=== PATIENT | female | born 1950 | race Two or more races ===

== ENCOUNTER 2018-07-15 07:02 | Emergency (ER) | payer MEDICAID ==
[2018-07-15] MEDS ORDERED: Succinylcholine 200 MG/10 ML MDV ONE (07:08)
[2018-07-15] MEDS ORDERED: Rocuronium 50 MG/5 ML Vial ONE ×2 (07:08→08:16)
[2018-07-15] MEDS ORDERED: Sodium Chloride 0.9% 1,000 ML IV ONE (07:25)
[2018-07-15] MEDS ORDERED: fentaNYL 100 MCG/2 ML SDV ONE ×2 (07:30→08:40)
[2018-07-15] MEDS ORDERED: Chlorhexidine Gluconate 0.12% Oral Rinse 15 ML Cup MUCMEM ONE (07:30)
[2018-07-15] MEDS ORDERED: Sodium Chloride 0.9% 10 ML Syringe FLUSH PRN (07:37)
[2018-07-15] MEDS ORDERED: Etomidate 2 MG/ML 10 ML SDV ONE ×2 (07:45→08:41)
[2018-07-15] MEDS ORDERED: Midazolam 1 MG/ML 2 ML SDV ONE ×2 (07:45→08:41)
[2018-07-15] MEDS ORDERED: Chlorhexidine Gluconate 0.12% Oral Rinse 15 ML Cup ONE ×2 (07:45→08:41)
[2018-07-15] MEDS ORDERED: Sodium Chloride 0.9% 1,000 ML IV SCH (07:45)
[2018-07-15] MEDS ORDERED: cefTRIAXone 1 GM Vial IVPUSH ONE (07:50)
--- NOTE | 2018-07-15 07:50 | EDM.PDOC ---
ED HPI GENERAL MEDICAL PROBLEM - General Chief Complaint: Respiratory Problem Stated Complaint: respiratory failure Time Seen by Provider: 07/15/18 07:02 Source of Information: Reports: EMS, EMS Notes Reviewed, Family History Limitations: Reports: Respiratory Distress - History of Present Illness INITIAL COMMENTS - FREE TEXT/NARRATIVE: Patient is brought into the emergency department by EMS with concerns of respiratory failure. Patient's family who is at the bedside state that when he got up to go to work this morning he noticed his sister was sitting in the chair having a difficult time breathing she was talking to him but unable to complete full sentences. When he went to get dressed and come back pain was that she was not able to respond to questions any longer. He contacted 911. EMS on site provided oxygenation at 15 L nonrebreather, also gave 40 mg of Lasix, and checked a blood sugar. Patient was immediately transported to the emergency department. Patient continues to have respiratory rate in the upper 30s or 40s. Oxygenation was 15 L is 96% heart rate is in the 80s. Patient did have a temperature of 99 by EMS. Pt is legally blind and her brother assist at home. Onset: Sudden Improves with: Reports: None Worsens with: Reports: None ED ROS GENERAL - Review of Systems Review Of Systems: Unable To Obtain ED EXAM, GENERAL - Physical Exam Exam: See Below Exam Limited By: Respiratory Distress General Appearance: Lethargic, Obtunded, Severe Distress Eye Exam: Bilateral Eye: PERRL Ear Exam: Bilateral Ear: Auricle Normal, Canal Normal, TM normal Nose: Normal Inspection, Normal Mucosa Throat/Mouth: Normal Inspection, Normal Lips, Normal Oropharynx, Perioral Cyanosis Head: Atraumatic Neck: Normal Inspection, Supple, Non-Tender, Full Range of Motion Respiratory/Chest: Respiratory Distress, Decreased Breath Sounds, Crackles, Rales, Accessory Muscle Use Cardiovascular: No Edema Peripheral Pulses: 2+: Radial (L), Radial (R) GI/Abdominal: Normal Bowel Sounds, Soft, Non-Tender, No Distention Back Exam: Normal Inspection, Full Range of Motion Extremities: Non-Tender, No Pedal Edema Neurological: Unresponsive Skin Exam: Cool, Diaphoretic, Pallor ED RESPIRATORY PROCEDURES - Endotracheal Intubation ET Intubation Indication: Respiratory Failure, Airway Protection Preparation: Suction, Balloon Tested, BVM Set Up, Difficult Airway Equip Pre-Oxygenation: Assisted with BVM, 100% FiO2 Anesthesia Meds: Etomidate, Fentanyl, Ketamine, Midazolam, Rocuronium, Succinylcholine Placement: Orotracheal Cords Visualized: Yes ETT Size In mm: 8.0 Number of Attempts: 1 Confirmed By: CO2 Indicator, Bilateral Breath Sounds, Chest Xray Tube Secured By: By Provider Course - Orders/Labs/Meds Orders: Active Orders 24 hr Category Date Time Status Cardiac Monitoring [RC] . DIRECTED Care 07/15/18 07:38 Active EKG Documentation Completion [RC] STAT Care 07/15/18 07:38 Active Insert Urinary Catheter [OM.PC] Q24H Care 07/15/18 07:45 Ordered Rapid Sequence Intubation [RT Airway Intubation] [RC] Care 07/15/18 07:38 Active ASDIRECTED Urinary Catheter Assessment [RC] ASDIRECTED Care 07/15/18 07:39 Active Chest 1V Frontal [CR] Stat Exams 07/15/18 07:05 Taken Chest 1V Frontal [CR] Stat Exams 07/15/18 07:30 Taken BLOOD GAS ARTERIAL [BG] Stat Lab 07/15/18 07:38 Ordered CULTURE BLOOD [BC] Stat Lab 07/15/18 07:34 Received CULTURE BLOOD [BC] Stat Lab 07/15/18 07:39 Received UA RFX EDY AND CULT IF INDIC [URIN] Stat Lab 07/15/18 08:15 Received Norepinephrine [Levophed] 4 mg Med 07/15/18 08:00 Active Dextrose 5% in Water 246 ml IV TITRATE Sodium Chloride 0.9% [Normal Saline] 1,000 ml Med 07/15/18 07:45 Active IV ASDIRECTED Sodium Chloride 0.9% [Saline Flush] Med 07/15/18 07:37 Active 10 ml FLUSH ASDIRECTED PRN Blood Culture x2 Reflex Set [OM.PC] Stat Oth 07/15/18 07:38 Ordered NG [Nasogastric Orogastric Tube Insertion] [OM.PC] Oth 07/15/18 08:21 Ordered Routine Peripheral IV Insertion Adult [OM.PC] Stat Oth 07/15/18 07:37 Ordered Medication Orders Sodium Chloride (Normal Saline) 1,000 mls @ 150 mls/hr IV ASDIRECTED GREG Norepinephrine Bitartrate 4 mg (/ Dextrose/Water) 250 mls @ 7.5 mls/hr IV TITRATE GREG; Protocol Sodium Chloride (Saline Flush) 10 ml FLUSH ASDIRECTED PRN PRN Reason: Keep Vein Open Labs: Laboratory Tests 07/15/18 07/15/18 07/15/18 Range/Units 07:24 07:24 07:24 WBC 27.1 H* (4.0-10.0) x10^3/uL RBC 4.19 (4.00-5.50) x10^6/uL Hgb 10.8 L (12.0-16.0) g/dL Hct 38.5 (33.0-47.0) % MCV 91.9 (78.0-93.0) fL MCH 25.8 L (26.0-32.0) pg MCHC 28.1 L (32.0-36.0) g/dL RDW Coeff of Sebastian 16.4 H (10.0-15.0) % Plt Count 425 H (130-400) x10^3/uL Add Manual Diff Yes Neutrophils % (Manual) 91 H (50-80) % Lymphocytes % (Manual) 5 L (25-50) % Monocytes % (Manual) 3 (2-11) % Metamyelocytes % 1 H (0) % Platelet Estimate Adequate Giant Platelets Occasional H Anisocytosis 1+ slight H Macrocytosis 1+ slight H Spherocytes 1+ slight H PT 11.1 (9.6-11.4) SEC INR 1.1 L (2.0-3.5) POC ABG pH (7.35-7.45) POC ABG pCO2 (35-45) mmHG POC ABG pO2 (80-105) mmHG POC ABG HCO3 (22-26) mmol/L POC ABG Total CO2 (23-27) mmol/L POC ABG O2 Sat (95-98) % POC ABG Base Excess (-2-3) mmol/L POC FiO2 Sodium 150 H (136-145) mmol/L Potassium 4.3 (3.5-5.1) mmol/L Chloride 106 (98-107) mmol/L Carbon Dioxide 35 H (21-32) mmol/L Anion Gap 13.3 (10-20) mmol/L BUN 20 H (7-18) mg/dL Creatinine 1.2 H (0.55-1.02) mg/dL Est Cr Clr Drug Dosing TNP Estimated GFR (MDRD) 45 Glucose 175 H (74-106) mg/dL Lactic Acid (0.4-2.0) mmol/L Calcium 8.4 L (8.5-10.1) mg/dL Corrected Calcium 9.12 (8.5-10.1) mg/dL Total Bilirubin 0.3 (0.2-1.0) mg/dL AST 33 (15-37) U/L ALT 18 (14-59) U/L Alkaline Phosphatase 76 (46-116) U/L Creatine Kinase 112 (26-192) U/L Troponin I 0.034 (<=0.056) ng/mL NT-Pro-B Natriuret Pep 6903 H (<=125) pg/mL Total Protein 8.0 (6.4-8.2) g/dL Albumin 3.1 L (3.4-5.0) g/dL Globulin 4.9 Albumin/Globulin Ratio 0.63 POC Result Comm Urine Color (YELLOW) Urine Appearance (CLEAR) Urine pH (5.0-8.0) Ur Specific Vernon Urine Protein (NEGATIVE) mg/dL Urine Glucose (UA) (NEGATIVE) mg/dL Urine Ketones (NEGATIVE) mg/dL Urine Occult Blood (NEGATIVE) Urine Nitrite (NEGATIVE) Urine Bilirubin (NEGATIVE) Urine Urobilinogen (0.2) EU/dL Ur Leukocyte Esterase (NEGATIVE) 07/15/18 07/15/18 07/15/18 Range/Units 07:24 07:50 08:15 WBC (4.0-10.0) x10^3/uL RBC (4.00-5.50) x10^6/uL Hgb (12.0-16.0) g/dL Hct (33.0-47.0) % MCV (78.0-93.0) fL MCH (26.0-32.0) pg MCHC (32.0-36.0) g/dL RDW Coeff of Sebastian (10.0-15.0) % Plt Count (130-400) x10^3/uL Add Manual Diff Neutrophils % (Manual) (50-80) % Lymphocytes % (Manual) (25-50) % Monocytes % (Manual) (2-11) % Metamyelocytes % (0) % Platelet Estimate Giant Platelets Anisocytosis Macrocytosis Spherocytes PT (9.6-11.4) SEC INR (2.0-3.5) POC ABG pH 7.158 L* (7.35-7.45) POC ABG pCO2 111 H* (35-45) mmHG POC ABG pO2 317 H (80-105) mmHG POC ABG HCO3 39 H (22-26) mmol/L POC ABG Total CO2 43 H (23-27) mmol/L POC ABG O2 Sat 100 H (95-98) % POC ABG Base Excess 11 H (-2-3) mmol/L POC FiO2 0.52 Sodium (136-145) mmol/L Potassium (3.5-5.1) mmol/L Chloride (98-107) mmol/L Carbon Dioxide (21-32) mmol/L Anion Gap (10-20) mmol/L BUN (7-18) mg/dL Creatinine (0.55-1.02) mg/dL Est Cr Clr Drug Dosing Estimated GFR (MDRD) Glucose (74-106) mg/dL Lactic Acid 3.0 H* (0.4-2.0) mmol/L Calcium (8.5-10.1) mg/dL Corrected Calcium (8.5-10.1) mg/dL Total Bilirubin (0.2-1.0) mg/dL AST (15-37) U/L ALT (14-59) U/L Alkaline Phosphatase (46-116) U/L Creatine Kinase (26-192) U/L Troponin I (<=0.056) ng/mL NT-Pro-B Natriuret Pep (<=125) pg/mL Total Protein (6.4-8.2) g/dL Albumin (3.4-5.0) g/dL Globulin Albumin/Globulin Ratio POC Result Comm Urine Color Light yellow (YELLOW) Urine Appearance Slightly cloudy H (CLEAR) Urine pH 6.0 (5.0-8.0) Ur Specific Vernon 1.010 Urine Protein Trace H (NEGATIVE) mg/dL Urine Glucose (UA) Negative (NEGATIVE) mg/dL Urine Ketones Negative (NEGATIVE) mg/dL Urine Occult Blood Small H (NEGATIVE) Urine Nitrite Negative (NEGATIVE) Urine Bilirubin Negative (NEGATIVE) Urine Urobilinogen 0.2 (0.2) EU/dL Ur Leukocyte Esterase Negative (NEGATIVE) Meds: Medications Generic Name Dose Route Start Last Admin Trade Name Freq PRN Reason Stop Dose Admin Sodium Chloride 1,000 mls @ 150 mls/hr 07/15/18 07:45 Normal Saline IV ASDIRECTED GREG Norepinephrine Bitartrate 4 mg 250 mls @ 7.5 mls/hr 07/15/18 08:00 / Dextrose/Water IV TITRATE GREG Protocol 2 MCG/MIN Sodium Chloride 10 ml 07/15/18 07:37 Saline Flush FLUSH ASDIRECTED PRN Keep Vein Open Discontinued Medications Generic Name Dose Route Start Last Admin Trade Name Lan PRN Reason Stop Dose Admin Ceftriaxone Sodium 1 gm 07/15/18 07:50 Rocephin IVPUSH 07/15/18 07:51 ONETIME ONE Rocuronium Finley Confirm 07/15/18 07:08 Zemuron Administered 07/15/18 07:09 Dose 50 mg .ROUTE .STK-MED ONE Rocuronium Finley Confirm 07/15/18 08:16 Zemuron Administered 07/15/18 08:17 Dose 50 mg .ROUTE .STK-MED ONE Succinylcholine Chloride Confirm 07/15/18 07:08 Quelicin Administered 07/15/18 07:09 Dose 200 mg .ROUTE .STK-MED ONE Departure - Departure Time of Disposition: 08:15 Disposition: DC/Tfer to Acute Hospital 02 Condition: Critical Clinical Impression: Respiratory failure Qualifiers: Chronicity: acute Respiratory failure complication: hypoxia and hypercapnia Qualified Code(s): J96.01 - Acute respiratory failure with hypoxia Pneumonia Qualifiers: Pneumonia type: due to unspecified organism Laterality: right Lung location: lower lobe of lung Qualified Code(s): J18.1 - Lobar pneumonia, unspecified organism - Discharge Information *PRESCRIPTION DRUG MONITORING PROGRAM REVIEWED*: Not Applicable *COPY OF PRESCRIPTION DRUG MONITORING REPORT IN PATIENT MINH: Not Applicable Referrals: Tony Huff MD [Primary Care Provider] - Forms: ED Department Discharge, Interfacility Transfer EMTALA - Problem List Review Problem List Initiated/Reviewed/Updated: Yes - My Orders Last 24 Hours: My Active Orders 07/15/18 07:05 Chest 1V Frontal [CR] Stat 07/15/18 07:30 Chest 1V Frontal [CR] Stat 07/15/18 07:34 CULTURE BLOOD [BC] Stat 07/15/18 07:37 Sodium Chloride 0.9% [Saline Flush] 10 ml FLUSH ASDIRECTED PRN Peripheral IV Insertion Adult [OM.PC] Stat 07/15/18 07:38 Cardiac Monitoring [RC] . DIRECTED EKG Documentation Completion [RC] STAT Rapid Sequence Intubation [RT Airway Intubation] [RC] ASDIRECTED BLOOD GAS ARTERIAL [BG] Stat Blood Culture x2 Reflex Set [OM.PC] Stat 07/15/18 07:39 Urinary Catheter Assessment [RC] ASDIRECTED CULTURE BLOOD [BC] Stat 07/15/18 07:45 Insert Urinary Catheter [OM.PC] Q24H Sodium Chloride 0.9% [Normal Saline] 1,000 ml IV ASDIRECTED 07/15/18 08:00 Norepinephrine [Levophed] 4 mg Dextrose 5% in Water 246 ml IV TITRATE 07/15/18 08:15 UA RFX EDY AND CULT IF INDIC [URIN] Stat 07/15/18 08:21 NG [Nasogastric Orogastric Tube Insertion] [OM.PC] Routine - Assessment/Plan Last 24 Hours: My Active Orders 07/15/18 07:05 Chest 1V Frontal [CR] Stat 07/15/18 07:30 Chest 1V Frontal [CR] Stat 07/15/18 07:34 CULTURE BLOOD [BC] Stat 07/15/18 07:37 Sodium Chloride 0.9% [Saline Flush] 10 ml FLUSH ASDIRECTED PRN Peripheral IV Insertion Adult [OM.PC] Stat 07/15/18 07:38 Cardiac Monitoring [RC] . DIRECTED EKG Documentation Completion [RC] STAT Rapid Sequence Intubation [RT Airway Intubation] [RC] ASDIRECTED BLOOD GAS ARTERIAL [BG] Stat Blood Culture x2 Reflex Set [OM.PC] Stat 07/15/18 07:39 Urinary Catheter Assessment [RC] ASDIRECTED CULTURE BLOOD [BC] Stat 07/15/18 07:45 Insert Urinary Catheter [OM.PC] Q24H Sodium Chloride 0.9% [Normal Saline] 1,000 ml IV ASDIRECTED 07/15/18 08:00 Norepinephrine [Levophed] 4 mg Dextrose 5% in Water 246 ml IV TITRATE 07/15/18 08:15 UA RFX EDY AND CULT IF INDIC [URIN] Stat 07/15/18 08:21 NG [Nasogastric Orogastric Tube Insertion] [OM.PC] Routine Assessment:: 1. Respiratory distress 2. Respiratory failures 3. Pneumonia Plan: 1. Labs completed in ER. 2. ABG completed in ER 3. Intubation completed due to patients inability to maintain airway on own. RSI utilized with no complication. 4. Normal saline bolus given 5. Blood pressure continued to decline despite saline bolus Levophed started to help maintain BP and map of 65. 6. 1 gm Rocephin given IV in 7. Critical WBC and ABG results given. Vent settings adjusted-rate 12, TV400, O2 80, peep 15. 8. Ambulance have online orders to keep pt sedated with versed and rocuronium 9. Consult completed with Dr. Sunday Garcia ICU who has accepted the transfer. Pt will be transported via ALS for further medical management 10. Family updated and all questions and concerns addressed. Brother-next of kin will drive to [facility]. 11. Lab results were still pending when pt discharged. Verbal results called and also faxed to the [facility].
[2018-07-15] MEDS ORDERED: Norepinephrine 4 MG in Dextrose 5% in Water 246 ML IV SCH ×2 (08:00)
[2018-07-15 08:21] LABS: CHLORIDE,CL 106 mmol/L (98-107); SODIUM,NA 150 mmol/L (136-145)
[2018-07-15 08:25] LABS: ANION GAP 13.3 mmol/L (10-20)
[2018-07-15] MEDS ORDERED: Norepinephrine 4 MG/4 ML SDV ONE (08:41)
[2018-07-15] MEDS ORDERED: Succinylcholine 200 MG/10 ML MDV IV ONE (09:30)
[2018-07-15] MEDS ORDERED: fentaNYL 100 MCG/2 ML SDV IVPUSH ONE (09:41)
[2018-07-15] MEDS ORDERED: Midazolam 1 MG/ML 2 ML SDV IVPUSH ONE (09:42)
[2018-07-15] MEDS ORDERED: Rocuronium 50 MG/5 ML Vial IVPUSH ONE (09:45)
[2018-07-15] MEDS ORDERED: Etomidate 2 MG/ML 10 ML SDV IVPUSH ONE (09:46)
--- NOTE | 2018-07-15 10:36 | CR ---
[id number] RAD/RAD Chest PA or AP 1V EXAM: RAD Chest PA or AP 1V INDICATION: POST INTUBATION. COMPARISON: July 15, 2018. DISCUSSION: Endotracheal tube has been placed, tip is 20 mm above the dejah. Right lung base parenchymal opacity. Small left pleural effusion. No pneumothorax. IMPRESSION: Placement of endotracheal tube, described above. Pedro Dooley MD 07/15/18 1035 Thank you for allowing us to participate in the care of your patient.
--- NOTE | 2018-07-15 10:37 | CR ---
[id number] RAD/RAD Chest PA or AP 1V EXAM: RAD Chest PA or AP 1V INDICATION: RESPIRATORY DISTRESS. COMPARISON: None. DISCUSSION: Small left pleural effusion. Possible right lung base parenchymal opacity. However, however, motion artifact limits evaluation. IMPRESSION: As above. Pedro Dooley MD 07/15/18 1036 Thank you for allowing us to participate in the care of your patient.
== END 2018-07-15 08:15 | disposition short-term general hospital (02) ==
LOC: VM.ED 07:02
DX: J96.01 Acute respiratory failure with hypoxia (principal); J18.1 Lobar pneumonia, unspecified organism; I10 Essential (primary) hypertension
CPT/HCPCS: 31500; 36415; 36600; 51702; 71045; 80053; 81001; 82271; 82550; 82803; 83605; 83880; 84484; 85025; 85610; 87040; 96361; 96374; 96375; 99291-25; A9270-GY; J0330; J0696; J2250; J3010; J3490; J7030; J7060

== ENCOUNTER 2018-07-26 11:19 | Inpatient (IN) | payer MEDICAID ==
[2018-07-26] MEDS ORDERED: Albuterol/Ipratropium 3.0-0.5 MG/3 ML Neb Soln ONE (13:24)
[2018-07-26] MEDS ORDERED: Ondansetron 4 MG Tab.DIS PO PRN (14:10)
[2018-07-26] MEDS ORDERED: Acetaminophen 325 MG Tab PO PRN (14:10)
[2018-07-26] MEDS ORDERED: Acetaminophen/HYDROcodone 325-5 MG Tab PO PRN (14:10)
[2018-07-26] MEDS ORDERED: Take Home: Albuterol 6.7 GM Inhaler, 1 Inhaler Pack INH PRN (14:14)
[2018-07-26] MEDS ORDERED: HYDROCODONE PO PRN (14:46)
[2018-07-26] MEDS ORDERED: ACETAMINOPHEN PO PRN (14:46)
[2018-07-26] MEDS ORDERED: ONDANSETRON 4 MG PO PRN (14:48)
[2018-07-26] MEDS ORDERED: Non-Formulary Medication 1 Each (Fluticasone/Salmeterol [Advair 250-50] 1 PUFF) INH SCH (20:00)
[2018-07-26] MEDS ORDERED: QUEtiapine 100 MG Tab PO SCH (20:00)
[2018-07-26] MEDS ORDERED: Simvastatin 20 MG Tab PO SCH (20:00)
[2018-07-26] MEDS: Albuterol/Ipratropium 3.0-0.5 MG/3 ML Neb Soln NEB PRN (20:14)
[2018-07-26] MEDS: Melatonin 3 MG Tab PO SCH (20:19)
[2018-07-26] MEDS: SIMVASTATIN 20 MG PO SCH (20:20)
[2018-07-26] MEDS: QUETIAPINE 100 MG PO SCH (20:20)
[2018-07-26] MEDS: ADVAIR PO SCH (20:21)
[2018-07-27] MEDS: Albuterol/Ipratropium 3.0-0.5 MG/3 ML Neb Soln NEB PRN ×5 (00:25→22:43)
[2018-07-27 07:00] LABS: PH,VENOUS 7.31 (7.31-7.41)
[2018-07-27 07:01] LABS: BASE EXCESS VENOUS 15 mmol/L ((-2)-3); BICARBONATE,VENOUS 41 mmol/L (23-28); O2 SATURATION VENOUS 99 %; PO2 VENOUS 181 mmHG
[2018-07-27 07:02] LABS: O2 FLOW RATE 2 L/min
[2018-07-27 07:21] LABS: CHLORIDE,CL 106 mmol/L (98-107); SODIUM,NA 147 mmol/L (136-145)
[2018-07-27 07:22] LABS: ANION GAP 5.1 mmol/L (10-20)
[2018-07-27 07:24] LABS: PCO2 VENOUS 81 mmHG (41-51)
[2018-07-27] MEDS: AMLODIPINE 10 MG PO SCH (07:55)
[2018-07-27] MEDS: Calcium Carbonate/Vitamin D3 1250 MG-200 Unit Tab PO SCH (07:55)
[2018-07-27] MEDS: ADVAIR PO SCH ×2 (07:55→19:28)
[2018-07-27] MEDS ORDERED: Potassium Chloride 10 MEQ Tab.ER PO SCH (08:00)
[2018-07-27] MEDS ORDERED: amLODIPine 10 MG Tab PO SCH (08:00)
--- NOTE | 2018-07-27 13:21 | PCM.HP ---
H&P History of Present Illness - General Date of Service: 07/26/18 Admit Problem/Dx: Admission Diagnosis/Problem Admission Diagnosis/Problem Weakness Chr Resp Failure Source of Information: Old Records History Limitations: Reports: Language Barrier - History of Present Illness Initial Comments - Free Text/Narative: History of present illness: This is a swing bed admission half after being transferred to ICU for acute on chronic respiratory failure. 12 days ago she presented to the ER in acute respiratory failure. PCO2 of 110, hypoxic requiring 15 L. She is intubated. No curt infiltrate by chest x-ray, probably exacerbation of COPD which appears asthmatic in nature and don't see any smoking history. We don't have any PFTs on chart. She's and wait a couple days in the next beta. She's been on some intermittent BiPAP since. She continues to retain CO2, without BiPAP she's running around 80. She has no complaints generally feels back at baseline currently. Her BNP was elevated on arrival, should have some cardiomegaly and a mild left pleural effusion may be mild pulmonary edema. I can't see that she is given any diuresis. 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 Medications: Albuterol when necessary, DuoNeb when necessary, Advair, amlodipine , potassium, calcium with vitamin D, Seroquel. Allergies: No known drug allergies. 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 Review of systems: No fever no chest pain no vomiting Vital signs temperature 36.4 blood pressure 112/53 pulse 83 oxygen saturation 94 % on 1.5 L. Alert no distress sitting in chair no tachypnea or dyspnea. Heart regular rate and rhythm: Lungs reveal some mild wheezes with decreased air movement bilaterally, abdomen soft nontender, chimneys warm well perfused. Laboratory shows a chronic respiratory acidosis PCO2 of 80, hemoglobin 8.7 macrocytic, sodium 147 bicarb 40, creatinine 0.8, albumin 2.5, CRP he 40 mg/L, ferritin 82, binding capacity and iron is 250 with a low saturation. Assessment and plan: 1) Acute on chronic respiratory failure in a nonsmoker, no gross infiltrate by x -ray. Completed antibiotic and steroid. Appears to be close to baseline now. Consult respiratory therapy, wean O2 to keep sats between 88-92, I would suspect she'll need long-term home oxygen, I would suspect she'll also need long -term BiPAP given her degree of CO2 retention. Attempt to obtain PFTs in the hospital, I would suspect FEV1 is 30% or less. For maintenance severe asthmatic-type COPD w/o smoking hx I would recommend Singulair plus laba/ICS plus LAMA w/ PRN neb/alb - pharmacy is working on getting these as she didn't bring her home meds. She has been referred to business and services instructor by [place], with peripheral eosinophilia could consider Biologics, could consider theophylline, could consider long-term oral steroids. Recommend consulting internal med here in interim. Family has opted time. Continue to monitor. With her hypoalbuminemia, anemia, significant CO2 retention, age and weight loss of approximately 25 kg over past 3-4 years medium term prognosis will otherwise be considered relatively poor. Consult PT/Social work. Would suggest palliative care consult. IF continues to have acute CO2 retention spells consider hospice consult. She probably does have some degree of CHF by BNP and chest x-ray, had a type II non-STEMI which probably was secondary to the respiratory failure she had, they have referred her to cardiology as well. Monitor blood pressure and fluid status for now. Consider echo. Slightly hypernatremic otherwise doesn't appear grossly volume depleted, ad john. by mouth intake for now, recheck chemistry next couple of days. She has a macrocytic anemia NOS, iron studies and CRP look like more of anemia of chronic disease pattern, other tests are pending. Can start multivitamin with iron in the interim. Try to encourage oral intake and protein given low albumin. - Related Data Allergies/Adverse Reactions: Allergies Allergy/AdvReac Type Severity Reaction Status Date / Time No Known Allergies Allergy Verified 07/15/18 09:47 Home Medications: Home Meds Albuterol Sulfate [Albuterol Sulfate Hfa] 2 puff IH Q4HR PRN 07/26/18 [History] Calcium Carbonate/Vitamin D3 [Calcium 500 + Vit D 200 Caplet] 1 tab PO WITHBREAKFAST 07/26/18 [History] Fluticasone/Salmeterol [Advair 250-50] 1 puff INH BID 07/26/18 [History] Melatonin 3 mg PO BEDTIME 07/26/18 [History] Potassium Chloride [K-Tab ER] 10 meq PO DAILY 07/26/18 [History] QUEtiapine [SEROquel] 100 mg PO BEDTIME 07/26/18 [History] Simvastatin [Zocor] 20 mg PO BEDTIME 07/26/18 [History] amLODIPine Besylate [Amlodipine Besylate] 10 mg PO DAILY 07/26/18 [History] Past Medical History HEENT History: Reports: Impaired Vision, Sinusitis Other HEENT History: Bilaeraly blind Cardiovascular History: Reports: CAD, Hypertension Respiratory History: Reports: Asthma, COPD, Pneumonia, Recurrent Other Respiratory History: hx of respiratory failure Psychiatric History: Reports: None Other Endocrine/Metabolic History: hyoerlipidemia, impaired fasting glucose Dermatologic History: Reports: Psoriasis - Infectious Disease History Other Infectious Disease History: septic shock Social & Family History - Tobacco Use Smoking Status *Q: Never Smoker H&P Review of Systems - Review of Systems: Review Of Systems: See Below Exam - Exam Exam: See Below - Vital Signs Vital Signs: Last Vital Signs Temp 36.4 C 07/27/18 06:00 Pulse 83 07/27/18 06:00 Resp 20 07/27/18 06:00 BP 112/53 L 07/27/18 06:00 Pulse Ox 94 L 07/27/18 08:00 Weight: 52.73 kg - Patient Data Lab Results Last 24 hrs: Laboratory Results - last 24 hr 07/27/18 07/27/18 07/27/18 Range/Units 06:46 06:46 06:46 WBC 10.3 H (4.0-10.0) x10^3/uL RBC 3.46 L (4.00-5.50) x10^6/uL Hgb 8.7 L D (12.0-16.0) g/dL Hct 32.3 L (33.0-47.0) % MCV 93.4 H (78.0-93.0) fL MCH 25.1 L (26.0-32.0) pg MCHC 26.9 L (32.0-36.0) g/dL RDW Coeff of Sebastian 16.7 H (10.0-15.0) % Plt Count 244 D (130-400) x10^3/uL Neut % (Auto) 69.2 (50.0-80.0) % Lymph % (Auto) 18.8 L (25.0-50.0) % [place]atte % (Auto) 6.9 (2.0-11.0) % Eos % (Auto) 4.7 H (0.0-4.0) % Baso % (Auto) 0.4 (0.2-1.2) % POC ABG pH POC ABG pCO2 POC ABG pO2 POC ABG HCO3 POC ABG Total CO2 POC ABG O2 Sat POC ABG Base Excess VBG pH 7.31 (7.31-7.41) POC VBG pH VBG pCO2 81 H* (41-51) mmHG POC VBG pCO2 VBG pO2 181 mmHG POC VBG pO2 VBG HCO3 41 H (23-28) mmol/L POC VBG HCO3 VBG Total CO2 43 H (24-29) mmol/L POC VBG Total CO2 VBG O2 Saturation 99 % VBG Base Excess 15 H ((-2)-3) mmol/L POC VBG Base Excess O2 Delivery Device Oxygen Flow Rate 2 L/min POC O2 Flow Rate FiO2 0.28 POC FiO2 Sodium 147 H (136-145) mmol/L Potassium 4.1 (3.5-5.1) mmol/L Chloride 106 (98-107) mmol/L Carbon Dioxide 40 H (21-32) mmol/L Anion Gap 5.1 L (10-20) mmol/L BUN 10 (7-18) mg/dL Creatinine 0.6 (0.55-1.02) mg/dL Est Cr Clr Drug Dosing 70.98 mL/min Estimated GFR (MDRD) > 60 Glucose 135 H (74-106) mg/dL Calcium 8.8 (8.5-10.1) mg/dL Corrected Calcium 10.00 (8.5-10.1) mg/dL Magnesium 1.9 (1.8-2.4) mg/dL Iron (50-170) ug/dL TIBC (250-450) ug/dL % Saturation (20.0-50.0) % Ferritin (8-252) ng/mL Total Bilirubin 0.2 (0.2-1.0) mg/dL AST 14 L (15-37) U/L ALT 22 (14-59) U/L Alkaline Phosphatase 59 (46-116) U/L Lactate Dehydrogenase (81-234) U/L C-Reactive Protein (<=0.9) mg/dL Total Protein 6.1 L (6.4-8.2) g/dL Albumin 2.5 L (3.4-5.0) g/dL Globulin 3.6 Albumin/Globulin Ratio 0.69 TSH, Ultra Sensitive (0.358-3.74) uIU/mL 07/27/18 07/27/18 07/27/18 Range/Units 06:46 06:57 10:04 WBC (4.0-10.0) x10^3/uL RBC (4.00-5.50) x10^6/uL Hgb (12.0-16.0) g/dL Hct (33.0-47.0) % MCV (78.0-93.0) fL MCH (26.0-32.0) pg MCHC (32.0-36.0) g/dL RDW Coeff of Sebastian (10.0-15.0) % Plt Count (130-400) x10^3/uL Neut % (Auto) (50.0-80.0) % Lymph % (Auto) (25.0-50.0) % [place]atte % (Auto) (2.0-11.0) % Eos % (Auto) (0.0-4.0) % Baso % (Auto) (0.2-1.2) % POC ABG pH Cancelled POC ABG pCO2 Cancelled POC ABG pO2 Cancelled POC ABG HCO3 Cancelled POC ABG Total CO2 Cancelled POC ABG O2 Sat Cancelled POC ABG Base Excess Cancelled VBG pH (7.31-7.41) POC VBG pH Cancelled VBG pCO2 (41-51) mmHG POC VBG pCO2 Cancelled VBG pO2 mmHG POC VBG pO2 Cancelled VBG HCO3 (23-28) mmol/L POC VBG HCO3 Cancelled VBG Total CO2 (24-29) mmol/L POC VBG Total CO2 Cancelled VBG O2 Saturation % VBG Base Excess ((-2)-3) mmol/L POC VBG Base Excess Cancelled O2 Delivery Device Cancelled Oxygen Flow Rate L/min POC O2 Flow Rate Cancelled FiO2 POC FiO2 Cancelled Sodium (136-145) mmol/L Potassium (3.5-5.1) mmol/L Chloride (98-107) mmol/L Carbon Dioxide (21-32) mmol/L Anion Gap (10-20) mmol/L BUN (7-18) mg/dL Creatinine (0.55-1.02) mg/dL Est Cr Clr Drug Dosing mL/min Estimated GFR (MDRD) Glucose (74-106) mg/dL Calcium (8.5-10.1) mg/dL Corrected Calcium (8.5-10.1) mg/dL Magnesium (1.8-2.4) mg/dL Iron 16 L (50-170) ug/dL TIBC 254 (250-450) ug/dL % Saturation 6.3 L (20.0-50.0) % Ferritin 82 (8-252) ng/mL Total Bilirubin (0.2-1.0) mg/dL AST (15-37) U/L ALT (14-59) U/L Alkaline Phosphatase (46-116) U/L Lactate Dehydrogenase 199 (81-234) U/L C-Reactive Protein 4.1 H (<=0.9) mg/dL Total Protein (6.4-8.2) g/dL Albumin (3.4-5.0) g/dL Globulin Albumin/Globulin Ratio TSH, Ultra Sensitive 2.379 (0.358-3.74) uIU/mL Result Diagrams: 07/27/18 06:46 07/27/18 06:46 Pito Results Last 24 hrs: Microbiology 07/26/18 12:44 MRSA Surveillance Culture - Final Nares, Unspecified (Mrsa) Staphylococcus Aureus Problem List Initiated/Reviewed/Updated: Yes Orders Last 24hrs: Active Orders 24 hr Category Date Time Status Patient Status [ADT] Routine ADT 07/26/18 14:10 Active Ambulate [RC] PER UNIT ROUTINE Care 07/26/18 14:11 Active Height and Weight [RC] .PRN Care 07/27/18 09:09 Active Hemoccult [Fecal Occult Bld Scn Imm] [RC] ASDIRECTED Care 07/27/18 08:41 Active Oxygen Therapy [RC] 08,20 Care 07/26/18 14:10 Active RT Aerosol Therapy [RC] .PRN Care 07/26/18 14:59 Active RT PFT Spirometry [RC] Click to Edit Care 07/26/18 16:28 Active VTE/DVT Education [RC] .PRN Care 07/26/18 14:10 Active Consult to Case Management/Technical Program Manager [CONS] Cons 07/26/18 14:10 Active Routine Consult to Respiratory Therapy [Respiratory Care Assess Cons 07/26/18 12:35 Active and Treatment] [CONS] Routine OT Evaluation and Treatment [CONS] Routine Cons 07/26/18 12:33 Active PT Evaluation and Treatment [CONS] Routine Cons 07/26/18 12:33 Active Regular Diet [DIET] Diet 07/26/18 Dinner Active FOLATE [REF] Routine Lab 07/27/18 10:04 Received HAPTOGLOBIN [REF] Routine Lab 07/27/18 10:04 Received VITAMIN B12 [REF] Routine Lab 07/27/18 10:04 Received Acetaminophen [Tylenol] Med 07/26/18 14:10 Active 650 mg PO Q4H PRN Advair 250/50 Med 07/26/18 20:00 Active 1 puff PO BID Albuterol.Inhaler Med 07/26/18 14:49 Active 2 puff PO Q4H PRN Albuterol/Ipratropium [DuoNeb 3.0-0.5 MG/3 ML] Med 07/26/18 14:59 Active 3 ml NEB Q4HRRT PRN Amlodipine. Med 07/27/18 08:00 Active 1 each PO DAILY Calcium Carbonate/Vitamin D3 [Calcium Carbonate/Vitamin Med 07/27/18 08:00 Active D 1250 MG-200 Unit] 1 tab PO WITHBREAKFAST Incruse Ellipta (Own Supply) Med 07/27/18 15:00 Active 1 puff PO DAILY Melatonin Med 07/26/18 20:00 Active 3 mg PO BEDTIME Multivitamins w-Iron/Ca/FA/Min [Thera M Plus] Med 07/28/18 08:00 Ordered 1 tab PO DAILY Potassium. 10meq (Own Supply) Med 07/27/18 08:00 Active 1 each PO DAILY Quetiapine 100mg (Own Supply) Med 07/26/18 20:00 Active 1 each PO BEDTIME Simvastatin. 20mg Med 07/26/18 20:00 Active 1 each PO BEDTIME Singulair. Med 07/27/18 15:00 Active 0 mg PO DAILY Code Status [Resuscitation Status] Routine Resus Stat 07/26/18 12:18 Ordered Medication Orders Acetaminophen (Tylenol) 650 mg PO Q4H PRN PRN Reason: Pain (Mild 1-3)/fever Albuterol/Ipratropium (Duoneb 3.0-0.5 Mg/3 Ml) 3 ml NEB Q4HRRT PRN PRN Reason: Shortness of Breath Last Admin: 07/27/18 10:46 Dose: 3 ml Admin: 07/27/18 06:25 Dose: 3 ml Admin: 07/27/18 00:25 Dose: 3 ml Admin: 07/26/18 20:14 Dose: 3 ml Calcium Carbonate (Calcium Carbonate/Vitamin D 1250 Mg-200 Unit) 1 tab PO WITHBREAKFAST [facility] Last Admin: 07/27/18 07:55 Dose: 1 tab Melatonin (Melatonin) 3 mg PO BEDTIME GREG Last Admin: 07/26/18 20:19 Dose: 3 mg Multivitamins/Minerals (Thera M Plus) 1 tab PO DAILY GREG Advair 250/50 (Own (Supply)) 1 puff PO BID [facility] Last Admin: 07/27/18 07:55 Dose: Admin: 07/26/18 20:21 Dose: Not Given Albuterol.Inhaler ( (Own Supply)) 2 puff PO Q4H PRN PRN Reason: Wheezing Amlodipine. 10mg ( (Own Supply)) 1 each PO DAILY [facility] Last Admin: 07/27/18 07:55 Dose: 1 each Potassium. 10meq ( (Own Supply)) 1 each PO DAILY GREG Stop: 07/29/18 08:01 Quetiapine 100mg ( (Own Supply)) 1 each PO BEDTIME GREG Last Admin: 07/26/18 20:20 Dose: 1 each Simvastatin. 20mg ( (Own Supply)) 1 each PO BEDTIME GREG Last Admin: 07/26/18 20:20 Dose: 1 each Incruse Ellipta (Own (Supply)) 1 puff PO DAILY [facility] Monteleukast ( Singulair). Own Supply 0 mg PO DAILY [facility]
[2018-07-27] MEDS: INCRUSE ELLIPTA PO SCH (14:29)
[2018-07-27] MEDS: POTASSIUM 10 MEQ PO SCH (14:30)
[2018-07-27] MEDS: MONTELUKAST PO SCH (14:30)
[2018-07-27] MEDS ORDERED: Budesonide 0.5 MG/2 ML Neb Susp INH SCH (15:00)
[2018-07-27] MEDS: Melatonin 3 MG Tab PO SCH (19:25)
[2018-07-27] MEDS: SIMVASTATIN 20 MG PO SCH (19:25)
[2018-07-27] MEDS: QUETIAPINE 100 MG PO SCH (19:27)
[2018-07-28] MEDS: ADVAIR PO SCH ×2 (08:18→20:15)
[2018-07-28] MEDS: AMLODIPINE 10 MG PO SCH (08:19)
[2018-07-28] MEDS: Calcium Carbonate/Vitamin D3 1250 MG-200 Unit Tab PO SCH (08:20)
[2018-07-28] MEDS: INCRUSE ELLIPTA PO SCH (08:21)
[2018-07-28] MEDS: POTASSIUM 10 MEQ PO SCH (08:22)
[2018-07-28] MEDS: Multivitamins with Iron/Calcium/Folic Acid/Minerals Tab PO SCH (08:23)
[2018-07-28] MEDS: MONTELUKAST PO SCH (08:23)
[2018-07-28] MEDS: Melatonin 3 MG Tab PO SCH (20:15)
[2018-07-28] MEDS: SIMVASTATIN 20 MG PO SCH (20:17)
[2018-07-28] MEDS: QUETIAPINE 100 MG PO SCH (20:17)
[2018-07-28] MEDS: Albuterol/Ipratropium 3.0-0.5 MG/3 ML Neb Soln NEB PRN (20:23)
[2018-07-29] MEDS: Multivitamins with Iron/Calcium/Folic Acid/Minerals Tab PO SCH (10:21)
[2018-07-29] MEDS: Calcium Carbonate/Vitamin D3 1250 MG-200 Unit Tab PO SCH (10:21)
[2018-07-29] MEDS: AMLODIPINE 10 MG PO SCH (10:22)
[2018-07-29] MEDS: ADVAIR PO SCH ×2 (10:22→20:03)
[2018-07-29] MEDS: INCRUSE ELLIPTA PO SCH (10:23)
[2018-07-29] MEDS: MONTELUKAST PO SCH (10:23)
[2018-07-29] MEDS: POTASSIUM 10 MEQ PO SCH (10:25)
[2018-07-29] MEDS: QUETIAPINE 100 MG PO SCH (20:02)
[2018-07-29] MEDS: Melatonin 3 MG Tab PO SCH (20:02)
[2018-07-29] MEDS: SIMVASTATIN 20 MG PO SCH (20:02)
[2018-07-29] MEDS: Albuterol/Ipratropium 3.0-0.5 MG/3 ML Neb Soln NEB PRN (20:03)
[2018-07-30] MEDS: AMLODIPINE 10 MG PO SCH (08:29)
[2018-07-30] MEDS: Calcium Carbonate/Vitamin D3 1250 MG-200 Unit Tab PO SCH (08:29)
[2018-07-30] MEDS: Multivitamins with Iron/Calcium/Folic Acid/Minerals Tab PO SCH (08:29)
[2018-07-30] MEDS: ADVAIR PO SCH ×2 (08:29→20:16)
[2018-07-30] MEDS: INCRUSE ELLIPTA PO SCH (08:30)
[2018-07-30] MEDS: MONTELUKAST PO SCH (08:30)
--- NOTE | 2018-07-30 11:27 | CONS ---
REASON FOR CONSULT: Due to respiratory failure and asthma. HISTORY OF PRESENT ILLNESS: This is a 68-year-old female who grew up in [place], but has been living in the [place] now over 20 years, who has never smoked, but had asthma as a child who was admitted from 07/15/2018 through 07/26/2018 for [id number] hypoxic and hypercapnic respiratory failure at [facility] due to a COPD and asthma exacerbation along with pneumonia. She was listed for septic shock and a non-ST elevation [place] and respiratory acidosis from CO2 retention. Her stay was also complicated by delirium. The patient actually was intubated for several days and then extubated due to BiPAP on the with some difficulty weaning her from the vent and the BiPAP due to her language barrier. She is also legally blind and her delirium. Since coming to [place], she did have 1 episode of respiratory failure down to 60%. However, she is now doing well and when I talked to the nurses on the , she was only on 2 L and there were no concerns. Therefore, this consult was not felt to be urgent. The patient denies any pain. The patient tells me she has just a minimal cough. We did use the language feng to have the conversation with her. However, she was answering some of the questions herself. She was receiving just like 1 neb overnight here. She had filled her Ventolin inhaler for a year. She would fill her Advair maybe 2-1/2 months prior to admission, but it does not seem like she was completely compliant. She otherwise was newly started on Incruse. The patient vehemently denies smoking. She states her family never smoked. She was unable to tell me any specific pesticides or things she may have been exposed to, but sort of related that it was possible. ALLERGIES: Include none. MEDICATIONS: Her current medication list includes the Tylenol p.r.n., Advair 250/50 one puff b.i.d., albuterol inhaler p.r.n., DuoNeb q.4 hours p.r.n., amlodipine 10 mg daily, calcium and vitamin D, Incruse, melatonin at bedtime multivitamin with iron, Seroquel 100 at bedtime, Zocor 20 mg at bedtime, and Singulair 10 mg daily. PAST MEDICAL HISTORY: Includes the asthma and apparently she has had this a long time, even in her records back in 2012, it was documented in the clinic, coronary artery disease, she had an angiogram in 2011, which showed mild diffuse disease, hyperlipidemia, essential hypertension, multiple medication adjustments were made when she was at [place], impaired fasting glucose, psoriasis, chronic sinusitis. She has had a previous surgery in 2011. She did bring this up today. She was not sure if it was infectious. Otherwise, those are her only surgeries listed. FAMILY HISTORY: She has a brother who is living, unknown if he has any health problems. Mother had Lung Cancer SOCIAL HISTORY: She is listed as single. She has lived in [place], [place] before moving to [place] in 2011. Otherwise, she denies any alcohol or smoking. REVIEW OF SYSTEMS: General: She has had some significant weight changes over the past several years. In 2016, she weighed 149 pounds. In 2019, she is down to 99 pounds. Otherwise, she has no fever, no chills. HEENT: She denies any significant sore throat or sinus problems currently. Cardiac: No chest pain. No palpitations. Respiratory: As stated in HPI. GI: She has no nausea, vomiting, abdominal pain, or diarrhea. She has never had any colonoscopy. Musculoskeletal: She denies any aches or pains. No swollen joints. Psychiatric: She does not feel overly depressed or anxious. Neurologic: She appears to be mentating appropriately. Alert and orientated x3. PHYSICAL EXAMINATION: Vital Signs: Temperature 97.5, pulse 86, blood pressure 132/71, respiratory rate is 16, O2 of 98% on 1 L. General: She is in no acute distress. Heart: Regular rate and rhythm with no murmur appreciated. Lungs: Lung sounds are slightly decreased, but clear to auscultation throughout without crackles or wheezes. Abdomen: Nondistended, nontender. Extremities: Warm and dry. No edema. Mental Status: She is alert and orientated x3. LABORATORY DATA: Lab work was done on arrival here to [place]. White count is 10.3, hemoglobin 8.7, platelets 244. When reviewing lab work, she had not received medical care for quite some time prior to her presentation on the when her hemoglobin was 10.3, and previously checked about 2 years ago, it was 15.1. Also, ABG shows CO2 still up to 81. Otherwise, sodium 147, potassium 4.1, chloride 106, bicarb 40, BUN 10, creatinine 0.6, glucose 135, magnesium 1.9, calcium 10, iron is 16, TIBC is 254, percent saturation is 6.3, ferritin 82, so likely anemia of chronic disease. Bilirubin 0.2, AST 14, ALT 22, LDH 199, alkaline phosphatase 59, CRP 4.1, albumin 2.5, B12 of 741, folate 6.7, and TSH 2.3. ASSESSMENT: 1. Chronic hypoxic and hypercapnic respiratory failure due to asthma and chronic obstructive pulmonary disease exacerbation. I would make the assumption that the patient has had lifelong asthma to the point that she now has obstructive disease, but we will need to get some PFTs after she recovers for a couple of more weeks to confirm. Outpatient Pulmonary eval is being arranged. The patient should also have some alpha-1 antitrypsin testing and now that she is on her Advair and Incruse, I will switch her DuoNeb to albuterol. Ideally, she is on good inhalers, but however, if she does not have the technique or the strength to use them, we may have to switch her to nebulizers, so we will get her working with RT. Incentive spirometry was ordered. She is also placed on Singulair. It should be noted she had 4.7% eosinophils, but I did not count the total number. This is something we could further follow as well and other treatments to be decided by Pulmonary. The patient overall seems to be improving. She should continue with swing bed. 2. Anemia, macrocytic, probably due to chronic disease. We can continue to monitor her hemoglobin to see if things improve as she recovers. May require further workup like colonoscopies to rule out other sources of bleeding, can start with just regular fit screening. We will leave this to the primary. 3. Essential hypertension, [facility] We will adjust medications as needed. 4. Mild hypernatremia. Encourage p.o. intake. Monitor labs every 1 to 2 weeks. 5. Significant weight loss. This occurred over several years. It is unclear if it is just her changes in her living situation. She has been eating fairly decent here 50% to 100% of meals. Nutrition consult for the dietitian has also been placed. 6. Recent [id number] myocardial infarction type 2 versus 1, probably due to the respiratory failure. Recommend medical management for coronary disease. Could consider an echocardiogram. I do not think this patient is any candidate for stress testing right now. She would have to consider a dobutamine echo. She is not symptomatic from a cardiac standpoint currently. 7. Delirium. She is still on the Seroquel that can be tapered discussed with nursing she is sleeping a lot so we cut it back to 50 mg. She seems to be mentating better. 8. Malnutrition PLAN: At this point, the patient will continue swing bed cares to work with therapies. We will get a dietitian involved. Also recommendations from [place] were to pursue a sleep study for her, so that has been ordered and hopefully can be performed at the local hospital here. PFTs when doing better. Also we will get the alpha-1 antitrypsin blood level. Plan was discussed with the patient and she is in agreement. We are weaning O2 down to 1 L now may benefit from Bipap or in home ventilators for her CO2 retention. MKA: 07/30/2018 09:23:52 MODL: 07/30/2018 11:21:52 /[id number] CORY
[2018-07-30] MEDS ORDERED: QUETIAPINE 100 MG PO SCH (20:00)
[2018-07-30] MEDS: Melatonin 3 MG Tab PO SCH (20:16)
[2018-07-30] MEDS: SIMVASTATIN 20 MG PO SCH (20:17)
[2018-07-31 07:36] LABS: CHLORIDE,CL 106 mmol/L (98-107); SODIUM,NA 146 mmol/L (136-145)
[2018-07-31 07:37] LABS: ANION GAP 10.2 mmol/L (10-20)
[2018-07-31] MEDS: ADVAIR PO SCH ×2 (08:52→19:26)
[2018-07-31] MEDS: AMLODIPINE 10 MG PO SCH (08:53)
[2018-07-31] MEDS: Calcium Carbonate/Vitamin D3 1250 MG-200 Unit Tab PO SCH (08:54)
[2018-07-31] MEDS: INCRUSE ELLIPTA PO SCH (08:54)
[2018-07-31] MEDS: MONTELUKAST PO SCH (08:55)
[2018-07-31] MEDS: Multivitamins with Iron/Calcium/Folic Acid/Minerals Tab PO SCH (08:56)
[2018-07-31] MEDS: Melatonin 3 MG Tab PO SCH (19:23)
[2018-07-31] MEDS: SIMVASTATIN 20 MG PO SCH (19:24)
[2018-07-31] MEDS: QUETIAPINE 100 MG PO SCH (19:25)
[2018-08-01] MEDS: INCRUSE ELLIPTA PO SCH (08:43)
[2018-08-01] MEDS: AMLODIPINE 10 MG PO SCH (08:43)
[2018-08-01] MEDS: MONTELUKAST PO SCH (08:43)
[2018-08-01] MEDS: ADVAIR PO SCH ×2 (08:44→19:36)
[2018-08-01] MEDS: Calcium Carbonate/Vitamin D3 1250 MG-200 Unit Tab PO SCH (08:44)
[2018-08-01] MEDS: Multivitamins with Iron/Calcium/Folic Acid/Minerals Tab PO SCH (08:44)
[2018-08-01] MEDS: SIMVASTATIN 20 MG PO SCH (19:36)
[2018-08-01] MEDS: QUETIAPINE 100 MG PO SCH (19:37)
[2018-08-01] MEDS: Melatonin 3 MG Tab PO SCH (19:37)
[2018-08-02] MEDS: Multivitamins with Iron/Calcium/Folic Acid/Minerals Tab PO SCH (08:50)
[2018-08-02] MEDS: Calcium Carbonate/Vitamin D3 1250 MG-200 Unit Tab PO SCH (08:50)
[2018-08-02] MEDS: AMLODIPINE 10 MG PO SCH (08:51)
[2018-08-02] MEDS: MONTELUKAST PO SCH (08:51)
[2018-08-02] MEDS: INCRUSE ELLIPTA PO SCH (08:52)
[2018-08-02] MEDS: ADVAIR PO SCH ×2 (08:52→19:49)
[2018-08-02] MEDS: SIMVASTATIN 20 MG PO SCH (19:49)
[2018-08-02] MEDS: Melatonin 3 MG Tab PO SCH (19:49)
[2018-08-02] MEDS: QUETIAPINE 100 MG PO SCH (19:50)
[2018-08-03] MEDS: Calcium Carbonate/Vitamin D3 1250 MG-200 Unit Tab PO SCH (08:18)
[2018-08-03] MEDS: Multivitamins with Iron/Calcium/Folic Acid/Minerals Tab PO SCH (08:18)
[2018-08-03] MEDS: INCRUSE ELLIPTA PO SCH (08:19)
[2018-08-03] MEDS: ADVAIR PO SCH ×2 (08:19→20:01)
[2018-08-03] MEDS: AMLODIPINE 10 MG PO SCH (08:19)
[2018-08-03] MEDS: MONTELUKAST PO SCH (08:20)
[2018-08-03] MEDS: Melatonin 3 MG Tab PO SCH (20:01)
[2018-08-03] MEDS: SIMVASTATIN 20 MG PO SCH (20:01)
[2018-08-03] MEDS: QUETIAPINE 100 MG PO SCH (20:02)
--- NOTE | 2018-08-04 09:23 | PCM.PN ---
- General Info Date of Service: 08/04/18 Admission Dx/Problem (Free Text): History: Remains in swing bed following hospitalization in [place] for COPD, acute respiratory failure, coronary disease with likely ischemic cardiomyopathy and CHF. She was seen by BRENDA who ordered proBNP and that has come back as very elevated, 6060 (< 125). Patient says she is improving, but I did not enlist a dispatch coordinator this morning. She is down to 1 L of oxygen, does not need oxygen at rest but she is getting it at night and still desaturates with exercise, went down to 82% while walking yesterday according to the nurse. She is continuing with physical therapy to regain some ambulation, approved into next week. Her hypernatremia is mild and probably trivial, oral intake seems OK, BP is good , but she also has Hgb of 8.8, normocytic, and her Fe saturation is low, 6.3%. She has always refused to have any screening tests including colon screening. She has had one Hemoccult negative so far, done by the nurse. Exam: -She is waking up from a night of sleep and her bed is moderately elevated, presume she slept in that position -Heart regular, no murmur -Mild tachypnea and fine rales at both lung bases -Alert and appears comfortable Impression: -COPD, probably secondary to chronic asthma, so far is oxygen dependent especially with exercise -Because of her home situation, unlikely she would be able to go home with oxygen, might need group home care unless she can be weaned -CHF, with basilar rales, elevated proBNP and apparent orthopnea -Iron deficiency anemia, so far has refused any colon screening Plan: -Start Lasix 20 mg q a.m. -Get Hemoccult 3 -Start oral iron 1 tab daily -Continue others unchanged - Patient Data Vitals - Most Recent: Last Vital Signs Temp 36.4 C 08/04/18 06:00 Pulse 76 08/04/18 06:00 Resp 16 08/04/18 06:00 BP 108/45 L 08/04/18 06:00 Pulse Ox 95 08/04/18 06:00 Weight - Most Recent: 51.71 kg I&O - Last 24 Hours: Intake & Output 08/03/18 08/04/18 08/04/18 22:59 06:59 14:59 Intake Total 360 Balance 360 Med Orders - Current: Current Medications Acetaminophen (Tylenol) 650 mg PO Q4H PRN PRN Reason: Pain (Mild 1-3)/fever Albuterol (Proventil Neb Soln) 2.5 mg NEB Q4HRRT PRN PRN Reason: sob Calcium Carbonate (Calcium Carbonate/Vitamin D 1250 Mg-200 Unit) 1 tab PO WITHBREAKFAST REPLACED BY [facility] Last Admin: 08/03/18 08:18 Dose: 1 tab Ferrous Sulfate (Ferrous Sulfate) 325 mg PO WITHBREAKFAST REPLACED BY [facility] Furosemide (Lasix) 20 mg PO DAILY REPLACED BY [facility] Melatonin (Melatonin) 3 mg PO BEDTIME REPLACED BY [facility] Last Admin: 08/03/18 20:01 Dose: 3 mg Multivitamins/Minerals (Thera M Plus) 1 tab PO DAILY REPLACED BY [facility] Last Admin: 08/03/18 08:18 Dose: 1 tab Advair 250/50 (Own (Supply)) 1 puff PO BID REPLACED BY [facility] Last Admin: 08/03/18 20:01 Dose: 1 puff Albuterol.Inhaler ( (Own Supply)) 2 puff PO Q4H PRN PRN Reason: Wheezing Amlodipine. 10mg ( (Own Supply)) 1 each PO DAILY REPLACED BY [facility] Last Admin: 08/03/18 08:19 Dose: 1 each Simvastatin. 20mg ( (Own Supply)) 1 each PO BEDTIME REPLACED BY [facility] Last Admin: 08/03/18 20:01 Dose: 1 each Incruse Ellipta (Own (Supply)) 1 puff PO DAILY REPLACED BY [facility] Last Admin: 08/03/18 08:19 Dose: 1 puff Monteleukast ( Singulair). Own Supply 0 mg PO DAILY REPLACED BY [facility] Last Admin: 08/03/18 08:20 Dose: 10 mg Quetiapine 100mg ( Own Supply)Pt Own* * 0.5 each PO BEDTIME REPLACED BY [facility] Last Admin: 08/03/18 20:02 Dose: 0.5 each Discontinued Medications Albuterol/Ipratropium (Duoneb 3.0-0.5 Mg/3 Ml) Confirm Administered Dose 3 ml .ROUTE .STK-MED ONE Stop: 07/26/18 13:25 Last Admin: 07/26/18 13:31 Dose: 3 ml Albuterol/Ipratropium (Duoneb 3.0-0.5 Mg/3 Ml) 3 ml NEB Q4HRRT PRN PRN Reason: Shortness of Breath Last Admin: 07/29/18 20:03 Dose: 3 ml Budesonide (Pulmicort) 0.5 mg INH BIDRT [facility] Last Admin: 07/27/18 15:21 Dose: 0.5 mg Potassium. 10meq ( (Own Supply)) 1 each PO DAILY [facility] Stop: 07/29/18 08:01 Last Admin: 07/29/18 10:25 Dose: 1 each Quetiapine 100mg ( (Own Supply)) 1 each PO BEDTIME [facility] Last Admin: 07/29/18 20:02 Dose: 1 each Quetiapine 100mg ( (Own Supply)) 0 each PO BEDTIME [facility] Last Admin: 07/30/18 22:13 Dose: 1 each - Problem List Review Problem List Initiated/Reviewed/Updated: Yes - My Orders Last 24 Hours: My Active Orders 08/04/18 09:20 Hemoccult [Fecal Occult Bld Scn Imm] [RC] ASDIRECTED 08/05/18 08:00 Ferrous Sulfate 325 mg PO WITHBREAKFAST Furosemide [Lasix] 20 mg PO DAILY
[2018-08-04] MEDS: AMLODIPINE 10 MG PO SCH (09:37)
[2018-08-04] MEDS: ADVAIR PO SCH ×2 (09:37→20:02)
[2018-08-04] MEDS: INCRUSE ELLIPTA PO SCH (09:37)
[2018-08-04] MEDS: MONTELUKAST PO SCH (09:38)
[2018-08-04] MEDS: Calcium Carbonate/Vitamin D3 1250 MG-200 Unit Tab PO SCH (09:38)
[2018-08-04] MEDS: Multivitamins with Iron/Calcium/Folic Acid/Minerals Tab PO SCH (09:38)
[2018-08-04] MEDS: Ferrous Sulfate 325 MG Tab PO SCH (11:50)
[2018-08-04] MEDS: Melatonin 3 MG Tab PO SCH (20:02)
[2018-08-04] MEDS: SIMVASTATIN 20 MG PO SCH (20:03)
[2018-08-04] MEDS: QUETIAPINE 100 MG PO SCH (20:04)
[2018-08-05] MEDS: ADVAIR PO SCH ×2 (09:06→19:33)
[2018-08-05] MEDS: Multivitamins with Iron/Calcium/Folic Acid/Minerals Tab PO SCH (09:07)
[2018-08-05] MEDS: Ferrous Sulfate 325 MG Tab PO SCH (09:07)
[2018-08-05] MEDS: Calcium Carbonate/Vitamin D3 1250 MG-200 Unit Tab PO SCH (09:07)
[2018-08-05] MEDS: INCRUSE ELLIPTA PO SCH (09:07)
[2018-08-05] MEDS: MONTELUKAST PO SCH (09:08)
[2018-08-05] MEDS: AMLODIPINE 10 MG PO SCH (09:08)
[2018-08-05] MEDS: QUETIAPINE 100 MG PO SCH (19:33)
[2018-08-05] MEDS: Melatonin 3 MG Tab PO SCH (19:33)
[2018-08-05] MEDS: SIMVASTATIN 20 MG PO SCH (19:34)
[2018-08-06] MEDS: AMLODIPINE 10 MG PO SCH (08:49)
[2018-08-06] MEDS: ADVAIR PO SCH ×2 (08:49→19:50)
[2018-08-06] MEDS: Calcium Carbonate/Vitamin D3 1250 MG-200 Unit Tab PO SCH (08:49)
[2018-08-06] MEDS: Multivitamins with Iron/Calcium/Folic Acid/Minerals Tab PO SCH (08:49)
[2018-08-06] MEDS: Ferrous Sulfate 325 MG Tab PO SCH (08:49)
[2018-08-06] MEDS: INCRUSE ELLIPTA PO SCH (08:51)
[2018-08-06] MEDS: MONTELUKAST PO SCH (08:51)
[2018-08-06] MEDS: QUETIAPINE 100 MG PO SCH (19:50)
[2018-08-06] MEDS: SIMVASTATIN 20 MG PO SCH (19:50)
[2018-08-06] MEDS: Melatonin 3 MG Tab PO SCH (19:50)
[2018-08-07] MEDS: Ferrous Sulfate 325 MG Tab PO SCH (08:58)
[2018-08-07] MEDS: Calcium Carbonate/Vitamin D3 1250 MG-200 Unit Tab PO SCH (08:58)
[2018-08-07] MEDS: Multivitamins with Iron/Calcium/Folic Acid/Minerals Tab PO SCH (08:58)
[2018-08-07] MEDS: ADVAIR PO SCH ×2 (08:59→20:06)
[2018-08-07] MEDS: INCRUSE ELLIPTA PO SCH (09:02)
[2018-08-07] MEDS: MONTELUKAST PO SCH (09:02)
[2018-08-07] MEDS: AMLODIPINE 10 MG PO SCH (09:02)
[2018-08-07] MEDS: Melatonin 3 MG Tab PO SCH (20:06)
[2018-08-07] MEDS: SIMVASTATIN 20 MG PO SCH (20:07)
[2018-08-07] MEDS: QUETIAPINE 100 MG PO SCH (20:07)
[2018-08-08] MEDS: Ferrous Sulfate 325 MG Tab PO SCH (07:51)
[2018-08-08] MEDS: Multivitamins with Iron/Calcium/Folic Acid/Minerals Tab PO SCH (07:51)
[2018-08-08] MEDS: Calcium Carbonate/Vitamin D3 1250 MG-200 Unit Tab PO SCH (07:51)
[2018-08-08] MEDS: MONTELUKAST PO SCH (07:51)
[2018-08-08] MEDS: AMLODIPINE 10 MG PO SCH (07:52)
[2018-08-08] MEDS: ADVAIR PO SCH ×2 (07:53→19:38)
[2018-08-08] MEDS: INCRUSE ELLIPTA PO SCH (07:53)
[2018-08-08] MEDS: SIMVASTATIN 20 MG PO SCH (19:39)
[2018-08-08] MEDS: QUETIAPINE 100 MG PO SCH (19:40)
[2018-08-08] MEDS: Melatonin 3 MG Tab PO SCH (19:40)
[2018-08-09] MEDS: INCRUSE ELLIPTA PO SCH (08:37)
[2018-08-09] MEDS: ADVAIR PO SCH ×2 (08:37→20:20)
[2018-08-09] MEDS: AMLODIPINE 10 MG PO SCH (08:38)
[2018-08-09] MEDS: Multivitamins with Iron/Calcium/Folic Acid/Minerals Tab PO SCH (08:38)
[2018-08-09] MEDS: Calcium Carbonate/Vitamin D3 1250 MG-200 Unit Tab PO SCH (08:38)
[2018-08-09] MEDS: MONTELUKAST PO SCH (08:38)
[2018-08-09] MEDS: Ferrous Sulfate 325 MG Tab PO SCH (08:38)
[2018-08-09] MEDS: SIMVASTATIN 20 MG PO SCH (20:20)
[2018-08-09] MEDS: QUETIAPINE 100 MG PO SCH (20:20)
[2018-08-09] MEDS: Melatonin 3 MG Tab PO SCH (20:20)
[2018-08-10] MEDS: ADVAIR PO SCH ×2 (08:24→19:37)
[2018-08-10] MEDS: INCRUSE ELLIPTA PO SCH (08:24)
[2018-08-10] MEDS: Ferrous Sulfate 325 MG Tab PO SCH (08:25)
[2018-08-10] MEDS: Multivitamins with Iron/Calcium/Folic Acid/Minerals Tab PO SCH (08:25)
[2018-08-10] MEDS: Calcium Carbonate/Vitamin D3 1250 MG-200 Unit Tab PO SCH (08:25)
[2018-08-10] MEDS: MONTELUKAST PO SCH (08:25)
[2018-08-10] MEDS: AMLODIPINE 10 MG PO SCH (08:26)
[2018-08-10] MEDS: SIMVASTATIN 20 MG PO SCH (19:37)
[2018-08-10] MEDS: Melatonin 3 MG Tab PO SCH (19:37)
[2018-08-10] MEDS: QUETIAPINE 100 MG PO SCH (19:38)
[2018-08-11] MEDS: ADVAIR PO SCH ×2 (07:42→20:43)
[2018-08-11] MEDS: INCRUSE ELLIPTA PO SCH (07:42)
[2018-08-11] MEDS: Calcium Carbonate/Vitamin D3 1250 MG-200 Unit Tab PO SCH (07:43)
[2018-08-11] MEDS: Multivitamins with Iron/Calcium/Folic Acid/Minerals Tab PO SCH (07:43)
[2018-08-11] MEDS: Ferrous Sulfate 325 MG Tab PO SCH (07:43)
[2018-08-11] MEDS: AMLODIPINE 10 MG PO SCH (07:43)
[2018-08-11] MEDS: MONTELUKAST PO SCH (07:44)
[2018-08-11] MEDS: Melatonin 3 MG Tab PO SCH (20:43)
[2018-08-11] MEDS: SIMVASTATIN 20 MG PO SCH (20:45)
[2018-08-11] MEDS: QUETIAPINE 100 MG PO SCH (20:46)
[2018-08-12] MEDS: Calcium Carbonate/Vitamin D3 1250 MG-200 Unit Tab PO SCH (09:07)
[2018-08-12] MEDS: Ferrous Sulfate 325 MG Tab PO SCH (09:08)
[2018-08-12] MEDS: Multivitamins with Iron/Calcium/Folic Acid/Minerals Tab PO SCH (09:08)
[2018-08-12] MEDS: ADVAIR PO SCH ×2 (09:09→20:44)
[2018-08-12] MEDS: AMLODIPINE 10 MG PO SCH (09:09)
[2018-08-12] MEDS: MONTELUKAST PO SCH (09:10)
[2018-08-12] MEDS: INCRUSE ELLIPTA PO SCH (09:10)
[2018-08-12] MEDS: Melatonin 3 MG Tab PO SCH (20:43)
[2018-08-12] MEDS: SIMVASTATIN 20 MG PO SCH (20:43)
[2018-08-12] MEDS: QUETIAPINE 100 MG PO SCH (20:44)
[2018-08-13] MEDS: INCRUSE ELLIPTA PO SCH (07:55)
[2018-08-13] MEDS: Calcium Carbonate/Vitamin D3 1250 MG-200 Unit Tab PO SCH (07:55)
[2018-08-13] MEDS: Multivitamins with Iron/Calcium/Folic Acid/Minerals Tab PO SCH (07:55)
[2018-08-13] MEDS: ADVAIR PO SCH ×2 (07:56→21:40)
[2018-08-13] MEDS: AMLODIPINE 10 MG PO SCH (07:57)
[2018-08-13] MEDS: MONTELUKAST PO SCH (07:58)
[2018-08-13] MEDS: Ferrous Sulfate 325 MG Tab PO SCH (08:03)
[2018-08-13] MEDS: QUETIAPINE 100 MG PO SCH (21:41)
[2018-08-13] MEDS: Melatonin 3 MG Tab PO SCH (21:42)
[2018-08-13] MEDS: SIMVASTATIN 20 MG PO SCH (21:42)
[2018-08-14] MEDS: Calcium Carbonate/Vitamin D3 1250 MG-200 Unit Tab PO SCH (07:49)
[2018-08-14] MEDS: INCRUSE ELLIPTA PO SCH (07:49)
[2018-08-14] MEDS: Ferrous Sulfate 325 MG Tab PO SCH (07:49)
[2018-08-14] MEDS: MONTELUKAST PO SCH (07:49)
[2018-08-14] MEDS: ADVAIR PO SCH ×2 (07:49→19:32)
[2018-08-14] MEDS: Multivitamins with Iron/Calcium/Folic Acid/Minerals Tab PO SCH (07:49)
[2018-08-14] MEDS: AMLODIPINE 10 MG PO SCH (07:50)
--- NOTE | 2018-08-14 12:02 | PCM.PN ---
- General Info Date of Service: 08/14/18 Admission Dx/Problem (Free Text): History: Her oximetry reading is good at rest but she continues to have desaturation with ambulation so she remains on oxygen at 1L/min, we anticipate she will need to go home with home oxygen in one week or slightly more when she is discharged. She has family moving to the area and they will live in her house, her sister and [id number]. They can help manage her home oxygen. The other problem is her iron deficiency anemia. Her Hgb is 8.8, up to 9.0 today, and is normocytic, but her Fe saturation is 6.3%. Previously she has refused to have any screening tests such as colonoscopy. Exam: None except to note that her breathing is normal, not labored and she is alert and lucid Impression: -COPD, oximetry goes into the low 80% range with ambulation, still requires oxygen at one L/min -Iron deficiency anemia, moderate to high likelihood of GI neoplasm, might be just a benign polyp that is leaking some blood Plan: -When this risk of neoplasm is explained to patient she agrees to have colonoscopy and this is scheduled for 08/31/18 -We will continue to measure oximetry after ambulation and record it, continue to try to wean off of oxygen completely if possible - Patient Data Vitals - Most Recent: Last Vital Signs Temp 36.4 C 08/14/18 05:37 Pulse 63 08/14/18 05:37 Resp 16 08/14/18 05:37 BP 102/46 L 08/14/18 05:37 Pulse Ox 93 L 08/14/18 08:00 Weight - Most Recent: 51.528 kg I&O - Last 24 Hours: Intake & Output 08/13/18 08/14/18 08/14/18 22:59 06:59 14:59 Intake Total 420 360 Balance 420 360 Lab Results Last 24 Hours: Laboratory Results - last 24 hr 08/14/18 Range/Units 10:52 WBC 13.4 H (4.0-10.0) x10^3/uL RBC 3.73 L (4.00-5.50) x10^6/uL Hgb 9.0 L (12.0-16.0) g/dL Hct 31.1 L (33.0-47.0) % MCV 83.4 D (78.0-93.0) fL MCH 24.1 L (26.0-32.0) pg MCHC 28.9 L (32.0-36.0) g/dL RDW Coeff of Sebastian 16.5 H (10.0-15.0) % Plt Count 454 H D (130-400) x10^3/uL Neut % (Auto) 74.7 (50.0-80.0) % Lymph % (Auto) 14.4 L (25.0-50.0) % [place] % (Auto) 7.7 (2.0-11.0) % Eos % (Auto) 2.8 (0.0-4.0) % Baso % (Auto) 0.4 (0.2-1.2) % Med Orders - Current: Current Medications Acetaminophen (Tylenol) 650 mg PO Q4H PRN PRN Reason: Pain (Mild 1-3)/fever Albuterol (Proventil Neb Soln) 2.5 mg NEB Q4HRRT PRN PRN Reason: sob Calcium Carbonate (Calcium Carbonate/Vitamin D 1250 Mg-200 Unit) 1 tab PO WITHBREAKFAST [facility] Last Admin: 08/14/18 07:49 Dose: 1 tab Ferrous Sulfate (Ferrous Sulfate) 325 mg PO WITHBREAKFAST [facility] Last Admin: 08/14/18 07:49 Dose: 325 mg Furosemide (Lasix) 20 mg PO DAILY [facility] Last Admin: 08/14/18 07:50 Dose: 20 mg Melatonin (Melatonin) 3 mg PO BEDTIME [facility] Last Admin: 08/13/18 21:42 Dose: 3 mg Multivitamins/Minerals (Thera M Plus) 1 tab PO DAILY [facility] Last Admin: 08/14/18 07:49 Dose: 1 tab Advair 250/50 (Own (Supply)) 1 puff PO BID [facility] Last Admin: 08/14/18 07:49 Dose: 1 puff Albuterol.Inhaler ( (Own Supply)) 2 puff PO Q4H PRN PRN Reason: Wheezing Amlodipine. 10mg ( (Own Supply)) 1 each PO DAILY [facility] Last Admin: 08/14/18 07:50 Dose: 1 each Simvastatin. 20mg ( (Own Supply)) 1 each PO BEDTIME [facility] Last Admin: 08/13/18 21:42 Dose: 1 each Incruse Ellipta (Own (Supply)) 1 puff PO DAILY [facility] Last Admin: 08/14/18 07:49 Dose: 1 puff Monteleukast ( Singulair). Own Supply 0 mg PO DAILY [facility] Last Admin: 08/14/18 07:49 Dose: 10 mg Quetiapine 100mg ( Own Supply)Pt Own* * 0.5 each PO BEDTIME [facility] Last Admin: 08/13/18 21:41 Dose: 0.5 each Discontinued Medications Albuterol/Ipratropium (Duoneb 3.0-0.5 Mg/3 Ml) Confirm Administered Dose 3 ml .ROUTE .STK-MED ONE Stop: 07/26/18 13:25 Last Admin: 07/26/18 13:31 Dose: 3 ml Albuterol/Ipratropium (Duoneb 3.0-0.5 Mg/3 Ml) 3 ml NEB Q4HRRT PRN PRN Reason: Shortness of Breath Last Admin: 07/29/18 20:03 Dose: 3 ml Budesonide (Pulmicort) 0.5 mg INH BIDRT [facility] Last Admin: 07/27/18 15:21 Dose: 0.5 mg Potassium. 10meq ( (Own Supply)) 1 each PO DAILY [facility] Stop: 07/29/18 08:01 Last Admin: 07/29/18 10:25 Dose: 1 each Quetiapine 100mg ( (Own Supply)) 1 each PO BEDTIME [facility] Last Admin: 07/29/18 20:02 Dose: 1 each Quetiapine 100mg ( (Own Supply)) 0 each PO BEDTIME [facility] Last Admin: 07/30/18 22:13 Dose: 1 each - Problem List Review Problem List Initiated/Reviewed/Updated: Yes
[2018-08-14] MEDS: Melatonin 3 MG Tab PO SCH (19:33)
[2018-08-14] MEDS: QUETIAPINE 100 MG PO SCH (19:33)
[2018-08-14] MEDS: SIMVASTATIN 20 MG PO SCH (19:33)
[2018-08-15] MEDS: ADVAIR PO SCH ×2 (07:48→21:04)
[2018-08-15] MEDS: INCRUSE ELLIPTA PO SCH (07:48)
[2018-08-15] MEDS: AMLODIPINE 10 MG PO SCH (07:49)
[2018-08-15] MEDS: MONTELUKAST PO SCH (07:49)
[2018-08-15] MEDS: Multivitamins with Iron/Calcium/Folic Acid/Minerals Tab PO SCH (07:50)
[2018-08-15] MEDS: Ferrous Sulfate 325 MG Tab PO SCH (07:50)
[2018-08-15] MEDS: Calcium Carbonate/Vitamin D3 1250 MG-200 Unit Tab PO SCH (07:50)
[2018-08-15] MEDS: SIMVASTATIN 20 MG PO SCH (21:04)
[2018-08-15] MEDS: QUETIAPINE 100 MG PO SCH (21:04)
[2018-08-15] MEDS: Melatonin 3 MG Tab PO SCH (21:05)
[2018-08-16] MEDS: ADVAIR PO SCH ×2 (07:43→20:15)
[2018-08-16] MEDS: Calcium Carbonate/Vitamin D3 1250 MG-200 Unit Tab PO SCH (07:44)
[2018-08-16] MEDS: INCRUSE ELLIPTA PO SCH (07:44)
[2018-08-16] MEDS: Ferrous Sulfate 325 MG Tab PO SCH (07:44)
[2018-08-16] MEDS: Multivitamins with Iron/Calcium/Folic Acid/Minerals Tab PO SCH (07:44)
[2018-08-16] MEDS: AMLODIPINE 10 MG PO SCH (07:45)
[2018-08-16] MEDS: MONTELUKAST PO SCH (07:45)
[2018-08-16] MEDS: SIMVASTATIN 20 MG PO SCH (20:16)
[2018-08-16] MEDS: Melatonin 3 MG Tab PO SCH (20:16)
[2018-08-16] MEDS: QUETIAPINE 100 MG PO SCH (20:16)
[2018-08-17] MEDS: ADVAIR PO SCH ×2 (07:56→19:39)
[2018-08-17] MEDS: INCRUSE ELLIPTA PO SCH (07:56)
[2018-08-17] MEDS: MONTELUKAST PO SCH (07:57)
[2018-08-17] MEDS: Ferrous Sulfate 325 MG Tab PO SCH (07:57)
[2018-08-17] MEDS: Multivitamins with Iron/Calcium/Folic Acid/Minerals Tab PO SCH (07:57)
[2018-08-17] MEDS: AMLODIPINE 10 MG PO SCH (07:57)
[2018-08-17] MEDS: Calcium Carbonate/Vitamin D3 1250 MG-200 Unit Tab PO SCH (07:57)
[2018-08-17] MEDS: Melatonin 3 MG Tab PO SCH (19:38)
[2018-08-17] MEDS: QUETIAPINE 100 MG PO SCH (19:38)
[2018-08-17] MEDS: SIMVASTATIN 20 MG PO SCH (19:39)
[2018-08-18] MEDS: ADVAIR PO SCH ×2 (09:50→22:10)
[2018-08-18] MEDS: AMLODIPINE 10 MG PO SCH (09:51)
[2018-08-18] MEDS: MONTELUKAST PO SCH (09:51)
[2018-08-18] MEDS: Ferrous Sulfate 325 MG Tab PO SCH (09:52)
[2018-08-18] MEDS: Calcium Carbonate/Vitamin D3 1250 MG-200 Unit Tab PO SCH (09:53)
[2018-08-18] MEDS: Multivitamins with Iron/Calcium/Folic Acid/Minerals Tab PO SCH (09:53)
[2018-08-18] MEDS: INCRUSE ELLIPTA PO SCH (09:55)
[2018-08-18] MEDS: Melatonin 3 MG Tab PO SCH (22:08)
[2018-08-18] MEDS: SIMVASTATIN 20 MG PO SCH (22:10)
[2018-08-18] MEDS: QUETIAPINE 100 MG PO SCH (22:10)
[2018-08-18] MEDS: ALBUTEROL PO PRN (22:16)
[2018-08-19] MEDS: ADVAIR PO SCH ×2 (10:23→21:38)
[2018-08-19] MEDS: Calcium Carbonate/Vitamin D3 1250 MG-200 Unit Tab PO SCH (10:24)
[2018-08-19] MEDS: Multivitamins with Iron/Calcium/Folic Acid/Minerals Tab PO SCH (10:24)
[2018-08-19] MEDS: Ferrous Sulfate 325 MG Tab PO SCH (10:24)
[2018-08-19] MEDS: AMLODIPINE 10 MG PO SCH (10:24)
[2018-08-19] MEDS: INCRUSE ELLIPTA PO SCH (10:25)
[2018-08-19] MEDS: MONTELUKAST PO SCH (10:25)
[2018-08-19] MEDS: Melatonin 3 MG Tab PO SCH (21:36)
[2018-08-19] MEDS: SIMVASTATIN 20 MG PO SCH (21:37)
[2018-08-19] MEDS: QUETIAPINE 100 MG PO SCH (21:37)
[2018-08-19] MEDS: ALBUTEROL PO PRN (21:40)
[2018-08-20] MEDS: MONTELUKAST PO SCH (10:56)
[2018-08-20] MEDS: ADVAIR PO SCH ×3 (10:56→21:34)
[2018-08-20] MEDS: AMLODIPINE 10 MG PO SCH (10:56)
[2018-08-20] MEDS: INCRUSE ELLIPTA PO SCH (10:57)
[2018-08-20] MEDS: Calcium Carbonate/Vitamin D3 1250 MG-200 Unit Tab PO SCH (11:01)
[2018-08-20] MEDS: Ferrous Sulfate 325 MG Tab PO SCH (11:01)
[2018-08-20] MEDS: Multivitamins with Iron/Calcium/Folic Acid/Minerals Tab PO SCH (11:01)
[2018-08-20] MEDS: Melatonin 3 MG Tab PO SCH (21:04)
[2018-08-20] MEDS: SIMVASTATIN 20 MG PO SCH (21:04)
[2018-08-20] MEDS: ALBUTEROL PO PRN (21:05)
[2018-08-20] MEDS: QUETIAPINE 100 MG PO SCH (21:05)
[2018-08-20] MEDS: Budesonide 0.5 MG/2 ML Neb Susp NEB SCH (22:04)
[2018-08-20] MEDS: Albuterol 0.083% 2.5 MG/3 ML Neb Soln NEB PRN (22:07)
[2018-08-21] MEDS: ALBUTEROL PO PRN (02:45)
[2018-08-21] MEDS: Albuterol 0.083% 2.5 MG/3 ML Neb Soln NEB PRN ×2 (05:42→08:49)
[2018-08-21] MEDS: Budesonide 0.5 MG/2 ML Neb Susp NEB SCH (06:08)
[2018-08-21] MEDS ORDERED: methylPREDNISolone Sodium Succinate 125 MG/2 ML SDV IM ONE (08:59)
[2018-08-21 09:35] LABS: ANION GAP 12.6 mmol/L (10-20)
--- NOTE | 2018-08-21 09:53 | CR ---
[id number] RAD/RAD Chest PA And Lateral EXAM: RAD Chest PA And Lateral CLINICAL DATA: SHORTNESS OF BREATH. COPD COMPARISON: CORRELATION IS MADE WITH THE EXAM OF JULY 15, 2018. FINDINGS: The lungs are clear. The cardiomediastinal contour is stable. IMPRESSION: NO PNEUMONIA OR EDEMA. Bruce Mathews MD 08/21/18 0951 Thank you for allowing us to participate in the care of your patient.
[2018-08-21] MEDS: MONTELUKAST PO SCH (10:28)
[2018-08-21] MEDS: Ferrous Sulfate 325 MG Tab PO SCH (10:29)
[2018-08-21] MEDS: Multivitamins with Iron/Calcium/Folic Acid/Minerals Tab PO SCH (10:29)
[2018-08-21] MEDS ORDERED: cefTRIAXone 1 GM Vial IVPUSH SCH (10:30)
[2018-08-21] MEDS: AMLODIPINE 10 MG PO SCH (10:31)
[2018-08-21] MEDS: INCRUSE ELLIPTA PO SCH (10:35)
[2018-08-21] MEDS ORDERED: Morphine 2 MG/ML Syringe IVPUSH PRN (10:35)
[2018-08-21] MEDS: Calcium Carbonate/Vitamin D3 1250 MG-200 Unit Tab PO SCH (10:35)
[2018-08-21] MEDS: ADVAIR PO SCH (10:35)
== END 2018-08-21 10:45 | disposition critical access hospital (66) | DRG 189 ==
LOC: VM.MS 12:11
PROVIDERS: ADMIT Family Medicine; ATTEND Family Medicine
DX: J96.21 Acute and chronic respiratory failure with hypoxia (principal); I21.A1 Myocardial infarction type 2; J44.1 Chronic obstructive pulmonary disease with (acute) exacerbation; E87.0 Hyperosmolality and hypernatremia; E46 Unspecified protein-calorie malnutrition; I25.10 Atherosclerotic heart disease of native coronary artery without angina pectoris; D53.9 Nutritional anemia, unspecified; D63.8 Anemia in other chronic diseases classified elsewhere; H54.8 Legal blindness, as defined in USA; E78.5 Hyperlipidemia, unspecified; R41.0 Disorientation, unspecified; D50.9 Iron deficiency anemia, unspecified; D12.6 Benign neoplasm of colon, unspecified; I11.0 Hypertensive heart disease with heart failure; I50.9 Heart failure, unspecified; Z99.81 Dependence on supplemental oxygen
CPT/HCPCS: 36415; 71046; 80048; 80053; 82103; 82607; 82728; 82746; 82803; 83010; 83540; 83550; 83615; 83735; 83880; 84443; 85025; 86140; 94010; 94640; 94760; 97110-GO; 97110-GP; 97116-GP; 97162-GP; 97165-GO; 97168-GO; 97530-GP; A9270-GY; G0328; J0696; J2270; J2930; J7613-GY; J7620-GY

== ENCOUNTER 2018-08-21 10:48 | Inpatient (IN) | payer MEDICAID ==
[2018-08-21] MEDS ORDERED: Albuterol 0.083% 2.5 MG/3 ML Neb Soln INH PRN (11:43)
[2018-08-21] MEDS ORDERED: Acetaminophen 325 MG Tab PO PRN (11:52)
[2018-08-21] MEDS ORDERED: Morphine 2 MG/ML Syringe IVPUSH PRN (11:55)
[2018-08-21] MEDS: Albuterol/Ipratropium 3.0-0.5 MG/3 ML Neb Soln NEB SCH ×2 (15:22→20:45)
[2018-08-21] MEDS: SALMETEROL INH SCH (20:45)
[2018-08-21] MEDS: QUEtiapine 100 MG Tab PO SCH (20:45)
[2018-08-21] MEDS: Simvastatin 20 MG Tab PO SCH (20:45)
[2018-08-21] MEDS: Melatonin 3 MG Tab PO SCH (20:45)
[2018-08-21] MEDS: FLUTICASONE INH SCH (20:45)
[2018-08-21] MEDS: Budesonide 0.5 MG/2 ML Neb Susp NEB SCH (20:45)
[2018-08-21] MEDS: Azithromycin 250 MG Tab PO SCH (21:36)
[2018-08-22] MEDS: Albuterol/Ipratropium 3.0-0.5 MG/3 ML Neb Soln NEB SCH ×4 (07:18→20:51)
[2018-08-22] MEDS: Budesonide 0.5 MG/2 ML Neb Susp NEB SCH ×2 (07:18→20:51)
[2018-08-22] MEDS ORDERED: Potassium Chloride 10 MEQ Tab.ER PO SCH (08:00)
[2018-08-22] MEDS ORDERED: cefTRIAXone 1 GM Vial IVPUSH SCH (08:00)
[2018-08-22] MEDS ORDERED: methylPREDNISolone Sodium Succinate 125 MG/2 ML SDV IM ONE (08:20)
--- NOTE | 2018-08-22 08:55 | PCM.HP ---
H&P History of Present Illness - General Date of Service: 08/21/18 Admit Problem/Dx: Admission Diagnosis/Problem Admission Diagnosis/Problem Chronic obstructive pulmonary disease HPI: She was in the intensive care in [place] from 07/15 until 07/26/18 for acute respiratory failure, got a DX of chronic failure from COPD as well secondary to long-standing asthma. She has not been a smoker. She had been intubated and then on BiPAP before coming to the swing bed on 07/26. She did fairly well here and did not even require oxygen during the day when resting but did desaturate with exercise, continued her Advair inhaler, oral Singulair, when necessary albuterol inhaler with the DuoNeb p.r.n.. She planned on going home, with family coming to live with her, on 08/23, with home oxygen. On 08/19 she started having trouble with more wheezing, and she was getting Pulmicort by nebulizer because she had run out of her Advair. The wheezing worsened and on 08/21 she became very agitated from dyspnea, developed a temp up to 100.4, and her respiratory rate is 44. Also sounds quite wheezy. CXR is unremarkable. 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 She is full code status. She only speaks Swedish so the nurses deal with her with the translating service. She actually understands a fair amount of Malay also. Systems Review: Unable to get from her at present. She has been eating and stooling normally, has been afebrile during her stay in Swing Bed. Hearing is good but has no vision. She complains of her throat, but says it is not painful, just feels she cannot move enough air through it. Exam: -ENT: No nasal congestion or laryngeal stridor -Heart sounds: Normal and regular -Lungs: Decreased breath sounds and expiratory wheezes, RR 44 -Abdomen: Nontender -Extremities: No edema, no deformity -Neurologic: Alert, answers questions appropriately and her speech is clear -Psych: Anxious but otherwise affect is normal Impression: -Chronic asthma and COPD -Exacerbation of COPD with hypoxia and tachypnea, with some fever but normal CXR Plan: -Switch to Acute Care -Start IV Rocephin and oral Zithromax -Solu-Medrol 125 mg IM today -DuoNeb every 2 hours when necessary by nebulizer, continue her Advair and albuterol inhaler also -Continue Singulair - Related Data Allergies/Adverse Reactions: Allergies Allergy/AdvReac Type Severity Reaction Status Date / Time No Known Allergies Allergy Verified 08/21/18 12:12 Home Medications: Home Meds Albuterol Sulfate [Albuterol Sulfate Hfa] 2 puff IH Q4HR PRN 07/26/18 [History] Calcium Carbonate/Vitamin D3 [Calcium 500 + Vit D 200 [place]] 1 tab PO WITHBREAKFAST 07/26/18 [History] Fluticasone/Salmeterol [Advair 250-50] 1 puff INH BID 07/26/18 [History] Melatonin 3 mg PO BEDTIME 07/26/18 [History] Potassium Chloride [K-Tab ER] 10 meq PO DAILY 07/26/18 [History] QUEtiapine [SEROquel] 100 mg PO BEDTIME 07/26/18 [History] Simvastatin [Zocor] 20 mg PO BEDTIME 07/26/18 [History] amLODIPine Besylate [Amlodipine Besylate] 10 mg PO DAILY 07/26/18 [History] Past Medical History HEENT History: Reports: Impaired Vision, Sinusitis Other HEENT History: Bilaeraly blind Cardiovascular History: Reports: CAD, Hypertension Respiratory History: Reports: Asthma, COPD, Pneumonia, Recurrent Other Respiratory History: hx of respiratory failure Psychiatric History: Reports: None Other Endocrine/Metabolic History: hyoerlipidemia, impaired fasting glucose Dermatologic History: Reports: Psoriasis - Infectious Disease History Other Infectious Disease History: septic shock H&P Review of Systems - Review of Systems: Review Of Systems: See Below Exam - Exam Exam: See Below - Vital Signs Vital Signs: Last Vital Signs Temp 36.8 C 08/22/18 06:00 Pulse 70 08/22/18 06:00 Resp 16 08/22/18 06:00 BP 121/56 L 08/22/18 06:00 Pulse Ox 99 08/22/18 07:22 Weight: 51.511 kg Problem List Initiated/Reviewed/Updated: Yes Orders Last 24hrs: Active Orders 24 hr Category Date Time Status Admission Status [Patient Status] [ADT] Routine ADT 08/21/18 10:58 Active Patient Status [ADT] Routine ADT 08/21/18 11:38 Active Ambulate [RC] BID Care 08/21/18 12:05 Active Dietary Supplements [RC] 10,20 Care 08/21/18 11:54 Active Dietary Supplements [RC] BIDMEALS Care 08/21/18 14:43 Active Incentive Spirometry [RT Incentive Spirometry] [RC] Care 08/21/18 12:06 Active Q2HWA Oxygen Therapy [RC] 08,20 Care 08/21/18 11:38 Active RT Aerosol Therapy [RC] 07,11,15,20 Care 08/21/18 14:43 Active VTE/DVT Education [RC] .PRN Care 08/21/18 11:38 Active Vital Signs [RC] 02,06,10,14,18,22 Care 08/21/18 11:38 Active Consult to Case Management/Campus Administrative Assistant [CONS] Cons 08/21/18 12:07 Active Routine Consult to Dietary [Consult to Nail Mill Worker] [CONS] Cons 08/21/18 12:07 Active Routine Consult to Occupational Therapy [OT Evaluation and Cons 08/21/18 12:07 Active Treatment] [CONS] Routine PT Evaluation and Treatment [CONS] Routine Cons 08/21/18 12:07 Active Respiratory Care Assess and Treatment [CONS] Routine Cons 08/21/18 12:07 Active Regular Diet [DIET] Diet 08/21/18 Dinner Active ABG [BLOOD GAS ARTERIAL] [BG] Routine Lab 08/22/18 08:38 Ordered Acetaminophen [Tylenol] Med 08/21/18 11:52 Active 650 mg PO Q4H PRN Albuterol [Proventil Neb Soln] Med 08/21/18 14:45 Active 2.5 mg INH Q2H PRN Albuterol/Ipratropium [DuoNeb 3.0-0.5 MG/3 ML] Med 08/21/18 15:00 Active 3 ml NEB QIDRT Azithromycin [Zithromax] Med 08/21/18 14:45 Active 500 mg PO DAILY Budesonide [Pulmicort] Med 08/21/18 20:00 Active 0.5 mg NEB BIDRT Calcium Carbonate/Vitamin D3 [Calcium Carbonate/Vitamin Med 08/22/18 08:00 Active D 1250 MG-200 Unit] 1 tab PO WITHBREAKFAST Ferrous Sulfate Med 08/22/18 08:00 Active 325 mg PO WITHBREAKFAST Fluticasone/Salmeterol [Advair 250-50] Med 08/21/18 20:00 Active 1 puff INH BID Furosemide [Lasix] Med 08/22/18 08:00 Active 20 mg PO DAILY Melatonin Med 08/21/18 20:00 Active 3 mg PO BEDTIME Montelukast [Singulair] Med 08/22/18 08:00 Active 10 mg PO DAILY Morphine Med 08/21/18 11:55 Active 0.5 mg IVPUSH Q1H PRN Non-Formulary Medication [NF Drug] Med 08/22/18 08:00 Active 1 each INH DAILY QUEtiapine [SEROquel] Med 08/21/18 20:00 Active 100 mg PO BEDTIME Simvastatin [Zocor] Med 08/21/18 20:00 Active 20 mg PO BEDTIME amLODIPine [Norvasc] Med 08/22/18 08:00 Active 10 mg PO DAILY predniSONE Med 08/23/18 08:00 Active 40 mg PO WITHBREAKFAST Resuscitation Status Routine Resus Stat 08/21/18 11:38 Ordered Medication Orders Acetaminophen (Tylenol) 650 mg PO Q4H PRN PRN Reason: Pain (mild 1-3) Albuterol (Proventil Neb Soln) 2.5 mg INH Q2H PRN PRN Reason: Wheezing Albuterol/Ipratropium (Duoneb 3.0-0.5 Mg/3 Ml) 3 ml NEB QIDRT [facility] Last Admin: 08/22/18 07:18 Dose: 3 ml Admin: 08/21/18 20:45 Dose: 3 ml Admin: 08/21/18 15:22 Dose: 3 ml Amlodipine Besylate (Norvasc) 10 mg PO DAILY [facility] Azithromycin (Zithromax) 500 mg PO DAILY [facility] Stop: 08/25/18 08:01 Last Admin: 08/21/18 21:36 Dose: Budesonide (Pulmicort) 0.5 mg NEB BIDRT [facility] Last Admin: 08/22/18 07:18 Dose: 0.5 mg Admin: 08/21/18 20:45 Dose: 0.5 mg Calcium Carbonate (Calcium Carbonate/Vitamin D 1250 Mg-200 Unit) 1 tab PO WITHBREAKFAST [facility] Ferrous Sulfate (Ferrous Sulfate) 325 mg PO WITHBREAKFAST [facility] Furosemide (Lasix) 20 mg PO DAILY [facility] Melatonin (Melatonin) 3 mg PO BEDTIME [facility] Last Admin: 08/21/18 20:45 Dose: 3 mg Montelukast Sodium (Singulair) 10 mg PO DAILY [facility] Morphine Sulfate (Morphine) 0.5 mg IVPUSH Q1H PRN PRN Reason: Dyspnea Fluticasone/Salmeterol [Advair 250-50] 1 puff INH BID [facility] Last Admin: 08/21/18 20:45 Dose: 1 puff Incruse Ellipta (Own (Supply)) 1 each INH DAILY [facility] Prednisone (Prednisone) 40 mg PO WITHBREAKFAST [facility] Quetiapine Fumarate (Seroquel) 100 mg PO BEDTIME [facility] Last Admin: 08/21/18 20:45 Dose: 100 mg Simvastatin (Zocor) 20 mg PO BEDTIME [facility] Last Admin: 08/21/18 20:45 Dose: 20 mg
--- NOTE | 2018-08-22 09:03 | PCM.PN ---
- General Info Date of Service: 08/22/18 Admission Dx/Problem (Free Text): History: Switched from Swing Bed to Acute Care yesterday because of exacerbation of COPD , got low-grade fever, marked increase in dyspnea and wheezing. Because of the fever she was also started on IV Rocephin and oral Zithromax, given a shot of IM Solu-Medrol, and getting DuoNeb by albuterol. She is still quite wheezy but improving just a little bit. Her CXR was unremarkable. During the night she accidentally discontinued her IV so because of her normal CXR I D/Cd the Rocephin. She is getting oxygen by [place] at 2 L/min. Exam: -Alert and converses normally -RR 35-40 -Still moderately wheezy -Heart sounds distant but regular and normal Impression: -Chronic asthma, exacerbation -Exacerbation of COPD but CXR normal and now afebrile again -Wheezing only minimally improved -When she was in ICU in [place] she had considerable CO2 retention Plan: -Additional dose of IM Solu-Medrol today, start on oral prednisone 40 mg daily -Get ABGs today - Patient Data Vitals - Most Recent: Last Vital Signs Temp 36.8 C 08/22/18 06:00 Pulse 70 08/22/18 06:00 Resp 16 08/22/18 06:00 BP 121/56 L 08/22/18 06:00 Pulse Ox 99 08/22/18 07:22 Weight - Most Recent: 51.511 kg I&O - Last 24 Hours: Intake & Output 08/21/18 08/22/18 08/22/18 22:59 06:59 14:59 Intake Total 100 620 Output Total 200 Balance -100 620 Med Orders - Current: Current Medications Acetaminophen (Tylenol) 650 mg PO Q4H PRN PRN Reason: Pain (mild 1-3) Albuterol (Proventil Neb Soln) 2.5 mg INH Q2H PRN PRN Reason: Wheezing Albuterol/Ipratropium (Duoneb 3.0-0.5 Mg/3 Ml) 3 ml NEB QIDRT [facility] Last Admin: 08/22/18 07:18 Dose: 3 ml Amlodipine Besylate (Norvasc) 10 mg PO DAILY [facility] Azithromycin (Zithromax) 500 mg PO DAILY [facility] Stop: 08/25/18 08:01 Last Admin: 08/21/18 21:36 Dose: Not Given Budesonide (Pulmicort) 0.5 mg NEB BIDRT [facility] Last Admin: 08/22/18 07:18 Dose: 0.5 mg Calcium Carbonate (Calcium Carbonate/Vitamin D 1250 Mg-200 Unit) 1 tab PO WITHBREAKFAST [facility] Ferrous Sulfate (Ferrous Sulfate) 325 mg PO WITHBREAKFAST [facility] Furosemide (Lasix) 20 mg PO DAILY [facility] Melatonin (Melatonin) 3 mg PO BEDTIME [facility] Last Admin: 08/21/18 20:45 Dose: 3 mg Montelukast Sodium (Singulair) 10 mg PO DAILY [facility] Morphine Sulfate (Morphine) 0.5 mg IVPUSH Q1H PRN PRN Reason: Dyspnea Fluticasone/Salmeterol [Advair 250-50] 1 puff INH BID [facility] Last Admin: 08/21/18 20:45 Dose: 1 puff Incruse Ellipta (Own (Supply)) 1 each INH DAILY [facility] Prednisone (Prednisone) 40 mg PO WITHBREAKFAST [facility] Quetiapine Fumarate (Seroquel) 100 mg PO BEDTIME [facility] Last Admin: 08/21/18 20:45 Dose: 100 mg Simvastatin (Zocor) 20 mg PO BEDTIME [facility] Last Admin: 08/21/18 20:45 Dose: 20 mg Discontinued Medications Albuterol (Proventil Neb Soln) 2.5 mg INH Q4HR PRN PRN Reason: Wheezing Ceftriaxone Sodium (Rocephin) 1 gm IVPUSH DAILY [facility] Methylprednisolone Sodium Succinate (Solu-Medrol) 125 mg IM ONETIME ONE Stop: 08/22/18 08:21 - Problem List Review Problem List Initiated/Reviewed/Updated: Yes - My Orders Last 24 Hours: My Active Orders 08/21/18 10:58 Admission Status [Patient Status] [ADT] Routine 08/21/18 11:38 Patient Status [ADT] Routine Oxygen Therapy [RC] 08,20 VTE/DVT Education [RC] .PRN Vital Signs [RC] 02,06,10,14,18, Resuscitation Status Routine 08/21/18 11:52 Acetaminophen [Tylenol] 650 mg PO Q4H PRN 08/21/18 11:54 Dietary Supplements [RC] ,08/21/18 11:55 Morphine 0.5 mg IVPUSH Q1H PRN 08/21/18 12:05 Ambulate [RC] BID 08/21/18 12:06 Incentive Spirometry [RT Incentive Spirometry] [RC] Q2HWA 08/21/18 12:07 Consult to Case Management/Product Director [CONS] Routine Consult to Dietary [Consult to Concrete Mixer Truck Driver] [CONS] Routine Consult to Occupational Therapy [OT Evaluation and Treatment] [CONS] Routine PT Evaluation and Treatment [CONS] Routine Respiratory Care Assess and Treatment [CONS] Routine 08/21/18 14:43 Dietary Supplements [RC] BIDMEALS RT Aerosol Therapy [RC] 07,11,15,20 08/21/18 14:45 Albuterol [Proventil Neb Soln] 2.5 mg INH Q2H PRN Azithromycin [Zithromax] 500 mg PO DAILY 08/21/18 15:00 Albuterol/Ipratropium [DuoNeb 3.0-0.5 MG/3 ML] 3 ml NEB QIDRT 08/21/18 20:00 Budesonide [Pulmicort] 0.5 mg NEB BIDRT Fluticasone/Salmeterol [Advair 250-50] 1 puff INH BID Melatonin 3 mg PO BEDTIME QUEtiapine [SEROquel] 100 mg PO BEDTIME Simvastatin [Zocor] 20 mg PO BEDTIME 08/21/18 Dinner Regular Diet [DIET] 08/22/18 08:00 Calcium Carbonate/Vitamin D3 [Calcium Carbonate/Vitamin D 1250 MG-200 Unit] 1 tab PO WITHBREAKFAST Ferrous Sulfate 325 mg PO WITHBREAKFAST Furosemide [Lasix] 20 mg PO DAILY Montelukast [Singulair] 10 mg PO DAILY Non-Formulary Medication [NF Drug] 1 each INH DAILY amLODIPine [Norvasc] 10 mg PO DAILY 08/22/18 08:38 ABG [BLOOD GAS ARTERIAL] [BG] Routine 08/23/18 08:00 predniSONE 40 mg PO WITHBREAKFAST
[2018-08-22] MEDS: Ferrous Sulfate 325 MG Tab PO SCH (09:17)
[2018-08-22] MEDS: Montelukast 10 MG Tab PO SCH (09:18)
[2018-08-22] MEDS: Calcium Carbonate/Vitamin D3 1250 MG-200 Unit Tab PO SCH (09:18)
[2018-08-22] MEDS: amLODIPine 10 MG Tab PO SCH (09:18)
[2018-08-22] MEDS: Azithromycin 250 MG Tab PO SCH (09:18)
[2018-08-22] MEDS: SALMETEROL INH SCH ×2 (09:18→20:51)
[2018-08-22] MEDS: Furosemide 20 MG Tab PO SCH (09:18)
[2018-08-22] MEDS: FLUTICASONE INH SCH ×2 (09:18→20:51)
[2018-08-22] MEDS: Albuterol 0.083% 2.5 MG/3 ML Neb Soln INH PRN ×2 (12:52→18:39)
[2018-08-22] MEDS: Simvastatin 20 MG Tab PO SCH (20:51)
[2018-08-22] MEDS: Melatonin 3 MG Tab PO SCH (20:51)
[2018-08-22] MEDS: QUEtiapine 100 MG Tab PO SCH (20:51)
[2018-08-23] MEDS: Albuterol/Ipratropium 3.0-0.5 MG/3 ML Neb Soln NEB SCH ×4 (06:30→19:59)
[2018-08-23] MEDS: Budesonide 0.5 MG/2 ML Neb Susp NEB SCH ×2 (06:30→19:59)
[2018-08-23] MEDS: SALMETEROL INH SCH ×2 (08:08→19:59)
[2018-08-23] MEDS: Montelukast 10 MG Tab PO SCH (08:08)
[2018-08-23] MEDS: FLUTICASONE INH SCH ×2 (08:08→19:59)
[2018-08-23] MEDS: amLODIPine 10 MG Tab PO SCH (08:08)
[2018-08-23] MEDS: Ferrous Sulfate 325 MG Tab PO SCH (08:09)
[2018-08-23] MEDS: Furosemide 20 MG Tab PO SCH (08:09)
[2018-08-23] MEDS: Calcium Carbonate/Vitamin D3 1250 MG-200 Unit Tab PO SCH (08:09)
[2018-08-23] MEDS: predniSONE 20 MG Tab PO SCH (08:09)
[2018-08-23] MEDS: Azithromycin 250 MG Tab PO SCH (08:09)
--- NOTE | 2018-08-23 10:20 | PCM.PN ---
- General Info Date of Service: 08/23/18 Admission Dx/Problem (Free Text): History: Since she removed her IV she has not been getting Rocephin, which is fine because her CXR was unremarkable, and she is getting oral Zithromax. She also has not been able to have her morphine when she is panicking from dyspnea, but the nurses are controlling it by giving her a neb treatment and a little extra oxygen and so she can feel the oxygen blowing in her nose, and then she quiets down. She admits to feeling a little better today. Exam: -Her lungs actually sound clear today -Heart sounds normal and regular -Cheerful and not agitated today Impression: -Exacerbation of asthma and COPD, improving -She will not be able to go home until she is no longer having any of the panic spells Plan: -Measure peak flow before and after a nebulizer Rx once daily -Anticipate swing bed tomorrow -Anticipate D/C to home early next week - Patient Data Vitals - Most Recent: Last Vital Signs Temp 36.7 C 08/23/18 10:00 Pulse 80 08/23/18 10:00 Resp 28 H 08/23/18 10:00 BP 127/52 L 08/23/18 10:00 Pulse Ox 99 08/23/18 10:00 Weight - Most Recent: 51.511 kg I&O - Last 24 Hours: Intake & Output 08/22/18 08/23/18 08/23/18 22:59 06:59 14:59 Intake Total 120 150 500 Balance 120 150 500 Med Orders - Current: Current Medications Acetaminophen (Tylenol) 650 mg PO Q4H PRN PRN Reason: Pain (mild 1-3) Albuterol (Proventil Neb Soln) 2.5 mg INH Q2H PRN PRN Reason: Wheezing Last Admin: 08/22/18 18:39 Dose: 2.5 mg Albuterol/Ipratropium (Duoneb 3.0-0.5 Mg/3 Ml) 3 ml NEB QIDRT [facility] Last Admin: 08/23/18 06:30 Dose: 3 ml Amlodipine Besylate (Norvasc) 10 mg PO DAILY [facility] Last Admin: 08/23/18 08:08 Dose: 10 mg Azithromycin (Zithromax) 500 mg PO DAILY [facility] Stop: 08/25/18 08:01 Last Admin: 08/23/18 08:09 Dose: 500 mg Budesonide (Pulmicort) 0.5 mg NEB BIDRT [facility] Last Admin: 08/23/18 06:30 Dose: 0.5 mg Calcium Carbonate (Calcium Carbonate/Vitamin D 1250 Mg-200 Unit) 1 tab PO WITHBREAKFAST [facility] Last Admin: 08/23/18 08:09 Dose: 1 tab Ferrous Sulfate (Ferrous Sulfate) 325 mg PO WITHBREAKFAST [facility] Last Admin: 08/23/18 08:09 Dose: 325 mg Furosemide (Lasix) 20 mg PO DAILY [facility] Last Admin: 08/23/18 08:09 Dose: 20 mg Melatonin (Melatonin) 3 mg PO BEDTIME [facility] Last Admin: 08/22/18 20:51 Dose: 3 mg Montelukast Sodium (Singulair) 10 mg PO DAILY [facility] Last Admin: 08/23/18 08:08 Dose: 10 mg Morphine Sulfate (Morphine) 0.5 mg IVPUSH Q1H PRN PRN Reason: Dyspnea Fluticasone/Salmeterol [Advair 250-50] 1 puff INH BID [facility] Last Admin: 08/23/18 08:08 Dose: 1 puff Incruse Ellipta (Own (Supply)) 1 each INH DAILY [facility] Last Admin: 08/23/18 08:08 Dose: 1 each Prednisone (Prednisone) 40 mg PO WITHBREAKFAST [facility] Last Admin: 08/23/18 08:09 Dose: 40 mg Quetiapine Fumarate (Seroquel) 100 mg PO BEDTIME [facility] Last Admin: 08/22/18 20:51 Dose: 100 mg Simvastatin (Zocor) 20 mg PO BEDTIME [facility] Last Admin: 08/22/18 20:51 Dose: 20 mg Discontinued Medications Albuterol (Proventil Neb Soln) 2.5 mg INH Q4HR PRN PRN Reason: Wheezing Ceftriaxone Sodium (Rocephin) 1 gm IVPUSH DAILY [facility] Methylprednisolone Sodium Succinate (Solu-Medrol) 125 mg IM ONETIME ONE Stop: 08/22/18 08:21 Last Admin: 08/22/18 09:17 Dose: 125 mg - Problem List Review Problem List Initiated/Reviewed/Updated: Yes - My Orders Last 24 Hours: My Active Orders 08/23/18 08:00 predniSONE 40 mg PO WITHBREAKFAST 08/23/18 09:55 RT Peak Flow Measurement [RC] ASDIRECTED 08/23/18 09:56 Communication Order [RC] ROUTINE
[2018-08-23] MEDS: Melatonin 3 MG Tab PO SCH (19:59)
[2018-08-23] MEDS: Simvastatin 20 MG Tab PO SCH (19:59)
[2018-08-23] MEDS: QUEtiapine 100 MG Tab PO SCH (19:59)
[2018-08-24] MEDS: Albuterol/Ipratropium 3.0-0.5 MG/3 ML Neb Soln NEB SCH ×3 (05:51→12:12)
[2018-08-24] MEDS: Budesonide 0.5 MG/2 ML Neb Susp NEB SCH ×2 (05:51→07:43)
[2018-08-24] MEDS: Furosemide 20 MG Tab PO SCH (07:37)
[2018-08-24] MEDS: SALMETEROL INH SCH (07:37)
[2018-08-24] MEDS: amLODIPine 10 MG Tab PO SCH (07:37)
[2018-08-24] MEDS: predniSONE 20 MG Tab PO SCH (07:37)
[2018-08-24] MEDS: Ferrous Sulfate 325 MG Tab PO SCH (07:37)
[2018-08-24] MEDS: Montelukast 10 MG Tab PO SCH (07:37)
[2018-08-24] MEDS: FLUTICASONE INH SCH (07:37)
[2018-08-24] MEDS: Azithromycin 250 MG Tab PO SCH (07:38)
[2018-08-24] MEDS: Calcium Carbonate/Vitamin D3 1250 MG-200 Unit Tab PO SCH (07:38)
--- NOTE | 2018-08-24 10:58 | PCM.DCSUM1 ---
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 Initial Findings -Heart sounds normal and regular -Marked wheezing with agitation and panic reaction -No ankle edema -Low-grade fever, 100.4 Treatment and Course in Hospital. For 3 days she has been on Zithromax orally, IV Rocephin DCd after the first day when she her IV came out and she didnt want another. She was somewhat improved by that time and not bringing up significant amount of sputum, and by then she was afebrile so only of the Zithromax was continued. She got 120 mg of Solu-Medrol IM on 08/22 and 08/23, then continued with oral prednisone 40 mg daily until D/C. She continued to have both nebulizer bronchodilators and hand-held inhalers, but with measurement of her PEF at 65-75, it was apparent that she probably did not have the pulmonary reserve to use an inhaler, so on T/F back to Swing Bed she is switched over to nebulizer Rx completely. When she has acute wheezing nurses are able to calm her down by adding a bit of extra oxygen temporarily, and giving her a when necessary nebulizer Rx. Condition on Discharge: -Heart sounds distant but regular -Mild wheezing -Alert and calm -No ankle edema -Sleeps lying down flat without dyspnea Discharge Plan: -Back to Swing Bed, anticipate D/C back to home next week -Her nebulized Rx will be Pulmicort BID, DuoNeb QID scheduled, albuterol every 2 hours p.r.n.. She will continue to get Singulair daily orally also -Taper off of oral prednisone by taking 20 mg daily 2 days -Takes Zithromax 500 mg daily for 2 more days Diagnosis: Stroke: No - Discharge Data Discharge Date: 08/24/18 Discharge Disposition: DC/Tfer W/I Hosp To [place] [id number] Condition: Good - Patient Summary/Data Consults: Consultations 08/21/18 12:07 Consult to Case Management/Signal Timer [CONS] Routine Consult to Dietary [Consult to Cash Processing Specialist] [CONS] Routine Consult to Occupational Therapy [OT Evaluation and Treatment] [CONS] Routine PT Evaluation and Treatment [CONS] Routine Respiratory Care Assess and Treatment [CONS] Routine - Discharge Plan *PRESCRIPTION DRUG MONITORING PROGRAM REVIEWED*: Not Applicable *COPY OF PRESCRIPTION DRUG MONITORING REPORT IN PATIENT MINH: Not Applicable Home Medications: Home Meds Calcium Carbonate/Vitamin D3 [Calcium 500-Vit D3 200 Caplet] 1 tab PO WITHBREAKFAST 07/26/18 [History] Melatonin 3 mg PO BEDTIME 07/26/18 [History] Potassium Chloride [K-Tab ER] 10 meq PO DAILY 07/26/18 [History] QUEtiapine [SEROquel] 100 mg PO BEDTIME 07/26/18 [History] Simvastatin [Zocor] 20 mg PO BEDTIME 07/26/18 [History] amLODIPine Besylate [Amlodipine Besylate] 10 mg PO DAILY 07/26/18 [History] Albuterol [Proventil Neb Soln] 2.5 mg INH Q2H PRN neb 08/24/18 [Rx] Albuterol/Ipratropium [DuoNeb 3.0-0.5 MG/3 ML] 3 ml NEB QIDRT neb 08/24/18 [Rx] Azithromycin [Zithromax] 500 mg PO DAILY 2 Days tablet 08/24/18 [Rx] Budesonide [Pulmicort] 0.5 mg NEB BIDRT neb 08/24/18 [Rx] Ferrous Sulfate 325 mg PO WITHBREAKFAST tablet 08/24/18 [Rx] Furosemide [Lasix] 20 mg PO DAILY tablet 08/24/18 [Rx] Montelukast [Singulair] 10 mg PO DAILY tablet 08/24/18 [Rx] predniSONE 20 mg PO WITHBREAKFAST 2 Days tablet 08/24/18 [Rx] - Discharge Summary/Plan Comment DC Time >30 min.: No - Patient Data Vitals - Most Recent: Last Vital Signs Temp 36.6 C 08/24/18 10:00 Pulse 79 08/24/18 10:00 Resp 24 H 08/24/18 05:42 BP 125/46 L 08/24/18 10:00 Pulse Ox 98 08/24/18 10:00 Weight - Most Recent: 51.511 kg I&O - Last 24 hours: Intake & Output 0408/24/18 08/24/18 22:59 06:59 14:59 Intake Total 300 450 240 Balance 300 450 240 Med Orders - Current: Current Medications Acetaminophen (Tylenol) 650 mg PO Q4H PRN PRN Reason: Pain (mild 1-3) Albuterol (Proventil Neb Soln) 2.5 mg INH Q2H PRN PRN Reason: Wheezing Last Admin: 08/22/18 18:39 Dose: 2.5 mg Albuterol/Ipratropium (Duoneb 3.0-0.5 Mg/3 Ml) 3 ml NEB QIDRT [facility] Last Admin: 08/24/18 07:43 Dose: 3 ml Amlodipine Besylate (Norvasc) 10 mg PO DAILY [facility] Last Admin: 08/24/18 07:37 Dose: 10 mg Azithromycin (Zithromax) 500 mg PO DAILY [facility] Stop: 08/25/18 08:01 Last Admin: 08/24/18 07:38 Dose: 500 mg Budesonide (Pulmicort) 0.5 mg NEB BIDRT [facility] Last Admin: 08/24/18 07:43 Dose: 0.5 mg Calcium Carbonate (Calcium Carbonate/Vitamin D 1250 Mg-200 Unit) 1 tab PO WITHBREAKFAST [facility] Last Admin: 08/24/18 07:38 Dose: 1 tab Ferrous Sulfate (Ferrous Sulfate) 325 mg PO WITHBREAKFAST [facility] Last Admin: 08/24/18 07:37 Dose: 325 mg Furosemide (Lasix) 20 mg PO DAILY [facility] Last Admin: 08/24/18 07:37 Dose: 20 mg Melatonin (Melatonin) 3 mg PO BEDTIME [facility] Last Admin: 08/23/18 19:59 Dose: 3 mg Montelukast Sodium (Singulair) 10 mg PO DAILY [facility] Last Admin: 08/24/18 07:37 Dose: 10 mg Morphine Sulfate (Morphine) 0.5 mg IVPUSH Q1H PRN PRN Reason: Dyspnea Fluticasone/Salmeterol [Advair 250-50] 1 puff INH BID [facility] Last Admin: 08/24/18 07:37 Dose: 1 puff Incruse Ellipta (Own (Supply)) 1 each INH DAILY [facility] Last Admin: 08/24/18 07:37 Dose: 1 each Prednisone (Prednisone) 40 mg PO WITHBREAKFAST [facility] Last Admin: 08/24/18 07:37 Dose: 40 mg Quetiapine Fumarate (Seroquel) 100 mg PO BEDTIME [facility] Last Admin: 08/23/18 19:59 Dose: 100 mg Simvastatin (Zocor) 20 mg PO BEDTIME [facility] Last Admin: 08/23/18 19:59 Dose: 20 mg Discontinued Medications Albuterol (Proventil Neb Soln) 2.5 mg INH Q4HR PRN PRN Reason: Wheezing Ceftriaxone Sodium (Rocephin) 1 gm IVPUSH DAILY [facility] Methylprednisolone Sodium Succinate (Solu-Medrol) 125 mg IM ONETIME ONE Stop: 08/22/18 08:21 Last Admin: 08/22/18 09:17 Dose: 125 mg
== END 2018-08-24 16:22 | disposition swing bed (61) | DRG 192 ==
LOC: VM.MS 10:58
PROVIDERS: ADMIT Family Medicine; ATTEND Family Medicine
DX: J44.1 Chronic obstructive pulmonary disease with (acute) exacerbation (principal); H54.7 Unspecified visual loss; L40.4 Guttate psoriasis; E78.5 Hyperlipidemia, unspecified; I10 Essential (primary) hypertension; I25.10 Atherosclerotic heart disease of native coronary artery without angina pectoris; R73.01 Impaired fasting glucose
CPT/HCPCS: 36600; 82803; 94640; 94760; 97110-GP; 97116-GP; 97163-GP; 97168-GO; 97530-GP; A9270-GY; J2930; J7613-GY; J7620-GY

== ENCOUNTER 2018-08-24 14:01 | Inpatient (IN) | payer MEDICAID ==
[2018-08-24] MEDS: guaiFENesin 600 MG Tab.ER PO SCH (19:58)
[2018-08-24] MEDS: Melatonin 3 MG Tab PO SCH (19:58)
[2018-08-24] MEDS: BUDESONIDE 0.5 MG/2 ML NEB SCH (19:58)
[2018-08-24] MEDS: ALBUTEROL NEB SCH (19:58)
[2018-08-24] MEDS: IPRATROPIUM NEB SCH (19:58)
[2018-08-24] MEDS: SIMVASTATIN 20 MG PO SCH (19:59)
[2018-08-24] MEDS: QUETIAPINE PO SCH (19:59)
[2018-08-25] MEDS: ALBUTEROL INH PRN ×2 (04:23→21:01)
[2018-08-25] MEDS: IPRATROPIUM NEB SCH ×4 (07:14→20:05)
[2018-08-25] MEDS: ALBUTEROL NEB SCH ×4 (07:14→20:05)
[2018-08-25] MEDS: BUDESONIDE 0.5 MG/2 ML NEB SCH ×2 (07:14→20:08)
[2018-08-25] MEDS ORDERED: Azithromycin 250 MG Tab PO SCH (08:00)
[2018-08-25] MEDS ORDERED: Potassium Chloride 10 MEQ Tab.ER PO SCH (08:00)
[2018-08-25] MEDS ORDERED: predniSONE 20 MG Tab PO SCH (08:00)
[2018-08-25] MEDS: Ferrous Sulfate 325 MG Tab PO SCH (08:46)
[2018-08-25] MEDS: Calcium Carbonate/Vitamin D3 1250 MG-200 Unit Tab PO SCH (08:46)
[2018-08-25] MEDS: FUROSEMIDE 20 MG PO SCH (08:46)
[2018-08-25] MEDS: AMLODIPINE 10 MG PO SCH (08:46)
[2018-08-25] MEDS: guaiFENesin 600 MG Tab.ER PO SCH ×2 (08:46→20:06)
[2018-08-25] MEDS: MONTELUKAST 10 MG PO SCH (08:47)
[2018-08-25] MEDS: Azithromycin 250 MG Tab PO SCH (11:59)
[2018-08-25] MEDS: Melatonin 3 MG Tab PO SCH (20:06)
[2018-08-25] MEDS: SIMVASTATIN 20 MG PO SCH (20:06)
[2018-08-25] MEDS: QUETIAPINE PO SCH (20:06)
[2018-08-26] MEDS: BUDESONIDE 0.5 MG/2 ML NEB SCH ×2 (06:56→19:31)
[2018-08-26] MEDS: IPRATROPIUM NEB SCH ×4 (06:56→19:30)
[2018-08-26] MEDS: ALBUTEROL NEB SCH ×4 (06:56→19:30)
[2018-08-26] MEDS: MONTELUKAST 10 MG PO SCH (07:45)
[2018-08-26] MEDS: Calcium Carbonate/Vitamin D3 1250 MG-200 Unit Tab PO SCH (07:45)
[2018-08-26] MEDS: guaiFENesin 600 MG Tab.ER PO SCH ×2 (07:45→19:30)
[2018-08-26] MEDS: Ferrous Sulfate 325 MG Tab PO SCH (07:46)
[2018-08-26] MEDS: AMLODIPINE 10 MG PO SCH (07:46)
[2018-08-26] MEDS: FUROSEMIDE 20 MG PO SCH (07:46)
[2018-08-26] MEDS ORDERED: predniSONE 20 MG Tab PO SCH (08:00)
[2018-08-26] MEDS: Azithromycin 250 MG Tab PO SCH (10:56)
[2018-08-26] MEDS: Melatonin 3 MG Tab PO SCH (19:30)
[2018-08-26] MEDS: SIMVASTATIN 20 MG PO SCH (19:30)
[2018-08-26] MEDS: QUETIAPINE PO SCH (19:30)
[2018-08-27] MEDS: ALBUTEROL NEB SCH ×4 (06:58→19:08)
[2018-08-27] MEDS: IPRATROPIUM NEB SCH ×4 (06:58→19:08)
[2018-08-27] MEDS: BUDESONIDE 0.5 MG/2 ML NEB SCH ×2 (06:59→19:08)
[2018-08-27] MEDS: FUROSEMIDE 20 MG PO SCH (07:18)
[2018-08-27] MEDS: Calcium Carbonate/Vitamin D3 1250 MG-200 Unit Tab PO SCH (07:18)
[2018-08-27] MEDS: Ferrous Sulfate 325 MG Tab PO SCH (07:18)
[2018-08-27] MEDS: guaiFENesin 600 MG Tab.ER PO SCH ×2 (07:18→19:09)
[2018-08-27] MEDS: MONTELUKAST 10 MG PO SCH (07:18)
[2018-08-27] MEDS: AMLODIPINE 10 MG PO SCH (07:19)
[2018-08-27] MEDS: QUETIAPINE PO SCH (19:09)
[2018-08-27] MEDS: Melatonin 3 MG Tab PO SCH (19:09)
[2018-08-27] MEDS: SIMVASTATIN 20 MG PO SCH (19:09)
[2018-08-28] MEDS: BUDESONIDE 0.5 MG/2 ML NEB SCH ×2 (07:11→21:07)
[2018-08-28] MEDS: IPRATROPIUM NEB SCH ×4 (07:11→21:07)
[2018-08-28] MEDS: ALBUTEROL NEB SCH ×4 (07:11→21:07)
[2018-08-28] MEDS: guaiFENesin 600 MG Tab.ER PO SCH ×2 (07:49→20:56)
[2018-08-28] MEDS: AMLODIPINE 10 MG PO SCH (07:49)
[2018-08-28] MEDS: Calcium Carbonate/Vitamin D3 1250 MG-200 Unit Tab PO SCH (07:49)
[2018-08-28] MEDS: Ferrous Sulfate 325 MG Tab PO SCH (07:49)
[2018-08-28] MEDS: MONTELUKAST 10 MG PO SCH (07:49)
[2018-08-28] MEDS: FUROSEMIDE 20 MG PO SCH (07:49)
[2018-08-28] MEDS: Acetaminophen 500 MG Tab PO PRN (15:29)
[2018-08-28] MEDS ORDERED: ARFORMOTEROL 15 MCG/2 ML INH SCH (20:00)
[2018-08-28] MEDS: ARFORMOTEROL 15 MCG NEB SCH (20:55)
[2018-08-28] MEDS: Melatonin 3 MG Tab PO SCH (20:56)
[2018-08-28] MEDS: SIMVASTATIN 20 MG PO SCH (20:57)
[2018-08-28] MEDS: QUETIAPINE PO SCH (20:57)
[2018-08-29] MEDS: BUDESONIDE 0.5 MG/2 ML NEB SCH ×2 (07:02→19:54)
[2018-08-29] MEDS: IPRATROPIUM NEB SCH ×4 (07:02→19:54)
[2018-08-29] MEDS: ALBUTEROL NEB SCH ×4 (07:02→19:54)
[2018-08-29] MEDS: ARFORMOTEROL 15 MCG NEB SCH ×2 (07:22→19:54)
[2018-08-29] MEDS: Acetaminophen 500 MG Tab PO PRN (07:57)
[2018-08-29] MEDS: guaiFENesin 600 MG Tab.ER PO SCH ×2 (07:57→19:54)
[2018-08-29] MEDS: Calcium Carbonate/Vitamin D3 1250 MG-200 Unit Tab PO SCH (07:57)
[2018-08-29] MEDS: AMLODIPINE 10 MG PO SCH (07:57)
[2018-08-29] MEDS: Ferrous Sulfate 325 MG Tab PO SCH (07:57)
[2018-08-29] MEDS: MONTELUKAST 10 MG PO SCH (07:57)
[2018-08-29] MEDS: FUROSEMIDE 20 MG PO SCH (07:57)
[2018-08-29] MEDS: Melatonin 3 MG Tab PO SCH (19:53)
[2018-08-29] MEDS: QUETIAPINE PO SCH (19:55)
[2018-08-29] MEDS: SIMVASTATIN 20 MG PO SCH (19:55)
--- NOTE | 2018-08-29 21:38 | PCM.PN ---
- General Info Date of Service: 08/29/18 Admission Dx/Problem (Free Text): History: Family is coming tomorrow to get instructions on managing her nebulizer, since she had such poor expiratory flow it seemed unlikely she would get adequate relief from using a hand-held inhaler. She is on DuoNeb, p.r.n.albuterol, Pulmicort, but until yesterday was not on any long-acting bronchodilator, so we have added aformoterol (Brovana). Her oximetry has been OK on 1L/min and she will go home on that, to be adjusted as needed. Exam: None today Impression: COPD Plan: Will go home tomorrow on nebulized ipratropium, albuterol, aformoterol, budesonide and home oxygen at 1L - Patient Data Vitals - Most Recent: Last Vital Signs Temp 36.4 C 08/29/18 05:42 Pulse 70 08/29/18 05:42 Resp 18 08/29/18 05:42 BP 121/54 L 08/29/18 07:57 Pulse Ox 92 L 08/29/18 07:05 Weight - Most Recent: 51.511 kg I&O - Last 24 Hours: Intake & Output 08/29/18 08/29/18 08/29/18 06:59 14:59 22:59 Intake Total 720 360 Balance 720 360 Med Orders - Current: Current Medications Acetaminophen (Tylenol Extra Strength) 1,000 mg PO Q6H PRN PRN Reason: Pain Last Admin: 08/29/18 07:57 Dose: 1,000 mg Albuterol (Proventil Neb Soln) 2.5 mg INH Q2H PRN PRN Reason: Wheezing Last Admin: 08/25/18 21:01 Dose: 2.5 mg Albuterol/Ipratropium (Duoneb 3.0-0.5 Mg/3 Ml) 3 ml NEB QIDRT [facility] Last Admin: 08/29/18 19:54 Dose: 3 ml Amlodipine Besylate (Norvasc) 10 mg PO DAILY [facility] Last Admin: 08/29/18 07:57 Dose: 10 mg Budesonide (Pulmicort) 0.5 mg NEB BIDRT [facility] Last Admin: 08/29/18 19:54 Dose: 0.5 mg Calcium Carbonate (Calcium Carbonate/Vitamin D 1250 Mg-200 Unit) 1 tab PO WITHBREAKFAST [facility] Last Admin: 08/29/18 07:57 Dose: 1 tab Ferrous Sulfate (Ferrous Sulfate) 325 mg PO WITHBREAKFAST [facility] Last Admin: 08/29/18 07:57 Dose: 325 mg Furosemide (Lasix) 20 mg PO DAILY [facility] Last Admin: 08/29/18 07:57 Dose: 20 mg Guaifenesin (Mucinex) 600 mg PO BID [facility] Last Admin: 08/29/18 19:54 Dose: 600 mg Melatonin (Melatonin) 3 mg PO BEDTIME [facility] Last Admin: 08/29/18 19:53 Dose: 3 mg Montelukast Sodium (Singulair) 10 mg PO DAILY [facility] Last Admin: 08/29/18 07:57 Dose: 10 mg Brovana (Aformoterol () 15mcg : Own Supply) 0 mcg NEB BID [facility] Last Admin: 08/29/18 19:54 Dose: 15 mcg Quetiapine Fumarate (Seroquel) 50 mg PO BEDTIME [facility] Last Admin: 08/29/18 19:55 Dose: 50 mg Simvastatin (Zocor) 20 mg PO BEDTIME [facility] Last Admin: 08/29/18 19:55 Dose: 20 mg Discontinued Medications Azithromycin (Zithromax) 500 mg PO DAILY [facility] Azithromycin (Zithromax) 500 mg PO Q24H [facility] Stop: 08/26/18 11:01 Last Admin: 08/26/18 10:56 Dose: 500 mg Potassium Chloride (Klor-Con 10) 10 meq PO DAILY [facility] Prednisone (Prednisone) 40 mg PO WITHBREAKFAST [facility] Last Admin: 08/25/18 08:51 Dose: 40 mg Prednisone (Prednisone) 20 mg PO WITHBREAKFAST [facility] Stop: 08/26/18 08:01 Last Admin: 08/26/18 07:46 Dose: 20 mg - Problem List Review Problem List Initiated/Reviewed/Updated: Yes
[2018-08-30] MEDS: ALBUTEROL NEB SCH ×2 (06:59→10:36)
[2018-08-30] MEDS: BUDESONIDE 0.5 MG/2 ML NEB SCH (06:59)
[2018-08-30] MEDS: IPRATROPIUM NEB SCH ×2 (06:59→10:36)
[2018-08-30] MEDS: ARFORMOTEROL 15 MCG NEB SCH (07:17)
[2018-08-30] MEDS: AMLODIPINE 10 MG PO SCH (08:40)
[2018-08-30] MEDS: Acetaminophen 500 MG Tab PO PRN (08:40)
[2018-08-30] MEDS: Ferrous Sulfate 325 MG Tab PO SCH (08:40)
[2018-08-30] MEDS: guaiFENesin 600 MG Tab.ER PO SCH (08:40)
[2018-08-30] MEDS: MONTELUKAST 10 MG PO SCH (08:40)
[2018-08-30] MEDS: FUROSEMIDE 20 MG PO SCH (08:40)
[2018-08-30] MEDS: Calcium Carbonate/Vitamin D3 1250 MG-200 Unit Tab PO SCH (08:40)
--- NOTE | 2018-08-30 10:18 | PCM.DCSUM1 ---
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 for acute respiratory failure, intubation, from until 07/26/18. Swing Bed at [facility] from 07/26 until 08/21/18. Change to Acute -Care for acute exacerbation of asthma from 08/21 until 08/24/18, then back to Swing Bed until D/C to home today. Initial Findings: On return to Swing Bed 08/24 her lungs were clear again although peak expiratory flow only about 65-70 L/min. Heart regular, no respiratory distress again. Treatment and Course in Hospital: Before the above hospitalization she had been on hand-held inhalers, mainly Advair and p.r.n.albuterol, but with her worsening asthma and wheezing, and with the finding of her very poor peak expiratory flow, she was converted entirely to nebulizer Rx, Pulmicort, Brovana, albuterol, and DuoNeb, and she did well with this. On her last T/F to acute care on 08/21 she was started on oral prednisone, first 40 mg daily, then after 2 days 20 mg daily, that is D/C d today. Zithromax is also D/Cd today. Managing her respiratory Rx and oxygen will be difficult for her so she is getting from [facility] F/U as well as Home Care Nurse visits. She continued to get oral iron 325 mg of ferrous sulfate daily, because of her finding of iron deficiency anemia on 07/27, with Hgb of 8.8 and Fe sat of 6.3% ( normal > 20%), she finally agreed to have colonoscopy, which she had previously refused, and this is scheduled for 09/14/18. She is continuing to get Lasix, because part of her dyspnea was felt to be from CHF, probably secondary to coronary artery disease, proBNP on 07/31/18 was 6060 ( normal < 125). Her oximetry has been good when at rest but with any physical activity at all she has continued to desaturate, so she is getting oxygen at one L/min, and will continue to get that at home. Hypertension remained well controlled, last BP 111/49. Condition on Discharge: -Afebrile, VS including BP normal -Comfortable to and in no respiratory distress -Blindness unchanged -Heart sounds normal and regular -No wheezing on lung auscultation -No ankle edema Discharge Plan: -Meds as below -Oxygen at one L/min, Jimi is arranging -Home Care Nurse visits -Additional family is moving into the house, large enough to accommodate all, so she will not need to be alone during the day -Keep appointment for colonoscopy on 09/14/18 -See JBB in the clinic in early September Diagnosis: Stroke: No Modified Khai Scale: Mod.Disablility Requiring Some Help,Able to Walk Without Assistance Modified Khai Scale Score: 3 - Discharge Data Discharge Date: 08/30/18 Discharge Disposition: Home, W Home Health Agency 06 Condition: Good - Patient Summary/Data Consults: Consultations 08/24/18 17:04 Consult to Case Management/Corporate Administrative Assistant [CONS] Routine PT Evaluation and Treatment [CONS] Routine - Discharge Plan *PRESCRIPTION DRUG MONITORING PROGRAM REVIEWED*: Not Applicable *COPY OF PRESCRIPTION DRUG MONITORING REPORT IN PATIENT MINH: Not Applicable Prescriptions/Med Rec: Albuterol [Proventil Neb Soln] 2.5 mg INH Q2H PRN #100 neb PRN Reason: Wheezing Albuterol/Ipratropium [DuoNeb 3.0-0.5 MG/3 ML] 3 ml NEB QIDRT #100 neb Brovana. 0 mcg NEB BID #100 Budesonide [Pulmicort] 0.5 mg NEB BIDRT #100 neb Ferrous Sulfate 325 mg PO WITHBREAKFAST #30 tablet Melatonin 3 mg PO BEDTIME #30 tablet Montelukast [Singulair] 10 mg PO DAILY #30 tablet Potassium Chloride [K-Tab ER] 10 meq PO DAILY #30 tablet.er Home Medications: Home Meds Calcium Carbonate/Vitamin D3 [Calcium 500-Vit D3 200 Caplet] 1 tab PO WITHBREAKFAST 07/26/18 [History] QUEtiapine [SEROquel] 50 mg PO BEDTIME 07/26/18 [History] Simvastatin [Zocor] 20 mg PO BEDTIME 07/26/18 [History] amLODIPine Besylate [Amlodipine Besylate] 10 mg PO DAILY 07/26/18 [History] Furosemide [Lasix] 20 mg PO DAILY tablet 08/24/18 [Rx] Acetaminophen [Tylenol Extra Strength] 1,000 mg PO Q6H PRN tablet 08/30/18 [Rx] Albuterol [Proventil Neb Soln] 2.5 mg INH Q2H PRN #100 neb 08/30/18 [Rx] Albuterol/Ipratropium [DuoNeb 3.0-0.5 MG/3 ML] 3 ml NEB QIDRT #100 neb 08/30/18 [Rx] Brovana. 0 mcg NEB BID #100 08/30/18 [Rx] Budesonide [Pulmicort] 0.5 mg NEB BIDRT #100 neb 08/30/18 [Rx] Ferrous Sulfate 325 mg PO WITHBREAKFAST #30 tablet 08/30/18 [Rx] Melatonin 3 mg PO BEDTIME #30 tablet 08/30/18 [Rx] Montelukast [Singulair] 10 mg PO DAILY #30 tablet 08/30/18 [Rx] Potassium Chloride [K-Tab ER] 10 meq PO DAILY #30 tablet.er 08/30/18 [Rx] QUEtiapine [SEROquel] 50 mg PO BEDTIME #0 tablet 08/30/18 [Rx] Referrals: Tony Huff MD [Primary Care Provider] - 10/02/18 12:40 pm (You have a follow up appt. [facility] Dr. Robert Huff on October 02, 2018 at 12:40---[facility]) - Discharge Summary/Plan Comment DC Time >30 min.: No - Patient Data Vitals - Most Recent: Last Vital Signs Temp 36.6 C 08/30/18 06:00 Pulse 69 08/30/18 06:00 Resp 18 08/29/18 05:42 BP 111/49 L 08/30/18 08:40 Pulse Ox 96 08/30/18 07:01 Weight - Most Recent: 51.511 kg I&O - Last 24 hours: Intake & Output 08/29/18 08/30/18 08/30/18 22:59 06:59 14:59 Intake Total 360 420 Balance 360 420 Med Orders - Current: Current Medications Acetaminophen (Tylenol Extra Strength) 1,000 mg PO Q6H PRN PRN Reason: Pain Last Admin: 08/30/18 08:40 Dose: 1,000 mg Albuterol (Proventil Neb Soln) 2.5 mg INH Q2H PRN PRN Reason: Wheezing Last Admin: 08/25/18 21:01 Dose: 2.5 mg Albuterol/Ipratropium (Duoneb 3.0-0.5 Mg/3 Ml) 3 ml NEB QIDRT [facility] Last Admin: 08/30/18 06:59 Dose: 3 ml Amlodipine Besylate (Norvasc) 10 mg PO DAILY [facility] Last Admin: 08/30/18 08:40 Dose: 10 mg Budesonide (Pulmicort) 0.5 mg NEB BIDRT [facility] Last Admin: 08/30/18 06:59 Dose: 0.5 mg Calcium Carbonate (Calcium Carbonate/Vitamin D 1250 Mg-200 Unit) 1 tab PO WITHBREAKFAST [facility] Last Admin: 08/30/18 08:40 Dose: 1 tab Ferrous Sulfate (Ferrous Sulfate) 325 mg PO WITHBREAKFAST [facility] Last Admin: 08/30/18 08:40 Dose: 325 mg Furosemide (Lasix) 20 mg PO DAILY [facility] Last Admin: 08/30/18 08:40 Dose: 20 mg Guaifenesin (Mucinex) 600 mg PO BID [facility] Last Admin: 08/30/18 08:40 Dose: 600 mg Melatonin (Melatonin) 3 mg PO BEDTIME [facility] Last Admin: 08/29/18 19:53 Dose: 3 mg Montelukast Sodium (Singulair) 10 mg PO DAILY [facility] Last Admin: 08/30/18 08:40 Dose: 10 mg Brovana (Aformoterol () 15mcg : Own Supply) 0 mcg NEB BID [facility] Last Admin: 08/30/18 07:17 Dose: 15 mcg Quetiapine Fumarate (Seroquel) 50 mg PO BEDTIME [facility] Last Admin: 08/29/18 19:55 Dose: 50 mg Simvastatin (Zocor) 20 mg PO BEDTIME [facility] Last Admin: 08/29/18 19:55 Dose: 20 mg Discontinued Medications Azithromycin (Zithromax) 500 mg PO DAILY [facility] Azithromycin (Zithromax) 500 mg PO Q24H [facility] Stop: 08/26/18 11:01 Last Admin: 08/26/18 10:56 Dose: 500 mg Potassium Chloride (Klor-Con 10) 10 meq PO DAILY [facility] Prednisone (Prednisone) 40 mg PO WITHBREAKFAST [facility] Last Admin: 08/25/18 08:51 Dose: 40 mg Prednisone (Prednisone) 20 mg PO WITHBREAKFAST [facility] Stop: 08/26/18 08:01 Last Admin: 08/26/18 07:46 Dose: 20 mg
== END 2018-08-30 11:15 | disposition home health service (06) | DRG 192 ==
LOC: VM.MS 16:23
PROVIDERS: ADMIT Family Medicine; ATTEND Family Medicine
DX: J44.1 Chronic obstructive pulmonary disease with (acute) exacerbation (principal); I11.0 Hypertensive heart disease with heart failure; H54.7 Unspecified visual loss; L40.4 Guttate psoriasis; E78.5 Hyperlipidemia, unspecified; I25.10 Atherosclerotic heart disease of native coronary artery without angina pectoris; Z79.52 Long term (current) use of systemic steroids; I25.5 Ischemic cardiomyopathy; I50.9 Heart failure, unspecified; D50.9 Iron deficiency anemia, unspecified
CPT/HCPCS: 94640; 94760; 97116-GP; A9270-GY; J7613-GY; J7620-GY

== ENCOUNTER 2018-09-14 09:46 | Day surgery (SDC) | payer MEDICARE, MEDICAID ==
[~2018-09-14 09:46] MED LIST: Albuterol 0.083% 2.5 MG/3 ML Neb Soln NEB PRN; Lactated Ringers 1,000 ML IV SCH
[2018-09-14] MEDS ORDERED: Propofol 200 MG/20 ML SDV ONE (13:17)
--- NOTE | 2018-09-14 17:01 | OR ---
PREOPERATIVE DIAGNOSES: 1. Screening colonoscopy. 2. Iron deficiency anemia. POSTOPERATIVE DIAGNOSES: 1. 2-mm rectal polyp, removed using cold forceps. 2. Tortuous but otherwise normal colon. PROCEDURE: Colonoscopy with polypectomy x1 using cold forceps. SURGEON: Deshaun Cespedes M.D. ANESTHESIA: Monitored anesthesia care. BOWEL PREP: Good. DESCRIPTION OF PROCEDURE: Jazlyn is a 68-year-old female was brought to the endoscopy suite after discussing risks and benefits of the procedure. Informed consent was obtained for conscious sedation and colonoscopy with or without biopsy and/or polypectomy. We also discussed possibility of missed lesions. Pre-procedure exam was unremarkable. IV, oxygen, and monitors were placed. The patient was placed in the left lateral decubitus position. Sedation was administered and a digital rectal exam was performed which and unremarkable except for some external hemorrhoidal skin tags. The patient did have a rather tortuous colon and did require moving the patient onto her back to get by an area in the transverse colon. Her sigmoid did seem to loop on the way in. Cecum was eventually viewed. The colonoscope was slowly withdrawn. Mucosa closely observed in direct circumferential manner. Colonoscope was passed into the rectum and slowly advanced all the way to the cecum. Cecum was viewed and photographed. The colonoscope was slowly withdrawn and the mucosa was closed observed in a direct circumferential manner. The ascending colon was unremarkable. The transverse colon was unremarkable. The descending colon was unremarkable. The sigmoid colon was unremarkable. Retroflexion was performed and rectal mucosa was for a 2-mm rectal polyp, removed using cold forceps. Scope was removed. The patient tolerated the procedure well. The patient was monitored until that baseline status. Discharge instructions were reviewed and the patient was discharged in good condition. COMPLICATIONS: None. TOTAL TIME: 24 minutes. ESTIMATED BLOOD LOSS: Less than 1 mL. RECOMMENDATIONS/FOLLOW-UP: We will await results of path report to determine ideal followup interval. I would like to thank Dr. Huff for this referral. DMB: 09/14/2018 15:13:42 MODL: 09/14/2018 15:36:33 /[id number]
== END 2018-09-14 16:30 | disposition home or self-care (01) ==
LOC: VM.SDS 09:46
PROVIDERS: ATTEND Family Medicine
DX: D50.9 Iron deficiency anemia, unspecified (principal); K62.1 Rectal polyp; K64.4 Residual hemorrhoidal skin tags; K63.89 Other specified diseases of intestine; J44.9 Chronic obstructive pulmonary disease, unspecified; I10 Essential (primary) hypertension; I25.10 Atherosclerotic heart disease of native coronary artery without angina pectoris; E78.5 Hyperlipidemia, unspecified; H54.7 Unspecified visual loss; L40.4 Guttate psoriasis; Z79.51 Long term (current) use of inhaled steroids; Z79.899 Other long term (current) drug therapy
CPT/HCPCS: 45380; 94640; J2704; J7120; 00811; J7613-GY

== ENCOUNTER 2018-09-18 12:56 | Inpatient (IN) | payer MEDICAID ==
[2018-09-18] MEDS ORDERED: Acetaminophen 500 MG Tab PO PRN (14:31)
[2018-09-18] MEDS: ALBUTEROL NEB SCH ×2 (15:50→19:32)
[2018-09-18] MEDS: IPRATROPIUM NEB SCH ×2 (15:50→19:32)
[2018-09-18] MEDS ORDERED: ALBUTEROL 2.5 MG/3 ML INH PRN (16:00)
[2018-09-18 18:06] LABS: CHLORIDE,CL 100 mmol/L (98-107); SODIUM,NA 140 mmol/L (136-145)
[2018-09-18 18:07] LABS: ANION GAP 11.9 mmol/L (10-20)
[2018-09-18] MEDS: ARFORMOTEROL 15 MCG NEB SCH (19:26)
[2018-09-18] MEDS: BUDESONIDE 0.5 MG NEB SCH (19:27)
[2018-09-18] MEDS: guaiFENesin 600 MG Tab.ER PO SCH (19:28)
[2018-09-18] MEDS: Melatonin 3 MG Tab PO SCH (19:28)
[2018-09-18] MEDS: QUETIAPINE 50 MG PO SCH (19:28)
[2018-09-18] MEDS ORDERED: Simvastatin 20 MG Tab **OWN MED PO SCH (20:00)
--- NOTE | 2018-09-19 03:31 | HP ---
CHIEF COMPLAINT: Need for 24-hour supervision. HISTORY OF PRESENT ILLNESS: This is a 68-year-old female who was previously on swing bed from 07/27/2018 and discharged home on 08/30/2018 with family who was seen by home health today and because her family had returned to [place], decision was made to readmit her to swing bed until a longterm bed can be arranged. She did undergo colonoscopy on the for iron deficiency anemia. She had a polyp, which pathology has not returned yet. Otherwise, she states she is feeling good. Breathing has been good. She appeared to be tearful when talking about her family, moving back to [place]. The patient was actually intubated on her admission back in June at [facility]. She actually had to be readmitted to acute cares due to asthma exacerbation by Dr. Huff in July, but has been doing well now on nebulizers at home. ALLERGIES: None. MEDICATIONS: Her medication list is reviewed today and includes Tylenol p.r.n., albuterol inhaler q.4 hours p.r.n., amlodipine 10 mg daily, Brovana neb, Pulmicort neb, calcium, vitamin D, DuoNeb q.i.d. scheduled, iron 325 daily, Lasix 20 mg daily, melatonin 3 mg daily, Mucinex 600 b.i.d., Singulair 10 mg daily, Seroquel 50 mg at bedtime, and Zocor 20 mg daily. PAST MEDICAL HISTORY: Includes the asthma since she was a kid and then coronary artery disease with mild diffuse disease, hyperlipidemia, essential hypertension, impaired fasting glucose, psoriasis, iron-deficiency anemia, and chronic sinusitis. PAST SURGICAL HISTORY: Previous sinus surgery. FAMILY HISTORY: Brother who is living. Mother had lung cancer. She is . SOCIAL HISTORY: She is single. She previously lived in [place], moved to [place] in 2011. Denies alcohol or smoking. REVIEW OF SYSTEMS: General: The patient has no concerns. No weight changes. No fever. No chills. In 2016, she did weigh 149 pounds, did get down to 99 pounds on her previous admission here and she is currently around 108 pounds, so has gained some weight back. HEENT: No sore throat. Cardiac: No leg swelling. No chest pain. No palpitations. Respiratory: No new cough. No wheezing. Gastrointestinal: No nausea, vomiting, diarrhea. Musculoskeletal: No new joint aches or pain Otherwise all systems reviewed and found to be negative unless otherwise stated. PHYSICAL EXAMINATION: Vital Signs: On admission today did show her weight 54.8 kg, temperature 98.1, pulse 84, blood pressure 143/68, respiratory rate 18 and O2 of 97% on 1 L. General: She is in no acute distress. Heart: Regular rate and rhythm. S1, S2 without murmur. Lungs: Lung sounds are clear to auscultation with some just decreased sounds in the bases. No crackles. No wheezes. Extremities: Warm and dry. No edema. Mental Status: Alert and orientated x3. LABORATORY DATA: Lab work was done today on admission; white count 9.4, hemoglobin 9.5, which had been stable, and platelets 465. She did have 4.2% eosinophils. Sodium 140, potassium 3.9, chloride 100, bicarb 32, BUN 14, creatinine 0.8, glucose 133, calcium 8.4, bilirubin 0.2, AST 17, ALT 19, alkaline phosphatase 74, and albumin 2.9. ASSESSMENT AND PLAN: 1. Chronic hypoxic and hypercapnic respiratory failure due to asthma and chronic obstructive pulmonary disease. This is currently stable. She will continue her nebulizers. 2. Need for 24-hour supervision due to lung problems. She also has vision limitations and blindness. She will be on swing bed until further arrangements can be made possibly at the longterm. 3. Chronic anemia probably due to some chronic disease. It is microcytic with iron deficiency. She has had a colonoscopy. We will await pathology. We will continue iron. 4. Essential hypertension, doing well on Norvasc. 5. Recent non-ST elevation myocardial infarction and prolonged admit for respiratory failure. She is not having any chest pain. We will continue with medical management. She is not currently taking any aspirin daily. This could be considered given her history, although with the iron deficiency, I will leave that up to her primary care. 6. Severe malnutrition. PLAN: At this point, the patient will be placed on swing bed cares. Lard Refiner will be involved with discharge planning. No changes need to be made to her current regimen. No DVT prophylaxis is indicated. MKA: 09/18/2018 22:40:24 MODL: 09/19/2018 03:25:55 /[id number]
[2018-09-19] MEDS ORDERED: POTASSIUM CHLORIDE 10 MEQ PO SCH (08:00)
[2018-09-19] MEDS: ARFORMOTEROL 15 MCG NEB SCH ×2 (09:44→20:17)
[2018-09-19] MEDS: IPRATROPIUM NEB SCH ×4 (09:45→20:17)
[2018-09-19] MEDS: BUDESONIDE 0.5 MG NEB SCH ×2 (09:45→20:18)
[2018-09-19] MEDS: ALBUTEROL NEB SCH ×4 (09:45→20:17)
[2018-09-19] MEDS: guaiFENesin 600 MG Tab.ER PO SCH ×2 (11:24→20:18)
[2018-09-19] MEDS: MONTELUKAST 10 MG PO SCH (11:24)
[2018-09-19] MEDS: Calcium Carbonate/Vitamin D3 1250 MG-200 Unit Tab PO SCH (11:24)
[2018-09-19] MEDS: Ferrous Sulfate 325 MG Tab PO SCH (11:24)
[2018-09-19] MEDS: FUROSEMIDE 20 MG PO SCH (11:25)
[2018-09-19] MEDS: Melatonin 3 MG Tab PO SCH (20:19)
[2018-09-19] MEDS: QUETIAPINE 50 MG PO SCH (20:19)
[2018-09-20] MEDS: IPRATROPIUM NEB SCH ×4 (06:27→19:15)
[2018-09-20] MEDS: ALBUTEROL NEB SCH ×4 (06:27→19:15)
[2018-09-20] MEDS: BUDESONIDE 0.5 MG NEB SCH ×2 (06:28→19:15)
[2018-09-20] MEDS: ARFORMOTEROL 15 MCG NEB SCH ×2 (06:29→19:13)
[2018-09-20] MEDS: Ferrous Sulfate 325 MG Tab PO SCH (08:49)
[2018-09-20] MEDS: Calcium Carbonate/Vitamin D3 1250 MG-200 Unit Tab PO SCH (08:49)
[2018-09-20] MEDS: MONTELUKAST 10 MG PO SCH (08:49)
[2018-09-20] MEDS: guaiFENesin 600 MG Tab.ER PO SCH ×2 (08:50→19:20)
[2018-09-20] MEDS: FUROSEMIDE 20 MG PO SCH (08:50)
[2018-09-20] MEDS: Melatonin 3 MG Tab PO SCH (19:20)
[2018-09-21] MEDS: ARFORMOTEROL 15 MCG NEB SCH ×2 (06:06→19:10)
[2018-09-21] MEDS: BUDESONIDE 0.5 MG NEB SCH ×2 (06:06→19:11)
[2018-09-21] MEDS: IPRATROPIUM NEB SCH ×4 (06:07→19:10)
[2018-09-21] MEDS: ALBUTEROL NEB SCH ×4 (06:07→19:10)
[2018-09-21] MEDS: MONTELUKAST 10 MG PO SCH (09:37)
[2018-09-21] MEDS: FUROSEMIDE 20 MG PO SCH (09:38)
[2018-09-21] MEDS: Calcium Carbonate/Vitamin D3 1250 MG-200 Unit Tab PO SCH (09:38)
[2018-09-21] MEDS: guaiFENesin 600 MG Tab.ER PO SCH ×2 (09:38→19:09)
[2018-09-21] MEDS: Ferrous Sulfate 325 MG Tab PO SCH (09:38)
[2018-09-21] MEDS: Melatonin 3 MG Tab PO SCH (19:09)
[2018-09-22] MEDS: ALBUTEROL NEB SCH ×4 (07:16→19:06)
[2018-09-22] MEDS: BUDESONIDE 0.5 MG NEB SCH ×2 (07:16→19:07)
[2018-09-22] MEDS: ARFORMOTEROL 15 MCG NEB SCH ×2 (07:16→19:06)
[2018-09-22] MEDS: IPRATROPIUM NEB SCH ×4 (07:16→19:06)
[2018-09-22] MEDS: Calcium Carbonate/Vitamin D3 1250 MG-200 Unit Tab PO SCH (08:03)
[2018-09-22] MEDS: Ferrous Sulfate 325 MG Tab PO SCH (08:03)
[2018-09-22] MEDS: MONTELUKAST 10 MG PO SCH (08:04)
[2018-09-22] MEDS: FUROSEMIDE 20 MG PO SCH (08:05)
[2018-09-22] MEDS: guaiFENesin 600 MG Tab.ER PO SCH ×2 (09:30→19:06)
[2018-09-22] MEDS: Melatonin 3 MG Tab PO SCH (19:06)
[2018-09-23] MEDS: BUDESONIDE 0.5 MG NEB SCH ×2 (07:07→19:36)
[2018-09-23] MEDS: IPRATROPIUM NEB SCH ×4 (07:07→19:35)
[2018-09-23] MEDS: ARFORMOTEROL 15 MCG NEB SCH ×2 (07:07→19:37)
[2018-09-23] MEDS: ALBUTEROL NEB SCH ×4 (07:07→19:35)
[2018-09-23] MEDS: Ferrous Sulfate 325 MG Tab PO SCH (07:46)
[2018-09-23] MEDS: MONTELUKAST 10 MG PO SCH (07:46)
[2018-09-23] MEDS: Calcium Carbonate/Vitamin D3 1250 MG-200 Unit Tab PO SCH (07:46)
[2018-09-23] MEDS: FUROSEMIDE 20 MG PO SCH (07:46)
[2018-09-23] MEDS: guaiFENesin 600 MG Tab.ER PO SCH ×2 (07:46→19:35)
[2018-09-23] MEDS: Melatonin 3 MG Tab PO SCH (19:35)
[2018-09-24] MEDS: BUDESONIDE 0.5 MG NEB SCH ×2 (07:03→19:06)
[2018-09-24] MEDS: ALBUTEROL NEB SCH ×4 (07:03→19:06)
[2018-09-24] MEDS: ARFORMOTEROL 15 MCG NEB SCH ×2 (07:03→19:06)
[2018-09-24] MEDS: IPRATROPIUM NEB SCH ×4 (07:03→19:06)
[2018-09-24] MEDS: MONTELUKAST 10 MG PO SCH (07:55)
[2018-09-24] MEDS: FUROSEMIDE 20 MG PO SCH (07:55)
[2018-09-24] MEDS: guaiFENesin 600 MG Tab.ER PO SCH ×2 (07:56→19:06)
[2018-09-24] MEDS: Ferrous Sulfate 325 MG Tab PO SCH (07:56)
[2018-09-24] MEDS: Calcium Carbonate/Vitamin D3 1250 MG-200 Unit Tab PO SCH (07:56)
[2018-09-24] MEDS: Melatonin 3 MG Tab PO SCH (19:06)
[2018-09-25] MEDS: IPRATROPIUM NEB SCH ×4 (06:20→19:02)
[2018-09-25] MEDS: BUDESONIDE 0.5 MG NEB SCH ×2 (06:20→19:02)
[2018-09-25] MEDS: ALBUTEROL NEB SCH ×4 (06:20→19:02)
[2018-09-25] MEDS: ARFORMOTEROL 15 MCG NEB SCH ×2 (06:21→19:02)
[2018-09-25] MEDS: guaiFENesin 600 MG Tab.ER PO SCH ×2 (08:23→19:03)
[2018-09-25] MEDS: Ferrous Sulfate 325 MG Tab PO SCH (08:23)
[2018-09-25] MEDS: Calcium Carbonate/Vitamin D3 1250 MG-200 Unit Tab PO SCH (08:23)
[2018-09-25] MEDS: FUROSEMIDE 20 MG PO SCH (08:23)
[2018-09-25] MEDS: MONTELUKAST 10 MG PO SCH (08:24)
[2018-09-25] MEDS ORDERED: Magnesium Hydroxide 400 MG/5 ML Susp 30 ML Cup PO PRN (18:17)
[2018-09-25] MEDS: Docusate Sodium 100 MG Cap PO PRN (19:03)
[2018-09-25] MEDS: Melatonin 3 MG Tab PO SCH (19:03)
[2018-09-26] MEDS: IPRATROPIUM NEB SCH ×4 (07:07→19:24)
[2018-09-26] MEDS: ALBUTEROL NEB SCH ×4 (07:07→19:24)
[2018-09-26] MEDS: ARFORMOTEROL 15 MCG NEB SCH ×2 (07:07→19:23)
[2018-09-26] MEDS: BUDESONIDE 0.5 MG NEB SCH ×2 (07:07→19:24)
[2018-09-26] MEDS: Calcium Carbonate/Vitamin D3 1250 MG-200 Unit Tab PO SCH (10:00)
[2018-09-26] MEDS: Ferrous Sulfate 325 MG Tab PO SCH (10:00)
[2018-09-26] MEDS: guaiFENesin 600 MG Tab.ER PO SCH ×2 (10:00→19:24)
[2018-09-26] MEDS: FUROSEMIDE 20 MG PO SCH (10:02)
[2018-09-26] MEDS: MONTELUKAST 10 MG PO SCH (10:04)
[2018-09-26] MEDS: Melatonin 3 MG Tab PO SCH (19:24)
[2018-09-27] MEDS: IPRATROPIUM NEB SCH ×4 (07:01→21:29)
[2018-09-27] MEDS: BUDESONIDE 0.5 MG NEB SCH ×2 (07:01→21:28)
[2018-09-27] MEDS: ALBUTEROL NEB SCH ×4 (07:01→21:29)
[2018-09-27] MEDS: ARFORMOTEROL 15 MCG NEB SCH ×2 (07:01→21:26)
[2018-09-27] MEDS: Calcium Carbonate/Vitamin D3 1250 MG-200 Unit Tab PO SCH (08:27)
[2018-09-27] MEDS: MONTELUKAST 10 MG PO SCH (08:27)
[2018-09-27] MEDS: guaiFENesin 600 MG Tab.ER PO SCH ×2 (08:27→21:34)
[2018-09-27] MEDS: Ferrous Sulfate 325 MG Tab PO SCH (08:27)
[2018-09-27] MEDS: Docusate Sodium 100 MG Cap PO PRN (08:27)
[2018-09-27] MEDS: FUROSEMIDE 20 MG PO SCH (08:28)
[2018-09-27] MEDS: Melatonin 3 MG Tab PO SCH (21:33)
[2018-09-28] MEDS: ARFORMOTEROL 15 MCG NEB SCH ×3 (07:05→19:13)
[2018-09-28] MEDS: BUDESONIDE 0.5 MG NEB SCH ×3 (07:06→19:21)
[2018-09-28] MEDS: ALBUTEROL NEB SCH ×5 (07:06→19:21)
[2018-09-28] MEDS: IPRATROPIUM NEB SCH ×5 (07:06→19:21)
[2018-09-28] MEDS: FUROSEMIDE 20 MG PO SCH (09:50)
[2018-09-28] MEDS: MONTELUKAST 10 MG PO SCH (09:50)
[2018-09-28] MEDS: guaiFENesin 600 MG Tab.ER PO SCH ×3 (09:51→19:21)
[2018-09-28] MEDS: Ferrous Sulfate 325 MG Tab PO SCH (09:51)
[2018-09-28] MEDS: Calcium Carbonate/Vitamin D3 1250 MG-200 Unit Tab PO SCH (09:51)
[2018-09-28] MEDS: Melatonin 3 MG Tab PO SCH ×2 (18:38→19:21)
[2018-09-29] MEDS: Calcium Carbonate/Vitamin D3 1250 MG-200 Unit Tab PO SCH (07:54)
[2018-09-29] MEDS: Ferrous Sulfate 325 MG Tab PO SCH (07:55)
[2018-09-29] MEDS: guaiFENesin 600 MG Tab.ER PO SCH ×2 (07:55→20:22)
[2018-09-29] MEDS: MONTELUKAST 10 MG PO SCH (07:55)
[2018-09-29] MEDS: FUROSEMIDE 20 MG PO SCH (07:55)
[2018-09-29] MEDS: IPRATROPIUM NEB SCH ×4 (07:56→20:19)
[2018-09-29] MEDS: ALBUTEROL NEB SCH ×4 (07:56→20:19)
[2018-09-29] MEDS: BUDESONIDE 0.5 MG NEB SCH ×2 (07:56→20:20)
[2018-09-29] MEDS: ARFORMOTEROL 15 MCG NEB SCH ×2 (07:56→20:20)
[2018-09-29] MEDS: Melatonin 3 MG Tab PO SCH (20:22)
[2018-09-30] MEDS: IPRATROPIUM NEB SCH ×4 (06:01→19:05)
[2018-09-30] MEDS: ARFORMOTEROL 15 MCG NEB SCH ×2 (06:01→19:04)
[2018-09-30] MEDS: ALBUTEROL NEB SCH ×4 (06:01→19:05)
[2018-09-30] MEDS: BUDESONIDE 0.5 MG NEB SCH ×2 (06:02→19:06)
[2018-09-30] MEDS: Calcium Carbonate/Vitamin D3 1250 MG-200 Unit Tab PO SCH (08:07)
[2018-09-30] MEDS: guaiFENesin 600 MG Tab.ER PO SCH ×2 (08:07→19:06)
[2018-09-30] MEDS: Ferrous Sulfate 325 MG Tab PO SCH (08:07)
[2018-09-30] MEDS: FUROSEMIDE 20 MG PO SCH (08:08)
[2018-09-30] MEDS: MONTELUKAST 10 MG PO SCH (08:09)
[2018-09-30] MEDS: Melatonin 3 MG Tab PO SCH (19:06)
[2018-10-01] MEDS: ALBUTEROL NEB SCH ×4 (06:19→19:11)
[2018-10-01] MEDS: IPRATROPIUM NEB SCH ×4 (06:19→19:11)
[2018-10-01] MEDS: ARFORMOTEROL 15 MCG NEB SCH ×2 (06:19→19:10)
[2018-10-01] MEDS: BUDESONIDE 0.5 MG NEB SCH ×2 (06:19→19:10)
[2018-10-01] MEDS: FUROSEMIDE 20 MG PO SCH (07:19)
[2018-10-01] MEDS: MONTELUKAST 10 MG PO SCH (07:19)
[2018-10-01] MEDS: guaiFENesin 600 MG Tab.ER PO SCH ×2 (07:21→19:13)
[2018-10-01] MEDS: Calcium Carbonate/Vitamin D3 1250 MG-200 Unit Tab PO SCH (07:21)
[2018-10-01] MEDS: Ferrous Sulfate 325 MG Tab PO SCH (07:21)
[2018-10-01] MEDS: Melatonin 3 MG Tab PO SCH (19:13)
[2018-10-02] MEDS: ARFORMOTEROL 15 MCG NEB SCH ×2 (06:17→20:21)
[2018-10-02] MEDS: ALBUTEROL NEB SCH ×4 (06:18→20:21)
[2018-10-02] MEDS: BUDESONIDE 0.5 MG NEB SCH ×2 (06:18→20:21)
[2018-10-02] MEDS: IPRATROPIUM NEB SCH ×4 (06:18→20:21)
[2018-10-02] MEDS: Calcium Carbonate/Vitamin D3 1250 MG-200 Unit Tab PO SCH (08:13)
[2018-10-02] MEDS: guaiFENesin 600 MG Tab.ER PO SCH ×2 (08:13→20:22)
[2018-10-02] MEDS: Ferrous Sulfate 325 MG Tab PO SCH (08:13)
[2018-10-02] MEDS: FUROSEMIDE 20 MG PO SCH (08:14)
[2018-10-02] MEDS: MONTELUKAST 10 MG PO SCH (08:14)
[2018-10-02] MEDS: Melatonin 3 MG Tab PO SCH (20:22)
--- NOTE | 2018-10-02 23:20 | PCM.PN ---
- General Info Date of Service: 10/02/18 Admission Dx/Problem (Free Text): History: Her oximetry readings have been good on room air and she has not had any asthmatic crises since getting admitted to Swing Bed. She has been getting all of her nebulizers regularly. Says she feels quite good and is not having any problems. Since there is no one at home after her family moved away again, and she is blind and would have to manage nebulizers many times a day well her brother is away at work, we have been reluctant to have her go home alone. She is not interested in going to any of the local nursing homes. Exam: -Heart regular, sounds mildly distant but seem normal -Lungs clear, no wheezing -She is alert and answers questions readily and appropriately Impression: -COPD secondary to long-standing asthma, doing well on all her medications by nebulizer -Good oxygenation on room air -Unlikely to be able to manage on her own without help Plan: -[facility] are working on arranging nearly full-time home attendants so she wouldnt have to go to the half-way, and this is what patient would like -Continue same regimen here on Swing Bed in the meantime - Patient Data Vitals - Most Recent: Last Vital Signs Temp 36.6 C 10/01/18 06:00 Pulse 60 10/01/18 06:00 Resp 16 10/01/18 06:00 BP 123/56 L 10/01/18 06:00 Pulse Ox 98 10/01/18 20:00 Weight - Most Recent: 54.885 kg I&O - Last 24 Hours: Intake & Output 10/02/18 10/02/18 10/03/18 14:59 22:59 06:59 Intake Total 600 240 Balance 600 240 Med Orders - Current: Current Medications Acetaminophen (Tylenol Extra Strength) 1,000 mg PO Q6H PRN PRN Reason: Pain Calcium Carbonate (Calcium Carbonate/Vitamin D 1250 Mg-200 Unit) 1 tab PO DAILY [facility] Last Admin: 10/02/18 08:13 Dose: 1 tab Docusate Sodium (Colace) 100 mg PO BID PRN PRN Reason: Constipation Last Admin: 09/27/18 08:27 Dose: 100 mg Ferrous Sulfate (Ferrous Sulfate) 325 mg PO DAILY [facility] Last Admin: 10/02/18 08:13 Dose: 325 mg Guaifenesin (Mucinex) 600 mg PO BID [facility] Last Admin: 10/02/18 20:22 Dose: 600 mg Magnesium Hydroxide (Milk Of Magnesia) 30 ml PO BID PRN PRN Reason: Constipation Melatonin (Melatonin) 3 mg PO BEDTIME [facility] Last Admin: 10/02/18 20:22 Dose: 3 mg Albuterol [Proventil (Neb Soln] 2.5mg/3ml) 2.5 mg INH Q4H PRN PRN Reason: sob Amlodipine 10mg (Own (Supply)) 0 mg PO DAILY [facility] Last Admin: 10/02/18 08:13 Dose: 10 mg Arformoterol [ Brovana] 15mcg (Own Supply) 0 mcg NEB BIDRT [facility] Last Admin: 10/02/18 20:21 Dose: 15 mcg Budesonide [ Pulmicort] 0.5mg ( Own Supply) 0.5 mg NEB BIDRT [facility] Last Admin: 10/02/18 20:21 Dose: 0.5 mg Furosemide [Lasix] (20mg (Own Supply)) 0 mg PO DAILY [facility] Last Admin: 10/02/18 08:14 Dose: 20 mg Montelukast [ Singulair] 10mg (Own Supply) 0 mg PO DAILY [facility] Last Admin: 10/02/18 08:14 Dose: 10 mg Albuterol/Ipratropium (Duoneb) 3ml (Own Supply) 1 each NEB QIDRT [facility] Last Admin: 10/02/18 20:21 Dose: 1 each Simvastatin. 20mg ( (Own Supply)) 1 each PO BEDTIME [facility] Last Admin: 10/02/18 20:22 Dose: 1 each Discontinued Medications Quetiapine [Seroquel (] 50mg (Own Supply)) 0 mg PO BEDTIME [facility] Last Admin: 09/19/18 20:19 Dose: 50 mg Simvastatin (Zocor) 20 mg PO BEDTIME [facility] Last Admin: 09/18/18 19:28 Dose: 20 mg - Problem List Review Problem List Initiated/Reviewed/Updated: Yes
[2018-10-03] MEDS: BUDESONIDE 0.5 MG NEB SCH (06:08)
[2018-10-03] MEDS: ALBUTEROL NEB SCH ×2 (06:10→11:24)
[2018-10-03] MEDS: IPRATROPIUM NEB SCH ×2 (06:10→11:24)
[2018-10-03] MEDS: ARFORMOTEROL 15 MCG NEB SCH (06:10)
[2018-10-03] MEDS: FUROSEMIDE 20 MG PO SCH (07:38)
[2018-10-03] MEDS: Ferrous Sulfate 325 MG Tab PO SCH (07:39)
[2018-10-03] MEDS: Calcium Carbonate/Vitamin D3 1250 MG-200 Unit Tab PO SCH (07:39)
[2018-10-03] MEDS: MONTELUKAST 10 MG PO SCH (07:39)
[2018-10-03] MEDS: guaiFENesin 600 MG Tab.ER PO SCH (07:39)
--- NOTE | 2018-10-04 09:00 | PCM.DCSUM1 ---
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 Because she now required regular use of more than one nebulizer, she had assistance from family members who moved from [place] to live in her home, a sister and [id number]. On 09/18/18 they decided they were unable to do this or unwilling, and moved back to [place] so she had to come back to [facility] for further care until either going to snf or getting additional care in her home, since she was there alone during the day. Her brother who also lives there is very at night after work. Initial Findings: On this admission 09/18/18 she was not having any wheezing, COPD was well controlled, oxygenation good on room air. Treatment and Course in Hospital: She continued all of her previous medications, continued iron sulfate 1 daily, because of iron deficiency anemia with a recent negative colonoscopy, and she remained comfortable without respiratory distress. No lab was done on this Swing Bed admission. Patient was quite unwilling to go to snf, and that would have been complicated by her need to have outside online translation services to and from [place] whenever interacting with caregivers, which was done during her stay. Condition on Discharge: On her exam 10/02/18 heart was regular although sounds distant, lungs clear, oxygenation 97%, mild 1+ ankle edema and in no distress. Last BP was 130/61, temperature 36.6, heart rate 62, respiratory rate 16. Discharge Plan 10/03/18: -Arrangements have been made for her caregivers who lives nearby to come in during the day -Brother will be in attendance during the evening and night -She will be on all the same medications that she was on at home previously and during her Swing Bed stay Diagnosis: Stroke: No - Discharge Data Discharge Date: 10/03/18 Discharge Disposition: Home, Self-Care 01 Condition: Good - Patient Summary/Data Consults: Consultations 09/18/18 14:38 Consult to Respiratory Therapy [Respiratory Care Assess and Treatment] [CONS] Routine 09/18/18 22:40 Consult to Case Management/Electric Tape Slitter [CONS] Routine - Discharge Plan Home Medications: Home Meds Calcium Carbonate/Vitamin D3 [Calcium 500-Vit D3 200 Caplet] 1 tab PO DAILY [History] Simvastatin [Zocor] 20 mg PO BEDTIME 07/26/18 [History] amLODIPine Besylate [Amlodipine Besylate] 10 mg PO DAILY 07/26/18 [History] Furosemide [Lasix] 20 mg PO DAILY tablet 08/24/18 [Rx] Acetaminophen [Tylenol Extra Strength] 1,000 mg PO Q6H PRN tablet 08/30/18 [Rx] Budesonide [Pulmicort] 0.5 mg NEB BIDRT #100 neb 08/30/18 [Rx] Melatonin 3 mg PO BEDTIME #30 tablet 08/30/18 [Rx] Montelukast [Singulair] 10 mg PO DAILY #30 tablet 08/30/18 [Rx] Albuterol [Proventil Neb Soln] 2.5 mg INH Q4HR PRN 09/18/18 [History] Albuterol/Ipratropium [DuoNeb 3.0-0.5 MG/3 ML] 3 ml NEB QID 09/18/18 [History] Arformoterol [Brovana] 15 mcg NEB BID 09/18/18 [History] guaiFENesin [Mucinex] 600 mg PO BID 09/18/18 [History] Docusate Sodium [Colace] 100 mg PO BID PRN cap 10/03/18 [Rx] Ferrous Sulfate 325 mg PO DAILY tablet 10/03/18 [Rx] Magnesium Hydroxide [Milk of Magnesia] 30 ml PO BID PRN cup 10/03/18 [Rx] Patient Handouts: Chronic Obstructive Pulmonary Disease, [id number] - Discharge Summary/Plan Comment DC Time >30 min.: No - Patient Data Vitals - Most Recent: Last Vital Signs Temp 36.6 C 10/03/18 06:12 Pulse 62 10/03/18 06:12 Resp 16 10/03/18 06:12 BP 130/61 10/03/18 06:12 Pulse Ox 98 10/03/18 06:12 Weight - Most Recent: 54.885 kg Med Orders - Current: Current Medications Discontinued Medications Acetaminophen (Tylenol Extra Strength) 1,000 mg PO Q6H PRN PRN Reason: Pain Calcium Carbonate (Calcium Carbonate/Vitamin D 1250 Mg-200 Unit) 1 tab PO DAILY [facility] Last Admin: 10/03/18 07:39 Dose: 1 tab Docusate Sodium (Colace) 100 mg PO BID PRN PRN Reason: Constipation Last Admin: 09/27/18 08:27 Dose: 100 mg Ferrous Sulfate (Ferrous Sulfate) 325 mg PO DAILY [facility] Last Admin: 10/03/18 07:39 Dose: 325 mg Guaifenesin (Mucinex) 600 mg PO BID [facility] Last Admin: 10/03/18 07:39 Dose: 600 mg Magnesium Hydroxide (Milk Of Magnesia) 30 ml PO BID PRN PRN Reason: Constipation Melatonin (Melatonin) 3 mg PO BEDTIME [facility] Last Admin: 10/02/18 20:22 Dose: 3 mg Albuterol [Proventil (Neb Soln] 2.5mg/3ml) 2.5 mg INH Q4H PRN PRN Reason: sob Amlodipine 10mg (Own (Supply)) 0 mg PO DAILY [facility] Last Admin: 10/03/18 07:39 Dose: 10 mg Arformoterol [ Brovana] 15mcg (Own Supply) 0 mcg NEB BIDRT [facility] Last Admin: 10/03/18 06:10 Dose: 15 mcg Budesonide [ Pulmicort] 0.5mg ( Own Supply) 0.5 mg NEB BIDRT [facility] Last Admin: 10/03/18 06:08 Dose: 0.5 mg Furosemide [Lasix] (20mg (Own Supply)) 0 mg PO DAILY [facility] Last Admin: 10/03/18 07:38 Dose: 20 mg Montelukast [ Singulair] 10mg (Own Supply) 0 mg PO DAILY [facility] Last Admin: 10/03/18 07:39 Dose: 10 mg Quetiapine [Seroquel (] 50mg (Own Supply)) 0 mg PO BEDTIME [facility] Last Admin: 09/19/18 20:19 Dose: 50 mg Albuterol/Ipratropium (Duoneb) 3ml (Own Supply) 1 each NEB QIDRT [facility] Last Admin: 10/03/18 11:24 Dose: 1 each Simvastatin. 20mg ( (Own Supply)) 1 each PO BEDTIME [facility] Last Admin: 10/02/18 20:22 Dose: 1 each Simvastatin (Zocor) 20 mg PO BEDTIME [facility] Last Admin: 09/18/18 19:28 Dose: 20 mg
== END 2018-10-03 12:10 | disposition home or self-care (01) | DRG 190 ==
LOC: VM.MS 14:45
PROVIDERS: ADMIT Internal Medicine; ATTEND Family Medicine
DX: J44.9 Chronic obstructive pulmonary disease, unspecified (principal); E43 Unspecified severe protein-calorie malnutrition; J96.12 Chronic respiratory failure with hypercapnia; J96.11 Chronic respiratory failure with hypoxia; I25.10 Atherosclerotic heart disease of native coronary artery without angina pectoris; E78.5 Hyperlipidemia, unspecified; I10 Essential (primary) hypertension; H54.7 Unspecified visual loss; D50.9 Iron deficiency anemia, unspecified; L40.4 Guttate psoriasis; R73.01 Impaired fasting glucose; Z68.22 Body mass index [BMI] 22.0-22.9, adult; I25.2 Old myocardial infarction
CPT/HCPCS: 36415; 80053; 85025; 94640; 94760; A9270-GY

== ENCOUNTER 2018-11-21 09:49 | Emergency (ER) | payer MEDICARE, MEDICAID ==
[2018-11-21] MEDS ORDERED: Furosemide 40 MG/4 ML VIAL IV ONE (10:00)
[2018-11-21] MEDS ORDERED: Morphine 2 MG/ML Syringe IVPUSH ONE (10:00)
[2018-11-21] MEDS ORDERED: Albuterol/Ipratropium 3.0-0.5 MG/3 ML Neb Soln NEB ONE (10:07)
[2018-11-21] MEDS ORDERED: Sodium Chloride 0.9% 1,000 ML IV SCH (10:15)
--- NOTE | 2018-11-21 10:48 | EDM.PDOC ---
ED HPI GENERAL MEDICAL PROBLEM - General Chief Complaint: Respiratory Problem Stated Complaint: ER Time Seen by Provider: 11/21/18 09:50 Source of Information: Reports: Patient, EMS, Family History Limitations: Reports: No Limitations - History of Present Illness INITIAL COMMENTS - FREE TEXT/NARRATIVE: Patient brought in from home after her brother called 911 due to her having difficulty breathing. She was receiving a breathing treatment through nebulizer , likely duoneb. She became unresponsive and EMS was called. She has since become responsive to commands. Legally blind. She and her brother live together and he provides assistance. [email or web address] was on location administering treatment. Has history of severe COPD with intubation most recently in June of this year and transfer to [place]. Weaning off the ventilator was difficult and she did spend time her as a swingbed patient. Onset: Today, Sudden Duration: Getting Worse Location: Reports: Chest Associated Symptoms: Reports: Shortness of Breath Treatments MAITRE D: Reports: IV/IO, Other Medication(s), Oxygen Other Treatments MAITRE D: duoneb, solumedrol - Related Data Allergies Allergy/AdvReac Type Severity Reaction Status Date / Time No Known Allergies Allergy Verified 11/21/18 10:04 Home Meds: Home Meds Calcium Carbonate/Vitamin D3 [Calcium 500-Vit D3 200 Caplet] 1 tab PO DAILY [History] Simvastatin [Zocor] 20 mg PO BEDTIME 07/26/18 [History] amLODIPine Besylate [Amlodipine Besylate] 10 mg PO DAILY 07/26/18 [History] Furosemide [Lasix] 20 mg PO DAILY tablet 08/24/18 [Rx] Acetaminophen [Tylenol Extra Strength] 1,000 mg PO Q6H PRN tablet 08/30/18 [Rx] Budesonide [Pulmicort] 0.5 mg NEB BIDRT #100 neb 08/30/18 [Rx] Melatonin 3 mg PO BEDTIME #30 tablet 08/30/18 [Rx] Montelukast [Singulair] 10 mg PO DAILY #30 tablet 08/30/18 [Rx] Albuterol [Proventil Neb Soln] 2.5 mg INH Q4HR PRN 09/18/18 [History] Albuterol/Ipratropium [DuoNeb 3.0-0.5 MG/3 ML] 3 ml NEB QID 09/18/18 [History] Arformoterol [Brovana] 15 mcg NEB BID 09/18/18 [History] guaiFENesin [Mucinex] 600 mg PO BID 09/18/18 [History] Docusate Sodium [Colace] 100 mg PO BID PRN cap 10/03/18 [Rx] Ferrous Sulfate 325 mg PO DAILY tablet 10/03/18 [Rx] Magnesium Hydroxide [Milk of Magnesia] 30 ml PO BID PRN cup 10/03/18 [Rx] Past Medical History HEENT History: Reports: Impaired Vision, Sinusitis Other HEENT History: Bilaeraly blind Cardiovascular History: Reports: CAD, High Cholesterol, Hypertension Respiratory History: Reports: Asthma, COPD, Pneumonia, Recurrent Other Respiratory History: hx of respiratory failure Psychiatric History: Reports: None Other Endocrine/Metabolic History: hyoerlipidemia, impaired fasting glucose Hematologic History: Reports: Anemia Dermatologic History: Reports: Psoriasis - Infectious Disease History Other Infectious Disease History: septic shock Social & Family History - Family History Family Medical History: Noncontributory - Tobacco Use Smoking Status *Q: Unknown Ever Smoked ED ROS GENERAL - Review of Systems Review Of Systems: Unable To Obtain (difficult due to language barrier, not really responding) ED EXAM, GENERAL - Physical Exam Exam: See Below Exam Limited By: No Limitations General Appearance: Alert, WD/WN, Moderate Distress Eye Exam: Bilateral Eye: EOMI, Normal Inspection Ears: Normal TMs Nose: Normal Inspection, Normal Mucosa, No Blood Throat/Mouth: Normal Inspection, Normal Lips, Normal Teeth, Normal Gums, Normal Oropharynx, Normal Voice, No Airway Compromise Head: Atraumatic, Normocephalic Neck: Normal Inspection, Supple, Non-Tender, Full Range of Motion Respiratory/Chest: Lungs Clear (clear bilaterally but diminished and tight with poor exchange), No Accessory Muscle Use, Prolonged Expiration Cardiovascular: Normal Peripheral Pulses, Regular Rate, Rhythm, Systolic Murmur Peripheral Pulses: 2+: Posterior Tibial (L), Posterior Tibial (R), Dorsalis Pedis (L), Dorsalis Pedis (R) GI/Abdominal: Normal Bowel Sounds, Soft, Non-Tender, No Organomegaly, No Distention, No Abnormal Bruit, No Mass Extremities: Normal Inspection, Normal Range of Motion, Non-Tender, Normal Capillary Refill, No Pedal Edema Neurological: Alert, CN II-XII Intact, Slow to Respond Psychiatric: Normal Affect, Normal Mood Skin Exam: Warm, Dry, Intact, Normal Color, No Rash Lymphatic: No Adenopathy Course - Vital Signs Last Recorded V/S: Last Vital Signs Temp 36.2 C 11/21/18 12:55 Pulse 67 11/21/18 12:55 Resp 26 H 11/21/18 12:55 BP 110/48 L 11/21/18 12:55 Pulse Ox 99 11/21/18 12:55 - Orders/Labs/Meds Orders: Active Orders 24 hr Category Date Time Status EKG Documentation Completion [RC] STAT Care 11/21/18 09:50 Active Williamson Catheter Insertion [Insert Urinary Catheter] [OM. Care 11/21/18 12:45 Ordered PC] Q24H RT Aerosol Therapy [RC] ASDIRECTED Care 11/21/18 10:08 Active RT BiPAP/CPAP [RC] ASDIRECTED Care 11/21/18 10:22 Active Urinary Catheter Assessment [RC] ASDIRECTED Care 11/21/18 12:40 Active CULTURE BLOOD [BC] Stat Lab 11/21/18 10:12 Received CULTURE BLOOD [BC] Stat Lab 11/21/18 10:16 Received Sodium Chloride 0.9% [Normal Saline] 1,000 ml Med 11/21/18 10:15 Active IV ASDIRECTED BiPAP [RESPCARE] Routine Oth 11/21/18 09:55 Active Blood Culture x2 Reflex Set [OM.PC] Stat Oth 11/21/18 09:50 Ordered Medication Orders Sodium Chloride (Normal Saline) 1,000 mls @ 100 mls/hr IV ASDIRECTED [facility] Last Admin: 11/21/18 10:13 Dose: 100 mls/hr Labs: Laboratory Tests 11/21/18 11/21/18 11/21/18 Range/Units 10:12 10:12 10:12 WBC 33.9 H* (4.0-10.0) x10^3/uL RBC 4.61 (4.00-5.50) x10^6/uL Hgb 10.9 L (12.0-16.0) g/dL Hct 36.2 (33.0-47.0) % MCV 78.5 (78.0-93.0) fL MCH 23.6 L (26.0-32.0) pg MCHC 30.1 L (32.0-36.0) g/dL RDW Coeff of Sebastian 18.8 H (10.0-15.0) % Plt Count 376 D (130-400) x10^3/uL Add Manual Diff Yes Neutrophils % (Manual) 86 H (50-80) % Lymphocytes % (Manual) 4 L (25-50) % Monocytes % (Manual) 6 (2-11) % Eosinophils % (Manual) 1 (0-4) % Metamyelocytes % 1 H (0) % Myelocytes % 2 H (0) % Hypersegmented Neuts Rare H Platelet Estimate Adequate Giant Platelets Rare H Anisocytosis 2+ moderate H Microcytosis 1+ slight H PT 9.8 L (10.0-12.8) SEC INR 0.9 L (2.0-3.5) D-Dimer, Quantitative (<=0.58) mg/LFEU POC ABG pH (7.35-7.45) POC ABG pCO2 (35-45) mmHG POC ABG pO2 (80-105) mmHG POC ABG HCO3 (22-26) mmol/L POC ABG Total CO2 (23-27) mmol/L POC ABG O2 Sat (95-98) % POC ABG Base Excess (-2-3) mmol/L POC FiO2 Sodium 140 (136-145) mmol/L Potassium 3.9 (3.5-5.1) mmol/L Chloride 99 (98-107) mmol/L Carbon Dioxide 33 H (21-32) mmol/L Anion Gap 11.9 (10-20) mmol/L BUN 23 H (7-18) mg/dL Creatinine 1.2 H (0.55-1.02) mg/dL Est Cr Clr Drug Dosing TNP Estimated GFR (MDRD) 45 Glucose 275 H (74-106) mg/dL Lactic Acid (0.4-2.0) mmol/L Calcium 8.7 (8.5-10.1) mg/dL Corrected Calcium 9.26 (8.5-10.1) mg/dL Magnesium 2.2 (1.8-2.4) mg/dL Total Bilirubin 0.3 (0.2-1.0) mg/dL AST 66 H (15-37) U/L ALT 45 (14-59) U/L Alkaline Phosphatase 111 (46-116) U/L Troponin I 0.057 H* (<=0.056) ng/mL C-Reactive Protein 3.6 H (<=0.9) mg/dL NT-Pro-B Natriuret Pep (<=125) pg/mL Total Protein 8.4 H (6.4-8.2) g/dL Albumin 3.3 L (3.4-5.0) g/dL Globulin 5.1 Albumin/Globulin Ratio 0.65 TSH, Ultra Sensitive (0.358-3.74) uIU/mL POC Result Comm Urine Color (YELLOW) Urine Appearance (CLEAR) Urine pH (5.0-8.0) Ur Specific [place] Urine Protein (NEGATIVE) mg/dL Urine Glucose (UA) (NEGATIVE) mg/dL Urine Ketones (NEGATIVE) mg/dL Urine Occult Blood (NEGATIVE) Urine Nitrite (NEGATIVE) Urine Bilirubin (NEGATIVE) Urine Urobilinogen (0.2) EU/dL Ur Leukocyte Esterase (NEGATIVE) Urine RBC (NOT SEEN) /HPF Urine WBC (NOT SEEN) /HPF Ur Squamous Epith Cells (NEGATIVE) /HPF Urine Bacteria (NEGATIVE) /HPF Urine Mucus (NEGATIVE) /LPF 11/21/18 11/21/18 11/21/18 Range/Units 10:12 10:12 10:12 WBC (4.0-10.0) x10^3/uL RBC (4.00-5.50) x10^6/uL Hgb (12.0-16.0) g/dL Hct (33.0-47.0) % MCV (78.0-93.0) fL MCH (26.0-32.0) pg MCHC (32.0-36.0) g/dL RDW Coeff of Sebastian (10.0-15.0) % Plt Count (130-400) x10^3/uL Add Manual Diff Neutrophils % (Manual) (50-80) % Lymphocytes % (Manual) (25-50) % Monocytes % (Manual) (2-11) % Eosinophils % (Manual) (0-4) % Metamyelocytes % (0) % Myelocytes % (0) % Hypersegmented Neuts Platelet Estimate Giant Platelets Anisocytosis Microcytosis PT (10.0-12.8) SEC INR (2.0-3.5) D-Dimer, Quantitative 3.74 H (<=0.58) mg/LFEU POC ABG pH (7.35-7.45) POC ABG pCO2 (35-45) mmHG POC ABG pO2 (80-105) mmHG POC ABG HCO3 (22-26) mmol/L POC ABG Total CO2 (23-27) mmol/L POC ABG O2 Sat (95-98) % POC ABG Base Excess (-2-3) mmol/L POC FiO2 Sodium (136-145) mmol/L Potassium (3.5-5.1) mmol/L Chloride (98-107) mmol/L Carbon Dioxide (21-32) mmol/L Anion Gap (10-20) mmol/L BUN (7-18) mg/dL Creatinine (0.55-1.02) mg/dL Est Cr Clr Drug Dosing Estimated GFR (MDRD) Glucose (74-106) mg/dL Lactic Acid 2.9 H* (0.4-2.0) mmol/L Calcium (8.5-10.1) mg/dL Corrected Calcium (8.5-10.1) mg/dL Magnesium (1.8-2.4) mg/dL Total Bilirubin (0.2-1.0) mg/dL AST (15-37) U/L ALT (14-59) U/L Alkaline Phosphatase (46-116) U/L Troponin I (<=0.056) ng/mL C-Reactive Protein (<=0.9) mg/dL NT-Pro-B Natriuret Pep 738 H (<=125) pg/mL Total Protein (6.4-8.2) g/dL Albumin (3.4-5.0) g/dL Globulin Albumin/Globulin Ratio TSH, Ultra Sensitive 6.064 H (0.358-3.74) uIU/mL POC Result Comm Urine Color (YELLOW) Urine Appearance (CLEAR) Urine pH (5.0-8.0) Ur Specific [place] Urine Protein (NEGATIVE) mg/dL Urine Glucose (UA) (NEGATIVE) mg/dL Urine Ketones (NEGATIVE) mg/dL Urine Occult Blood (NEGATIVE) Urine Nitrite (NEGATIVE) Urine Bilirubin (NEGATIVE) Urine Urobilinogen (0.2) EU/dL Ur Leukocyte Esterase (NEGATIVE) Urine RBC (NOT SEEN) /HPF Urine WBC (NOT SEEN) /HPF Ur Squamous Epith Cells (NEGATIVE) /HPF Urine Bacteria (NEGATIVE) /HPF Urine Mucus (NEGATIVE) /LPF 11/21/18 11/21/18 Range/Units 10:36 11:24 WBC (4.0-10.0) x10^3/uL RBC (4.00-5.50) x10^6/uL Hgb (12.0-16.0) g/dL Hct (33.0-47.0) % MCV (78.0-93.0) fL MCH (26.0-32.0) pg MCHC (32.0-36.0) g/dL RDW Coeff of Sebastian (10.0-15.0) % Plt Count (130-400) x10^3/uL Add Manual Diff Neutrophils % (Manual) (50-80) % Lymphocytes % (Manual) (25-50) % Monocytes % (Manual) (2-11) % Eosinophils % (Manual) (0-4) % Metamyelocytes % (0) % Myelocytes % (0) % Hypersegmented Neuts Platelet Estimate Giant Platelets Anisocytosis Microcytosis PT (10.0-12.8) SEC INR (2.0-3.5) D-Dimer, Quantitative (<=0.58) mg/LFEU POC ABG pH 7.263 L* (7.35-7.45) POC ABG pCO2 68 H* (35-45) mmHG POC ABG pO2 106 H (80-105) mmHG POC ABG HCO3 31 H (22-26) mmol/L POC ABG Total CO2 33 H (23-27) mmol/L POC ABG O2 Sat 97 (95-98) % POC ABG Base Excess 4 H (-2-3) mmol/L POC FiO2 0.40 Sodium (136-145) mmol/L Potassium (3.5-5.1) mmol/L Chloride (98-107) mmol/L Carbon Dioxide (21-32) mmol/L Anion Gap (10-20) mmol/L BUN (7-18) mg/dL Creatinine (0.55-1.02) mg/dL Est Cr Clr Drug Dosing Estimated GFR (MDRD) Glucose (74-106) mg/dL Lactic Acid (0.4-2.0) mmol/L Calcium (8.5-10.1) mg/dL Corrected Calcium (8.5-10.1) mg/dL Magnesium (1.8-2.4) mg/dL Total Bilirubin (0.2-1.0) mg/dL AST (15-37) U/L ALT (14-59) U/L Alkaline Phosphatase (46-116) U/L Troponin I (<=0.056) ng/mL C-Reactive Protein (<=0.9) mg/dL NT-Pro-B Natriuret Pep (<=125) pg/mL Total Protein (6.4-8.2) g/dL Albumin (3.4-5.0) g/dL Globulin Albumin/Globulin Ratio TSH, Ultra Sensitive (0.358-3.74) uIU/mL POC Result Comm Called critical res Urine Color Yellow (YELLOW) Urine Appearance Slightly cloudy H (CLEAR) Urine pH 6.0 (5.0-8.0) Ur Specific [place] 1.015 Urine Protein 30 H (NEGATIVE) mg/dL Urine Glucose (UA) Negative (NEGATIVE) mg/dL Urine Ketones Negative (NEGATIVE) mg/dL Urine Occult Blood Trace-lysed H (NEGATIVE) Urine Nitrite Negative (NEGATIVE) Urine Bilirubin Negative (NEGATIVE) Urine Urobilinogen 0.2 (0.2) EU/dL Ur Leukocyte Esterase Negative (NEGATIVE) Urine RBC 5-10 H (NOT SEEN) /HPF Urine WBC 0-5 (NOT SEEN) /HPF Ur Squamous Epith Cells Few H (NEGATIVE) /HPF Urine Bacteria Occasional H (NEGATIVE) /HPF Urine Mucus Few H (NEGATIVE) /LPF Meds: Medications Generic Name Dose Route Start Last Admin Trade Name Freq PRN Reason Stop Dose Admin Sodium Chloride 1,000 mls @ 100 mls/hr 11/21/18 10:15 11/21/18 10:13 Normal Saline IV 100 mls/hr ASDIRECTED GREG Administration Discontinued Medications Generic Name Dose Route Start Last Admin Trade Name Freq PRN Reason Stop Dose Admin Albuterol/Ipratropium 3 ml 11/21/18 10:07 11/21/18 10:12 Duoneb 3.0-0.5 Mg/3 Ml NEB 11/21/18 10:08 3 ml ONETIME ONE Administration Ceftriaxone Sodium 2 gm 11/21/18 10:59 11/21/18 11:08 Rocephin IVPUSH 11/21/18 11:00 2 gm STAT ONE Administration Furosemide 40 mg 11/21/18 10:00 11/21/18 10:16 Lasix IV 11/21/18 10:01 40 mg ONETIME ONE Administration Morphine Sulfate 2 mg 11/21/18 10:00 11/21/18 10:17 Morphine IVPUSH 11/21/18 10:01 2 mg ONETIME ONE Administration - Radiology Interpretation Free Text/Narrative:: chest x-ray negative for acute process - Re-Assessments/Exams Free Text/Narrative Re-Assessment/Exam: 11/21/18 11:25 Patient on BiPap, Ipap 14/Epap 5, FiO2 40%, resps. down to 30 per minute. Increasing responsiveness. Multiple abnormal labs including WBC 33.9, Ph 7.1, lactic acid 2.9, troponin 0.057, D-Dimer 3.74 Report called to [facility] for transfer 11/21/18 12:58 Open bed reported. Report by RN called to [place]. EMS transfer in process. Departure - Departure Time of Disposition: 12:59 Disposition: DC/Tfer to [facility] 02 Condition: Fair Clinical Impression: COPD (chronic obstructive pulmonary disease) Qualifiers: COPD type: COPD with acute exacerbation Qualified Code(s): J44.1 - Chronic obstructive pulmonary disease with (acute) exacerbation - Discharge Information *PRESCRIPTION DRUG MONITORING PROGRAM REVIEWED*: Not Applicable *COPY OF PRESCRIPTION DRUG MONITORING REPORT IN PATIENT MINH: Not Applicable Forms: ED Department Discharge, Interfacility Transfer [facility] ED Communication - ED Communication Date/Time Date: 11/21/18 Time Called: 11:15 - Discussed Case With (1) Discussed Case With (1): Admitting Provider (Dr. Parnell given report regarding patient. He will accept patient in transfer.) - Problem List & Annotations (1) COPD (chronic obstructive pulmonary disease) SNOMED Code(s): 08799976 Code(s): J44.9 - CHRONIC OBSTRUCTIVE PULMONARY DISEASE, UNSPECIFIED Status : Chronic Priority: Medium Current Visit: No Qualifiers: COPD type: COPD with acute exacerbation Qualified Code(s): J44.1 - Chronic obstructive pulmonary disease with (acute) exacerbation - Problem List Review Problem List Initiated/Reviewed/Updated: Yes - My Orders Last 24 Hours: My Active Orders 11/21/18 09:50 EKG Documentation Completion [RC] STAT Blood Culture x2 Reflex Set [OM.PC] Stat 11/21/18 09:55 BiPAP [RESPCARE] Routine 11/21/18 10:08 RT Aerosol Therapy [RC] ASDIRECTED 11/21/18 10:12 CULTURE BLOOD [BC] Stat 11/21/18 10:15 Sodium Chloride 0.9% [Normal Saline] 1,000 ml IV ASDIRECTED 11/21/18 10:16 CULTURE BLOOD [BC] Stat 11/21/18 10:22 RT BiPAP/CPAP [RC] ASDIRECTED 11/21/18 12:40 Urinary Catheter Assessment [RC] ASDIRECTED 11/21/18 12:45 Williamson Catheter Insertion [Insert Urinary Catheter] [OM.PC] Q24H - Assessment/Plan Last 24 Hours: My Active Orders 11/21/18 09:50 EKG Documentation Completion [RC] STAT Blood Culture x2 Reflex Set [OM.PC] Stat 11/21/18 09:55 BiPAP [RESPCARE] Routine 11/21/18 10:08 RT Aerosol Therapy [RC] ASDIRECTED 11/21/18 10:12 CULTURE BLOOD [BC] Stat 11/21/18 10:15 Sodium Chloride 0.9% [Normal Saline] 1,000 ml IV ASDIRECTED 11/21/18 10:16 CULTURE BLOOD [BC] Stat 11/21/18 10:22 RT BiPAP/CPAP [RC] ASDIRECTED 11/21/18 12:40 Urinary Catheter Assessment [RC] ASDIRECTED 11/21/18 12:45 Williamson Catheter Insertion [Insert Urinary Catheter] [OM.PC] Q24H Assessment:: copd sepsis
[2018-11-21 10:54] LABS: CHLORIDE,CL 99 mmol/L (98-107); SODIUM,NA 140 mmol/L (136-145)
[2018-11-21] MEDS ORDERED: cefTRIAXone 2 GM Vial IVPUSH ONE (10:59)
[2018-11-21 11:00] LABS: ANION GAP 11.9 mmol/L (10-20)
--- NOTE | 2018-11-21 12:56 | CR ---
[id number] RAD/RAD Chest PA or AP 1V EXAM: RAD Chest PA or AP 1V INDICATION: SHORTNESS OF BREATH. COMPARISON: August 21, 2018. DISCUSSION: Cardiomediastinal silhouette is unchanged in size and contour compared to the prior examination. Chronic blunting of the left costophrenic sulcus, nonspecific but likely scarring. Differential diagnosis includes a small effusion. No change from prior examinations dating to July 2015 No infiltrate, pneumothorax, or edema. IMPRESSION: No significant change from the prior examination Pedro Dooley MD 11/21/18 1254 Thank you for allowing us to participate in the care of your patient.
== END 2018-11-21 13:06 | disposition short-term general hospital (02) ==
LOC: VM.ED 09:49
DX: A41.9 Sepsis, unspecified organism (principal); J44.1 Chronic obstructive pulmonary disease with (acute) exacerbation; I25.10 Atherosclerotic heart disease of native coronary artery without angina pectoris; E78.00 Pure hypercholesterolemia, unspecified; I10 Essential (primary) hypertension; E78.5 Hyperlipidemia, unspecified; Z79.899 Other long term (current) drug therapy
CPT/HCPCS: 36415; 36600; 51702; 71045; 80053; 81001; 82803; 83605; 83735; 83880; 84443; 84484; 85025; 85379; 85610; 86140; 87040; 87077; 93005; 94640; 94660; 96361; 96374; 96375; 99284; 99285; J0696; J1940; J2270; J7030; J7620-GY

== ENCOUNTER 2018-12-26 10:56 | Inpatient (IN) | payer MEDICARE, MEDICAID ==
[2018-12-26] MEDS ORDERED: methylPREDNISolone Sodium Succinate 125 MG/2 ML SDV IVPUSH ONE (11:20)
--- NOTE | 2018-12-26 11:29 | EDM.PDOC ---
ED HPI GENERAL MEDICAL PROBLEM - General Chief Complaint: Respiratory Problem Time Seen by Provider: 12/26/18 10:58 Source of Information: Reports: Patient, EMS, Other (Patient is Citizen Of [place] speaking but answers rancho questions.) History Limitations: Reports: Language Barrier - History of Present Illness INITIAL COMMENTS - FREE TEXT/NARRATIVE: Jazlyn is a 68 y/o female whop is brought to the ER by EMS today after she was reported by her Home Health Nurse to be short of breath, coughing, and feverish. She has apparently been getting ill for the last 3 days. The nurse gave her a DuoNeb at the house and then called 911. EMS transported her with CPAP an d by the time she arrived to the hospital she was maintaining her sats at 97% with 2 liters of oxygen oer nasal cannula. No family arrive to the hospital with the patient, but she can answer a few questions. The patient reports "asthma bad". - Related Data Allergies Allergy/AdvReac Type Severity Reaction Status Date / Time No Known Allergies Allergy Verified 12/26/18 11:13 Home Meds: Home Meds Calcium Carbonate/Vitamin D3 [Calcium 500-Vit D3 200 Caplet] 1 tab PO DAILY [History] Simvastatin [Zocor] 20 mg PO BEDTIME 07/26/18 [History] amLODIPine Besylate [Amlodipine Besylate] 10 mg PO DAILY 07/26/18 [History] Furosemide [Lasix] 20 mg PO DAILY tablet 08/24/18 [Rx] Acetaminophen [Tylenol Extra Strength] 1,000 mg PO Q6H PRN tablet 08/30/18 [Rx] Budesonide [Pulmicort] 0.5 mg NEB BIDRT #100 neb 08/30/18 [Rx] Melatonin 3 mg PO BEDTIME #30 tablet 08/30/18 [Rx] Montelukast [Singulair] 10 mg PO DAILY #30 tablet 08/30/18 [Rx] Albuterol [Proventil Neb Soln] 2.5 mg INH Q4HR PRN 09/18/18 [History] Albuterol/Ipratropium [DuoNeb 3.0-0.5 MG/3 ML] 3 ml NEB QID 09/18/18 [History] Arformoterol [Brovana] 15 mcg NEB BID 09/18/18 [History] guaiFENesin [Mucinex] 600 mg PO BID 09/18/18 [History] Docusate Sodium [Colace] 100 mg PO BID PRN cap 10/03/18 [Rx] Ferrous Sulfate 325 mg PO DAILY tablet 10/03/18 [Rx] Magnesium Hydroxide [Milk of Magnesia] 30 ml PO BID PRN cup 10/03/18 [Rx] Past Medical History HEENT History: Reports: Impaired Vision, Sinusitis Other HEENT History: Bilaeraly blind Cardiovascular History: Reports: CAD, High Cholesterol, Hypertension Respiratory History: Reports: Asthma, COPD, Pneumonia, Recurrent Other Respiratory History: hx of respiratory failure Psychiatric History: Reports: None Other Endocrine/Metabolic History: hyoerlipidemia, impaired fasting glucose Hematologic History: Reports: Anemia Dermatologic History: Reports: Psoriasis - Infectious Disease History Other Infectious Disease History: septic shock Social & Family History - Family History Family Medical History: Noncontributory ED ROS GENERAL - Review of Systems Review Of Systems: Unable To Obtain (Unable to get a good ROS at this time. She only reports that her asthma is bad. Hearing is good, but she has poor vision.) ED EXAM, GENERAL - Physical Exam Exam: See Below General Appearance: Alert, WD/WN, No Apparent Distress (Elderly female sitting quietly on ER cart, Pleasant.) Ears: Normal External Exam, Normal Canal (Note dry flaky skin in canals), Hearing Grossly Normal, Other (Right TM blocked with cerumen; Left TM godfrey) Nose: Normal Inspection, Normal Mucosa, No Blood Throat/Mouth: Normal Inspection, Normal Lips, Normal Gums, Normal Oropharynx, No Airway Compromise, Other (widespread dental caries and mulitple missing teeth ) Head: Atraumatic, Normocephalic Neck: Normal Inspection, Supple, Non-Tender Respiratory/Chest: No Accessory Muscle Use, Decreased Breath Sounds, Rhonchi, Wheezing, Prolonged Expiration, Other (Very little air movement, RR=40) Cardiovascular: Regular Rate, Rhythm, No Edema, No Murmur GI/Abdominal: Normal Bowel Sounds, Soft, Non-Tender (Female) Exam: Deferred Rectal (Female) Exam: Deferred Back Exam: Normal Inspection Extremities: Normal Inspection, No Pedal Edema, Normal Capillary Refill Neurological: Alert, Oriented, CN II-XII Intact, Other (Speech clear) Skin Exam: Warm, Dry, Normal Color, Other (note widepspread psoriasis plaques) Lymphatic: No Adenopathy Course - Vital Signs Text/Narrative:: 1100 The patient was seen by the [facility]. Labs and CXR were ordered. She was given SoluMedrol 125mg IVP. 1230 Results reviewed. Case discussed with Dr Jasso, will plan Acute Admission for COPD Exacerbation. See Orders and H&P. - Orders/Labs/Meds Orders: Active Orders 24 hr Category Date Time Status RT Aerosol Therapy [RC] ASDIRECTED Care 12/26/18 11:24 Ordered Albuterol/Ipratropium [DuoNeb 3.0-0.5 MG/3 ML] Med 12/26/18 11:23 Ordered 3 ml NEB Q2H PRN Sodium Chloride 0.9% [Saline Flush] Med 12/26/18 11:18 Ordered 10 ml FLUSH ASDIRECTED PRN Saline Lock Insert [OM.PC] Routine Oth 12/26/18 11:18 Ordered Medication Orders Albuterol/Ipratropium (Duoneb 3.0-0.5 Mg/3 Ml) 3 ml NEB Q2H PRN PRN Reason: Wheezing Sodium Chloride (Saline Flush) 10 ml FLUSH ASDIRECTED PRN PRN Reason: Keep Vein Open Labs: Laboratory Tests 12/26/18 12/26/18 12/26/18 Range/Units 11:50 11:50 11:50 WBC 14.2 H (4.0-10.0) x10^3/uL RBC 4.88 (4.00-5.50) x10^6/uL Hgb 11.7 L (12.0-16.0) g/dL Hct 39.2 (33.0-47.0) % MCV 80.3 (78.0-93.0) fL MCH 24.0 L (26.0-32.0) pg MCHC 29.8 L (32.0-36.0) g/dL RDW Coeff of Sebastian 21.9 H (10.0-15.0) % Plt Count 396 (130-400) x10^3/uL Neut % (Auto) 73.6 (50.0-80.0) % Lymph % (Auto) 15.7 L (25.0-50.0) % [place] % (Auto) 7.2 (2.0-11.0) % Eos % (Auto) 3.2 (0.0-4.0) % Baso % (Auto) 0.3 (0.2-1.2) % Sodium 146 H (136-145) mmol/L Potassium 3.8 (3.5-5.1) mmol/L Chloride 101 (98-107) mmol/L Carbon Dioxide 40 H (21-32) mmol/L Anion Gap 8.8 L (10-20) mmol/L BUN 20 H (7-18) mg/dL Creatinine 0.8 (0.55-1.02) mg/dL Est Cr Clr Drug Dosing TNP Estimated GFR (MDRD) > 60 Glucose 109 H (74-106) mg/dL Lactic Acid 1.2 (0.4-2.0) mmol/L Calcium 9.0 (8.5-10.1) mg/dL Corrected Calcium 9.40 (8.5-10.1) mg/dL Total Bilirubin 0.4 (0.2-1.0) mg/dL AST 22 (15-37) U/L ALT 28 (14-59) U/L Alkaline Phosphatase 102 (46-116) U/L Total Protein 7.7 (6.4-8.2) g/dL Albumin 3.5 (3.4-5.0) g/dL Globulin 4.2 Albumin/Globulin Ratio 0.83 Meds: Medications Generic Name Dose Route Start Last Admin Trade Name Freq PRN Reason Stop Dose Admin Albuterol/Ipratropium 3 ml 12/26/18 11:23 Duoneb 3.0-0.5 Mg/3 Ml NEB Q2H PRN Wheezing Sodium Chloride 10 ml 12/26/18 11:18 Saline Flush FLUSH ASDIRECTED PRN Keep Vein Open Discontinued Medications Generic Name Dose Route Start Last Admin Trade Name Freq PRN Reason Stop Dose Admin Methylprednisolone Sodium Succinate 125 mg 12/26/18 11:20 12/26/18 11:25 Solu-Medrol IVPUSH 12/26/18 11:21 125 mg ONETIME ONE Administration Departure - Departure Time of Disposition: 12:30 Disposition: Admitted As Inpatient 66 Clinical Impression: COPD exacerbation - Discharge Information Forms: ED Department Discharge Additional Instructions: 1)Admit to Acute Care to Dr Jasso - My Orders Last 24 Hours: My Active Orders 12/26/18 11:18 Sodium Chloride 0.9% [Saline Flush] 10 ml FLUSH ASDIRECTED PRN Saline Lock Insert [OM.PC] Routine 12/26/18 11:23 Albuterol/Ipratropium [DuoNeb 3.0-0.5 MG/3 ML] 3 ml NEB Q2H PRN 12/26/18 11:24 RT Aerosol Therapy [RC] ASDIRECTED - Assessment/Plan Last 24 Hours: My Active Orders 12/26/18 11:18 Sodium Chloride 0.9% [Saline Flush] 10 ml FLUSH ASDIRECTED PRN Saline Lock Insert [OM.PC] Routine 12/26/18 11:23 Albuterol/Ipratropium [DuoNeb 3.0-0.5 MG/3 ML] 3 ml NEB Q2H PRN 12/26/18 11:24 RT Aerosol Therapy [RC] ASDIRECTED
--- NOTE | 2018-12-26 12:09 | CR ---
[id number] RAD/RAD Chest PA And Lateral EXAM: RAD Chest PA And Lateral INDICATION: COPD EXACERBATION. COMPARISON: November 21, 2018. DISCUSSION: Cardiomediastinal silhouette is stable in size and contour. No infiltrate, pneumothorax, or edema. Chronic blunting of the left costophrenic angle. IMPRESSION: Stable chest without acute cardiopulmonary findings. Tino Macias DO 12/26/18 2032 Thank you for allowing us to participate in the care of your patient.
[2018-12-26 12:18] LABS: CHLORIDE,CL 101 mmol/L (98-107); SODIUM,NA 146 mmol/L (136-145)
[2018-12-26 12:19] LABS: ANION GAP 8.8 mmol/L (10-20)
[2018-12-26] MEDS: Albuterol/Ipratropium 3.0-0.5 MG/3 ML Neb Soln NEB PRN ×2 (13:09→16:18)
[2018-12-26] MEDS ORDERED: Albuterol 0.083% 2.5 MG/3 ML Neb Soln NEB PRN (13:19)
[2018-12-26] MEDS ORDERED: cefTRIAXone 2 GM Vial IVPUSH SCH (13:30)
[2018-12-26] MEDS ORDERED: Sodium Chloride 0.9% 1,000 ML IV SCH (13:45)
[2018-12-26] MEDS ORDERED: methylPREDNISolone Sodium Succinate 125 MG/2 ML SDV IVPUSH SCH ×2 (14:00→20:00)
[2018-12-26] MEDS: Albuterol/Ipratropium 3.0-0.5 MG/3 ML Neb Soln NEB SCH ×2 (14:59→19:43)
[2018-12-26] MEDS: Sodium Chloride 0.9% 10 ML Syringe FLUSH PRN (15:10)
--- NOTE | 2018-12-26 15:49 | HP ---
CHIEF COMPLAINT: Shortness of breath. HISTORY OF PRESENT ILLNESS: The patient is a 68-year-old female who presents to the emergency room by ambulance. She has a known history of asthma and lives at home with her brother. Home health nurse had been out this morning to see her and she was noted to be more short of breath, coughing, feverish. Apparently, she has been getting ill for the last 3 days. She was given DuoNeb at home and she was brought up by ambulance. Her saturations were 97% on 2 L in the ambulance. Family eventually did come. The patient is Slovenian speaking and does not understand Romanian. To note, patient has a significant history of severe COPD, asthma, and had been hospitalized in June when she required intubation as well as in October for pneumonia and had last swing bed care on 07/26. Her most recent hospitalization at [facility] in [place] in October had shown that she had an acute kidney injury. A CTA was done for positive D-dimer and ground-glass suspicious entity which was pneumonia in the right upper lobe and lower lobe. Procalcitonin had been positive. She had Staph epidermidis and carinii bacterium in 1 of 2 bottles and gram negative cocci. She had been treated with Rocephin and then sent home with Levaquin and prednisone. Her brother comments that she had been exposed to smoke recently. MEDICATIONS: She is currently on: 1. Furosemide 20 mg 1-1/2 pills daily. 2. Atrovent 1 neb t.i.d. 3. Seroquel 100 mg 1 pill at bedtime. 4. Pulmicort nebs 1 neb b.i.d. 0.5/2 mL. 5. Brovana 15 mcg/2 mL twice a day. 6. Singulair 10 mg 1 pill daily. 7. Albuterol nebs every 4 hours as needed for wheezing. 8. Calcium with vitamin D 500/200 one pill daily. 9. Zocor 20 mg 1 pill at bedtime. 10.Norvasc 10 mg 1 pill daily. 11.Melatonin 3 mg at bedtime. ALLERGIES: None known. PAST MEDICAL HISTORY: 1. The patient has had asthma with COPD exacerbation. 2. Recent pneumonia. 3. Acute kidney injury. 4. Hypertension. 5. Hypercholesterolemia. 6. She has coronary artery disease with having had a stent in 2001. 7. She has blindness bilaterally. 8. She has chronic sinusitis. 9. Hypercholesterolemia. 10.Impaired fasting glucose. 11.Psoriasis guttate. 12.She had septic shock and required intubation in 06/2018. PAST SURGICAL HISTORY: 1. Left cardiac cath. 2. She has had nasal sinus procedure with ethmoidectomies and bilateral maxillary antrostomies. 3. Left frontal recess resection on 02/09/2012. FAMILY MEDICAL HISTORY: Not on file. SOCIAL HISTORY: She does not smoke. Does not consume alcohol. She lives in [place] with her brother. Her brother owns a [employer] in [facility]. She has had Home Health. She is Slovenian speaking. REVIEW OF SYSTEMS: The patient's appetite has been good. She does get short of breath. She has not had any chest pain. No swelling of her extremities. No rashes. No bruising. No headaches. To note, history is obtained through her brother. PHYSICAL EXAMINATION: Vital Signs: Show that her temperature is 36.9, pulse 76, blood pressure is initially 190/72, respiratory rate was 40 initially, then went down to 28, saturations are 93% on 3 L. Skin: [place], warm and dry. HEENT: Her eyelids are closed shut or have been swollen shut. Pharynx is normal. Neck: Supple. No anterior cervical adenopathy. Heart: Regular rate and rhythm. LUNGS: Have diminished breath sounds on bases. No wheezes appreciated by myself, but she had been tight with a nurse practitioner evaluation in the ER. Abdomen: Soft and nontender. BREAST/PELVIC EXAM: Deferred. Extremities: Slender, thin. No edema. Neurologic: She moves all extremities around. She does appear to be slightly weak. LABORATORY DATA: Showed that her white blood cell count 14.2, hemoglobin 11.7, platelets 396 with 73 segs, 15 lymphocytes, 7 monos. Sodium 146, potassium 3.8, creatinine 0.8, BUN 20. GFR greater than 60. Carbon dioxide elevated at 40, glucose 109, lactic acid 1.2, calcium 9.0, total bilirubin 0.4, AST 22, ALT 28, alkaline phosphatase 102, albumin 3.5. Chest x-ray was done, which did not show any acute infiltrates. Heart size is a little bit borderline enlarged. SUMMARY OF ER COURSE: The patient was given a DuoNeb. She was given Solu- Medrol 125 mg IM. IMPRESSION: 1. Exacerbation of asthma. 2. Bronchitis. 3. Weakness. 4. Hypertension. 5. Coronary artery disease. 6. Blindness. 7. Hyperglycemia. PLAN: The patient will be admitted to acute care. We will place her on IV Solu - Medrol. We will give her IV Rocephin to cover her in case she may have a pneumonic process. We will give her some IV hydration to help with lung hygiene. We will increase her DuoNeb to 4 times a day. The patient is code level 1 status, does desire to be intubated if necessary. Anticipate hopefully return home with her brother with home health versus look at other alternative arrangements for patient. If the patient's status would worsen and require intubation, she would need to be transferred to a higher level of care. We will check blood work. I will care for patient in Dr. Huff's absence. Will place her on Lovenox for DVT prophylaxis. GM12/26/2018 13:35:54 MODL: 12/26/2018 15:41:47 /[id number]
[2018-12-26] MEDS ORDERED: SODIUM CHLORIDE 0.9% IV SCH (18:00)
[2018-12-26] MEDS ORDERED: METHYLPREDNISOLONE SOD SUCC IV SCH (18:00)
[2018-12-26] MEDS: Arformoterol 15 MCG/2 ML Neb Soln NEB SCH (19:43)
[2018-12-26] MEDS: Enoxaparin 40 MG/0.4 ML Syringe SUBCUT SCH (19:43)
[2018-12-26] MEDS: Budesonide 0.5 MG/2 ML Neb Susp NEB SCH (19:43)
[2018-12-26] MEDS: Simvastatin 20 MG Tab PO SCH (19:44)
[2018-12-26] MEDS ORDERED: Albuterol/Ipratropium 3.0-0.5 MG/3 ML Neb Soln NEB SCH (20:00)
[2018-12-27] MEDS ORDERED: methylPREDNISolone Sodium Succinate 125 MG/2 ML SDV IVPUSH SCH (03:00)
[2018-12-27] MEDS: Sodium Chloride 0.9% 10 ML Syringe FLUSH PRN ×2 (03:34→19:56)
[2018-12-27 06:56] LABS: CHLORIDE,CL 104 mmol/L (98-107); SODIUM,NA 144 mmol/L (136-145)
[2018-12-27 06:57] LABS: ANION GAP 11.4 mmol/L (10-20)
[2018-12-27] MEDS: Arformoterol 15 MCG/2 ML Neb Soln NEB SCH ×2 (07:01→19:55)
[2018-12-27] MEDS: Budesonide 0.5 MG/2 ML Neb Susp NEB SCH ×2 (07:01→19:55)
[2018-12-27] MEDS: Albuterol/Ipratropium 3.0-0.5 MG/3 ML Neb Soln NEB SCH ×4 (07:02→19:55)
[2018-12-27] MEDS: Montelukast 10 MG Tab PO SCH (08:03)
[2018-12-27] MEDS: amLODIPine 10 MG Tab PO SCH (08:03)
[2018-12-27] MEDS: Calcium Carbonate/Vitamin D3 1250 MG-200 Unit Tab PO SCH (08:03)
[2018-12-27] MEDS: Furosemide 20 MG Tab PO SCH (08:04)
[2018-12-27] MEDS: Albuterol/Ipratropium 3.0-0.5 MG/3 ML Neb Soln NEB PRN (09:05)
--- NOTE | 2018-12-27 09:05 | CR ---
[id number] RAD/RAD Chest PA or AP 1V EXAM: SINGLE VIEW CHEST. INDICATION: EXACERBATION OF ASTHMA COMPARISON: CORRELATION IS MADE WITH YESTERDAY'S EXAM FINDINGS: The lungs are clear. The cardiomediastinal contour is stable. IMPRESSION: STABLE CHEST. Bruce Mathews MD 12/27/18 0903 Thank you for allowing us to participate in the care of your patient.
--- NOTE | 2018-12-27 09:18 | PN ---
Progress Note for NITZA ROSS Date: 12/27/2018 Room #: .[facility] SUBJECTIVE: The patient had a comfortable night. She is feeling better. She has had a little bit of a cough that in the past Mucinex has helped for. OBJECTIVE: Vital Signs: Her weight is 55.3 kg, up 0.6 kg from yesterday. Temperature is 36.9, blood pressure is 162/72, respiratory rate is 20, saturations are 96% on 0.5 L of oxygen. General: She is alert, comfortable, sitting in a chair. Heart: Regular rate and rhythm. Lungs: Clear to auscultation. Abdomen: Soft. LABORATORY DATA: Her lab work shows that her white blood cell count has improved to 12.9, hemoglobin 10.9 with 84 segs, 1 band, 10 lymphocytes. Sodium 144, potassium 4.8, creatinine improved to 0.7, GFR greater than 60, BUN improved to 18, glucose 161. LFTs normal. Urinalysis came back normal other than some protein. Specific gravity upper limits of normal at 1.020. IMPRESSION: 1. Exacerbation of asthma/chronic obstructive pulmonary disease. 2. Bronchitis. 3. Mild dehydration. 4. Blindness. PLAN: Her chest x-ray was reviewed, which I believe appears about the same as yesterday, preliminary report. We will stop her IV Solu-Medrol and place her on oral prednisone. We will stop her Rocephin and place her on oral Ceftin. We will continue the Lovenox today. Anticipate discharge home tomorrow if her status stays the same today. We will add Mucinex to help with cough. GM12/27/2018 08:28:02 MODL: 12/27/2018 09:09:34 /[id number]
[2018-12-27] MEDS: guaiFENesin 600 MG Tab.ER PO PRN ×2 (09:41→19:54)
[2018-12-27] MEDS: predniSONE 20 MG Tab PO SCH (09:42)
[2018-12-27] MEDS: Cefuroxime 250 MG Tab PO SCH ×2 (09:42→19:54)
[2018-12-27] MEDS: Simvastatin 20 MG Tab PO SCH (19:55)
[2018-12-27] MEDS: Enoxaparin 40 MG/0.4 ML Syringe SUBCUT SCH (19:55)
[2018-12-28 06:53] LABS: CHLORIDE,CL 103 mmol/L (98-107); SODIUM,NA 144 mmol/L (136-145)
[2018-12-28 06:54] LABS: ANION GAP 8.8 mmol/L (10-20)
[2018-12-28] MEDS: Budesonide 0.5 MG/2 ML Neb Susp NEB SCH ×2 (07:05→19:58)
[2018-12-28] MEDS: Arformoterol 15 MCG/2 ML Neb Soln NEB SCH ×2 (07:05→19:57)
[2018-12-28] MEDS: Albuterol/Ipratropium 3.0-0.5 MG/3 ML Neb Soln NEB SCH ×4 (07:05→19:58)
[2018-12-28] MEDS: amLODIPine 10 MG Tab PO SCH (07:24)
[2018-12-28] MEDS: predniSONE 20 MG Tab PO SCH (07:24)
[2018-12-28] MEDS: Cefuroxime 250 MG Tab PO SCH ×2 (07:24→19:57)
[2018-12-28] MEDS: Montelukast 10 MG Tab PO SCH (07:24)
[2018-12-28] MEDS: Furosemide 20 MG Tab PO SCH (07:24)
[2018-12-28] MEDS: Calcium Carbonate/Vitamin D3 1250 MG-200 Unit Tab PO SCH (07:25)
--- NOTE | 2018-12-28 09:20 | PN ---
Progress Note for NITZA ROSS Date: 12/28/2018 Room #: VM.215 SUBJECTIVE: The patient has been doing well. She has been noted to have some anxiousness when trying to use her incentive spirometry. She has not been noted though to be short of breath with activity. She has had some discomfort with urination the other day, but that has improved. A urinalysis was checked to make certain it was okay. OBJECTIVE: Vital Signs: Her weight is not recorded yet today. Her temperature is 36.9, blood pressure is 131/52, her pulse is 78, respiratory rate 14, and saturations are 96%. General: She is sitting calmly in the bed. Skin: [place], warm, and dry. Heart: Regular rate and rhythm. Lungs: Have diminished breath sounds on bases. No crackles or wheezes are heard. Abdomen: Soft. Extremities: Lower extremities, no edema. LABORATORY DATA: Her lab work today comes back with a white blood cell count significantly elevated at 31.4 with hemoglobin 11.1 and platelets are 394 with 88 segs, 1 band, 10 lymphocytes, 1 monocyte. Sodium 144, potassium 4.8, creatinine 0.8. GFR greater than 60. Glucose is improved to 122. IMPRESSION: 1. Exacerbation of chronic obstructive pulmonary disease. 2. Bronchitis. 3. Leukocytosis. 4. Blindness. PLAN: Because of severely elevated white blood cell count, I feel it is most likely due to steroids; however, I would prefer to keep the patient hospitalized 1 more day to ensure no other illnesses ensue. We will continue the Lovenox. We will continue her oral prednisone as well as continue with oral Ceftin. We will have physical therapy try to assess the patient as well. GM12/28/2018 08:37:10 MODL: 12/28/2018 09:04:50 /[id number]
[2018-12-28] MEDS: Simvastatin 20 MG Tab PO SCH (19:57)
[2018-12-28] MEDS: Enoxaparin 40 MG/0.4 ML Syringe SUBCUT SCH (19:58)
[2018-12-28] MEDS: guaiFENesin 600 MG Tab.ER PO PRN (20:08)
[2018-12-29] MEDS: Arformoterol 15 MCG/2 ML Neb Soln NEB SCH (06:18)
[2018-12-29] MEDS: Budesonide 0.5 MG/2 ML Neb Susp NEB SCH (06:18)
[2018-12-29] MEDS: Albuterol/Ipratropium 3.0-0.5 MG/3 ML Neb Soln NEB SCH ×3 (06:18→15:53)
[2018-12-29 07:22] LABS: ANION GAP 7.1 mmol/L (10-20); CHLORIDE,CL 102 mmol/L (98-107); SODIUM,NA 145 mmol/L (136-145)
[2018-12-29] MEDS: Cefuroxime 250 MG Tab PO SCH (07:59)
[2018-12-29] MEDS: Furosemide 20 MG Tab PO SCH (07:59)
[2018-12-29] MEDS: Montelukast 10 MG Tab PO SCH (07:59)
[2018-12-29] MEDS: amLODIPine 10 MG Tab PO SCH (07:59)
[2018-12-29] MEDS: predniSONE 20 MG Tab PO SCH (07:59)
[2018-12-29] MEDS: guaiFENesin 600 MG Tab.ER PO PRN (07:59)
[2018-12-29] MEDS: Calcium Carbonate/Vitamin D3 1250 MG-200 Unit Tab PO SCH (07:59)
--- NOTE | 2018-12-29 09:39 | PN ---
Progress Note for NITZA ROSS Date: 12/29/2018 Room #: .[facility] SUBJECTIVE: She is feeling better, offers no concerns or complaints, is eating well. OBJECTIVE: Vital Signs: Her weight is up 3 kg from admission. Her temperature is 36.7, blood pressure is 125/60, pulse 79, saturations 96, respiratory rate 18 on 1 L. General: She is calmly sitting in the bed, no problems. Heart: Regular rate and rhythm. Lungs: Clear to auscultation. Abdomen: Soft. Extremities: No edema. LABORATORY DATA: Her lab today shows her white blood cell count has come back to 17.8, hemoglobin 11.0, platelets 389, 72 segs, 1 band, 19 lymphocytes. Sodium 145, potassium 4.1, creatinine 0.9, GFR greater than 60, glucose 91. Total bilirubin 0.2, AST 19, ALT 39. CRP less than 2, which has improved from 1.1 on admission. ProBNP is up to 714 from 312 on admission. IMPRESSION: 1. Exacerbation of asthma. 2. Bronchitis. 3. Oxygen dependent. PLAN: We will discharge home today. We will reduce her steroid dose down. We will stop her Lovenox. She will follow up with Dr. Huff in a week's time. GM12/29/2018 08:17:43 MODL: 12/29/2018 09:32:13 /[id number]
--- NOTE | 2018-12-30 01:33 | DISCH ---
PRIMARY DIAGNOSES: 1.Exacerbation of asthma/chronic obstructive pulmonary disease with: 2. Severe asthma. 3. Chronic obstructive pulmonary disease. 4. Blindness. 5. Weakness. 6. Mild dehydration. 7. Hypertension. 8. Coronary artery disease. 9. Hyperglycemia due to steroids. SUMMARY OF HISTORY AND PHYSICAL: The patient is a 68-year-old Azeri-speaking female, who lives at home with her brother. She had a visit with Home Health. She was noted to be quite short of breath. She had some previous company. It is unclear if that had set her off when they left. She is on home DuoNeb as well as home oxygen. When she presented to the emergency room, she was given a DuoNeb, which helped her quite a bit. She has had previous histories of severe exacerbations with asthma with need to be intubated about 6 months ago. She had been given Rocephin in the emergency room on admit as well as Solu-Medrol. PHYSICAL EXAMINATION: Vital Signs: On admission, her blood pressure is initially 190/72. Respiratory rate was initially 40 and then it came down to 20. Her temperature is 36.9, pulse 76, sats are 93% on 3 L. Lungs: Had some inspiratory wheezes prior to her first neb in the ER. Heart: Regular rate and rhythm. LABORATORY DATA: Showed a white blood cell count of 14.2, hemoglobin 11.7, platelets 396; 73 segs, 15 lymphocytes, 7 monos. Sodium 145, potassium 3.8, creatinine 0.8, BUN 20. GFR greater than 60. Carbon dioxide was 40. Chest x- ray did not show infiltrates. SUMMARY OF HOSPITAL COURSE: The patient was placed on acute care, placed on IV Rocephin as well as IV Solu-Medrol, given a liter of IV fluids to help with hydration. To note, her proBNP initially was 317. EKG showed some chronic flipped ST waves in lateral leads. She was not having any problems with chest pain. The patient started to get better. Repeat chest x-ray did not show any sort of infiltrate. Her blood cultures were negative. She was not able to give a sputum culture. Her white blood cell count on 12/28/2018 had gone up to 31.4; however, she was not having a temperature. It was felt to be more of a steroid effect, so she was kept another day. Her lactic acid to note on admission was normal at 1.2, and when it was checked 4 hours later, it was 1.0. Her proBNP did go up to 714, which was felt to be after some IV fluids. By 12/29/2018, her white blood cell count was 17.8, hemoglobin 11.0, platelets were 389 with 72 segs, 19 lymphocytes. Sodium was 145, potassium 4.1, creatinine 0.9, GFR greater than 60. Glucose was 91. She did have some elevation of her glucose due to the steroids. Albumin was 2.9 on discharge. Urinalysis had been checked and was negative while she was hospitalized. The patient had been placed on Lovenox for DVT prophylaxis while she was here. The patient had a [id number] evaluation today for need for home health. The patient is homebound. She is blind. She is on chronic oxygen. She would rely on others to take her to appointments. Dr. Huff will be monitoring her on Home Health. She had Home Health prior to being hospitalized here. MEDICATIONS: Her medications at the time of discharge will be: Simvastatin 20 mg at bedtime, amlodipine 10 mg 1 pill daily, calcium with vitamin D 500/200 one pill daily, Pulmicort 0.5 nebs b.i.d., Singulair 10 mg daily, DuoNeb was changed from 3 times a day to 4 times a day during this hospitalization, Brovana 15 mcg b.i.d., albuterol nebs 2.5 q.4 hours p.r.n. shortness of breath, furosemide 30 mg daily, Ceftin 250 mg 1 pill twice a day for 7 more days, prednisone 20 mg daily for 5 days. The patient is to follow up with Dr. Huff in 7 to 10 days. She will continue on her home oxygen. Her code level status was full code at the time of discharge. To note, because the patient is Azeri-speaking, interpretive services were needed to communicate with the patient. Her brother who lives in town was not present when I had made rounds. GM12/29/2018 08:31:33 MODL: 12/30/2018 01:26:45 /[id number] CORY
[2018-12-30] MEDS ORDERED: predniSONE 20 MG Tab PO SCH (08:00)
== END 2018-12-29 17:10 | disposition home health service (06) | DRG 192 ==
LOC: VM.ED 10:56 → VM.MS 12:48
PROVIDERS: ADMIT Family Medicine; ATTEND Family Medicine
DX: J44.1 Chronic obstructive pulmonary disease with (acute) exacerbation (principal); H54.7 Unspecified visual loss; H54.3 Unqualified visual loss, both eyes; E86.0 Dehydration; I10 Essential (primary) hypertension; I25.10 Atherosclerotic heart disease of native coronary artery without angina pectoris; E78.5 Hyperlipidemia, unspecified; Z79.51 Long term (current) use of inhaled steroids; R73.9 Hyperglycemia, unspecified; T38.0X5A Adverse effect of glucocorticoids and synthetic analogues, initial encounter; E78.00 Pure hypercholesterolemia, unspecified; H54.8 Legal blindness, as defined in USA; J32.9 Chronic sinusitis, unspecified; L40.4 Guttate psoriasis; D72.829 Elevated white blood cell count, unspecified; Z79.899 Other long term (current) drug therapy; Z87.01 Personal history of pneumonia (recurrent); Z95.5 Presence of coronary angioplasty implant and graft
CPT/HCPCS: 36415; 71045; 71046; 80048; 80053; 81001; 83605; 83880; 85007; 85025; 85027; 86140; 87040; 93005; 94640; 94760; 96374; 99284-GF; 99285-25; A9270-GY; J0696; J1650; J2930; J7030; J7620-GY

== ENCOUNTER 2019-01-24 09:35 | Emergency (ER) | payer MEDICARE, MEDICAID ==
[2019-01-24 10:40] LABS: CHLORIDE,CL 101 mmol/L (54-184); SODIUM,NA 146 mmol/L (69-191)
[2019-01-24 10:41] LABS: ANION GAP 7.8 mmol/L (10-20)
--- NOTE | 2019-01-24 11:04 | CR ---
[id number] RAD/RAD Chest PA or AP 1V EXAM: FRONTAL CHEST INDICATION: Dyspnea. COMPARISON: December 19, 2018. DISCUSSION: Stable cardiomegaly with increased mild to moderate congestive heart failure. Mild focal edema versus superimposed infiltrates in the right upper lobe. Small left pleural effusion. Chronic obstructive pulmonary disease. IMPRESSION: 1. Mild to moderate congestive heart failure. 2. Focal airspace opacity in the right upper lobe, focal edema versus infiltrates. Consider follow-up to help further exclude other underlying pathology. Tanner Reilly MD 01/24/19 7452 Thank you for allowing us to participate in the care of your patient.
[2019-01-24] MEDS ORDERED: cefTRIAXone 2 GM Vial IVPUSH ONE (11:06)
[2019-01-24] MEDS ORDERED: methylPREDNISolone Sodium Succinate 125 MG/2 ML SDV IV ONE (11:06)
[2019-01-24] MEDS ORDERED: Doxycycline 100 MG Cap PO ONE (11:07)
--- NOTE | 2019-01-24 11:58 | EDM.PDOC ---
ED HPI GENERAL MEDICAL PROBLEM - General Chief Complaint: Respiratory Problem Time Seen by Provider: 01/24/19 09:35 Source of Information: Reports: Patient, EMS, Family History Limitations: Reports: Language Barrier - History of Present Illness INITIAL COMMENTS - FREE TEXT/NARRATIVE: EMS was summoned for a patient having trouble breathing. Pt. has a history of asthma, COPD and recurrent pneumonia. She was hospitalized with asthma exacerbation 12/27/18 for approx. 2 days. There was no diagnosed pneumonia at that time. Pt. denies any fever or chills. Complains of mild cough and fatigue. Pt. has not been confused, according to brother. Pt. called 911 because she was having some shortness of breath this AM. Pt. was found to be wheezing and was given an albuterol nebulizer, and states that she felt much improved and requested to go home shortly after admission to ED, according to her brother. Pt. denies any substernal chest pain. No increased peripheral edema. Denies any short throat. No congestion. No nausea, vomiting, diarrhea, melena, hematochezia , or hematemesis. Pt. denies any abdominal pain. Pt. lives with her brother. She speaks no [place]. Her brother translates for her (Kyrgyz). 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: Reports: Breathing Treatments, Oxygen - Related Data Allergies Allergy/AdvReac Type Severity Reaction Status Date / Time No Known Allergies Allergy Verified 12/26/18 11:13 Home Meds: Home Meds Calcium Carbonate/Vitamin D3 [Calcium 500-Vit D3 200 Caplet] 1 tab PO DAILY [History] Simvastatin [Zocor] 20 mg PO BEDTIME 07/26/18 [History] amLODIPine Besylate [Amlodipine Besylate] 10 mg PO DAILY 07/26/18 [History] Budesonide [Pulmicort] 0.5 mg NEB BIDRT #100 neb 08/30/18 [Rx] Montelukast [Singulair] 10 mg PO DAILY #30 tablet 08/30/18 [Rx] Arformoterol [Brovana] 15 mcg NEB BID 09/18/18 [History] Albuterol [Proventil Neb Soln] 2.5 mg NEB Q4H PRN 12/26/18 [History] Furosemide [Lasix] 30 mg PO DAILY 12/26/18 [History] Albuterol/Ipratropium [DuoNeb 3.0-0.5 MG/3 ML] 3 ml NEB QIDRT #0 neb 12/29/18 [ Rx] Cefuroxime [Ceftin] 250 mg PO BID 7 Days #14 tablet 12/29/18 [Rx] predniSONE 20 mg PO WITHBREAKFAST #5 tablet 12/29/18 [Rx] Past Medical History HEENT History: Reports: Impaired Vision, Sinusitis Other HEENT History: Bilaeraly blind Cardiovascular History: Reports: CAD, High Cholesterol, Hypertension Respiratory History: Reports: Asthma, COPD, Pneumonia, Recurrent Other Respiratory History: hx of respiratory failure Psychiatric History: Reports: None Other Endocrine/Metabolic History: hyoerlipidemia, impaired fasting glucose Hematologic History: Reports: Anemia Dermatologic History: Reports: Psoriasis - Infectious Disease History Infectious Disease History: Reports: MRSA Other Infectious Disease History: septic shock Social & Family History - Family History Family Medical History: Noncontributory - Tobacco Use Smoking Status *Q: Unknown Ever Smoked - Caffeine Use Caffeine Use: Reports: Coffee ED ROS GENERAL - Review of Systems Review Of Systems: See Below Constitutional: Reports: No Symptoms, Fatigue. Denies: Fever, Chills, Weakness , Night Sweats HEENT: Reports: No Symptoms Respiratory: Reports: Shortness of Breath Cardiovascular: Reports: No Symptoms Endocrine: Reports: No Symptoms GI/Abdominal: Reports: No Symptoms : Reports: No Symptoms Musculoskeletal: Reports: No Symptoms Skin: Reports: No Symptoms Neurological: Reports: No Symptoms Psychiatric: Reports: No Symptoms Hematologic/Lymphatic: Reports: No Symptoms Immunologic: Reports: No Symptoms ED EXAM, GENERAL - Physical Exam Exam: See Below Exam Limited By: No Limitations General Appearance: Alert, WD/WN, No Apparent Distress Eye Exam: Bilateral Eye: EOMI Ears: Normal External Exam, Normal Canal, Hearing Grossly Normal, Normal TMs Ear Exam: Bilateral Ear: Auricle Normal, Canal Normal, TM normal Nose: Normal Inspection, Normal Mucosa, No Blood Throat/Mouth: Normal Inspection, Normal Lips, Normal Teeth, Normal Gums, Normal Oropharynx, Normal Voice, No Airway Compromise Head: Atraumatic, Normocephalic Neck: Normal Inspection, Supple, Non-Tender, Full Range of Motion Respiratory/Chest: No Respiratory Distress, Lungs Clear, Normal Breath Sounds, No Accessory Muscle Use, Chest Non-Tender, Other (lungs clear on arrival to ED, EMS states that the patient was wheezing mildly prior to the neb.) Cardiovascular: Normal Peripheral Pulses Peripheral Pulses: 4+: Radial (L) GI/Abdominal: Normal Bowel Sounds, Soft, Non-Tender, No Organomegaly, No Distention, No Abnormal Bruit, No Mass, Pelvis Stable (Female) Exam: Deferred Rectal (Female) Exam: Deferred Back Exam: Normal Inspection, Full Range of Motion Extremities: Normal Inspection, Normal Range of Motion, Non-Tender, No Pedal Edema, Normal Capillary Refill Neurological: Alert, Oriented, CN II-XII Intact, Normal Cognition, No Motor/ Sensory Deficits Psychiatric: Normal Affect, Normal Mood Skin Exam: Warm, Dry, Intact, Normal Color, No Rash Lymphatic: No Adenopathy Course - Vital Signs Last Recorded V/S: Last Vital Signs Temp 36.7 C 01/24/19 09:35 Pulse 88 01/24/19 09:35 Resp 24 H 01/24/19 09:35 BP 146/61 H 01/24/19 09:35 Pulse Ox 99 01/24/19 09:35 - Orders/Labs/Meds Orders: Active Orders 24 hr Category Date Time Status EKG Documentation Completion [RC] STAT Care 01/24/19 09:44 Active Labs: Laboratory Tests 01/24/19 01/24/19 01/24/19 Range/Units 10:03 10:03 10:03 WBC 12.9 H (4.0-10.0) x10^3/uL RBC 4.75 (4.00-5.50) x10^6/uL Hgb 11.7 L (12.0-16.0) g/dL Hct 39.7 (33.0-47.0) % MCV 83.6 (78.0-93.0) fL MCH 24.6 L (26.0-32.0) pg MCHC 29.5 L (32.0-36.0) g/dL RDW Coeff of Sebastian 18.8 H (10.0-15.0) % Plt Count 265 D (130-400) x10^3/uL Neut % (Auto) 85.4 H (50.0-80.0) % Lymph % (Auto) 6.6 L (25.0-50.0) % [place] % (Auto) 4.8 (2.0-11.0) % Eos % (Auto) 2.9 (0.0-4.0) % Baso % (Auto) 0.3 (0.2-1.2) % PT 9.8 L (10.0-12.8) SEC INR 0.9 L (2.0-3.5) Sodium 146 H (69-191) mmol/L Potassium 3.8 (1.5-9.9) mmol/L Chloride 101 (54-184) mmol/L Carbon Dioxide 41 H (21-32) mmol/L Anion Gap 7.8 L (10-20) mmol/L BUN 11 (7-18) mg/dL Creatinine 0.8 (0.55-1.02) mg/dL Est Cr Clr Drug Dosing TNP Estimated GFR (MDRD) > 60 Glucose 141 H (74-106) mg/dL Lactic Acid (0.4-2.0) mmol/L Calcium 8.4 L (8.5-10.1) mg/dL Corrected Calcium 8.96 (8.5-10.1) mg/dL Magnesium 2.2 (1.8-2.4) mg/dL Total Bilirubin 0.2 (0.2-1.0) mg/dL AST 21 (15-37) U/L ALT 22 (14-59) U/L Alkaline Phosphatase 96 (46-116) U/L Troponin I < 0.017 (<=0.056) ng/mL C-Reactive Protein 2.9 H (<=0.9) mg/dL NT-Pro-B Natriuret Pep 481 H (<=125) pg/mL Total Protein 7.6 (6.4-8.2) g/dL Albumin 3.3 L (3.4-5.0) g/dL Globulin 4.3 Albumin/Globulin Ratio 0.77 Urine Color (YELLOW) Urine Appearance (CLEAR) Urine pH (5.0-8.0) Ur Specific [place] Urine Protein (NEGATIVE) mg/dL Urine Glucose (UA) (NEGATIVE) mg/dL Urine Ketones (NEGATIVE) mg/dL Urine Occult Blood (NEGATIVE) Urine Nitrite (NEGATIVE) Urine Bilirubin (NEGATIVE) Urine Urobilinogen (0.2) EU/dL Ur Leukocyte Esterase (NEGATIVE) Urine RBC (NOT SEEN) /HPF Urine WBC (NOT SEEN) /HPF Ur Squamous Epith Cells (NEGATIVE) /HPF Urine Bacteria (NEGATIVE) /HPF Hyaline Casts (NEGATIVE) /HPF Urine Mucus (NEGATIVE) /LPF 01/24/19 01/24/19 Range/Units 10:03 10:25 WBC (4.0-10.0) x10^3/uL RBC (4.00-5.50) x10^6/uL Hgb (12.0-16.0) g/dL Hct (33.0-47.0) % MCV (78.0-93.0) fL MCH (26.0-32.0) pg MCHC (32.0-36.0) g/dL RDW Coeff of Sebastian (10.0-15.0) % Plt Count (130-400) x10^3/uL Neut % (Auto) (50.0-80.0) % Lymph % (Auto) (25.0-50.0) % [place] % (Auto) (2.0-11.0) % Eos % (Auto) (0.0-4.0) % Baso % (Auto) (0.2-1.2) % PT (10.0-12.8) SEC INR (2.0-3.5) Sodium (69-191) mmol/L Potassium (1.5-9.9) mmol/L Chloride (54-184) mmol/L Carbon Dioxide (21-32) mmol/L Anion Gap (10-20) mmol/L BUN (7-18) mg/dL Creatinine (0.55-1.02) mg/dL Est Cr Clr Drug Dosing Estimated GFR (MDRD) Glucose (74-106) mg/dL Lactic Acid 0.7 (0.4-2.0) mmol/L Calcium (8.5-10.1) mg/dL Corrected Calcium (8.5-10.1) mg/dL Magnesium (1.8-2.4) mg/dL Total Bilirubin (0.2-1.0) mg/dL AST (15-37) U/L ALT (14-59) U/L Alkaline Phosphatase (46-116) U/L Troponin I (<=0.056) ng/mL C-Reactive Protein (<=0.9) mg/dL NT-Pro-B Natriuret Pep (<=125) pg/mL Total Protein (6.4-8.2) g/dL Albumin (3.4-5.0) g/dL Globulin Albumin/Globulin Ratio Urine Color Yellow (YELLOW) Urine Appearance Slightly cloudy H (CLEAR) Urine pH 7.0 (5.0-8.0) Ur Specific [place] 1.025 Urine Protein >=300 H (NEGATIVE) mg/dL Urine Glucose (UA) Negative (NEGATIVE) mg/dL Urine Ketones Negative (NEGATIVE) mg/dL Urine Occult Blood Small H (NEGATIVE) Urine Nitrite Negative (NEGATIVE) Urine Bilirubin Negative (NEGATIVE) Urine Urobilinogen 0.2 (0.2) EU/dL Ur Leukocyte Esterase Negative (NEGATIVE) Urine RBC 5-10 H (NOT SEEN) /HPF Urine WBC 0-5 (NOT SEEN) /HPF Ur Squamous Epith Cells Few H (NEGATIVE) /HPF Urine Bacteria Rare (NEGATIVE) /HPF Hyaline Casts Few H (NEGATIVE) /HPF Urine Mucus Rare H (NEGATIVE) /LPF Meds: Medications Discontinued Medications Generic Name Dose Route Start Last Admin Trade Name Freq PRN Reason Stop Dose Admin Ceftriaxone Sodium 2 gm 01/24/19 11:06 01/24/19 11:28 Rocephin IVPUSH 01/24/19 11:07 2 gm STAT ONE Administration Doxycycline Hyclate 100 mg 01/24/19 11:07 01/24/19 11:26 Vibramycin PO 01/24/19 11:08 100 mg ONETIME ONE Administration Methylprednisolone Sodium Succinate 125 mg 01/24/19 11:06 01/24/19 11:25 Solu-Medrol IV 01/24/19 11:07 125 mg ONETIME ONE Administration Departure - Departure Time of Disposition: 13:00 Disposition: Home, Self-Care 01 Condition: Good Clinical Impression: Pneumonia, Asthma COPD (chronic obstructive pulmonary disease) Qualifiers: COPD type: COPD with acute exacerbation Qualified Code(s): J44.1 - Chronic obstructive pulmonary disease with (acute) exacerbation - Discharge Information Instructions: Chronic Obstructive Pulmonary Disease, [id number], Doxycycline oral tablets (Periodontitis), Doxycycline tablets or capsules, Prednisone tablets, Community-Acquired Pneumonia, Adult, [id number] Referrals: Tony Huff MD [Primary Care Provider] - Forms: ED Department Discharge Additional Instructions: Doxycycline 100mg 1 twice daily for 10 days Prednisone 40mg once daily for 6 days Continue with nebulizer treatments Return to ER if you have increased shortness of breath, lightheadedness, confusion, or weakness. - Problem List Review Problem List Initiated/Reviewed/Updated: Yes - My Orders Last 24 Hours: My Active Orders 01/24/19 09:44 EKG Documentation Completion [RC] STAT - Assessment/Plan Last 24 Hours: My Active Orders 01/24/19 09:44 EKG Documentation Completion [RC] STAT Plan: Doxycycline 100mg 1 twice daily for 10 days Prednisone 40mg once daily for 6 days Continue with nebulizer treatments Return to ER if you have increased shortness of breath, lightheadedness, confusion, or weakness.
== END 2019-01-24 13:55 | disposition home or self-care (01) ==
LOC: VM.ED 09:35
DX: J44.0 Chronic obstructive pulmonary disease with (acute) lower respiratory infection (principal); J18.9 Pneumonia, unspecified organism; J44.1 Chronic obstructive pulmonary disease with (acute) exacerbation; J45.909 Unspecified asthma, uncomplicated; I10 Essential (primary) hypertension; I25.10 Atherosclerotic heart disease of native coronary artery without angina pectoris; Z79.899 Other long term (current) drug therapy
CPT/HCPCS: 36415; 71045; 80053; 81001; 83605; 83735; 83880; 84484; 85025; 85610; 86140; 93005; 96374; 96375; 99284; A9270; J0696; J2930

== ENCOUNTER 2019-02-05 09:45 | Inpatient (IN) | payer MEDICAID, MEDICARE ==
[2019-02-05] MEDS ORDERED: Dexamethasone 4 MG/ML SDV IVPUSH ONE (10:26)
--- NOTE | 2019-02-05 10:34 | EDM.PDOC ---
ED HPI GENERAL MEDICAL PROBLEM - General Chief Complaint: Respiratory Problem Stated Complaint: ER Time Seen by Provider: 02/05/19 10:00 Source of Information: Reports: Patient, EMS, Family - History of Present Illness INITIAL COMMENTS - FREE TEXT/NARRATIVE: Patient EMS states this patient has been shortness breath over the last 24 hours she has a long-standing history of COPD. Patient states it is hard to breathe currently she has not increased her oxygen usage nor she increased her nebulizer treatment. She currently uses oxygen 24 7 and has for years She was seen by her PCP on the and was started on prednisone and doxycycline for 10 days secondary to COPD she states she took all medicines and has not gotten any better. She denies any prior intubations. But has been hospitalized before for this Onset: Today Duration: Day(s): Improves with: Reports: None Worsens with: Reports: None, Movement Context: Reports: Activity Associated Symptoms: Reports: Cough, cough w sputum, Shortness of Breath. Denies: Chest Pain, Diaphoresis, Fever/Chills, Headaches, Nausea/Vomiting Treatments SURVEILLANCE DIRECTOR: Reports: Oxygen, Other (see below) (Nebulizers) - Related Data Allergies Allergy/AdvReac Type Severity Reaction Status Date / Time No Known Allergies Allergy Verified 02/05/19 11:14 Home Meds: Home Meds Calcium Carbonate/Vitamin D3 [Calcium 500-Vit D3 200 Caplet] 1 tab PO DAILY [History] Simvastatin [Zocor] 20 mg PO BEDTIME 07/26/18 [History] amLODIPine Besylate [Amlodipine Besylate] 10 mg PO DAILY 07/26/18 [History] Budesonide [Pulmicort] 0.5 mg NEB BIDRT #100 neb 08/30/18 [Rx] Arformoterol [Brovana] 15 mcg NEB BID 09/18/18 [History] Albuterol [Proventil Neb Soln] 2.5 mg NEB Q4H PRN 12/26/18 [History] Furosemide [Lasix] 30 mg PO DAILY 12/26/18 [History] Albuterol/Ipratropium [DuoNeb 3.0-0.5 MG/3 ML] 3 ml NEB QIDRT #0 neb 12/29/18 [ Rx] Ipratropium [Atrovent] 0.5 mg NEB TID 02/05/19 [History] Melatonin 3 mg PO BEDTIME 02/05/19 [History] Montelukast [Singulair] 10 mg PO BEDTIME 02/05/19 [History] QUEtiapine Fumarate [Seroquel] 100 mg PO BEDTIME 02/05/19 [History] Past Medical History HEENT History: Reports: Impaired Vision, Sinusitis Other HEENT History: Bilaeraly blind Cardiovascular History: Reports: CAD, High Cholesterol, Hypertension Respiratory History: Reports: Asthma, COPD, Pneumonia, Recurrent Other Respiratory History: hx of respiratory failure Psychiatric History: Reports: None Other Endocrine/Metabolic History: hyoerlipidemia, impaired fasting glucose Hematologic History: Reports: Anemia Dermatologic History: Reports: Psoriasis - Infectious Disease History Infectious Disease History: Reports: MRSA Other Infectious Disease History: septic shock Social & Family History - Family History Family Medical History: Noncontributory - Caffeine Use Caffeine Use: Reports: Coffee ED ROS GENERAL - Review of Systems Review Of Systems: See Below Constitutional: Reports: No Symptoms HEENT: Reports: No Symptoms Respiratory: Reports: Shortness of Breath, Wheezing, Cough, Sputum Cardiovascular: Reports: No Symptoms Endocrine: Reports: No Symptoms GI/Abdominal: Reports: No Symptoms : Reports: No Symptoms Musculoskeletal: Reports: No Symptoms Skin: Reports: No Symptoms Neurological: Reports: No Symptoms Psychiatric: Reports: No Symptoms Hematologic/Lymphatic: Reports: No Symptoms Immunologic: Reports: No Symptoms ED EXAM, GENERAL - Physical Exam Exam: See Below Exam Limited By: No Limitations General Appearance: Alert, WD/WN, No Apparent Distress Eye Exam: Bilateral Eye: PERRL Ears: Normal External Exam, Normal Canal, Hearing Grossly Normal, Normal TMs Nose: Normal Inspection, Normal Mucosa, No Blood Throat/Mouth: Normal Inspection, Normal Lips, Normal Teeth, Normal Gums, Normal Oropharynx, Normal Voice, No Airway Compromise Head: Atraumatic, Normocephalic Neck: Normal Inspection, Supple, Non-Tender, Full Range of Motion Respiratory/Chest: No Respiratory Distress, Lungs Clear, Normal Breath Sounds, No Accessory Muscle Use, Decreased Breath Sounds, Other (Patient had decreased air movement across bilateral lower lobes mild end expiratory wheezing upper bilateral) Cardiovascular: Normal Peripheral Pulses, Regular Rate, Rhythm, No Edema, No Gallop, No JVD, No Murmur, No Rub GI/Abdominal: Normal Bowel Sounds, Soft, Non-Tender, No Organomegaly, No Distention Back Exam: Normal Inspection, Full Range of Motion Extremities: Normal Inspection, Normal Range of Motion, Non-Tender, No Pedal Edema Neurological: Alert, Oriented, CN II-XII Intact, Normal Cognition, No Motor/ Sensory Deficits, Other (Patient follows all commands but does not speak a lot secondary believed to language barrier) Psychiatric: Normal Affect, Normal Mood, Other (nurse states this is her baseline) Skin Exam: Warm, Dry, Intact, Normal Color, No Rash Course - Vital Signs Text/Narrative:: Chest x-ray revealed right sided infiltrate with changes increased opacities than prior CBC BMP chest x-ray bld cultures 2 Decadron 8 mg IV Solu-Medrol [address] Huff will admit Last Recorded V/S: Last Vital Signs Temp 37.2 C 02/05/19 12:00 Pulse 74 02/05/19 12:00 Resp 32 H 02/05/19 12:00 BP 160/59 H 02/05/19 12:00 Pulse Ox 96 02/05/19 12:00 - Orders/Labs/Meds Orders: Active Orders 24 hr Category Date Time Status Oxygen Therapy, ED [RC] ASDIRECTED Care 02/05/19 09:45 Active CULTURE BLOOD [BC] Stat Lab 02/05/19 10:39 Results CULTURE BLOOD [BC] Stat Lab 02/05/19 10:45 Results Azithromycin [Zithromax] Med 02/05/19 11:50 Once 500 mg PO ONETIME ONE cefTRIAXone [Rocephin] Med 02/05/19 11:51 Once 1 gm IVPUSH STAT ONE Blood Culture x2 Reflex Set [OM.PC] Stat Oth 02/05/19 10:25 Ordered Medication Orders Azithromycin (Zithromax) 500 mg PO ONETIME ONE Stop: 02/05/19 11:51 Last Admin: 02/05/19 11:55 Dose: 500 mg Ceftriaxone Sodium (Rocephin) 1 gm IVPUSH STAT ONE Stop: 02/05/19 11:52 Last Admin: 02/05/19 11:55 Dose: 1 gm Labs: Laboratory Tests 02/05/19 02/05/19 Range/Units 10:45 10:45 WBC 27.6 H* (4.0-10.0) x10^3/uL RBC 4.48 (4.00-5.50) x10^6/uL Hgb 11.0 L (12.0-16.0) g/dL Hct 37.0 (33.0-47.0) % MCV 82.6 (78.0-93.0) fL MCH 24.6 L (26.0-32.0) pg MCHC 29.7 L (32.0-36.0) g/dL RDW Coeff of Sebastian 18.3 H (10.0-15.0) % Plt Count 284 (130-400) x10^3/uL Add Manual Diff Yes Neutrophils % (Manual) 89 H (50-80) % Lymphocytes % (Manual) 7 L (25-50) % Monocytes % (Manual) 4 (2-11) % Platelet Estimate Adequate Hypochromasia 1+ slight H Anisocytosis 2+ moderate H Spherocytes 1+ slight H Sodium 147 H (69-191) mmol/L Potassium 3.7 (1.5-9.9) mmol/L Chloride 103 (54-184) mmol/L Carbon Dioxide 37 H (21-32) mmol/L Anion Gap 10.7 (10-20) mmol/L BUN 14 (7-18) mg/dL Creatinine 0.7 (0.55-1.02) mg/dL Est Cr Clr Drug Dosing TNP Estimated GFR (MDRD) > 60 Glucose 123 H (74-106) mg/dL Calcium 8.2 L (8.5-10.1) mg/dL Meds: Medications Generic Name Dose Route Start Last Admin Trade Name Freq PRN Reason Stop Dose Admin Azithromycin 500 mg 02/05/19 11:50 02/05/19 11:55 Zithromax PO 02/05/19 11:51 500 mg ONETIME ONE Administration Ceftriaxone Sodium 1 gm 02/05/19 11:51 02/05/19 11:55 Rocephin IVPUSH 02/05/19 11:52 1 gm STAT ONE Administration Discontinued Medications Generic Name Dose Route Start Last Admin Trade Name Freq PRN Reason Stop Dose Admin Dexamethasone 4 mg 02/05/19 10:26 02/05/19 10:50 Dexamethasone IVPUSH 02/05/19 10:27 4 mg ONETIME ONE Administration Methylprednisolone Sodium 104 mls @ 200 mls/hr 02/05/19 10:26 Succinate 500 mg/ Sodium IV 02/05/19 10:57 Chloride ONETIME ONE Methylprednisolone Sodium Succinate 125 mg 02/05/19 10:40 02/05/19 10:55 Solu-Medrol IVPUSH 02/05/19 10:41 125 mg ONETIME ONE Administration Departure - Departure Time of Disposition: 12:05 Disposition: Admitted As Inpatient 66 Condition: Good, Fair Clinical Impression: Pneumonia COPD (chronic obstructive pulmonary disease) Qualifiers: COPD type: COPD with acute exacerbation Qualified Code(s): J44.1 - Chronic obstructive pulmonary disease with (acute) exacerbation - Discharge Information *PRESCRIPTION DRUG MONITORING PROGRAM REVIEWED*: No *COPY OF PRESCRIPTION DRUG MONITORING REPORT IN PATIENT MINH: No - Problem List & Annotations (1) Pneumonia SNOMED Code(s): 421300856 Code(s): J18.9 - PNEUMONIA, UNSPECIFIED ORGANISM Status: Acute Current Visit: Yes (2) COPD (chronic obstructive pulmonary disease) SNOMED Code(s): 28715411 Code(s): J44.9 - CHRONIC OBSTRUCTIVE PULMONARY DISEASE, UNSPECIFIED Status : Chronic Priority: Medium Current Visit: Yes Qualifiers: COPD type: COPD with acute exacerbation Qualified Code(s): J44.1 - Chronic obstructive pulmonary disease with (acute) exacerbation - My Orders Last 24 Hours: My Active Orders 02/05/19 09:45 Oxygen Therapy, ED [RC] ASDIRECTED 02/05/19 10:25 Blood Culture x2 Reflex Set [OM.PC] Stat 02/05/19 10:39 CULTURE BLOOD [BC] Stat 02/05/19 10:45 CULTURE BLOOD [BC] Stat 02/05/19 11:50 Azithromycin [Zithromax] 500 mg PO ONETIME ONE 02/05/19 11:51 cefTRIAXone [Rocephin] 1 gm IVPUSH STAT ONE - Assessment/Plan Last 24 Hours: My Active Orders 02/05/19 09:45 Oxygen Therapy, ED [RC] ASDIRECTED 02/05/19 10:25 Blood Culture x2 Reflex Set [OM.PC] Stat 02/05/19 10:39 CULTURE BLOOD [BC] Stat 02/05/19 10:45 CULTURE BLOOD [BC] Stat 02/05/19 11:50 Azithromycin [Zithromax] 500 mg PO ONETIME ONE 02/05/19 11:51 cefTRIAXone [Rocephin] 1 gm IVPUSH STAT ONE
[2019-02-05] MEDS ORDERED: methylPREDNISolone Sodium Succinate 125 MG/2 ML SDV IVPUSH ONE (10:40)
[2019-02-05 11:18] LABS: ANION GAP 10.7 mmol/L (10-20); CHLORIDE,CL 103 mmol/L (54-184); SODIUM,NA 147 mmol/L (69-191)
--- NOTE | 2019-02-05 11:49 | CR ---
[id number] RAD/RAD Chest PA or AP 1V EXAM: FRONTAL CHEST INDICATION: Shortness of breath and chronic obstructive pulmonary disease. COMPARISON: January 24, 2018. DISCUSSION: Moderate airspace opacities scattered throughout the right lung have increased. These could represent the sequela of worsening pneumonia, but some have a somewhat nodular appearance. Close follow-up or chest CT with contrast is suggested. Hyperinflation compatible with chronic obstructive pulmonary disease. Cardiomegaly without current evidence of congestive heart failure. IMPRESSION: 1. Moderate right lung airspace opacities have increased. These may be infectious, but are indeterminate and chest CT with contrast is suggested. Tanner Reilly MD 02/05/19 0395 Thank you for allowing us to participate in the care of your patient.
[2019-02-05] MEDS ORDERED: Azithromycin 250 MG Tab PO ONE (11:50)
[2019-02-05] MEDS ORDERED: cefTRIAXone 1 GM Vial IVPUSH ONE (11:51)
[2019-02-05] MEDS ORDERED: Albuterol 0.083% 2.5 MG/3 ML Neb Soln NEB PRN (16:21)
[2019-02-05] MEDS: Arformoterol 15 MCG/2 ML Neb Soln NEB SCH (19:22)
[2019-02-05] MEDS: Melatonin 3 MG Tab PO SCH (19:22)
[2019-02-05] MEDS: Albuterol/Ipratropium 3.0-0.5 MG/3 ML Neb Soln NEB SCH (19:22)
[2019-02-05] MEDS: Simvastatin 20 MG Tab PO SCH (19:22)
[2019-02-05] MEDS: Ipratropium 0.02% 0.5 MG/2.5 ML Neb Soln NEB SCH (19:22)
[2019-02-05] MEDS: Montelukast 10 MG Tab PO SCH (19:22)
[2019-02-05] MEDS: Budesonide 0.5 MG/2 ML Neb Susp NEB SCH (19:22)
[2019-02-05] MEDS: QUEtiapine 100 MG Tab PO SCH (19:23)
--- NOTE | 2019-02-05 21:17 | PCM.HP.2 ---
H&P History of Present Illness - General Date of Service: 02/05/19 Admit Problem/Dx: Admission Diagnosis/Problem Admission Diagnosis/Problem Pneumonia - History of Present Illness Initial Comments - Free Text/Narative: Chief Complaint: Dyspnea History of Present Illness: She has COPD secondary to long-standing chronic asthma. Previously hospitalized in [place] for acute respiratory failure, including intubation, from 07/15 until 07/26/18, then admitted to swing bed at [facility]. She was in swing bed from 07/26 until 08/30/18, went home with her family caring for her. That didnt work out and she came back to Swing Bed 09/18, went home again with Home Care on 10/03/18. Hospitalized in Acute Care again in [place] 11/21 until 11/28/18, again for respiratory failure and exacerbation of COPD. Again she went home with Home Care. While there she is continues to have trouble with anxiety related to her wheezing, and visitors have noted that the house has a moldy odor, which her brother living with her denies. Brought to ER today and admitted again, with 4 days of fever, cough, wheezing and dyspnea. In ER she was noted to have a Rsided infiltrate, in contrast to a normal CXR just a couple months ago. Her WBC is also markedly elevated. Started on oxygen 2 L in ER, given a dose of IV Solu-Medrol, and her oxygenation is good on that. She is admitted again for Rsided pneumonia. 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 Brother feels committed to not letting her go to a penitentiary but she is probably willing to do that. She is Spanishspeaking and requires translating services. Requests Full Code. Medications: -Lasix 20 mg, 1-1/2 daily -Seroquel 100 mg daily at bedtime -Atrovent 1 amp by nebulizer TID -Proventil 1 ampule every 4 hours p.r.n. -Pulmicort 0.5/2, 1 amp by nebulizer BID -Calcium with vitamin D 1 daily -Zocor 20 mg daily at bedtime -Norvasc 10 mg daily -Melatonin 3 mg daily at bedtime Systems Review: -Constitutional: Weight is stable, eats OK -Eyes: Blindness as noted above -ENT: Hearing is OK -Cardiac: Denies any chest pain, no Hx of cardiac ischemia -Pulmonary: As above; no documentation of a Pulmonology consult but she had extensive care from Respiratory Therapy during her intubation in 07/18 -GI: Denies diarrhea or constipation -: No problems known -Skin: No Hx of skin cancer -Endocrine: Has impaired fasting glucose -Musculoskeletal: Denies arthritis, moves about with her walker, but slowly because of blindness -Neurologic: Denies headaches -Heme: Hb down to 8.8 at one time from iron deficiency, takes iron now -Allergies: No specific allergies known, just her asthma, worse in summer -Psych: Never any problems with depression Exam: -General: Alert and answers questions appropriately but dyspneic -ENT: Ears not examined -Eyes: Blindness -Cardiac: Pulse regular, no murmur -Pulmonary: Expiratory wheezes and tachypnea, RR about 35; high-pitched sounds of consolidation throughout her R lung -Breasts: Not examined -Abdomen: Soft and nontender -Extremities: No edema, joints appear normal or nearly so Impression: -R-sided pneumonia -Chronic asthma, COPD -Oxygenation presently OK on oxygen at 2L, though she is tachypneic Plan: -Oxygen at 2L/min, adjust as necessary -IV Rocephin 1 g every 24 hours -Zithromax 250 mg daily 5 days -After the single dose of IM Solu-Medrol, continue her previous inhalers - Related Data Allergies/Adverse Reactions: Allergies Allergy/AdvReac Type Severity Reaction Status Date / Time No Known Allergies Allergy Verified 02/05/19 11:14 Home Medications: Home Meds Calcium Carbonate/Vitamin D3 [Calcium 500-Vit D3 200 Caplet] 1 tab PO DAILY [History] Simvastatin [Zocor] 20 mg PO BEDTIME 07/26/18 [History] amLODIPine Besylate [Amlodipine Besylate] 10 mg PO DAILY 07/26/18 [History] Budesonide [Pulmicort] 0.5 mg NEB BIDRT #100 neb 05/01/19 [Rx] Arformoterol [Brovana] 15 mcg NEB BID 09/18/18 [History] Albuterol [Proventil Neb Soln] 2.5 mg NEB Q4H PRN 12/26/18 [History] Furosemide [Lasix] 30 mg PO DAILY 12/26/18 [History] Albuterol/Ipratropium [DuoNeb 3.0-0.5 MG/3 ML] 3 ml NEB QIDRT #0 neb 12/29/18 [ Rx] Ipratropium [Atrovent] 0.5 mg NEB TID 02/05/19 [History] Melatonin 3 mg PO BEDTIME 02/05/19 [History] Montelukast [Singulair] 10 mg PO BEDTIME 02/05/19 [History] QUEtiapine Fumarate [Seroquel] 100 mg PO BEDTIME 02/05/19 [History] Past Medical History HEENT History: Reports: Impaired Vision, Sinusitis Other HEENT History: Bila[place]y blind Cardiovascular History: Reports: CAD, High Cholesterol, Hypertension Respiratory History: Reports: Asthma, COPD, Pneumonia, Recurrent Other Respiratory History: hx of respiratory failure Gastrointestinal History: Reports: None Genitourinary History: Reports: None Musculoskeletal History: Reports: None Neurological History: Reports: None Psychiatric History: Reports: None Other Endocrine/Metabolic History: hyoerlipidemia, impaired fasting glucose Hematologic History: Reports: Anemia Dermatologic History: Reports: Psoriasis - Infectious Disease History Infectious Disease History: Reports: MRSA Other Infectious Disease History: septic shock - Past Surgical History HEENT Surgical History: Reports: None Cardiovascular Surgical History: Reports: Other (See Below) Other Cardiovascular Surgeries/Procedures: cardiac cath left Social & Family History - Family History Family Medical History: Noncontributory - Tobacco Use Smoking Status *Q: Never Smoker - Caffeine Use Caffeine Use: Reports: Coffee - Recreational Drug Use Recreational Drug Use: No H&P Review of Systems - Review of Systems: Review Of Systems: See Below Exam - Exam Exam: See Below - Vital Signs Vital Signs: Last Vital Signs Temp 37.2 C 02/05/19 18:00 Pulse 76 02/05/19 18:00 Resp 28 H 02/05/19 18:00 BP 158/64 H 02/05/19 18:00 Pulse Ox 97 02/05/19 18:00 Weight: 55.202 kg - Patient Data Lab Results Last 24 hrs: Laboratory Results - last 24 hr 02/05/19 02/05/19 Range/Units 10:45 10:45 WBC 27.6 H* (4.0-10.0) x10^3/uL RBC 4.48 (4.00-5.50) x10^6/uL Hgb 11.0 L (12.0-16.0) g/dL Hct 37.0 (33.0-47.0) % MCV 82.6 (78.0-93.0) fL MCH 24.6 L (26.0-32.0) pg MCHC 29.7 L (32.0-36.0) g/dL RDW Coeff of Sebastian 18.3 H (10.0-15.0) % Plt Count 284 (130-400) x10^3/uL Add Manual Diff Yes Neutrophils % (Manual) 89 H (50-80) % Lymphocytes % (Manual) 7 L (25-50) % Monocytes % (Manual) 4 (2-11) % Platelet Estimate Adequate Hypochromasia 1+ slight H Anisocytosis 2+ moderate H Spherocytes 1+ slight H Sodium 147 H (69-191) mmol/L Potassium 3.7 (1.5-9.9) mmol/L Chloride 103 (54-184) mmol/L Carbon Dioxide 37 H (21-32) mmol/L Anion Gap 10.7 (10-20) mmol/L BUN 14 (7-18) mg/dL Creatinine 0.7 (0.55-1.02) mg/dL Est Cr Clr Drug Dosing TNP Estimated GFR (MDRD) > 60 Glucose 123 H (74-106) mg/dL Calcium 8.2 L (8.5-10.1) mg/dL Result Diagrams: 02/05/19 10:45 02/05/19 10:45 Pito Results Last 24 hrs: Microbiology 02/05/19 10:45 Anaerobic Blood Culture - Final Blood - Venous - Lab Draw 02/05/19 10:39 Anaerobic Blood Culture - Final Blood - Venous Problem List Initiated/Reviewed/Updated: Yes Orders Last 24hrs: Active Orders 24 hr Category Date Time Status Admission Status [Patient Status] [ADT] Routine ADT 02/05/19 12:27 Active Dietary Supplements [RC] 11,17 Care 02/05/19 16:24 Active Dietary Supplements [RC] BIDMEALS Care 02/05/19 16:26 Active Regular Diet [DIET] Diet 02/05/19 Dinner Active CULTURE BLOOD [BC] Stat Lab 02/05/19 10:39 Results CULTURE BLOOD [BC] Stat Lab 02/05/19 10:45 Results Albuterol [Proventil Neb Soln] Med 02/05/19 16:21 Active 2.5 mg NEB Q4H PRN Albuterol/Ipratropium [DuoNeb 3.0-0.5 MG/3 ML] Med 02/05/19 20:00 Active 3 ml NEB QIDRT Arformoterol [Brovana] Med 02/05/19 20:00 Active 15 mcg NEB BIDRT Azithromycin [Zithromax] Med 02/06/19 08:00 Active 250 mg PO DAILY Budesonide [Pulmicort] Med 02/05/19 20:00 Active 0.5 mg NEB BIDRT Calcium Carbonate/Vitamin D3 [Calcium Carbonate/Vitamin Med 02/06/19 08:00 Active D 1250 MG-200 Unit] 1 tab PO DAILY Furosemide [Lasix] Med 02/06/19 08:00 Active 30 mg PO DAILY Ipratropium [Atrovent] Med 02/05/19 20:00 Active 0.5 mg NEB TIDRT Melatonin Med 02/05/19 20:00 Active 3 mg PO BEDTIME Montelukast [Singulair] Med 02/05/19 20:00 Active 10 mg PO BEDTIME QUEtiapine [SEROquel] Med 02/05/19 20:00 Active 100 mg PO BEDTIME Simvastatin [Zocor] Med 02/05/19 20:00 Active 20 mg PO BEDTIME amLODIPine [Norvasc] Med 02/06/19 08:00 Active 10 mg PO DAILY cefTRIAXone [Rocephin] Med 02/06/19 08:00 Active 1 gm IVPUSH DAILY Blood Culture x2 Reflex Set [OM.PC] Stat Oth 02/05/19 10:25 Ordered Code Status [Resuscitation Status] Routine Resus Stat 02/05/19 18:01 Ordered Medication Orders Albuterol (Proventil Neb Soln) 2.5 mg NEB Q4H PRN PRN Reason: Shortness of Breath Albuterol/Ipratropium (Duoneb 3.0-0.5 Mg/3 Ml) 3 ml NEB QIDRT [facility] Last Admin: 02/05/19 19:22 Dose: 3 ml Amlodipine Besylate (Norvasc) 10 mg PO DAILY [facility] Arformoterol Tartrate (Brovana) 15 mcg NEB BIDRT [facility] Last Admin: 02/05/19 19:22 Dose: 15 mcg Azithromycin (Zithromax) 250 mg PO DAILY [facility] Stop: 02/11/19 08:01 Budesonide (Pulmicort) 0.5 mg NEB BIDRT [facility] Last Admin: 02/05/19 19:22 Dose: 0.5 mg Calcium Carbonate (Calcium Carbonate/Vitamin D 1250 Mg-200 Unit) 1 tab PO DAILY [facility] Ceftriaxone Sodium (Rocephin) 1 gm IVPUSH DAILY [facility] Furosemide (Lasix) 30 mg PO DAILY [facility] Ipratropium [place] (Atrovent) 0.5 mg NEB TIDRT [facility] Last Admin: 02/05/19 19:22 Dose: 0.5 mg Melatonin (Melatonin) 3 mg PO BEDTIME [facility] Last Admin: 02/05/19 19:22 Dose: 3 mg Montelukast Sodium (Singulair) 10 mg PO BEDTIME [facility] Last Admin: 02/05/19 19:22 Dose: 10 mg Quetiapine Fumarate (Seroquel) 100 mg PO BEDTIME [facility] Last Admin: 02/05/19 19:23 Dose: 100 mg Simvastatin (Zocor) 20 mg PO BEDTIME [facility] Last Admin: 02/05/19 19:22 Dose: 20 mg
[2019-02-06] MEDS: Albuterol/Ipratropium 3.0-0.5 MG/3 ML Neb Soln NEB SCH ×4 (07:16→19:56)
[2019-02-06] MEDS: Ipratropium 0.02% 0.5 MG/2.5 ML Neb Soln NEB SCH (07:16)
[2019-02-06] MEDS: Arformoterol 15 MCG/2 ML Neb Soln NEB SCH ×2 (07:16→19:56)
[2019-02-06] MEDS: Budesonide 0.5 MG/2 ML Neb Susp NEB SCH ×4 (07:16→19:56)
[2019-02-06] MEDS ORDERED: Azithromycin 500 MG in Sodium Chloride 0.9% 250 ML IV SCH (08:00)
[2019-02-06] MEDS ORDERED: cefTRIAXone 1 GM Vial IVPUSH SCH (08:00)
[2019-02-06] MEDS: Furosemide 20 MG Tab PO SCH (09:32)
[2019-02-06] MEDS: Azithromycin 250 MG Tab PO SCH (09:32)
[2019-02-06] MEDS: Calcium Carbonate/Vitamin D3 1250 MG-200 Unit Tab PO SCH (09:32)
[2019-02-06] MEDS: cefTRIAXone 1 GM Vial IVPUSH SCH (09:33)
[2019-02-06] MEDS: amLODIPine 10 MG Tab PO SCH (09:33)
[2019-02-06] MEDS: Montelukast 10 MG Tab PO SCH (19:56)
[2019-02-06] MEDS: QUEtiapine 100 MG Tab PO SCH (19:56)
[2019-02-06] MEDS: Simvastatin 20 MG Tab PO SCH (19:56)
[2019-02-06] MEDS: Melatonin 3 MG Tab PO SCH (19:58)
--- NOTE | 2019-02-06 22:55 | PCM.PN ---
- General Info Date of Service: 02/06/19 Admission Dx/Problem (Free Text): History: She is afebrile, continues to have adequate oxygenation on oxygen at 2 L/min. She admits that even though she is not breathing well she might be a little better. Nurses feel that things are going well, except that she seems anxious and wanting her inhaler even when she does not sound overtly wheezy. She is on Seroquel for anxiety. Exam: -Lung sounds still mildly high-pitched on R -Heart sounds normal and regular -Abdomen negative -She is alert and answers questions briefly but appropriately Impression: -Rsided pneumonia, infiltrate is mildly atypical and CT was recommended by radiology -Chronic asthma, probably aggravated by ambient mold in her home Plan: -Work towards swing bed and possibly longterm on D/C -Continue Rocephin and Zithromax -Get repeat CXR and CBC tomorrow - Patient Data Vitals - Most Recent: Last Vital Signs Temp 36.9 C 02/06/19 22:00 Pulse 80 02/06/19 22:00 Resp 23 H 02/06/19 22:00 BP 156/56 H 02/06/19 22:00 Pulse Ox 96 02/06/19 22:00 Weight - Most Recent: 55.202 kg I&O - Last 24 Hours: Intake & Output 02/06/19 02/06/19 02/06/19 06:59 14:59 22:59 Intake Total 700 360 580 Output Total 1000 300 300 Balance -300 60 280 Pito Results Last 24 Hours: Microbiology 02/05/19 10:45 Aerobic Blood Culture - Preliminary Blood - Venous - Lab Draw NO GROWTH AFTER 1 DAY Anaerobic Blood Culture - Final 02/05/19 10:39 Aerobic Blood Culture - Preliminary Blood - Venous NO GROWTH AFTER 1 DAY Anaerobic Blood Culture - Final Med Orders - Current: Current Medications Albuterol (Proventil Neb Soln) 2.5 mg NEB Q4H PRN PRN Reason: Shortness of Breath Albuterol/Ipratropium (Duoneb 3.0-0.5 Mg/3 Ml) 3 ml NEB QIDRT [facility] Last Admin: 02/06/19 19:56 Dose: 3 ml Amlodipine Besylate (Norvasc) 10 mg PO DAILY [facility] Last Admin: 02/06/19 09:33 Dose: 10 mg Arformoterol Tartrate (Brovana) 15 mcg NEB BIDRT [facility] Last Admin: 02/06/19 19:56 Dose: 15 mcg Azithromycin (Zithromax) 250 mg PO DAILY [facility] Stop: 02/11/19 08:01 Last Admin: 02/06/19 09:32 Dose: 250 mg Budesonide (Pulmicort) 0.5 mg NEB QIDRT [facility] Last Admin: 02/06/19 19:56 Dose: 0.5 mg Calcium Carbonate (Calcium Carbonate/Vitamin D 1250 Mg-200 Unit) 1 tab PO DAILY [facility] Last Admin: 02/06/19 09:32 Dose: 1 tab Ceftriaxone Sodium (Rocephin) 1 gm IVPUSH DAILY [facility] Last Admin: 02/06/19 09:33 Dose: 1 gm Furosemide (Lasix) 30 mg PO DAILY [facility] Last Admin: 02/06/19 09:32 Dose: 30 mg Melatonin (Melatonin) 3 mg PO BEDTIME [facility] Last Admin: 02/06/19 19:58 Dose: Not Given Montelukast Sodium (Singulair) 10 mg PO BEDTIME [facility] Last Admin: 02/06/19 19:56 Dose: 10 mg Quetiapine Fumarate (Seroquel) 100 mg PO BEDTIME [facility] Last Admin: 02/06/19 19:56 Dose: 100 mg Simvastatin (Zocor) 20 mg PO BEDTIME [facility] Last Admin: 02/06/19 19:56 Dose: 20 mg Discontinued Medications Azithromycin (Zithromax) 500 mg PO ONETIME ONE Stop: 02/05/19 11:51 Last Admin: 02/05/19 11:55 Dose: 500 mg Budesonide (Pulmicort) 0.5 mg NEB BIDRT [facility] Last Admin: 02/06/19 07:16 Dose: 0.5 mg Ceftriaxone Sodium (Rocephin) 1 gm IVPUSH STAT ONE Stop: 02/05/19 11:52 Last Admin: 02/05/19 11:55 Dose: 1 gm Dexamethasone (Dexamethasone) 4 mg IVPUSH ONETIME ONE Stop: 02/05/19 10:27 Last Admin: 02/05/19 10:50 Dose: 4 mg Methylprednisolone Sodium Succinate 500 mg/ Sodium Chloride 104 mls @ 200 mls/ hr IV ONETIME ONE Stop: 02/05/19 10:57 Last Admin: 02/05/19 13:39 Dose: Not Given Ipratropium [place] (Atrovent) 0.5 mg NEB TIDRT [facility] Last Admin: 02/06/19 07:16 Dose: Not Given Methylprednisolone Sodium Succinate (Solu-Medrol) 125 mg IVPUSH ONETIME ONE Stop: 02/05/19 10:41 Last Admin: 02/05/19 10:55 Dose: 125 mg - Problem List Review Problem List Initiated/Reviewed/Updated: Yes - My Orders Last 24 Hours: My Active Orders 02/06/19 08:00 Azithromycin [Zithromax] 250 mg PO DAILY Calcium Carbonate/Vitamin D3 [Calcium Carbonate/Vitamin D 1250 MG-200 Unit] 1 tab PO DAILY Furosemide [Lasix] 30 mg PO DAILY amLODIPine [Norvasc] 10 mg PO DAILY cefTRIAXone [Rocephin] 1 gm IVPUSH DAILY 02/06/19 11:00 Budesonide [Pulmicort] 0.5 mg NEB QIDRT 02/07/19 07:30 CXR [Chest 2V] [CR] Routine CBC WITH AUTO DIFF [HEME] Routine
[2019-02-07] MEDS: Albuterol/Ipratropium 3.0-0.5 MG/3 ML Neb Soln NEB SCH ×4 (07:07→20:07)
[2019-02-07] MEDS: Budesonide 0.5 MG/2 ML Neb Susp NEB SCH ×4 (07:07→20:07)
[2019-02-07] MEDS: Arformoterol 15 MCG/2 ML Neb Soln NEB SCH ×2 (07:07→20:07)
[2019-02-07] MEDS: Azithromycin 250 MG Tab PO SCH (09:13)
[2019-02-07] MEDS: Calcium Carbonate/Vitamin D3 1250 MG-200 Unit Tab PO SCH (09:13)
[2019-02-07] MEDS: amLODIPine 10 MG Tab PO SCH (09:13)
[2019-02-07] MEDS: cefTRIAXone 1 GM Vial IVPUSH SCH (09:13)
[2019-02-07] MEDS: Furosemide 20 MG Tab PO SCH (09:14)
--- NOTE | 2019-02-07 09:30 | CR ---
[id number] RAD/RAD Chest PA And Lateral EXAM: RAD Chest PA And Lateral CLINICAL DATA: FOLLOW-UP PNEUMONIA COMPARISON: CORRELATION IS MADE WITH THE EXAM OF FEBRUARY 05, 2019 FINDINGS: The right basal infiltrate is decreasing. A nodular component is still present Further follow-up is suggested CT may be needed IMPRESSION: RESOLVING FINDINGS AT RIGHT LUNG BASE RESIDUAL NODULAR COMPONENT Bruce Mathews MD 02/07/19 0927 Thank you for allowing us to participate in the care of your patient.
--- NOTE | 2019-02-07 10:28 | PCM.PN ---
- General Info Date of Service: 02/07/19 Admission Dx/Problem (Free Text): History: WBC decreased, CXR shows decreased infiltrate. Patient doesnt feel better today , says she feels ugly. She does get anxious from her wheezing and also when using the nebulizer. Remains afebrile, had initially been on 2 L of O2, then none, now back to 1 L. There is some nodular character to the infiltrate, so radiologist again sends reminder that CT might eventually be necessary. Exam: -Heart regular, sounds distant but otherwise normal -Not tachypneic now like she was initially, still some wheezes, lung sounds slightly high-pitched on R Impression: -R-basilar pneumonia, improving -Asthma and COPD, recovery will be slow -Anxiety related to her asthma, but Im reluctant to start a benzo for anxiolysis Plan: -Continue Rocephin and Zithromax -Continue to try to wean from O2 when able -Defer decision on CT until next week or until we feel shes had maximal improvement from the antibiotic - Patient Data Vitals - Most Recent: Last Vital Signs Temp 36.9 C 02/07/19 06:00 Pulse 93 02/07/19 06:00 Resp 23 H 02/07/19 06:00 BP 155/75 H 02/07/19 09:13 Pulse Ox 90 L 02/07/19 07:09 Weight - Most Recent: 55.202 kg I&O - Last 24 Hours: Intake & Output 02/06/19 02/07/19 02/07/19 22:59 06:59 14:59 Intake Total 580 400 240 Output Total 300 300 Balance 280 100 240 Lab Results Last 24 Hours: Laboratory Results - last 24 hr 02/07/19 Range/Units 06:25 WBC 14.7 H (4.0-10.0) x10^3/uL RBC 4.08 (4.00-5.50) x10^6/uL Hgb 10.0 L (12.0-16.0) g/dL Hct 34.0 (33.0-47.0) % MCV 83.3 (78.0-93.0) fL MCH 24.5 L (26.0-32.0) pg MCHC 29.4 L (32.0-36.0) g/dL RDW Coeff of Sebastian 18.5 H (10.0-15.0) % Plt Count 269 (130-400) x10^3/uL Neut % (Auto) 70.4 (50.0-80.0) % Lymph % (Auto) 18.8 L (25.0-50.0) % [place] % (Auto) 8.1 (2.0-11.0) % Eos % (Auto) 2.5 (0.0-4.0) % Baso % (Auto) 0.2 (0.2-1.2) % Pito Results Last 24 Hours: Microbiology 02/05/19 10:45 Aerobic Blood Culture - Preliminary Blood - Venous - Lab Draw NO GROWTH AFTER 1 DAY Anaerobic Blood Culture - Final 02/05/19 10:39 Aerobic Blood Culture - Preliminary Blood - Venous NO GROWTH AFTER 1 DAY Anaerobic Blood Culture - Final Med Orders - Current: Current Medications Albuterol (Proventil Neb Soln) 2.5 mg NEB Q4H PRN PRN Reason: Shortness of Breath Albuterol/Ipratropium (Duoneb 3.0-0.5 Mg/3 Ml) 3 ml NEB QIDRT [facility] Last Admin: 02/07/19 07:07 Dose: 3 ml Amlodipine Besylate (Norvasc) 10 mg PO DAILY [facility] Last Admin: 02/07/19 09:13 Dose: 10 mg Arformoterol Tartrate (Brovana) 15 mcg NEB BIDRT [facility] Last Admin: 02/07/19 07:07 Dose: 15 mcg Azithromycin (Zithromax) 250 mg PO DAILY [facility] Stop: 02/11/19 08:01 Last Admin: 02/07/19 09:13 Dose: 250 mg Budesonide (Pulmicort) 0.5 mg NEB QIDRT [facility] Last Admin: 02/07/19 07:07 Dose: 0.5 mg Calcium Carbonate (Calcium Carbonate/Vitamin D 1250 Mg-200 Unit) 1 tab PO DAILY [facility] Last Admin: 02/07/19 09:13 Dose: 1 tab Ceftriaxone Sodium (Rocephin) 1 gm IVPUSH DAILY [facility] Last Admin: 02/07/19 09:13 Dose: 1 gm Furosemide (Lasix) 30 mg PO DAILY [facility] Last Admin: 02/07/19 09:14 Dose: 30 mg Melatonin (Melatonin) 3 mg PO BEDTIME [facility] Last Admin: 02/06/19 19:58 Dose: Not Given Montelukast Sodium (Singulair) 10 mg PO BEDTIME [facility] Last Admin: 02/06/19 19:56 Dose: 10 mg Quetiapine Fumarate (Seroquel) 100 mg PO BEDTIME [facility] Last Admin: 02/06/19 19:56 Dose: 100 mg Simvastatin (Zocor) 20 mg PO BEDTIME [facility] Last Admin: 02/06/19 19:56 Dose: 20 mg Discontinued Medications Azithromycin (Zithromax) 500 mg PO ONETIME ONE Stop: 02/05/19 11:51 Last Admin: 02/05/19 11:55 Dose: 500 mg Budesonide (Pulmicort) 0.5 mg NEB BIDRT [facility] Last Admin: 02/06/19 07:16 Dose: 0.5 mg Ceftriaxone Sodium (Rocephin) 1 gm IVPUSH STAT ONE Stop: 02/05/19 11:52 Last Admin: 02/05/19 11:55 Dose: 1 gm Dexamethasone (Dexamethasone) 4 mg IVPUSH ONETIME ONE Stop: 02/05/19 10:27 Last Admin: 02/05/19 10:50 Dose: 4 mg Methylprednisolone Sodium Succinate 500 mg/ Sodium Chloride 104 mls @ 200 mls/ hr IV ONETIME ONE Stop: 02/05/19 10:57 Last Admin: 02/05/19 13:39 Dose: Not Given Ipratropium [place] (Atrovent) 0.5 mg NEB TIDRT [facility] Last Admin: 02/06/19 07:16 Dose: Not Given Methylprednisolone Sodium Succinate (Solu-Medrol) 125 mg IVPUSH ONETIME ONE Stop: 02/05/19 10:41 Last Admin: 02/05/19 10:55 Dose: 125 mg - Problem List Review Problem List Initiated/Reviewed/Updated: Yes - My Orders Last 24 Hours: My Active Orders 02/06/19 11:00 Budesonide [Pulmicort] 0.5 mg NEB QIDRT
[2019-02-07] MEDS: Simvastatin 20 MG Tab PO SCH (20:07)
[2019-02-07] MEDS: Melatonin 3 MG Tab PO SCH (20:07)
[2019-02-07] MEDS: QUEtiapine 100 MG Tab PO SCH (20:07)
[2019-02-07] MEDS: Montelukast 10 MG Tab PO SCH (20:07)
[2019-02-08] MEDS: Budesonide 0.5 MG/2 ML Neb Susp NEB SCH ×2 (06:15→11:40)
[2019-02-08] MEDS: Albuterol/Ipratropium 3.0-0.5 MG/3 ML Neb Soln NEB SCH ×2 (06:15→11:25)
[2019-02-08] MEDS: Arformoterol 15 MCG/2 ML Neb Soln NEB SCH (06:15)
--- NOTE | 2019-02-08 09:06 | PCM.DCSUM1 ---
Discharge Summary - Hospital Course Free Text/Narrative:: Discharge Diagnosis: -R-sided pneumonia -Chronic asthma with COPD Reason for admission: Fever, cough, and dyspnea Initial Findings: Leukocytosis of 27,000, low-grade fever, Rsided infiltrate, wheezing and hypoxia, initially required oxygen at 2L/min. Other lab OK. Treatment and Course in Hospital: 1 cultures remain negative and she remained afebrile after admission. Got one dose of Solu-Medrol, then went to her regular nebulizers. Got 4 doses of IV Rocephin 1 g, got oral Zithromax. CXR on 02/07 improved, but there is still a nodular character to the infiltrate so the radiologist suggests that if it doesn t clear completely she might eventually need a CT. Her WBC came down to 14, 700 on 02/07/19. She remains unhappy with having to use the nebulizers because it makes her anxious and she feels better but not completely recovered. Condition on Discharge: -Lung sounds on right are almost normal -Heart sounds regular and normal although diminished in intensity -Eating well and calm and sleeps lying flat in bed without orthopnea Discharge Plan: -Change from IV Rocephin to Ceftin 250 mg BID -Changed to Swing Bed, will probably try to keep on fpc level through the winter, perhaps to SCC later -Consider CT lung if the nodular-type infiltrate doesn't clear completely Diagnosis: Stroke: No - Discharge Data Discharge Date: 02/08/19 Discharge Disposition: DC/Tfer W/I Hosp [place] [id number] Condition: Good - Referral to Home Health Primary Care Physician: Tony Huff MD - Discharge Plan *PRESCRIPTION DRUG MONITORING PROGRAM REVIEWED*: No *COPY OF PRESCRIPTION DRUG MONITORING REPORT IN PATIENT MINH: No Home Medications: Home Meds Calcium Carbonate/Vitamin D3 [Calcium 500-Vit D3 200 Caplet] 1 tab PO DAILY [History] Simvastatin [Zocor] 20 mg PO BEDTIME 07/26/18 [History] amLODIPine Besylate [Amlodipine Besylate] 10 mg PO DAILY 07/26/18 [History] Budesonide [Pulmicort] 0.5 mg NEB BIDRT #100 neb 08/30/18 [Rx] Arformoterol [Brovana] 15 mcg NEB BID 09/18/18 [History] Albuterol [Proventil Neb Soln] 2.5 mg NEB Q4H PRN 12/26/18 [History] Furosemide [Lasix] 30 mg PO DAILY 12/26/18 [History] Albuterol/Ipratropium [DuoNeb 3.0-0.5 MG/3 ML] 3 ml NEB QIDRT #0 neb 12/29/18 [ Rx] Ipratropium [Atrovent] 0.5 mg NEB TID 02/05/19 [History] Melatonin 3 mg PO BEDTIME 02/05/19 [History] Montelukast [Singulair] 10 mg PO BEDTIME 02/05/19 [History] QUEtiapine Fumarate [Seroquel] 100 mg PO BEDTIME 02/05/19 [History] Patient Handouts: Community-Acquired Pneumonia, Adult, [id number] Forms: ED Department Discharge - Discharge Summary/Plan Comment DC Time >30 min.: No - Patient Data Vitals - Most Recent: Last Vital Signs Temp 36.5 C 02/08/19 06:00 Pulse 88 02/08/19 06:00 Resp 22 H 02/08/19 06:00 BP 170/52 H 02/08/19 06:00 Pulse Ox 96 02/08/19 06:00 Weight - Most Recent: 55.202 kg I&O - Last 24 hours: Intake & Output 02/07/19 02/08/19 02/08/19 22:59 06:59 14:59 Intake Total 240 150 Output Total 650 Balance -410 150 EDY Results - Last 24 hrs: Microbiology 02/05/19 10:45 Aerobic Blood Culture - Preliminary Blood - Venous - Lab Draw NO GROWTH AFTER 2 DAYS Anaerobic Blood Culture - Final 02/05/19 10:39 Aerobic Blood Culture - Preliminary Blood - Venous NO GROWTH AFTER 2 DAYS Anaerobic Blood Culture - Final Med Orders - Current: Current Medications Albuterol (Proventil Neb Soln) 2.5 mg NEB Q4H PRN PRN Reason: Shortness of Breath Albuterol/Ipratropium (Duoneb 3.0-0.5 Mg/3 Ml) 3 ml NEB QIDRT GREG Last Admin: 02/08/19 06:15 Dose: 3 ml Amlodipine Besylate (Norvasc) 10 mg PO DAILY GREG Last Admin: 02/07/19 09:13 Dose: 10 mg Arformoterol Tartrate (Brovana) 15 mcg NEB BIDRT [facility] Last Admin: 02/08/19 06:15 Dose: 15 mcg Azithromycin (Zithromax) 250 mg PO DAILY [facility] Stop: 02/11/19 08:01 Last Admin: 02/07/19 09:13 Dose: 250 mg Budesonide (Pulmicort) 0.5 mg NEB QIDRT [facility] Last Admin: 02/08/19 06:15 Dose: 0.5 mg Calcium Carbonate (Calcium Carbonate/Vitamin D 1250 Mg-200 Unit) 1 tab PO DAILY [facility] Last Admin: 02/07/19 09:13 Dose: 1 tab Cefuroxime Axetil (Ceftin) 250 mg PO BID [facility] Stop: 02/12/19 22:00 Furosemide (Lasix) 30 mg PO DAILY [facility] Last Admin: 02/07/19 09:14 Dose: 30 mg Melatonin (Melatonin) 3 mg PO BEDTIME [facility] Last Admin: 02/07/19 20:07 Dose: 3 mg Montelukast Sodium (Singulair) 10 mg PO BEDTIME [facility] Last Admin: 02/07/19 20:07 Dose: 10 mg Quetiapine Fumarate (Seroquel) 100 mg PO BEDTIME [facility] Last Admin: 02/07/19 20:07 Dose: 100 mg Simvastatin (Zocor) 20 mg PO BEDTIME [facility] Last Admin: 02/07/19 20:07 Dose: 20 mg Discontinued Medications Azithromycin (Zithromax) 500 mg PO ONETIME ONE Stop: 02/05/19 11:51 Last Admin: 02/05/19 11:55 Dose: 500 mg Budesonide (Pulmicort) 0.5 mg NEB BIDRT [facility] Last Admin: 02/06/19 07:16 Dose: 0.5 mg Ceftriaxone Sodium (Rocephin) 1 gm IVPUSH STAT ONE Stop: 02/05/19 11:52 Last Admin: 02/05/19 11:55 Dose: 1 gm Ceftriaxone Sodium (Rocephin) 1 gm IVPUSH DAILY [facility] Last Admin: 02/07/19 09:13 Dose: 1 gm Dexamethasone (Dexamethasone) 4 mg IVPUSH ONETIME ONE Stop: 02/05/19 10:27 Last Admin: 02/05/19 10:50 Dose: 4 mg Methylprednisolone Sodium Succinate 500 mg/ Sodium Chloride 104 mls @ 200 mls/ hr IV ONETIME ONE Stop: 02/05/19 10:57 Last Admin: 02/05/19 13:39 Dose: Not Given Ipratropium Yarnell (Atrovent) 0.5 mg NEB TIDRT [facility] Last Admin: 02/06/19 07:16 Dose: Not Given Methylprednisolone Sodium Succinate (Solu-Medrol) 125 mg IVPUSH ONETIME ONE Stop: 02/05/19 10:41 Last Admin: 02/05/19 10:55 Dose: 125 mg
[2019-02-08] MEDS: Furosemide 20 MG Tab PO SCH (09:17)
[2019-02-08] MEDS: amLODIPine 10 MG Tab PO SCH (09:18)
[2019-02-08] MEDS: Calcium Carbonate/Vitamin D3 1250 MG-200 Unit Tab PO SCH (09:18)
[2019-02-08] MEDS: Azithromycin 250 MG Tab PO SCH (09:18)
[2019-02-08] MEDS: cefTRIAXone 1 GM Vial IVPUSH SCH (09:19)
[2019-02-09] MEDS ORDERED: Cefuroxime 250 MG Tab PO SCH (08:00)
== END 2019-02-08 12:36 | disposition swing bed (61) | DRG 194 ==
LOC: VM.ED 09:45 → VM.MS 12:27
PROVIDERS: ADMIT Family Medicine; ATTEND Family Medicine
DX: J18.9 Pneumonia, unspecified organism (principal); J44.1 Chronic obstructive pulmonary disease with (acute) exacerbation; R06.02 Shortness of breath; Z99.81 Dependence on supplemental oxygen; F41.9 Anxiety disorder, unspecified; I25.10 Atherosclerotic heart disease of native coronary artery without angina pectoris; E78.5 Hyperlipidemia, unspecified; H54.7 Unspecified visual loss; Z22.322 Carrier or suspected carrier of Methicillin resistant Staphylococcus aureus; E78.00 Pure hypercholesterolemia, unspecified; I10 Essential (primary) hypertension; Z79.899 Other long term (current) drug therapy
CPT/HCPCS: 36415; 71045; 71046; 80048; 85025; 87040; 94640; 94760; 96374; 96375; 99284-GF; 99285-25; A9270-GY; J0696; J1100; J2930; J7620-GY

== ENCOUNTER 2019-02-08 10:13 | Inpatient (IN) | payer MEDICAID, MEDICARE ==
[2019-02-08] MEDS ORDERED: Albuterol 0.083% 2.5 MG/3 ML Neb Soln NEB PRN (12:55)
[2019-02-08] MEDS: Albuterol/Ipratropium 3.0-0.5 MG/3 ML Neb Soln NEB SCH ×2 (15:51→19:36)
[2019-02-08] MEDS: Budesonide 0.5 MG/2 ML Neb Susp NEB SCH ×2 (15:51→19:35)
[2019-02-08] MEDS: Arformoterol 15 MCG/2 ML Neb Soln NEB SCH (19:35)
[2019-02-08] MEDS: Melatonin 3 MG Tab PO SCH (19:36)
[2019-02-08] MEDS: Simvastatin 20 MG Tab PO SCH (19:36)
[2019-02-08] MEDS: QUEtiapine 100 MG Tab PO SCH (19:36)
[2019-02-08] MEDS: Montelukast 10 MG Tab PO SCH (19:37)
[2019-02-09] MEDS: Albuterol/Ipratropium 3.0-0.5 MG/3 ML Neb Soln NEB SCH ×4 (06:28→19:42)
[2019-02-09] MEDS: Arformoterol 15 MCG/2 ML Neb Soln NEB SCH ×2 (06:29→19:42)
[2019-02-09] MEDS: Budesonide 0.5 MG/2 ML Neb Susp NEB SCH ×4 (06:29→19:42)
[2019-02-09] MEDS: CEFUROXIME 250 MG PO SCH ×2 (07:25→19:43)
[2019-02-09] MEDS: amLODIPine 10 MG Tab PO SCH (07:25)
[2019-02-09] MEDS: Furosemide 20 MG Tab PO SCH (07:25)
[2019-02-09] MEDS: Calcium Carbonate/Vitamin D3 1250 MG-200 Unit Tab PO SCH (07:25)
[2019-02-09] MEDS: AZITHROMYCIN 250 MG PO SCH (07:25)
[2019-02-09] MEDS: Simvastatin 20 MG Tab PO SCH (19:43)
[2019-02-09] MEDS: QUEtiapine 100 MG Tab PO SCH (19:43)
[2019-02-09] MEDS: Melatonin 3 MG Tab PO SCH (19:43)
[2019-02-09] MEDS: Montelukast 10 MG Tab PO SCH (19:43)
[2019-02-10] MEDS: Budesonide 0.5 MG/2 ML Neb Susp NEB SCH ×4 (06:08→19:32)
[2019-02-10] MEDS: Albuterol/Ipratropium 3.0-0.5 MG/3 ML Neb Soln NEB SCH ×4 (06:08→19:32)
[2019-02-10] MEDS: Arformoterol 15 MCG/2 ML Neb Soln NEB SCH ×2 (06:09→19:30)
[2019-02-10] MEDS: Calcium Carbonate/Vitamin D3 1250 MG-200 Unit Tab PO SCH (08:35)
[2019-02-10] MEDS: Furosemide 20 MG Tab PO SCH (08:35)
[2019-02-10] MEDS: amLODIPine 10 MG Tab PO SCH (08:35)
[2019-02-10] MEDS: AZITHROMYCIN 250 MG PO SCH (08:37)
[2019-02-10] MEDS: CEFUROXIME 250 MG PO SCH ×2 (08:37→19:33)
[2019-02-10] MEDS: Simvastatin 20 MG Tab PO SCH (19:33)
[2019-02-10] MEDS: QUEtiapine 100 MG Tab PO SCH (19:33)
[2019-02-10] MEDS: Montelukast 10 MG Tab PO SCH (19:33)
[2019-02-10] MEDS: Melatonin 3 MG Tab PO SCH (19:34)
[2019-02-11] MEDS: Budesonide 0.5 MG/2 ML Neb Susp NEB SCH ×4 (06:05→20:00)
[2019-02-11] MEDS: Albuterol/Ipratropium 3.0-0.5 MG/3 ML Neb Soln NEB SCH ×4 (06:05→20:00)
[2019-02-11] MEDS: Arformoterol 15 MCG/2 ML Neb Soln NEB SCH ×2 (06:05→20:00)
[2019-02-11] MEDS: Calcium Carbonate/Vitamin D3 1250 MG-200 Unit Tab PO SCH (08:23)
[2019-02-11] MEDS: Furosemide 20 MG Tab PO SCH (08:23)
[2019-02-11] MEDS: amLODIPine 10 MG Tab PO SCH (08:24)
[2019-02-11] MEDS: CEFUROXIME 250 MG PO SCH ×2 (08:25→20:01)
[2019-02-11] MEDS: AZITHROMYCIN 250 MG PO SCH (08:25)
[2019-02-11] MEDS: Simvastatin 20 MG Tab PO SCH (19:59)
[2019-02-11] MEDS: Montelukast 10 MG Tab PO SCH (19:59)
[2019-02-11] MEDS: Melatonin 3 MG Tab PO SCH (19:59)
[2019-02-11] MEDS: QUEtiapine 100 MG Tab PO SCH (19:59)
[2019-02-11] MEDS: Acetaminophen 500 MG Tab PO PRN (21:18)
[2019-02-12] MEDS: Budesonide 0.5 MG/2 ML Neb Susp NEB SCH ×4 (07:20→19:46)
[2019-02-12] MEDS: Arformoterol 15 MCG/2 ML Neb Soln NEB SCH ×2 (07:20→19:45)
[2019-02-12] MEDS: Albuterol/Ipratropium 3.0-0.5 MG/3 ML Neb Soln NEB SCH ×4 (07:20→19:46)
[2019-02-12] MEDS: Furosemide 20 MG Tab PO SCH (09:15)
[2019-02-12] MEDS: Calcium Carbonate/Vitamin D3 1250 MG-200 Unit Tab PO SCH (09:15)
[2019-02-12] MEDS: amLODIPine 10 MG Tab PO SCH (09:16)
[2019-02-12] MEDS: CEFUROXIME 250 MG PO SCH ×2 (09:17→19:46)
[2019-02-12] MEDS: Acetaminophen 500 MG Tab PO PRN (13:38)
[2019-02-12] MEDS: QUEtiapine 100 MG Tab PO SCH (19:47)
[2019-02-12] MEDS: Melatonin 3 MG Tab PO SCH (19:47)
[2019-02-12] MEDS: Simvastatin 20 MG Tab PO SCH (19:47)
[2019-02-12] MEDS: Montelukast 10 MG Tab PO SCH (19:47)
--- NOTE | 2019-02-12 20:22 | PCM.PN ---
- General Info Date of Service: 02/12/19 Admission Dx/Problem (Free Text): History: For 2 days she has C/O Rsided abdominal pain, says it actually got better when she walked around and did not seem to serious so she was not seen until I went up there today. She says she was told at one time that she has small gallstones , like sludge, but was advised against surgery. She has not had any abdominal surgery. She says that she vomited up the stones. She had CT of chest 11/17 and her upper abdomen at that time was reported as normal. She says her appetite has been poor the past few days, says she vomited yesterday but not today. She has been eating some. Note she had colonoscopy this summer which was unremarkable. Exam: -No abdominal distention -Moderate tenderness throughout her abdomen, both R and L -No rebound tenderness -No masses palpable Impression: -Rsided abdominal pain, symptoms fairly stable over 2-3 days -Abdominal tenderness -Hx gallstone problems, not documented in chart -Cant R/O involvement of her R long since she did just have Rsided pneumonia Plan: -Upper abdominal ultrasound tomorrow -CBC tomorrow -Consider CT of chest and abdomen if not improving - Patient Data Vitals - Most Recent: Last Vital Signs Temp 36.8 C 02/12/19 06:00 Pulse 77 02/12/19 06:00 Resp 19 02/12/19 06:00 BP 135/45 L 02/12/19 09:16 Pulse Ox 81 L 02/12/19 07:25 I&O - Last 24 Hours: Intake & Output 02/12/19 02/12/19 02/12/19 06:59 14:59 22:59 Intake Total 120 120 Balance 120 120 Med Orders - Current: Current Medications Acetaminophen (Tylenol Extra Strength) 500 mg PO Q4H PRN PRN Reason: Pain Last Admin: 02/12/19 13:38 Dose: 500 mg Albuterol (Proventil Neb Soln) 2.5 mg NEB Q4H PRN PRN Reason: Shortness of Breath Albuterol/Ipratropium (Duoneb 3.0-0.5 Mg/3 Ml) 3 ml NEB QIDRT GREG Last Admin: 02/12/19 19:46 Dose: 3 ml Amlodipine Besylate (Norvasc) 10 mg PO DAILY [facility] Last Admin: 02/12/19 09:16 Dose: 10 mg Arformoterol Tartrate (Brovana) 15 mcg NEB BIDRT [facility] Last Admin: 02/12/19 19:45 Dose: 15 mcg Budesonide (Pulmicort) 0.5 mg NEB QIDRT [facility] Last Admin: 02/12/19 19:46 Dose: 0.5 mg Calcium Carbonate (Calcium Carbonate/Vitamin D 1250 Mg-200 Unit) 1 tab PO DAILY [facility] Last Admin: 02/12/19 09:15 Dose: 1 tab Cefuroxime Axetil (Ceftin) 250 mg PO BID [facility] Stop: 02/12/19 22:00 Last Admin: 02/12/19 19:46 Dose: 250 mg Furosemide (Lasix) 30 mg PO DAILY [facility] Last Admin: 02/12/19 09:15 Dose: 30 mg Melatonin (Melatonin) 3 mg PO BEDTIME [facility] Last Admin: 02/12/19 19:47 Dose: 3 mg Montelukast Sodium (Singulair) 10 mg PO BEDTIME [facility] Last Admin: 02/12/19 19:47 Dose: 10 mg Quetiapine Fumarate (Seroquel) 100 mg PO BEDTIME [facility] Last Admin: 02/12/19 19:47 Dose: 100 mg Simvastatin (Zocor) 20 mg PO BEDTIME [facility] Last Admin: 02/12/19 19:47 Dose: 20 mg Discontinued Medications Azithromycin (Zithromax) 250 mg PO DAILY [facility] Stop: 02/11/19 08:01 Last Admin: 02/11/19 08:25 Dose: 250 mg - Problem List Review Problem List Initiated/Reviewed/Updated: Yes - My Orders Last 24 Hours: My Active Orders 02/13/19 07:30 Abdomen Ltd [US] Routine CBC WITH AUTO DIFF [HEME] Routine
[2019-02-13] MEDS: Arformoterol 15 MCG/2 ML Neb Soln NEB SCH ×2 (07:05→19:59)
[2019-02-13] MEDS: Albuterol/Ipratropium 3.0-0.5 MG/3 ML Neb Soln NEB SCH ×4 (07:05→19:59)
[2019-02-13] MEDS: Budesonide 0.5 MG/2 ML Neb Susp NEB SCH ×4 (07:06→19:59)
[2019-02-13] MEDS: Furosemide 20 MG Tab PO SCH (09:07)
[2019-02-13] MEDS: Calcium Carbonate/Vitamin D3 1250 MG-200 Unit Tab PO SCH (09:07)
[2019-02-13] MEDS: amLODIPine 10 MG Tab PO SCH (09:08)
[2019-02-13] MEDS: QUEtiapine 100 MG Tab PO SCH (20:00)
[2019-02-13] MEDS: Simvastatin 20 MG Tab PO SCH (20:00)
[2019-02-13] MEDS: Melatonin 3 MG Tab PO SCH (20:00)
[2019-02-13] MEDS: Montelukast 10 MG Tab PO SCH (20:00)
[2019-02-14] MEDS: Arformoterol 15 MCG/2 ML Neb Soln NEB SCH (06:00)
[2019-02-14] MEDS: Albuterol/Ipratropium 3.0-0.5 MG/3 ML Neb Soln NEB SCH ×2 (06:00→12:28)
[2019-02-14] MEDS: Budesonide 0.5 MG/2 ML Neb Susp NEB SCH ×2 (06:00→12:28)
[2019-02-14] MEDS: Furosemide 20 MG Tab PO SCH (08:11)
[2019-02-14] MEDS: amLODIPine 10 MG Tab PO SCH (08:11)
[2019-02-14] MEDS: Calcium Carbonate/Vitamin D3 1250 MG-200 Unit Tab PO SCH (08:12)
[2019-02-14] MEDS ORDERED: Albuterol 0.083% 2.5 MG/3 ML Neb Soln (OWN SUPPLY) NEB PRN (14:19)
[2019-02-14] MEDS: IPRATROPIUM NEB SCH ×2 (15:55→19:35)
[2019-02-14] MEDS: BUDESONIDE 0.5 MG/2 ML NEB SCH ×2 (15:55→19:33)
[2019-02-14] MEDS: ALBUTEROL NEB SCH ×2 (15:55→19:35)
[2019-02-14] MEDS: Acetaminophen 500 MG Tab PO PRN (19:27)
[2019-02-14] MEDS: Melatonin 3 MG Tab PO SCH (19:35)
[2019-02-14] MEDS: ARFORMOTEROL 15 MCG/2 ML NEB SCH (19:35)
[2019-02-14] MEDS: SIMVASTATIN 20 MG PO SCH (19:36)
[2019-02-14] MEDS: QUETIAPINE 100 MG PO SCH (19:37)
[2019-02-14] MEDS: MONTELUKAST 10 MG PO SCH (19:37)
[2019-02-15] MEDS: ALBUTEROL NEB SCH ×4 (06:01→19:58)
[2019-02-15] MEDS: BUDESONIDE 0.5 MG/2 ML NEB SCH ×4 (06:01→19:58)
[2019-02-15] MEDS: IPRATROPIUM NEB SCH ×4 (06:01→19:58)
[2019-02-15] MEDS: ARFORMOTEROL 15 MCG/2 ML NEB SCH ×2 (06:01→19:58)
[2019-02-15] MEDS: Calcium Carbonate/Vitamin D3 1250 MG-200 Unit Tab PO SCH (07:33)
[2019-02-15] MEDS: amLODIPine 10 MG Tab (OWN SUPPLY) PO SCH (07:33)
[2019-02-15] MEDS: Furosemide 20 MG Tab (OWN SUPPLY) PO SCH (07:34)
[2019-02-15] MEDS: QUETIAPINE 100 MG PO SCH (19:58)
[2019-02-15] MEDS: SIMVASTATIN 20 MG PO SCH (19:58)
[2019-02-15] MEDS: MONTELUKAST 10 MG PO SCH (19:58)
[2019-02-15] MEDS: Melatonin 3 MG Tab PO SCH (19:58)
[2019-02-16] MEDS: ARFORMOTEROL 15 MCG/2 ML NEB SCH ×2 (07:02→19:29)
[2019-02-16] MEDS: BUDESONIDE 0.5 MG/2 ML NEB SCH ×4 (07:02→19:29)
[2019-02-16] MEDS: ALBUTEROL NEB SCH ×4 (07:03→19:29)
[2019-02-16] MEDS: IPRATROPIUM NEB SCH ×4 (07:03→19:29)
[2019-02-16] MEDS: Calcium Carbonate/Vitamin D3 1250 MG-200 Unit Tab PO SCH (07:45)
[2019-02-16] MEDS: amLODIPine 10 MG Tab (OWN SUPPLY) PO SCH (07:45)
[2019-02-16] MEDS: Furosemide 20 MG Tab (OWN SUPPLY) PO SCH (07:46)
[2019-02-16] MEDS: SIMVASTATIN 20 MG PO SCH (19:28)
[2019-02-16] MEDS: QUETIAPINE 100 MG PO SCH (19:28)
[2019-02-16] MEDS: MONTELUKAST 10 MG PO SCH (19:28)
[2019-02-16] MEDS: Melatonin 3 MG Tab PO SCH (19:37)
[2019-02-17] MEDS: ALBUTEROL NEB SCH ×4 (06:57→20:34)
[2019-02-17] MEDS: IPRATROPIUM NEB SCH ×4 (06:57→20:34)
[2019-02-17] MEDS: BUDESONIDE 0.5 MG/2 ML NEB SCH ×4 (06:57→20:34)
[2019-02-17] MEDS: ARFORMOTEROL 15 MCG/2 ML NEB SCH ×2 (06:57→20:34)
[2019-02-17] MEDS: amLODIPine 10 MG Tab (OWN SUPPLY) PO SCH (08:51)
[2019-02-17] MEDS: Furosemide 20 MG Tab (OWN SUPPLY) PO SCH (08:51)
[2019-02-17] MEDS: Calcium Carbonate/Vitamin D3 1250 MG-200 Unit Tab PO SCH (08:54)
[2019-02-17] MEDS: Melatonin 3 MG Tab PO SCH (20:33)
[2019-02-17] MEDS: SIMVASTATIN 20 MG PO SCH (20:33)
[2019-02-17] MEDS: MONTELUKAST 10 MG PO SCH (20:33)
[2019-02-17] MEDS: QUETIAPINE 100 MG PO SCH (20:33)
[2019-02-18] MEDS: ARFORMOTEROL 15 MCG/2 ML NEB SCH ×2 (07:04→20:00)
[2019-02-18] MEDS: IPRATROPIUM NEB SCH ×4 (07:04→20:00)
[2019-02-18] MEDS: BUDESONIDE 0.5 MG/2 ML NEB SCH ×4 (07:04→20:00)
[2019-02-18] MEDS: ALBUTEROL NEB SCH ×4 (07:04→20:00)
[2019-02-18] MEDS: amLODIPine 10 MG Tab (OWN SUPPLY) PO SCH (08:22)
[2019-02-18] MEDS: Furosemide 20 MG Tab (OWN SUPPLY) PO SCH (08:22)
[2019-02-18] MEDS: Calcium Carbonate/Vitamin D3 1250 MG-200 Unit Tab PO SCH (08:23)
[2019-02-18] MEDS ORDERED: Albuterol/Ipratropium 3.0-0.5 MG/3 ML Neb Soln ONE ×3 (11:22→19:33)
[2019-02-18] MEDS: QUETIAPINE 100 MG PO SCH (20:00)
[2019-02-18] MEDS: MONTELUKAST 10 MG PO SCH (20:00)
[2019-02-18] MEDS: SIMVASTATIN 20 MG PO SCH (20:00)
[2019-02-18] MEDS: Melatonin 3 MG Tab PO SCH (20:00)
[2019-02-19] MEDS: ALBUTEROL NEB SCH ×4 (06:04→19:36)
[2019-02-19] MEDS: BUDESONIDE 0.5 MG/2 ML NEB SCH ×4 (06:04→19:35)
[2019-02-19] MEDS: ARFORMOTEROL 15 MCG/2 ML NEB SCH ×2 (06:04→19:32)
[2019-02-19] MEDS: IPRATROPIUM NEB SCH ×4 (06:04→19:36)
[2019-02-19] MEDS: Calcium Carbonate/Vitamin D3 1250 MG-200 Unit Tab PO SCH (11:21)
[2019-02-19] MEDS: amLODIPine 10 MG Tab (OWN SUPPLY) PO SCH (11:21)
[2019-02-19] MEDS: Furosemide 20 MG Tab (OWN SUPPLY) PO SCH (11:22)
--- NOTE | 2019-02-19 11:45 | US ---
[id number] US/US Abdomen Limited Exam: US Abdomen Limited Indication:RIGHT UPPER QUADRANT ABDOMINAL PAIN, GALLBLADDER. Comparison: No prior imaging for comparison. Discussion: Cholelithiasis. No wall thickening or pericholecystic fluid. Common bile duct is normal in caliber. Liver is unremarkable. No ascites. Impression: Cholelithiasis without evidence of acute cholecystitis. Pedro Dooley MD 02/19/19 1142 Thank you for allowing us to participate in the care of your patient.
[2019-02-19] MEDS: Melatonin 3 MG Tab PO SCH (19:37)
[2019-02-19] MEDS: SIMVASTATIN 20 MG PO SCH (19:37)
[2019-02-19] MEDS: MONTELUKAST 10 MG PO SCH (19:39)
[2019-02-19] MEDS: QUETIAPINE 100 MG PO SCH (19:39)
[2019-02-20] MEDS: ALBUTEROL NEB SCH ×4 (07:07→20:06)
[2019-02-20] MEDS: IPRATROPIUM NEB SCH ×4 (07:07→20:06)
[2019-02-20] MEDS: ARFORMOTEROL 15 MCG/2 ML NEB SCH ×2 (07:07→20:05)
[2019-02-20] MEDS: BUDESONIDE 0.5 MG/2 ML NEB SCH ×4 (07:07→20:06)
[2019-02-20] MEDS: amLODIPine 10 MG Tab (OWN SUPPLY) PO SCH (07:56)
[2019-02-20] MEDS: Furosemide 20 MG Tab (OWN SUPPLY) PO SCH (07:58)
[2019-02-20] MEDS: Calcium Carbonate/Vitamin D3 1250 MG-200 Unit Tab PO SCH (08:01)
[2019-02-20] MEDS: QUETIAPINE 100 MG PO SCH (20:04)
[2019-02-20] MEDS: Melatonin 3 MG Tab PO SCH (20:04)
[2019-02-20] MEDS: MONTELUKAST 10 MG PO SCH (20:05)
[2019-02-20] MEDS: SIMVASTATIN 20 MG PO SCH (20:05)
--- NOTE | 2019-02-20 20:22 | PCM.PN ---
- General Info Date of Service: 02/20/19 Admission Dx/Problem (Free Text): History: Last week she complained for many days of Rsided abdominal pain, actually improved by moving around. She did tell us of a remote Hx of gallstones, no records available of this so she was scheduled for RUQ US, which was done yesterday. Since scheduling US, she had resolution of her pain, has not complained of it for about 5 days. US yesterday shows gallstones without evidence of bile duct dilation or gallbladder wall thickening or any other sign of inflammation. Not having trouble with her asthma in the last week Exam: -Alert and in no distress, did not reexamine her abdomen today -No wheezing Impression: -Gallstones, presently asymptomatic -Abdominal pain in RUQ last week, resolved -COPD and asthma improved now that she is in moldfree environment Plan: -Patient says she never wants surgery on her gallbladder -Nothing planned now since she is presently asymptomatic - Patient Data Vitals - Most Recent: Last Vital Signs Temp 36.4 C 02/20/19 06:00 Pulse 61 02/20/19 06:00 Resp 20 02/20/19 06:00 BP 137/46 L 02/20/19 07:56 Pulse Ox 93 L 02/20/19 06:00 Weight - Most Recent: 53.116 kg I&O - Last 24 Hours: Intake & Output 02/20/19 02/20/19 02/20/19 06:59 14:59 22:59 Intake Total 240 120 Balance 240 120 Med Orders - Current: Current Medications Acetaminophen (Tylenol Extra Strength) 500 mg PO Q4H PRN PRN Reason: Pain Last Admin: 02/14/19 19:27 Dose: 500 mg Albuterol (Proventil Neb Soln) 2.5 mg NEB Q4H PRN PRN Reason: Shortness of Breath Albuterol/Ipratropium (Duoneb 3.0-0.5 Mg/3 Ml) 3 ml NEB QIDRT [facility] Last Admin: 02/20/19 20:06 Dose: 3 ml Amlodipine Besylate (Norvasc) 10 mg PO DAILY [facility] Last Admin: 02/20/19 07:56 Dose: 10 mg Arformoterol Tartrate (Brovana) 15 mcg NEB BIDRT [facility] Last Admin: 02/20/19 20:05 Dose: 15 mcg Budesonide (Pulmicort) 0.5 mg NEB QIDRT [facility] Last Admin: 02/20/19 20:06 Dose: 0.5 mg Calcium Carbonate (Calcium Carbonate/Vitamin D 1250 Mg-200 Unit) 1 tab PO DAILY [facility] Last Admin: 02/20/19 08:01 Dose: 1 tab Furosemide (Lasix) 30 mg PO DAILY [facility] Last Admin: 02/20/19 07:58 Dose: 30 mg Melatonin (Melatonin) 3 mg PO BEDTIME [facility] Last Admin: 02/20/19 20:04 Dose: 3 mg Montelukast Sodium (Singulair) 10 mg PO BEDTIME [facility] Last Admin: 02/20/19 20:05 Dose: 10 mg Quetiapine Fumarate (Seroquel) 100 mg PO BEDTIME [facility] Last Admin: 02/20/19 20:04 Dose: 100 mg Simvastatin (Zocor) 20 mg PO BEDTIME [facility] Last Admin: 02/20/19 20:05 Dose: 20 mg Discontinued Medications Albuterol (Proventil Neb Soln) 2.5 mg NEB Q4H PRN PRN Reason: Shortness of Breath Albuterol/Ipratropium (Duoneb 3.0-0.5 Mg/3 Ml) 3 ml NEB QIDRT [facility] Last Admin: 02/14/19 12:28 Dose: 3 ml Albuterol/Ipratropium (Duoneb 3.0-0.5 Mg/3 Ml) Confirm Administered Dose 3 ml .ROUTE .STK-MED ONE Stop: 02/18/19 11:23 Last Admin: 02/18/19 11:18 Dose: Not Given Albuterol/Ipratropium (Duoneb 3.0-0.5 Mg/3 Ml) Confirm Administered Dose 3 ml .ROUTE .STK-MED ONE Stop: 02/18/19 14:20 Last Admin: 02/18/19 15:23 Dose: 3 ml Albuterol/Ipratropium (Duoneb 3.0-0.5 Mg/3 Ml) Confirm Administered Dose 3 ml .ROUTE .STK-MED ONE Stop: 02/18/19 19:34 Last Admin: 02/18/19 19:59 Dose: 3 ml Amlodipine Besylate (Norvasc) 10 mg PO DAILY [facility] Last Admin: 02/14/19 08:11 Dose: 10 mg Arformoterol Tartrate (Brovana) 15 mcg NEB BIDRT [facility] Last Admin: 02/14/19 06:00 Dose: 15 mcg Azithromycin (Zithromax) 250 mg PO DAILY [facility] Stop: 02/11/19 08:01 Last Admin: 02/11/19 08:25 Dose: 250 mg Budesonide (Pulmicort) 0.5 mg NEB QIDRT [facility] Last Admin: 02/14/19 12:28 Dose: 0.5 mg Cefuroxime Axetil (Ceftin) 250 mg PO BID [facility] Stop: 02/12/19 22:00 Last Admin: 02/12/19 19:46 Dose: 250 mg Furosemide (Lasix) 30 mg PO DAILY [facility] Last Admin: 02/14/19 08:11 Dose: 30 mg Montelukast Sodium (Singulair) 10 mg PO BEDTIME [facility] Last Admin: 02/13/19 20:00 Dose: 10 mg Quetiapine Fumarate (Seroquel) 100 mg PO BEDTIME [facility] Last Admin: 02/13/19 20:00 Dose: 100 mg Simvastatin (Zocor) 20 mg PO BEDTIME [facility] Last Admin: 02/13/19 20:00 Dose: 20 mg - Problem List Review Problem List Initiated/Reviewed/Updated: Yes
[2019-02-21] MEDS: ARFORMOTEROL 15 MCG/2 ML NEB SCH ×2 (06:59→20:14)
[2019-02-21] MEDS: IPRATROPIUM NEB SCH ×4 (06:59→20:14)
[2019-02-21] MEDS: BUDESONIDE 0.5 MG/2 ML NEB SCH ×4 (06:59→20:14)
[2019-02-21] MEDS: ALBUTEROL NEB SCH ×4 (06:59→20:14)
[2019-02-21] MEDS: Calcium Carbonate/Vitamin D3 1250 MG-200 Unit Tab PO SCH (08:21)
[2019-02-21] MEDS: amLODIPine 10 MG Tab (OWN SUPPLY) PO SCH (08:21)
[2019-02-21] MEDS: Furosemide 20 MG Tab (OWN SUPPLY) PO SCH (08:22)
[2019-02-21] MEDS: QUETIAPINE 100 MG PO SCH (20:15)
[2019-02-21] MEDS: Melatonin 3 MG Tab PO SCH (20:15)
[2019-02-21] MEDS: MONTELUKAST 10 MG PO SCH (20:15)
[2019-02-21] MEDS: SIMVASTATIN 20 MG PO SCH (20:15)
[2019-02-22] MEDS: BUDESONIDE 0.5 MG/2 ML NEB SCH ×4 (06:51→19:43)
[2019-02-22] MEDS: ARFORMOTEROL 15 MCG/2 ML NEB SCH ×2 (06:51→19:46)
[2019-02-22] MEDS: ALBUTEROL NEB SCH ×4 (06:52→19:45)
[2019-02-22] MEDS: IPRATROPIUM NEB SCH ×4 (06:52→19:45)
[2019-02-22] MEDS: amLODIPine 10 MG Tab (OWN SUPPLY) PO SCH (07:57)
[2019-02-22] MEDS: Calcium Carbonate/Vitamin D3 1250 MG-200 Unit Tab PO SCH (07:57)
[2019-02-22] MEDS: Furosemide 20 MG Tab (OWN SUPPLY) PO SCH (07:59)
[2019-02-22] MEDS: Melatonin 3 MG Tab PO SCH (19:39)
[2019-02-22] MEDS: MONTELUKAST 10 MG PO SCH (19:39)
[2019-02-22] MEDS: Acetaminophen 500 MG Tab PO PRN (19:39)
[2019-02-22] MEDS: QUETIAPINE 100 MG PO SCH (19:41)
[2019-02-22] MEDS: SIMVASTATIN 20 MG PO SCH (19:46)
[2019-02-23] MEDS: Acetaminophen 500 MG Tab PO PRN ×2 (05:18→14:35)
[2019-02-23] MEDS: BUDESONIDE 0.5 MG/2 ML NEB SCH ×4 (06:42→20:08)
[2019-02-23] MEDS: ALBUTEROL NEB SCH ×4 (06:42→20:08)
[2019-02-23] MEDS: IPRATROPIUM NEB SCH ×4 (06:42→20:08)
[2019-02-23] MEDS: ARFORMOTEROL 15 MCG/2 ML NEB SCH ×2 (06:43→20:08)
[2019-02-23] MEDS: Calcium Carbonate/Vitamin D3 1250 MG-200 Unit Tab PO SCH (08:36)
[2019-02-23] MEDS: Furosemide 20 MG Tab (OWN SUPPLY) PO SCH (08:37)
[2019-02-23] MEDS: amLODIPine 10 MG Tab (OWN SUPPLY) PO SCH (08:40)
--- NOTE | 2019-02-23 12:50 | PN ---
Progress Note for NITZA ROSS Date: 02/23/2019 Room #: VM.214 SUBJECTIVE: I was asked to see the patient regarding redness and swelling of her left foot that just started today. She has never had a history of gout before that we are aware of. She had no injury to her foot. She has been here on swing bed for a while. OBJECTIVELY: Vital Signs: Her temperature is 36.6, blood pressure is 125/40, pulse is 67, respiratory rate 20, saturations are 96% on 1 L. Extremities: On the dorsum of her left foot, she has an area of redness and tenderness and swelling that is approximately 3 cm in diameter. It is tender to palpation. She does not have any redness or involvement with the joint space. It is tender to touch. It does gretta. IMPRESSION: Cellulitis of left foot, dorsum. PLAN: We will place the patient on cephalexin 500 mg 1 pill 3 times a day for 5 days. They also can use heat to the area as needed for comfort. Nursing staff will also make Dr. Huff aware of current change in the patient's status. GM02/23/2019 12:17:40 MODL: 02/23/2019 12:41:32 /[id number] MTDD
[2019-02-23] MEDS: Cephalexin 500 MG Cap PO SCH ×2 (14:28→20:07)
[2019-02-23] MEDS: MONTELUKAST 10 MG PO SCH (20:06)
[2019-02-23] MEDS: Melatonin 3 MG Tab PO SCH (20:06)
[2019-02-23] MEDS: SIMVASTATIN 20 MG PO SCH (20:06)
[2019-02-23] MEDS: QUETIAPINE 100 MG PO SCH (20:07)
[2019-02-24] MEDS: ARFORMOTEROL 15 MCG/2 ML NEB SCH (06:24)
[2019-02-24] MEDS: IPRATROPIUM NEB SCH (06:24)
[2019-02-24] MEDS: BUDESONIDE 0.5 MG/2 ML NEB SCH (06:24)
[2019-02-24] MEDS: ALBUTEROL NEB SCH (06:24)
[2019-02-24] MEDS: Cephalexin 500 MG Cap PO SCH (08:12)
[2019-02-24] MEDS: Calcium Carbonate/Vitamin D3 1250 MG-200 Unit Tab PO SCH (08:13)
[2019-02-24] MEDS: amLODIPine 10 MG Tab (OWN SUPPLY) PO SCH (08:13)
[2019-02-24] MEDS: Furosemide 20 MG Tab (OWN SUPPLY) PO SCH (08:13)
[2019-02-24] MEDS: Acetaminophen 500 MG Tab PO PRN (08:13)
--- NOTE | 2019-02-24 14:26 | DISCH ---
PRIMARY DIAGNOSIS: Unresponsive episode. SECONDARY DIAGNOSES: 1. Right lower lobe pneumonia. 2. Cellulitis of right foot. 3. Abdominal pain related to gallstone. 4. Blindness. 5. Significant asthma. 6. Chronic obstructive pulmonary disease. 7. Psoriasis. 8. Hyperlipidemia. 9. Hypertension. 10.Coronary artery disease. 11.Chronic anxiety disorder. SUMMARY OF HISTORY AND PHYSICAL: The patient was admitted to Acute Care on 02/08/2019 with exacerbation of asthma. She was placed on swing bed on 02/19/2019. The patient did have an ultrasound done which did show gallstones on 02/19/2019 without evidence of cholecystitis. The patient had PT, OT. The patient on 02/23/2019 was noted to have redness and swelling of the dorsum of her left foot, felt to be cellulitis. She was started on Keflex for this. No lab work was done at that time. The patient when she had been on Acute Care had been on IV Rocephin for pneumonia as well as been placed on Ceftin. She had not had a CT scan of her lungs yet as there was a nodular-type infiltrate which did not completely resolve. The patient on the morning of 02/24/2019 was found on the floor in her room unresponsive. She was noted to be breathing very rapidly. She is Georgian-speaking and is blind and so was hard to assess. She was noted to have her vital signs, showed her blood pressure is 120/70, her pulse was in the 90s, sats were 92% on 2 L. Rapid Response was called and Alonso Chen came to attend the patient. The patient was noted to have some gurgling breath sounds. Initial EKG just showed sinus rhythm, no acute changes. To note, lab and x-ray are pending as there was another code concurrently going on in the emergency department, so staff was not available to come and it was felt more imperative to place the patient on swing bed before other data was known. To note, her last lab work done on 02/13/2019 showed white blood cell count 13.2, hemoglobin 10.1, platelet count 228, with 78 segs, 10 lymphs. Her glucose on 02/24/2019 was 179. MEDICATIONS AT TIME OF TRANSFER: Tylenol Extra Strength 500 mg q.4 hours p.r.n., albuterol nebs q.4 hours p.r.n., DuoNeb q.i.d., amlodipine 10 mg daily, Brovana 15 mcg b.i.d., Pulmicort 0.5 nebs q.i.d., calcium with vitamin D 1 pill daily, Keflex 500 mg t.i.d., Lasix 20 mg daily, melatonin 3 mg at bedtime, Singulair 10 mg at bedtime, Seroquel 100 mg at bedtime, Zocor 10 mg. ALLERGIES: No known. CODE LEVEL STATUS: Code level 1 status. GM02/24/2019 10:51:29 MODL: 02/24/2019 14:21:06 /[id number]
== END 2019-02-24 10:45 | disposition critical access hospital (66) | DRG 190 ==
LOC: UNDOADMIN 12:42 → VM.MS 12:42
PROVIDERS: ADMIT Family Medicine; ATTEND Family Medicine
DX: J44.0 Chronic obstructive pulmonary disease with (acute) lower respiratory infection (principal); J18.9 Pneumonia, unspecified organism; L03.116 Cellulitis of left lower limb; H54.7 Unspecified visual loss; K80.20 Calculus of gallbladder without cholecystitis without obstruction; L40.9 Psoriasis, unspecified; E78.5 Hyperlipidemia, unspecified; I10 Essential (primary) hypertension; I25.10 Atherosclerotic heart disease of native coronary artery without angina pectoris; F41.9 Anxiety disorder, unspecified; Z79.899 Other long term (current) drug therapy
CPT/HCPCS: 36415; 76705; 85025; 93005; 94640; 94760; 97110-GP; 97116-GP; 97161-GP; 97165-GO; 97530-GP; A9270-GY; J7613-GY; J7620-GY

== ENCOUNTER 2019-02-24 10:40 | Inpatient (IN) | payer MEDICAID, MEDICARE ==
[2019-02-24] MEDS ORDERED: Albuterol 0.083% 2.5 MG/3 ML Neb Soln NEB PRN (11:01)
[2019-02-24] MEDS ORDERED: Cephalexin 500 MG Cap PO SCH (12:00)
[2019-02-24] MEDS: Ampicillin/Sulbactam Na 3 GM in Sodium Chloride 0.9% 100 ML IV SCH ×3 (13:14→23:25)
[2019-02-24] MEDS: Ipratropium 0.02% 0.5 MG/2.5 ML Neb Soln NEB SCH ×2 (13:15→19:37)
[2019-02-24] MEDS ORDERED: Iopamidol 612 MG/ML 100 ML Bottle IVPUSH ONE (13:17)
--- NOTE | 2019-02-24 13:27 | CT ---
[id number] CT/CT Head WO IV EXAM: CT Head WO IV CLINICAL DATA: SYNCOPAL SPELL. COMPARISON STUDY: None FINDINGS: Limited evaluation secondary to patient motion artifact. No intracranial hemorrhage, extra-axial fluid collection, mass, or acute ischemia. Generalized parenchymal atrophy with scattered areas of nonspecific white matter disease, commonly seen as sequela of chronic microvascular ischemia. Soft tissues are unremarkable. Paranasal sinuses and mastoid air cells are clear. Postsurgical changes of the left orbit. IMPRESSION: No definite acute intracranial process. Tino Macias DO 02/24/19 1325 Thank you for allowing us to participate in the care of your patient.
--- NOTE | 2019-02-24 13:41 | CT ---
[id number] CT/CTA Chest EXAM: CT ANGIOGRAM CHEST INDICATION: POSITIVE D-DIMER. COMPARISON: None. DISCUSSION: No large central, lobar or segmental pulmonary calyx filling defects to suggest acute pulmonary embolism. Evaluation of the subsegmental pulmonary arteries is limited secondary respiratory motion. Consolidative nodularity scattered throughout the lungs, right lung predominant. No pleural effusion or pneumothorax. The heart is borderline enlarged. Normal three-vessel branch configuration of a left aortic arch. No mediastinal, hilar or axillary lymphadenopathy. The visualized upper abdominal organs are unremarkable. IMPRESSION: 1. No evidence of acute pulmonary embolism. Since of consolidative nodularity seen throughout the lungs, right lung predominant. These are likely infectious/inflammatory in nature as can be seen with atypical pneumonia. Asymmetric edema is also in the differential. Tino Macias DO 02/24/19 9015 Thank you for allowing us to participate in the care of your patient.
--- NOTE | 2019-02-24 13:59 | PCM.SN ---
- Free Text/Narrative Note: please refer to H & P about status change. Pt had unresponsive episode. Work up has shown pos D Dimer but neg CT for PE, but did have infiltrates noted. WBC 32.Lactic acid 1.3.Pre-BNP slightly elevated to 1100. ABG's shows pH 7.2 with PCO2 at 116 and pO2 at 122. She was given lasix 20 mg IV. BIPAP was started by 1:30pm, when she returned from scanning. I did confirm with her brother, Tyshawn, present that she continues to want intubation and CPR. She was placed on Unasyn as well as lovenox. If her status would deteriorate she would need intubation and transfer to higher level of care.
--- NOTE | 2019-02-24 14:39 | HP ---
CHIEF COMPLAINT: Unresponsive episode. HISTORY OF PRESENT ILLNESS: The patient is a 68-year-old Emirati-speaking female, who had been on swing bed for recovery regarding right lower lobe pneumonia and weakness on the morning of 02/24/2019 while on swing bed. She was found to be unresponsive on the floor in her room. She had been breathing quite heavily early in the morning and had been anxious. The patient does have significant asthma as well as anxiety and COPD. She recently was found to have cellulitis of her left foot. On 02/23/2019, had been started on Keflex. The patient's blood sugar was checked, it was 179. She did respond to voice eventually after her breathing became better, calmer. To note, emergency lab and x-rays were ordered. However, another code was going on in the emergency room and so, the data was not immediately available at the time. It was felt prudent to place her on acute care. She had had a blood sugar that was 176. EKG showed sinus rhythm, no acute changes. MEDICATIONS: DuoNeb q.i.d., albuterol nebs q.4 hours p.r.n., Brovana b.i.d. nebs, budesonide q.i.d. nebs, Tylenol Extra Strength 500 mg q.4 hours p.r.n., amlodipine 10 mg daily, calcium with vitamin D 1250 one daily, Keflex 500 mg t.i.d. for a total of 5 more days, Lasix 30 mg daily, melatonin 3 mg at bedtime, Singulair 10 mg a day, Seroquel 100 mg at bedtime, Zocor 20 mg 1 pill daily. ALLERGIES: None known. CODE LEVEL STATUS: 1. PAST MEDICAL HISTORY: Significant for asthma exacerbations with frequent respiratory failure visits, hypertension, hypercholesterolemia, chronic anxiety disorder, cholelithiasis, frequent right upper lobe pneumonias, coronary artery disease having a stent in 2001, blindness bilaterally, chronic sinusitis, impaired fasting glucose, psoriasis, septic shock which required intubation in 06/2018. PAST SURGICAL HISTORY: Left cardiac cath. She has had sinus procedures with ethmoidectomies and bilateral maxillary antrostomies. She has had left frontal resection on 02/09/2012. FAMILY MEDICAL HISTORY: Not on file. SOCIAL HISTORY: She does not smoke. Does not consume alcohol. She lives in [place], [place] with her brother who owns a restaurant in [place]. She is a [place] descent. She is Emirati-speaking and needs bone density technician services. REVIEW OF SYSTEMS: The patient is difficult to tell she has shortness of breath feeling. She does feel anxious. Otherwise, her left foot also hurts her. PHYSICAL EXAMINATION: GENERAL: Reveals moderately distressed female. VITAL SIGNS: Respiratory rate is faster; her O2 saturations are 92% on 2 L; blood pressure was good, it was 124/70; pulse was in the 90s. SKIN: [place], warm and dry. 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 Pharynx is normal. She does have upper audible respirations. HEART: Regular rate. ABDOMEN: Soft and nontender. EXTREMITIES: Left foot is tender to palpation. IMPRESSION: 1. Unresponsive episode, unclear if it is related to respiratory distress. 2. Severe chronic obstructive pulmonary disease. 3. Asthma. 4. Recent pneumonia. 5. Cellulitis. 6. Anxiety disorder. PLAN: We were unable to get hold of her brother urgently. She was placed on acute care. We will place her on telemetry. We will check a chest x-ray. She had a head CT. Lab is pending. Yet to be done blood gases, lactic acid, CBC, comprehensive metabolic profile, troponin, proBNP. The patient may require transfer to further level of care if her status is not rapidly improved versus if severe abnormalities are found on lab work. GM02/24/2019 10:57:59 MODL: 02/24/2019 14:31:03 /[id number] CORY
[2019-02-24] MEDS: Albuterol/Ipratropium 3.0-0.5 MG/3 ML Neb Soln NEB SCH ×2 (15:20→19:35)
[2019-02-24] MEDS: Budesonide 0.5 MG/2 ML Neb Susp NEB SCH ×2 (15:20→19:35)
[2019-02-24] MEDS: ALPRAZolam 0.25 MG Tab PO PRN ×3 (15:20→23:26)
[2019-02-24] MEDS: methylPREDNISolone Sodium Succinate 125 MG/2 ML SDV IVPUSH SCH (15:46)
[2019-02-24] MEDS: Arformoterol 15 MCG/2 ML Neb Soln NEB SCH (19:35)
[2019-02-24] MEDS: Montelukast 10 MG Tab PO SCH (19:36)
[2019-02-24] MEDS: Acetaminophen 500 MG Tab PO PRN (19:36)
[2019-02-24] MEDS: Simvastatin 20 MG Tab PO SCH (19:36)
[2019-02-24] MEDS: QUEtiapine 100 MG Tab PO SCH (19:36)
[2019-02-24] MEDS: Melatonin 3 MG Tab PO SCH (19:36)
[2019-02-24] MEDS ORDERED: Enoxaparin 40 MG/0.4 ML Syringe SUBCUT SCH (20:00)
[2019-02-25] MEDS: methylPREDNISolone Sodium Succinate 125 MG/2 ML SDV IVPUSH SCH ×2 (03:01→14:49)
[2019-02-25] MEDS: Ampicillin/Sulbactam Na 3 GM in Sodium Chloride 0.9% 100 ML IV SCH ×4 (05:14→23:20)
[2019-02-25] MEDS ORDERED: LORazepam 2 MG/ML SDV IVPUSH STA (05:30)
[2019-02-25] MEDS ORDERED: LORazepam 2 MG/ML SDV ONE (05:40)
[2019-02-25] MEDS: Budesonide 0.5 MG/2 ML Neb Susp NEB SCH ×4 (06:04→19:31)
[2019-02-25] MEDS: Arformoterol 15 MCG/2 ML Neb Soln NEB SCH ×2 (06:04→19:31)
[2019-02-25] MEDS: Albuterol/Ipratropium 3.0-0.5 MG/3 ML Neb Soln NEB SCH ×4 (06:04→19:30)
[2019-02-25] MEDS ORDERED: Enoxaparin 30 MG/0.3 ML Syringe SUBCUT SCH (08:00)
--- NOTE | 2019-02-25 08:12 | PN ---
Progress Note for [facility] Date: 02/25/2019 Room #: VM.214 SUBJECTIVE: The patient was placed back on acute care yesterday after having unresponsive episode with known to be CO2 retainer and had problems with panic and anxiety attacks. She was started on BiPAP, which did improve her oxygenation. She did require Xanax to help with panic to help control her. She was also started on IV steroid. She was given 1 dose of IV Lasix as well to help with respiratory status. She was resting fairly easily in the afternoon, however, did become a little bit more anxious overnight. She is now sleeping this morning. OBJECTIVE: Vital Signs: Her weight is 57.5 kg, which is up 4 kg from yesterday. Her temperature is 37.1, pulse 82, blood pressure is 103/36. Respiratory rate had been 35, it is now down to 24, FiO2 of 65. General: The patient is calmly resting. Heart: Regular rate and rhythm. Lungs: Have diminished breath sounds on bases. No wheezes or crackles. Abdomen: Soft. Extremities: No edema. LABORATORY DATA: Lab is not available yet this morning. Last evening, her blood gases had improved with pH up to 7.31, pCO2 had improved from 116 down to 98, PO2 had dropped low from 122 down to 59, O2 sats have been 85%. IMPRESSION: 1. Respiratory distress, resulting in unresponsive episode. 2. Hypercapnia. 3. Chronic obstructive pulmonary disease exacerbation. 4. Anxiety disorder with panic episodes. 5. Hypertension. 6. Congestive heart failure. PLAN: We will await the results for blood work today. If her PO2 has not improved, then she would need consideration for transfer. She still is code level 1 status. Her family is not present yet at today's examination. Otherwise, Dr. Huff to assume care in the morning. GM02/25/2019 07:39:58 MODL: 02/25/2019 08:06:35 /[id number]
[2019-02-25 08:14] LABS: ANION GAP 7.8 mmol/L (10-20)
[2019-02-25] MEDS: Furosemide 20 MG Tab PO SCH (08:50)
[2019-02-25] MEDS: Calcium Carbonate/Vitamin D3 1250 MG-200 Unit Tab PO SCH (08:50)
[2019-02-25] MEDS: amLODIPine 10 MG Tab PO SCH (08:53)
--- NOTE | 2019-02-25 11:49 | PCM.SN ---
- Free Text/Narrative Note: ABG's initially this am had lower pH, higher pO2 and same pCO2, FiO2 was lowered , and repeat ABG's at 11:00 am had much improved pH, lower good range of pO2 and better pCO2. CXR is stable. Pt is resting better, not anxious. Ok to stay her. try to wean off of bipap starting tomorrow.
--- NOTE | 2019-02-25 11:57 | CR ---
[id number] RAD/RAD Chest PA or AP 1V EXAM: RAD Chest PA or AP 1V INDICATION: SHORT OF BREATH. COMPARISON: February 07, 2019. DISCUSSION: Mediastinal silhouette is enlarged. Central pulmonary vascular congestion with patchy airspace opacification bilaterally. Trace bilateral pleural effusions. IMPRESSION: Findings consistent with mild congestive heart failure exacerbation. Tino Macias DO 02/25/19 1155 Thank you for allowing us to participate in the care of your patient.
[2019-02-25] MEDS ORDERED: Furosemide 20 MG/2 ML VIAL IV ONE (11:58)
[2019-02-25] MEDS: ALPRAZolam 0.25 MG Tab PO PRN ×2 (15:25→19:26)
[2019-02-25] MEDS: QUEtiapine 100 MG Tab PO SCH (19:25)
[2019-02-25] MEDS: Pantoprazole 40 MG Tab.CR PO SCH (19:25)
[2019-02-25] MEDS: Melatonin 3 MG Tab PO SCH (19:25)
[2019-02-25] MEDS: Montelukast 10 MG Tab PO SCH (19:26)
[2019-02-25] MEDS: Acetaminophen 500 MG Tab PO PRN (19:26)
[2019-02-25] MEDS: Simvastatin 20 MG Tab PO SCH (19:26)
[2019-02-26] MEDS: ALPRAZolam 0.25 MG Tab PO PRN ×2 (01:10→19:27)
[2019-02-26] MEDS: Sodium Chloride 0.9% 10 ML Syringe IV PRN (02:34)
[2019-02-26] MEDS: methylPREDNISolone Sodium Succinate 125 MG/2 ML SDV IVPUSH SCH ×2 (02:34→16:17)
[2019-02-26] MEDS: Ampicillin/Sulbactam Na 3 GM in Sodium Chloride 0.9% 100 ML IV SCH ×4 (05:18→23:12)
[2019-02-26] MEDS: Budesonide 0.5 MG/2 ML Neb Susp NEB SCH ×4 (07:13→19:28)
[2019-02-26] MEDS: Albuterol/Ipratropium 3.0-0.5 MG/3 ML Neb Soln NEB SCH ×4 (07:13→19:28)
[2019-02-26] MEDS: Arformoterol 15 MCG/2 ML Neb Soln NEB SCH ×2 (07:14→19:28)
[2019-02-26 07:36] LABS: ANION GAP 1.6 mmol/L (10-20)
[2019-02-26] MEDS: amLODIPine 10 MG Tab PO SCH (08:08)
[2019-02-26] MEDS: Calcium Carbonate/Vitamin D3 1250 MG-200 Unit Tab PO SCH (08:08)
[2019-02-26] MEDS: Furosemide 20 MG Tab PO SCH (08:08)
[2019-02-26] MEDS: Melatonin 3 MG Tab PO SCH (19:27)
[2019-02-26] MEDS: QUEtiapine 100 MG Tab PO SCH (19:27)
[2019-02-26] MEDS: Pantoprazole 40 MG Tab.CR PO SCH (19:27)
[2019-02-26] MEDS: Montelukast 10 MG Tab PO SCH (19:28)
[2019-02-26] MEDS: Acetaminophen 500 MG Tab PO PRN (19:28)
[2019-02-26] MEDS: Simvastatin 20 MG Tab PO SCH (19:28)
--- NOTE | 2019-02-26 21:50 | PCM.PN ---
- General Info Date of Service: 02/26/19 Admission Dx/Problem (Free Text): History: She is back on acute care, having had a syncopal spell and respiratory failure on the weekend, found to be severely retaining CO2, and she improved on BiPAP, but hasnt been on it since yesterday afternoon, apparently per her request. [facility] urged her to accept transfer to [place] but she didnt want to go, did fairly well for a time on BiPAP. She was allowed to be off that with ABGs ordered again for this morning, and again they show PCO2 of 110. She is afebrile and her CXR showed only a suggestion of CHF. Online translation service was used for the visit today Exam: -Heart sounds regular -Lungs clear but her breathing is shallow -She is alert and seems to answer questions appropriately -She is lying flat without overt dyspnea Impression: -COPD with acute hypoxemia and CO2 retention, PCO2 110 -Temporary improvement with BiPAP -Should have Pulmonary consult again Plan: -She refuses to go to [place], says she wants to stay here, agrees to go back on BiPAP and get ABGs repeated this afternoon -Explained to her that we can give her oxygen but cant remove CO2 without assisting her ventilation, and in the event of a cardiac arrest we would not be able to successfully resuscitated her from hypoventilation -She agrees to be DNR status and remain here - Patient Data Vitals - Most Recent: Last Vital Signs Temp 36.8 C 02/26/19 16:58 Pulse 84 02/26/19 16:58 Resp 18 02/26/19 16:58 BP 138/54 L 02/26/19 16:58 Pulse Ox 93 L 02/26/19 16:58 Weight - Most Recent: 55.293 kg I&O - Last 24 Hours: Intake & Output 02/26/19 02/26/19 02/26/19 06:59 14:59 22:59 Intake Total 200 240 340 Balance 200 240 340 Lab Results Last 24 Hours: Laboratory Results - last 24 hr 02/26/19 02/26/19 02/26/19 Range/Units 06:36 06:36 06:54 WBC 15.0 H (4.0-10.0) x10^3/uL RBC 3.74 L (4.00-5.50) x10^6/uL Hgb 9.0 L (12.0-16.0) g/dL Hct 31.8 L (33.0-47.0) % MCV 85.0 (78.0-93.0) fL MCH 24.1 L (26.0-32.0) pg MCHC 28.3 L (32.0-36.0) g/dL RDW Coeff of Sebastian 16.7 H (10.0-15.0) % Plt Count 381 (130-400) x10^3/uL Neutrophils % (Manual) 90 H (50-80) % Lymphocytes % (Manual) 5 L (25-50) % Monocytes % (Manual) 4 (2-11) % Eosinophils % (Manual) 1 (0-4) % Vacuolated Monocytes Rare Toxic Granulation 1+ slight H Platelet Estimate Adequate Anisocytosis 1+ slight H Ovalocytes 1+ slight H POC ABG pH 7.329 L (7.35-7.45) POC ABG pCO2 101 H* (35-45) mmHG POC ABG pO2 72 L (80-105) mmHG POC ABG HCO3 53 H (22-26) mmol/L POC ABG Total CO2 > 50 H (23-27) mmol/L POC ABG O2 Sat 91 L (95-98) % POC ABG Base Excess 27 H (-2-3) mmol/L POC FiO2 0.28 Sodium 149 H (69-191) mmol/L Potassium 3.6 (1.5-9.9) mmol/L Chloride 103 (54-184) mmol/L Carbon Dioxide 48 H (21-32) mmol/L Anion Gap 1.6 L (10-20) mmol/L BUN 23 H (7-18) mg/dL Creatinine 1.0 (0.55-1.02) mg/dL Est Cr Clr Drug Dosing 42.59 mL/min Estimated GFR (MDRD) 55 Glucose 194 H (74-106) mg/dL Calcium 8.1 L (8.5-10.1) mg/dL Corrected Calcium 9.38 (8.5-10.1) mg/dL Total Bilirubin 0.3 (0.2-1.0) mg/dL AST 27 (15-37) U/L ALT 29 (14-59) U/L Alkaline Phosphatase 97 (46-116) U/L C-Reactive Protein 6.5 H (<=0.9) mg/dL NT-Pro-B Natriuret Pep 3632 H (<=125) pg/mL Total Protein 6.8 (6.4-8.2) g/dL Albumin 2.4 L (3.4-5.0) g/dL Globulin 4.4 Albumin/Globulin Ratio 0.55 POC Result Comm Called critical res 02/26/19 Range/Units 16:13 WBC (4.0-10.0) x10^3/uL RBC (4.00-5.50) x10^6/uL Hgb (12.0-16.0) g/dL Hct (33.0-47.0) % MCV (78.0-93.0) fL MCH (26.0-32.0) pg MCHC (32.0-36.0) g/dL RDW Coeff of Sebastian (10.0-15.0) % Plt Count (130-400) x10^3/uL Neutrophils % (Manual) (50-80) % Lymphocytes % (Manual) (25-50) % Monocytes % (Manual) (2-11) % Eosinophils % (Manual) (0-4) % Vacuolated Monocytes Toxic Granulation Platelet Estimate Anisocytosis Ovalocytes POC ABG pH 7.511 H (7.35-7.45) POC ABG pCO2 67 H* (35-45) mmHG POC ABG pO2 62 L (80-105) mmHG POC ABG HCO3 54 H (22-26) mmol/L POC ABG Total CO2 (23-27) mmol/L POC ABG O2 Sat 92 L (95-98) % POC ABG Base Excess (-2-3) mmol/L POC FiO2 0.28 Sodium (69-191) mmol/L Potassium (1.5-9.9) mmol/L Chloride (54-184) mmol/L Carbon Dioxide (21-32) mmol/L Anion Gap (10-20) mmol/L BUN (7-18) mg/dL Creatinine (0.55-1.02) mg/dL Est Cr Clr Drug Dosing mL/min Estimated GFR (MDRD) Glucose (74-106) mg/dL Calcium (8.5-10.1) mg/dL Corrected Calcium (8.5-10.1) mg/dL Total Bilirubin (0.2-1.0) mg/dL AST (15-37) U/L ALT (14-59) U/L Alkaline Phosphatase (46-116) U/L C-Reactive Protein (<=0.9) mg/dL NT-Pro-B Natriuret Pep (<=125) pg/mL Total Protein (6.4-8.2) g/dL Albumin (3.4-5.0) g/dL Globulin Albumin/Globulin Ratio POC Result Comm Called critical res Pito Results Last 24 Hours: Microbiology 02/24/19 11:32 Aerobic Blood Culture - Preliminary Blood - Venous - Lab Draw NO GROWTH AFTER 2 DAYS Anaerobic Blood Culture - Preliminary NO GROWTH AFTER 2 DAYS 02/24/19 11:25 Aerobic Blood Culture - Preliminary Blood - Venous NO GROWTH AFTER 2 DAYS Anaerobic Blood Culture - Preliminary NO GROWTH AFTER 2 DAYS Med Orders - Current: Current Medications Acetaminophen (Tylenol Extra Strength) 500 mg PO Q4H PRN PRN Reason: Pain Last Admin: 02/26/19 19:28 Dose: 500 mg Albuterol (Proventil Neb Soln) 2.5 mg NEB Q4H PRN PRN Reason: Shortness of Breath Last Admin: 02/24/19 13:15 Dose: 2.5 mg Albuterol/Ipratropium (Duoneb 3.0-0.5 Mg/3 Ml) 3 ml NEB QIDRT [facility] Last Admin: 02/26/19 19:28 Dose: 3 ml Alprazolam (Xanax) 0.25 mg PO Q4H PRN PRN Reason: Anxiety Last Admin: 02/26/19 19:27 Dose: 0.25 mg Amlodipine Besylate (Norvasc) 10 mg PO DAILY [facility] Last Admin: 02/26/19 08:08 Dose: 10 mg Arformoterol Tartrate (Brovana) 15 mcg NEB BIDRT [facility] Last Admin: 02/26/19 19:28 Dose: 15 mcg Budesonide (Pulmicort) 0.5 mg NEB QIDRT [facility] Last Admin: 02/26/19 19:28 Dose: 0.5 mg Calcium Carbonate (Calcium Carbonate/Vitamin D 1250 Mg-200 Unit) 1 tab PO DAILY [facility] Last Admin: 02/26/19 08:08 Dose: 1 tab Furosemide (Lasix) 30 mg PO DAILY [facility] Last Admin: 02/26/19 08:08 Dose: 30 mg Ampicillin Sodium/Sulbactam (Sodium 3 gm/ Sodium Chloride) 100 mls @ 200 mls/ hr IV Q6H [facility] Last Admin: 02/26/19 17:47 Dose: 200 mls/hr Melatonin (Melatonin) 3 mg PO BEDTIME [facility] Last Admin: 02/26/19 19:27 Dose: 3 mg Methylprednisolone Sodium Succinate (Solu-Medrol) 75 mg IVPUSH Q12H [facility] Last Admin: 02/26/19 16:17 Dose: 75 mg Montelukast Sodium (Singulair) 10 mg PO BEDTIME [facility] Last Admin: 02/26/19 19:28 Dose: 10 mg Pantoprazole Sodium (Protonix) 40 mg PO BEDTIME [facility] Last Admin: 02/26/19 19:27 Dose: 40 mg Quetiapine Fumarate (Seroquel) 100 mg PO BEDTIME [facility] Last Admin: 02/26/19 19:27 Dose: 100 mg Simvastatin (Zocor) 20 mg PO BEDTIME [facility] Last Admin: 02/26/19 19:28 Dose: 20 mg Sodium Chloride (Saline Flush) 10 ml IV ASDIRECTED PRN PRN Reason: Keep Vein Open Last Admin: 02/26/19 02:34 Dose: 10 ml Discontinued Medications Cephalexin (Keflex) 500 mg PO TID [facility]REG Stop: 03/02/19 12:01 Enoxaparin Sodium (Lovenox) 30 mg SUBCUT DAILY [facility] Enoxaparin Sodium (Lovenox) 40 mg SUBCUT BEDTIME [facility] Last Admin: 02/24/19 19:35 Dose: 40 mg Furosemide (Lasix) 20 mg IV ONETIME ONE Stop: 02/25/19 11:59 Last Admin: 02/25/19 12:42 Dose: 20 mg Iopamidol (Isovue-300 (61%)) 100 ml IVPUSH ONETIME ONE Stop: 02/24/19 13:18 Last Admin: 02/24/19 13:27 Dose: 100 ml Ipratropium [place] (Atrovent) 0.5 mg NEB TIDRT [facility] Last Admin: 02/24/19 19:37 Dose: Not Given Lorazepam (Ativan) 1 mg IVPUSH STAT STA Stop: 02/25/19 05:31 Last Admin: 02/25/19 05:34 Dose: 1 mg Lorazepam (Ativan) Confirm Administered Dose 2 mg .ROUTE .STK-MED ONE Stop: 02/25/19 05:41 Last Admin: 02/25/19 05:56 Dose: Not Given - Problem List Review Problem List Initiated/Reviewed/Updated: Yes - My Orders Last 24 Hours: My Active Orders 02/26/19 08:50 Code Status [Resuscitation Status] Routine 02/26/19 08:51 Communication Order [RC]
--- NOTE | 2019-02-26 21:55 | PCM.PN ---
- General Info Date of Service: 02/26/19 Admission Dx/Problem (Free Text): ABGs reviewed, did not visit patient. Her PCO2 has improved on BiPAP from 101 down to 67, and her PO2 down a little, still at 62, acceptable. She continues on IV Unasyn, Lasix 30 mg daily. - Patient Data Vitals - Most Recent: Last Vital Signs Temp 36.8 C 02/26/19 16:58 Pulse 84 02/26/19 16:58 Resp 18 02/26/19 16:58 BP 138/54 L 02/26/19 16:58 Pulse Ox 93 L 02/26/19 16:58 Weight - Most Recent: 55.293 kg I&O - Last 24 Hours: Intake & Output 02/26/19 02/26/19 02/26/19 06:59 14:59 22:59 Intake Total 200 240 340 Balance 200 240 340 Lab Results Last 24 Hours: Laboratory Results - last 24 hr 02/26/19 02/26/19 02/26/19 Range/Units 06:36 06:36 06:54 WBC 15.0 H (4.0-10.0) x10^3/uL RBC 3.74 L (4.00-5.50) x10^6/uL Hgb 9.0 L (12.0-16.0) g/dL Hct 31.8 L (33.0-47.0) % MCV 85.0 (78.0-93.0) fL MCH 24.1 L (26.0-32.0) pg MCHC 28.3 L (32.0-36.0) g/dL RDW Coeff of Sebastian 16.7 H (10.0-15.0) % Plt Count 381 (130-400) x10^3/uL Neutrophils % (Manual) 90 H (50-80) % Lymphocytes % (Manual) 5 L (25-50) % Monocytes % (Manual) 4 (2-11) % Eosinophils % (Manual) 1 (0-4) % Vacuolated Monocytes Rare Toxic Granulation 1+ slight H Platelet Estimate Adequate Anisocytosis 1+ slight H Ovalocytes 1+ slight H POC ABG pH 7.329 L (7.35-7.45) POC ABG pCO2 101 H* (35-45) mmHG POC ABG pO2 72 L (80-105) mmHG POC ABG HCO3 53 H (22-26) mmol/L POC ABG Total CO2 > 50 H (23-27) mmol/L POC ABG O2 Sat 91 L (95-98) % POC ABG Base Excess 27 H (-2-3) mmol/L POC FiO2 0.28 Sodium 149 H (69-191) mmol/L Potassium 3.6 (1.5-9.9) mmol/L Chloride 103 (54-184) mmol/L Carbon Dioxide 48 H (21-32) mmol/L Anion Gap 1.6 L (10-20) mmol/L BUN 23 H (7-18) mg/dL Creatinine 1.0 (0.55-1.02) mg/dL Est Cr Clr Drug Dosing 42.59 mL/min Estimated GFR (MDRD) 55 Glucose 194 H (74-106) mg/dL Calcium 8.1 L (8.5-10.1) mg/dL Corrected Calcium 9.38 (8.5-10.1) mg/dL Total Bilirubin 0.3 (0.2-1.0) mg/dL AST 27 (15-37) U/L ALT 29 (14-59) U/L Alkaline Phosphatase 97 (46-116) U/L C-Reactive Protein 6.5 H (<=0.9) mg/dL NT-Pro-B Natriuret Pep 3632 H (<=125) pg/mL Total Protein 6.8 (6.4-8.2) g/dL Albumin 2.4 L (3.4-5.0) g/dL Globulin 4.4 Albumin/Globulin Ratio 0.55 POC Result Comm Called critical res 02/26/19 Range/Units 16:13 WBC (4.0-10.0) x10^3/uL RBC (4.00-5.50) x10^6/uL Hgb (12.0-16.0) g/dL Hct (33.0-47.0) % MCV (78.0-93.0) fL MCH (26.0-32.0) pg MCHC (32.0-36.0) g/dL RDW Coeff of Sebastian (10.0-15.0) % Plt Count (130-400) x10^3/uL Neutrophils % (Manual) (50-80) % Lymphocytes % (Manual) (25-50) % Monocytes % (Manual) (2-11) % Eosinophils % (Manual) (0-4) % Vacuolated Monocytes Toxic Granulation Platelet Estimate Anisocytosis Ovalocytes POC ABG pH 7.511 H (7.35-7.45) POC ABG pCO2 67 H* (35-45) mmHG POC ABG pO2 62 L (80-105) mmHG POC ABG HCO3 54 H (22-26) mmol/L POC ABG Total CO2 (23-27) mmol/L POC ABG O2 Sat 92 L (95-98) % POC ABG Base Excess (-2-3) mmol/L POC FiO2 0.28 Sodium (69-191) mmol/L Potassium (1.5-9.9) mmol/L Chloride (54-184) mmol/L Carbon Dioxide (21-32) mmol/L Anion Gap (10-20) mmol/L BUN (7-18) mg/dL Creatinine (0.55-1.02) mg/dL Est Cr Clr Drug Dosing mL/min Estimated GFR (MDRD) Glucose (74-106) mg/dL Calcium (8.5-10.1) mg/dL Corrected Calcium (8.5-10.1) mg/dL Total Bilirubin (0.2-1.0) mg/dL AST (15-37) U/L ALT (14-59) U/L Alkaline Phosphatase (46-116) U/L C-Reactive Protein (<=0.9) mg/dL NT-Pro-B Natriuret Pep (<=125) pg/mL Total Protein (6.4-8.2) g/dL Albumin (3.4-5.0) g/dL Globulin Albumin/Globulin Ratio POC Result Comm Called critical res Pito Results Last 24 Hours: Microbiology 02/24/19 11:32 Aerobic Blood Culture - Preliminary Blood - Venous - Lab Draw NO GROWTH AFTER 2 DAYS Anaerobic Blood Culture - Preliminary NO GROWTH AFTER 2 DAYS 02/24/19 11:25 Aerobic Blood Culture - Preliminary Blood - Venous NO GROWTH AFTER 2 DAYS Anaerobic Blood Culture - Preliminary NO GROWTH AFTER 2 DAYS Med Orders - Current: Current Medications Acetaminophen (Tylenol Extra Strength) 500 mg PO Q4H PRN PRN Reason: Pain Last Admin: 02/26/19 19:28 Dose: 500 mg Albuterol (Proventil Neb Soln) 2.5 mg NEB Q4H PRN PRN Reason: Shortness of Breath Last Admin: 02/24/19 13:15 Dose: 2.5 mg Albuterol/Ipratropium (Duoneb 3.0-0.5 Mg/3 Ml) 3 ml NEB QIDRT [facility] Last Admin: 02/26/19 19:28 Dose: 3 ml Alprazolam (Xanax) 0.25 mg PO Q4H PRN PRN Reason: Anxiety Last Admin: 02/26/19 19:27 Dose: 0.25 mg Amlodipine Besylate (Norvasc) 10 mg PO DAILY [facility] Last Admin: 02/26/19 08:08 Dose: 10 mg Arformoterol Tartrate (Brovana) 15 mcg NEB BIDRT [facility] Last Admin: 02/26/19 19:28 Dose: 15 mcg Budesonide (Pulmicort) 0.5 mg NEB QIDRT [facility] Last Admin: 02/26/19 19:28 Dose: 0.5 mg Calcium Carbonate (Calcium Carbonate/Vitamin D 1250 Mg-200 Unit) 1 tab PO DAILY [facility] Last Admin: 02/26/19 08:08 Dose: 1 tab Furosemide (Lasix) 30 mg PO DAILY [facility] Last Admin: 02/26/19 08:08 Dose: 30 mg Ampicillin Sodium/Sulbactam (Sodium 3 gm/ Sodium Chloride) 100 mls @ 200 mls/ hr IV Q6H [facility] Last Admin: 02/26/19 17:47 Dose: 200 mls/hr Melatonin (Melatonin) 3 mg PO BEDTIME [facility] Last Admin: 02/26/19 19:27 Dose: 3 mg Methylprednisolone Sodium Succinate (Solu-Medrol) 75 mg IVPUSH Q12H [facility] Last Admin: 02/26/19 16:17 Dose: 75 mg Montelukast Sodium (Singulair) 10 mg PO BEDTIME [facility] Last Admin: 02/26/19 19:28 Dose: 10 mg Pantoprazole Sodium (Protonix) 40 mg PO BEDTIME [facility] Last Admin: 02/26/19 19:27 Dose: 40 mg Quetiapine Fumarate (Seroquel) 100 mg PO BEDTIME [facility] Last Admin: 02/26/19 19:27 Dose: 100 mg Simvastatin (Zocor) 20 mg PO BEDTIME [facility] Last Admin: 02/26/19 19:28 Dose: 20 mg Sodium Chloride (Saline Flush) 10 ml IV ASDIRECTED PRN PRN Reason: Keep Vein Open Last Admin: 02/26/19 02:34 Dose: 10 ml Discontinued Medications Cephalexin (Keflex) 500 mg PO TID [facility] Stop: 03/02/19 12:01 Enoxaparin Sodium (Lovenox) 30 mg SUBCUT DAILY [facility] Enoxaparin Sodium (Lovenox) 40 mg SUBCUT BEDTIME [facility] Last Admin: 02/24/19 19:35 Dose: 40 mg Furosemide (Lasix) 20 mg IV ONETIME ONE Stop: 02/25/19 11:59 Last Admin: 02/25/19 12:42 Dose: 20 mg Iopamidol (Isovue-300 (61%)) 100 ml IVPUSH ONETIME ONE Stop: 02/24/19 13:18 Last Admin: 02/24/19 13:27 Dose: 100 ml Ipratropium [place] (Atrovent) 0.5 mg NEB TIDRT [facility] Last Admin: 02/24/19 19:37 Dose: Not Given Lorazepam (Ativan) 1 mg IVPUSH STAT STA Stop: 02/25/19 05:31 Last Admin: 02/25/19 05:34 Dose: 1 mg Lorazepam (Ativan) Confirm Administered Dose 2 mg .ROUTE .STK-MED ONE Stop: 02/25/19 05:41 Last Admin: 02/25/19 05:56 Dose: Not Given - Problem List Review Problem List Initiated/Reviewed/Updated: Yes - My Orders Last 24 Hours: My Active Orders 02/26/19 08:50 Code Status [Resuscitation Status] Routine 02/26/19 08:51 Communication Order [RC] ,20
[2019-02-27] MEDS: methylPREDNISolone Sodium Succinate 125 MG/2 ML SDV IVPUSH SCH ×2 (03:06→15:44)
[2019-02-27] MEDS: Sodium Chloride 0.9% 10 ML Syringe IV PRN ×2 (03:07→23:09)
[2019-02-27] MEDS: Ampicillin/Sulbactam Na 3 GM in Sodium Chloride 0.9% 100 ML IV SCH ×4 (05:40→23:08)
[2019-02-27] MEDS: Budesonide 0.5 MG/2 ML Neb Susp NEB SCH ×4 (07:05→19:55)
[2019-02-27] MEDS: Arformoterol 15 MCG/2 ML Neb Soln NEB SCH ×2 (07:05→19:55)
[2019-02-27] MEDS: Albuterol/Ipratropium 3.0-0.5 MG/3 ML Neb Soln NEB SCH ×4 (07:05→19:55)
[2019-02-27] MEDS: Furosemide 20 MG Tab PO SCH (08:45)
[2019-02-27] MEDS: amLODIPine 10 MG Tab PO SCH (08:45)
[2019-02-27] MEDS: ALPRAZolam 0.25 MG Tab PO PRN ×2 (08:46→19:56)
[2019-02-27] MEDS: Calcium Carbonate/Vitamin D3 1250 MG-200 Unit Tab PO SCH (08:46)
[2019-02-27] MEDS: Spironolactone 25 MG Tab PO SCH (09:19)
[2019-02-27] MEDS: Melatonin 3 MG Tab PO SCH (19:55)
[2019-02-27] MEDS: QUEtiapine 100 MG Tab PO SCH (19:55)
[2019-02-27] MEDS: Simvastatin 20 MG Tab PO SCH (19:56)
[2019-02-27] MEDS: Montelukast 10 MG Tab PO SCH (19:56)
[2019-02-27] MEDS: Pantoprazole 40 MG Tab.CR PO SCH (19:56)
--- NOTE | 2019-02-27 21:36 | PCM.PN ---
- General Info Date of Service: 02/27/19 Admission Dx/Problem (Free Text): History: Seen with online translation services. She is wearing the BiPAP full face mask now and she says that she slept well, and as noted in the note last evening, her PCO2 went from 101 down to 67 and her PO2 remained stable. She complains that when she has the mask on she cant drink and she gets thirsty. She needs help to get it off and back on again. Vital signs have been good. She continues on IV Unasyn, is afebrile. Note on the weekend that her CXR seemed to show signs of CHF and she improved after getting a dose of IV Lasix and IV steroid, she is still on the Solu- Medrol daily and is getting oral Lasix now. She again refuses to go to [place] for consult, says it is too far for her brother to drive. Later however she said that if it were for a limited time, up to a month she could go to [place]. Exam: -She is lying flat and does not appear dyspneic -Heart sounds normal and regular -Lungs sound quite clear, no wheezing Impression: -CO2 retention secondary to COPD, would be very unfortunate if she needs to wear BiPAP the rest of her life -Possibly improving her CHF might improve her respiratory function also Plan: -Continue BiPAP continuously -Ask nurses to remove it as often as needed to drink or eat -Start spironolactone 25 mg daily -Scheduled for EchoKG next 03/05/19 - Patient Data Vitals - Most Recent: Last Vital Signs Temp 36.8 C 02/27/19 18:00 Pulse 79 02/27/19 18:00 Resp 15 02/27/19 18:00 BP 140/55 L 02/27/19 18:00 Pulse Ox 94 L 02/27/19 20:00 Weight - Most Recent: 55.973 kg I&O - Last 24 Hours: Intake & Output 02/27/19 02/27/19 02/27/19 06:59 14:59 22:59 Intake Total 200 360 440 Balance 200 360 440 Pito Results Last 24 Hours: Microbiology 02/24/19 11:32 Aerobic Blood Culture - Preliminary Blood - Venous - Lab Draw NO GROWTH AFTER 3 DAYS Anaerobic Blood Culture - Preliminary NO GROWTH AFTER 3 DAYS 02/24/19 11:25 Aerobic Blood Culture - Preliminary Blood - Venous NO GROWTH AFTER 3 DAYS Anaerobic Blood Culture - Preliminary NO GROWTH AFTER 3 DAYS Med Orders - Current: Current Medications Acetaminophen (Tylenol Extra Strength) 500 mg PO Q4H PRN PRN Reason: Pain Last Admin: 02/26/19 19:28 Dose: 500 mg Albuterol (Proventil Neb Soln) 2.5 mg NEB Q4H PRN PRN Reason: Shortness of Breath Last Admin: 02/24/19 13:15 Dose: 2.5 mg Albuterol/Ipratropium (Duoneb 3.0-0.5 Mg/3 Ml) 3 ml NEB QIDRT [facility] Last Admin: 02/27/19 19:55 Dose: 3 ml Alprazolam (Xanax) 0.25 mg PO Q4H PRN PRN Reason: Anxiety Last Admin: 02/27/19 19:56 Dose: 0.25 mg Amlodipine Besylate (Norvasc) 10 mg PO DAILY [facility] Last Admin: 02/27/19 08:45 Dose: 10 mg Arformoterol Tartrate (Brovana) 15 mcg NEB BIDRT [facility] Last Admin: 02/27/19 19:55 Dose: 15 mcg Budesonide (Pulmicort) 0.5 mg NEB QIDRT [facility] Last Admin: 02/27/19 19:55 Dose: 0.5 mg Calcium Carbonate (Calcium Carbonate/Vitamin D 1250 Mg-200 Unit) 1 tab PO DAILY [facility] Last Admin: 02/27/19 08:46 Dose: 1 tab Furosemide (Lasix) 30 mg PO DAILY [facility] Last Admin: 02/27/19 08:45 Dose: 30 mg Ampicillin Sodium/Sulbactam (Sodium 3 gm/ Sodium Chloride) 100 mls @ 200 mls/ hr IV Q6H [facility] Last Admin: 02/27/19 18:23 Dose: 200 mls/hr Melatonin (Melatonin) 3 mg PO BEDTIME [facility] Last Admin: 02/27/19 19:55 Dose: 3 mg Methylprednisolone Sodium Succinate (Solu-Medrol) 75 mg IVPUSH Q12H [facility] Last Admin: 02/27/19 15:44 Dose: 75 mg Montelukast Sodium (Singulair) 10 mg PO BEDTIME [facility] Last Admin: 02/27/19 19:56 Dose: 10 mg Pantoprazole Sodium (Protonix) 40 mg PO BEDTIME [facility] Last Admin: 02/27/19 19:56 Dose: 40 mg Quetiapine Fumarate (Seroquel) 100 mg PO BEDTIME [facility] Last Admin: 02/27/19 19:55 Dose: 100 mg Simvastatin (Zocor) 20 mg PO BEDTIME [facility] Last Admin: 02/27/19 19:56 Dose: 20 mg Sodium Chloride (Saline Flush) 10 ml IV ASDIRECTED PRN PRN Reason: Keep Vein Open Last Admin: 02/27/19 03:07 Dose: 10 ml Spironolactone (Aldactone) 25 mg PO DAILY [facility] Last Admin: 02/27/19 09:19 Dose: 25 mg Discontinued Medications Cephalexin (Keflex) 500 mg PO TID [facility] Stop: 03/02/19 12:01 Enoxaparin Sodium (Lovenox) 30 mg SUBCUT DAILY [facility] Enoxaparin Sodium (Lovenox) 40 mg SUBCUT BEDTIME [facility] Last Admin: 02/24/19 19:35 Dose: 40 mg Furosemide (Lasix) 20 mg IV ONETIME ONE Stop: 02/25/19 11:59 Last Admin: 02/25/19 12:42 Dose: 20 mg Iopamidol (Isovue-300 (61%)) 100 ml IVPUSH ONETIME ONE Stop: 02/24/19 13:18 Last Admin: 02/24/19 13:27 Dose: 100 ml Ipratropium [place] (Atrovent) 0.5 mg NEB TIDRT [facility] Last Admin: 02/24/19 19:37 Dose: Not Given Lorazepam (Ativan) 1 mg IVPUSH STAT STA Stop: 02/25/19 05:31 Last Admin: 02/25/19 05:34 Dose: 1 mg Lorazepam (Ativan) Confirm Administered Dose 2 mg .ROUTE .STK-MED ONE Stop: 02/25/19 05:41 Last Admin: 02/25/19 05:56 Dose: Not Given - Problem List Review Problem List Initiated/Reviewed/Updated: Yes - My Orders Last 24 Hours: My Active Orders 02/27/19 09:15 Spironolactone [Aldactone] 25 mg PO DAILY
[2019-02-28] MEDS: Sodium Chloride 0.9% 10 ML Syringe IV PRN ×3 (02:48→23:29)
[2019-02-28] MEDS: methylPREDNISolone Sodium Succinate 125 MG/2 ML SDV IVPUSH SCH ×2 (02:48→15:14)
[2019-02-28] MEDS: Ampicillin/Sulbactam Na 3 GM in Sodium Chloride 0.9% 100 ML IV SCH ×4 (05:36→23:29)
[2019-02-28] MEDS: Albuterol/Ipratropium 3.0-0.5 MG/3 ML Neb Soln NEB SCH ×4 (06:23→19:19)
[2019-02-28] MEDS: Arformoterol 15 MCG/2 ML Neb Soln NEB SCH ×2 (06:23→19:19)
[2019-02-28] MEDS: Budesonide 0.5 MG/2 ML Neb Susp NEB SCH ×4 (06:23→19:19)
[2019-02-28] MEDS: Furosemide 20 MG Tab PO SCH (08:13)
[2019-02-28] MEDS: Spironolactone 25 MG Tab PO SCH (08:14)
[2019-02-28] MEDS: Calcium Carbonate/Vitamin D3 1250 MG-200 Unit Tab PO SCH (08:14)
[2019-02-28] MEDS: amLODIPine 10 MG Tab PO SCH (08:15)
--- NOTE | 2019-02-28 09:02 | PCM.PN ---
- General Info Date of Service: 02/28/19 Admission Dx/Problem (Free Text): History: She is doing about the same, notices that she passes a lot of urine. She has been switched to a home model BiPAP and seems to tolerate that fairly well. She is scheduled for her EchoKG on Monday 03/05. This is her second day of getting spironolactone, probably will be many days before we see much effect. She is still mildly hypertensive. Exam: -She is lying flat without appearance of overt dyspnea -Alert and not in respiratory distress -Wearing the BiPAP mask Impression: -COPD with CO2 retention, improved on BiPAP -Possibility of CHF aggravating her problems. Plan: -BMP, CBC and ABGs tomorrow -EchoKG on Tuesday -Continue IV Unasyn today, tomorrow switch to oral Augmentin for a few days and go back to swing bed -Continue spironolactone, next week will need to check her potassium again, will not plan to repeat BNP until after results of her EchoKG are available - Patient Data Vitals - Most Recent: Last Vital Signs Temp 36.1 C 02/28/19 04:29 Pulse 67 02/28/19 04:29 Resp 18 02/28/19 04:29 BP 154/82 H 02/28/19 08:15 Pulse Ox 93 L 02/28/19 08:00 Weight - Most Recent: 56.699 kg I&O - Last 24 Hours: Intake & Output 02/27/19 02/28/19 02/28/19 22:59 06:59 14:59 Intake Total 440 240 Balance 440 240 Pito Results Last 24 Hours: Microbiology 02/24/19 11:32 Aerobic Blood Culture - Preliminary Blood - Venous - Lab Draw NO GROWTH AFTER 3 DAYS Anaerobic Blood Culture - Preliminary NO GROWTH AFTER 3 DAYS 02/24/19 11:25 Aerobic Blood Culture - Preliminary Blood - Venous NO GROWTH AFTER 3 DAYS Anaerobic Blood Culture - Preliminary NO GROWTH AFTER 3 DAYS Med Orders - Current: Current Medications Acetaminophen (Tylenol Extra Strength) 500 mg PO Q4H PRN PRN Reason: Pain Last Admin: 02/26/19 19:28 Dose: 500 mg Albuterol (Proventil Neb Soln) 2.5 mg NEB Q4H PRN PRN Reason: Shortness of Breath Last Admin: 02/24/19 13:15 Dose: 2.5 mg Albuterol/Ipratropium (Duoneb 3.0-0.5 Mg/3 Ml) 3 ml NEB QIDRT [facility] Last Admin: 02/28/19 06:23 Dose: 3 ml Alprazolam (Xanax) 0.25 mg PO Q4H PRN PRN Reason: Anxiety Last Admin: 02/27/19 19:56 Dose: 0.25 mg Amlodipine Besylate (Norvasc) 10 mg PO DAILY [facility] Last Admin: 02/28/19 08:15 Dose: 10 mg Arformoterol Tartrate (Brovana) 15 mcg NEB BIDRT [facility] Last Admin: 02/28/19 06:23 Dose: 15 mcg Budesonide (Pulmicort) 0.5 mg NEB QIDRT [facility] Last Admin: 02/28/19 06:23 Dose: 0.5 mg Calcium Carbonate (Calcium Carbonate/Vitamin D 1250 Mg-200 Unit) 1 tab PO DAILY [facility] Last Admin: 02/28/19 08:14 Dose: 1 tab Furosemide (Lasix) 30 mg PO DAILY [facility] Last Admin: 02/28/19 08:13 Dose: 30 mg Ampicillin Sodium/Sulbactam (Sodium 3 gm/ Sodium Chloride) 100 mls @ 200 mls/ hr IV Q6H [facility] Last Admin: 02/28/19 05:36 Dose: 200 mls/hr Melatonin (Melatonin) 3 mg PO BEDTIME [facility] Last Admin: 02/27/19 19:55 Dose: 3 mg Methylprednisolone Sodium Succinate (Solu-Medrol) 75 mg IVPUSH Q12H [facility] Last Admin: 02/28/19 02:48 Dose: 75 mg Montelukast Sodium (Singulair) 10 mg PO BEDTIME [facility] Last Admin: 02/27/19 19:56 Dose: 10 mg Pantoprazole Sodium (Protonix) 40 mg PO BEDTIME [facility] Last Admin: 02/27/19 19:56 Dose: 40 mg Quetiapine Fumarate (Seroquel) 100 mg PO BEDTIME [facility] Last Admin: 02/27/19 19:55 Dose: 100 mg Simvastatin (Zocor) 20 mg PO BEDTIME [facility] Last Admin: 02/27/19 19:56 Dose: 20 mg Sodium Chloride (Saline Flush) 10 ml IV ASDIRECTED PRN PRN Reason: Keep Vein Open Last Admin: 02/28/19 05:37 Dose: 10 ml Spironolactone (Aldactone) 25 mg PO DAILY [facility] Last Admin: 02/28/19 08:14 Dose: 25 mg Discontinued Medications Cephalexin (Keflex) 500 mg PO TID [facility] Stop: 03/02/19 12:01 Enoxaparin Sodium (Lovenox) 30 mg SUBCUT DAILY [facility] Enoxaparin Sodium (Lovenox) 40 mg SUBCUT BEDTIME [facility] Last Admin: 02/24/19 19:35 Dose: 40 mg Furosemide (Lasix) 20 mg IV ONETIME ONE Stop: 02/25/19 11:59 Last Admin: 02/25/19 12:42 Dose: 20 mg Iopamidol (Isovue-300 (61%)) 100 ml IVPUSH ONETIME ONE Stop: 02/24/19 13:18 Last Admin: 02/24/19 13:27 Dose: 100 ml Ipratropium [place] (Atrovent) 0.5 mg NEB TIDRT [facility] Last Admin: 02/24/19 19:37 Dose: Not Given Lorazepam (Ativan) 1 mg IVPUSH STAT STA Stop: 02/25/19 05:31 Last Admin: 02/25/19 05:34 Dose: 1 mg Lorazepam (Ativan) Confirm Administered Dose 2 mg .ROUTE .STK-MED ONE Stop: 02/25/19 05:41 Last Admin: 02/25/19 05:56 Dose: Not Given - Problem List Review Problem List Initiated/Reviewed/Updated: Yes - My Orders Last 24 Hours: My Active Orders 02/27/19 09:15 Spironolactone [Aldactone] 25 mg PO DAILY 02/28/19 08:51 ABG [BLOOD GAS ARTERIAL] [BG] Routine 02/28/19 Breakfast Regular Diet [DIET] 03/01/19 07:30 BASIC METABOLIC PANEL,BMP [CHEM] Routine CBC WITH AUTO DIFF [HEME] Routine
[2019-02-28] MEDS: Melatonin 3 MG Tab PO SCH (19:18)
[2019-02-28] MEDS: Simvastatin 20 MG Tab PO SCH (19:18)
[2019-02-28] MEDS: QUEtiapine 100 MG Tab PO SCH (19:19)
[2019-02-28] MEDS: ALPRAZolam 0.25 MG Tab PO PRN (19:19)
[2019-02-28] MEDS: Pantoprazole 40 MG Tab.CR PO SCH (19:19)
[2019-02-28] MEDS: Montelukast 10 MG Tab PO SCH (19:19)
[2019-03-01] MEDS: methylPREDNISolone Sodium Succinate 125 MG/2 ML SDV IVPUSH SCH (03:27)
[2019-03-01] MEDS: Sodium Chloride 0.9% 10 ML Syringe IV PRN (03:27)
[2019-03-01] MEDS: Ampicillin/Sulbactam Na 3 GM in Sodium Chloride 0.9% 100 ML IV SCH (05:50)
[2019-03-01] MEDS: Budesonide 0.5 MG/2 ML Neb Susp NEB SCH ×2 (06:24→11:05)
[2019-03-01] MEDS: Arformoterol 15 MCG/2 ML Neb Soln NEB SCH (06:24)
[2019-03-01] MEDS: Albuterol/Ipratropium 3.0-0.5 MG/3 ML Neb Soln NEB SCH ×2 (06:24→11:05)
[2019-03-01 07:05] LABS: ANION GAP 9.2 mmol/L (10-20)
[2019-03-01] MEDS: Calcium Carbonate/Vitamin D3 1250 MG-200 Unit Tab PO SCH (08:39)
[2019-03-01] MEDS: amLODIPine 10 MG Tab PO SCH (08:39)
[2019-03-01] MEDS: Furosemide 20 MG Tab PO SCH (08:39)
[2019-03-01] MEDS: Spironolactone 25 MG Tab PO SCH (08:39)
--- NOTE | 2019-03-01 10:49 | PCM.DCSUM1 ---
Discharge Summary - Hospital Course Free Text/Narrative:: Discharge Diagnoses: -COPD with hypoventilation and CO2 retention -Chronic asthma -CHF -Iron deficiency anemia -Coronary artery disease secondary to hyperlipidemia Reason for Admission: She was on swing bed, had an episode of syncope and increased dyspnea, put on BiPAP and transferred to Acute Care on 02/24/19. Initial Findings: WBC had gone back from 14,700 back up to 32,000. D-dimer elevated at 12.5, but CT did not show pulmonary embolus or pneumonia PCO2 was 122 on oxygen, PCO2 116. Na+ 148, K+ 4.0, creatinine 1.1, glucose 173 nonfasting. ALT mildly elevated at 36. Troponin normal, proBNP 1114. Treatment and Course in Hospital: She was put on BiPAP, her PCO2 came down to 95, but she didnt like living it on and so on 02/26 her PCO2 was again up to 101. She was ordered to use the BiPAP continuously and on 02/26 her PCO2 was 67, PO2 62, and on 01/3057, nearly normal. On suspicion of CHF, because she responded also to a dose of Lasix IV and starting Lasix 30 mg daily by mouth, and because of her elevated proBNP, she continued on Lasix 30 mg and was started on spironolactone 25 mg daily. On the day of discharge her Na+ is 145, K+ 4.2, CO2 improved but still mildly elevated at 37, creatinine 1.0, glucose 168 and calcium 7.5. She continued on all of her inhalers. Because of her elevated WBC and dyspnea she got IV Unasyn during her stay on Acute Care but because the CT did not show pneumonia and this was D/Cd on going back to Swing Bed. Her WBC on 03/01 was back to nearly normal, 12,700. Condition on Discharge: -Heart sounds normal and regular -Lung sounds diminished in intensity but no wheezing -She is lying flat in bed without dyspnea -Alert and answers questions appropriately Discharge Plan: -She will continue spironolactone 25 mg daily, continue increasing later -Scheduled for EchoKG next week on 03/05 -Use BiPAP continuously, she has been changed to a home use model which she tolerates better -She has been changed to DNR status Diagnosis: Stroke: No Modified [place] Scale: Mod.Sev.Disability ;Unable to Walk/Attend Bodily Needs W/ O Assistance Modified [place] Scale Score: 4 - Discharge Data Discharge Date: 03/01/19 Discharge Disposition: DC/Tfer W/I Hosp To Swing 61 Condition: Good - Referral to Home Health Primary Care Physician: Tony Huff MD - Patient Summary/Data Consults: Consultations 02/24/19 11:01 Consult to Physical Therapy [PT Evaluation and Treatment] [CONS] Routine - Discharge Plan *PRESCRIPTION DRUG MONITORING PROGRAM REVIEWED*: Not Applicable *COPY OF PRESCRIPTION DRUG MONITORING REPORT IN PATIENT MINH: Not Applicable Home Medications: Home Meds Simvastatin [Zocor] 20 mg PO BEDTIME 07/26/18 [History] amLODIPine Besylate [Amlodipine Besylate] 10 mg PO DAILY 07/26/18 [History] Acetaminophen [Tylenol Extra Strength] 500 mg PO Q4H PRN tablet 02/24/19 [Rx] Albuterol [Proventil Neb Soln] 2.5 mg NEB Q4H PRN neb 02/24/19 [Rx] Albuterol/Ipratropium [DuoNeb 3.0-0.5 MG/3 ML] 3 ml NEB QIDRT neb 02/24/19 [Rx] Arformoterol [Brovana] 15 mcg NEB BIDRT neb 02/24/19 [Rx] Budesonide [Pulmicort] 0.5 mg NEB QIDRT neb 02/24/19 [Rx] Calcium Carbonate/Vitamin D3 [Calcium Carbonate/Vitamin D 1250 MG-200 Unit] 1 tab PO DAILY tablet 02/24/19 [Rx] Furosemide [Lasix] 30 mg PO DAILY tablet 02/24/19 [Rx] Melatonin 3 mg PO BEDTIME tablet 02/24/19 [Rx] Montelukast [Singulair] 10 mg PO BEDTIME tablet 02/24/19 [Rx] QUEtiapine [SEROquel] 100 mg PO BEDTIME tablet 02/24/19 [Rx] Pantoprazole [ProTONIX] 40 mg PO BEDTIME tab.cr 03/01/19 [Rx] Spironolactone [Aldactone] 25 mg PO DAILY tablet 03/01/19 [Rx] - Discharge Summary/Plan Comment DC Time >30 min.: No - Patient Data Vitals - Most Recent: Last Vital Signs Temp 36.4 C 03/01/19 10:00 Pulse 64 03/01/19 10:00 Resp 18 03/01/19 06:00 BP 133/43 L 03/01/19 10:00 Pulse Ox 97 03/01/19 10:00 Weight - Most Recent: 56.699 kg I&O - Last 24 hours: Intake & Output 02/28/19 03/01/19 03/01/19 22:59 06:59 14:59 Intake Total 550 800 240 Output Total 300 Balance 550 500 240 Lab Results - Last 24 hrs: Laboratory Results - last 24 hr 03/01/19 03/01/19 Range/Units 06:20 06:20 WBC 12.7 H (4.0-10.0) x10^3/uL RBC 3.93 L (4.00-5.50) x10^6/uL Hgb 9.5 L (12.0-16.0) g/dL Hct 31.1 L (33.0-47.0) % MCV 79.1 D (78.0-93.0) fL MCH 24.2 L (26.0-32.0) pg MCHC 30.5 L (32.0-36.0) g/dL RDW Coeff of Sebastian 17.5 H (10.0-15.0) % Plt Count 370 (130-400) x10^3/uL Neut % (Auto) 92.3 H (50.0-80.0) % Lymph % (Auto) 5.2 L (25.0-50.0) % [place] % (Auto) 2.3 (2.0-11.0) % Eos % (Auto) 0.0 (0.0-4.0) % Baso % (Auto) 0.2 (0.2-1.2) % Sodium 145 (69-191) mmol/L Potassium 4.2 (1.5-9.9) mmol/L Chloride 103 (54-184) mmol/L Carbon Dioxide 37 H D (21-32) mmol/L Anion Gap 9.2 L (10-20) mmol/L BUN 27 H (7-18) mg/dL Creatinine 1.0 (0.55-1.02) mg/dL Est Cr Clr Drug Dosing 42.59 mL/min Estimated GFR (MDRD) 55 Glucose 168 H (74-106) mg/dL Calcium 7.5 L (8.5-10.1) mg/dL EDY Results - Last 24 hrs: Microbiology 02/24/19 11:32 Aerobic Blood Culture - Preliminary Blood - Venous - Lab Draw NO GROWTH AFTER 4 DAYS Anaerobic Blood Culture - Preliminary NO GROWTH AFTER 4 DAYS 02/24/19 11:25 Aerobic Blood Culture - Preliminary Blood - Venous NO GROWTH AFTER 4 DAYS Anaerobic Blood Culture - Preliminary NO GROWTH AFTER 4 DAYS Med Orders - Current: Current Medications Acetaminophen (Tylenol Extra Strength) 500 mg PO Q4H PRN PRN Reason: Pain Last Admin: 02/26/19 19:28 Dose: 500 mg Albuterol (Proventil Neb Soln) 2.5 mg NEB Q4H PRN PRN Reason: Shortness of Breath Last Admin: 02/24/19 13:15 Dose: 2.5 mg Albuterol/Ipratropium (Duoneb 3.0-0.5 Mg/3 Ml) 3 ml NEB QIDRT [facility] Last Admin: 03/01/19 06:24 Dose: 3 ml Alprazolam (Xanax) 0.25 mg PO Q4H PRN PRN Reason: Anxiety Last Admin: 02/28/19 19:19 Dose: 0.25 mg Amlodipine Besylate (Norvasc) 10 mg PO DAILY [facility] Last Admin: 03/01/19 08:39 Dose: 10 mg Arformoterol Tartrate (Brovana) 15 mcg NEB BIDRT [facility] Last Admin: 03/01/19 06:24 Dose: 15 mcg Budesonide (Pulmicort) 0.5 mg NEB QIDRT [facility] Last Admin: 03/01/19 06:24 Dose: 0.5 mg Calcium Carbonate (Calcium Carbonate/Vitamin D 1250 Mg-200 Unit) 1 tab PO DAILY [facility] Last Admin: 03/01/19 08:39 Dose: 1 tab Furosemide (Lasix) 30 mg PO DAILY [facility] Last Admin: 03/01/19 08:39 Dose: 30 mg Ampicillin Sodium/Sulbactam (Sodium 3 gm/ Sodium Chloride) 100 mls @ 200 mls/ hr IV Q6H [facility] Last Admin: 03/01/19 05:50 Dose: 200 mls/hr Melatonin (Melatonin) 3 mg PO BEDTIME [facility] Last Admin: 02/28/19 19:18 Dose: 3 mg Methylprednisolone Sodium Succinate (Solu-Medrol) 75 mg IVPUSH Q12H [facility] Last Admin: 03/01/19 03:27 Dose: 75 mg Montelukast Sodium (Singulair) 10 mg PO BEDTIME [facility] Last Admin: 02/28/19 19:19 Dose: 10 mg Pantoprazole Sodium (Protonix) 40 mg PO BEDTIME [facility] Last Admin: 02/28/19 19:19 Dose: 40 mg Quetiapine Fumarate (Seroquel) 100 mg PO BEDTIME [facility] Last Admin: 02/28/19 19:19 Dose: 100 mg Simvastatin (Zocor) 20 mg PO BEDTIME [facility] Last Admin: 02/28/19 19:18 Dose: 20 mg Sodium Chloride (Saline Flush) 10 ml IV ASDIRECTED PRN PRN Reason: Keep Vein Open Last Admin: 03/01/19 03:27 Dose: 10 ml Spironolactone (Aldactone) 25 mg PO DAILY [facility] Last Admin: 03/01/19 08:39 Dose: 25 mg Discontinued Medications Cephalexin (Keflex) 500 mg PO TID [facility] Stop: 03/02/19 12:01 Enoxaparin Sodium (Lovenox) 30 mg SUBCUT DAILY [facility] Enoxaparin Sodium (Lovenox) 40 mg SUBCUT BEDTIME [facility] Last Admin: 02/24/19 19:35 Dose: 40 mg Furosemide (Lasix) 20 mg IV ONETIME ONE Stop: 02/25/19 11:59 Last Admin: 02/25/19 12:42 Dose: 20 mg Iopamidol (Isovue-300 (61%)) 100 ml IVPUSH ONETIME ONE Stop: 02/24/19 13:18 Last Admin: 02/24/19 13:27 Dose: 100 ml Ipratropium [place] (Atrovent) 0.5 mg NEB TIDRT [facility] Last Admin: 02/24/19 19:37 Dose: Not Given Lorazepam (Ativan) 1 mg IVPUSH STAT STA Stop: 02/25/19 05:31 Last Admin: 02/25/19 05:34 Dose: 1 mg Lorazepam (Ativan) Confirm Administered Dose 2 mg .ROUTE .STK-MED ONE Stop: 02/25/19 05:41 Last Admin: 02/25/19 05:56 Dose: Not Given
== END 2019-03-01 11:23 | disposition swing bed (61) | DRG 189 ==
LOC: VM.MS 10:41
PROVIDERS: ADMIT Family Medicine; ATTEND Family Medicine
PROC: 5A09457 Assistance with Respiratory Ventilation, 24-96 Consecutive Hours, Continuous Positive Airway Pressure (ICD-10-PCS; principal; 2019-02-25)
DX: J96.21 Acute and chronic respiratory failure with hypoxia (principal); J44.1 Chronic obstructive pulmonary disease with (acute) exacerbation; E87.2 Acidosis; L03.116 Cellulitis of left lower limb; I50.22 Chronic systolic (congestive) heart failure; J96.22 Acute and chronic respiratory failure with hypercapnia; I11.0 Hypertensive heart disease with heart failure; D50.9 Iron deficiency anemia, unspecified; Z66 Do not resuscitate; I25.10 Atherosclerotic heart disease of native coronary artery without angina pectoris; E78.5 Hyperlipidemia, unspecified; E78.00 Pure hypercholesterolemia, unspecified; H54.3 Unqualified visual loss, both eyes; R09.02 Hypoxemia; F41.0 Panic disorder [episodic paroxysmal anxiety]; Z79.899 Other long term (current) drug therapy; Z87.01 Personal history of pneumonia (recurrent); Z95.5 Presence of coronary angioplasty implant and graft
CPT/HCPCS: 36415; 36600; 70450; 71045; 71275; 80048; 80053; 82803; 82962; 83605; 83880; 84484; 85007; 85025; 85027; 85379; 85610; 86140; 87040; 94640; 94660; 94760; A9270-GY; J0295; J1650; J1940; J2060; J2930; J7050; J7613-GY; J7620-GY; Q9967

== ENCOUNTER 2019-05-05 22:31 | Emergency (ER) | payer MEDICARE, MEDICAID ==
[2019-05-05] MEDS ORDERED: Sodium Chloride 0.9% 10 ML Syringe FLUSH PRN (22:37)
--- NOTE | 2019-05-05 22:49 | EDM.PDOC ---
ED HPI GENERAL MEDICAL PROBLEM - General Chief Complaint: General Stated Complaint: change in speech Time Seen by Provider: 05/05/19 22:35 Source of Information: Reports: Patient, EMS History Limitations: Reports: Language Barrier - History of Present Illness INITIAL COMMENTS - FREE TEXT/NARRATIVE: Patient comes into the emergency department with EMS with concerns of change in speech. The brother who lives near the patient had called 911 stating that he had noticed a sister had change in her speech/mentation. According to EMS patient was on scene and was able walk to the cot had equal grasps had no deficits noted. EMS did state that they did have difficulty understanding the patient however they did notice a language barrier. Patient was able to complete all test without difficulty at states that the patient often spoke in what appeared to be a different language. EMS was unable to given IV they did check a blood glucose which was 106. Patient denies any chest pain, nausea vomiting, headache, slurred speech, or peripheral edema. Patient does appear to be short of breath and is on home oxygen between 0.5 L and 1 L. EMS did have her on between 2 and 4 L of oxygen prior to arrival to help keep saturations greater than 90 area EMS did note that the patient was wrapped in multiple layers at home and did appear to be clammy. Patient denies any shortness of breath however she appeared to be short of breath and using her accessory muscles. Patient does not speak Romanian. Brother is helping with translation to the best of his ability. Patient also states the patient is legally blind. Onset: Sudden Severity: Moderate Improves with: Reports: None Worsens with: Reports: None Associated Symptoms: Reports: No Other Symptoms - Related Data Allergies Allergy/AdvReac Type Severity Reaction Status Date / Time No Known Allergies Allergy Verified 02/05/19 11:14 Home Meds: Home Meds Simvastatin [Zocor] 20 mg PO BEDTIME 07/26/18 [History] amLODIPine Besylate [Amlodipine Besylate] 10 mg PO DAILY 07/26/18 [History] Acetaminophen [Tylenol Extra Strength] 500 mg PO Q4H PRN tablet 02/24/19 [Rx] Albuterol [Proventil Neb Soln] 2.5 mg NEB Q4H PRN neb 02/24/19 [Rx] Albuterol/Ipratropium [DuoNeb 3.0-0.5 MG/3 ML] 3 ml NEB QIDRT neb 02/24/19 [Rx] Arformoterol [Brovana] 15 mcg NEB BIDRT neb 02/24/19 [Rx] Budesonide [Pulmicort] 0.5 mg NEB QIDRT neb 02/24/19 [Rx] Calcium Carbonate/Vitamin D3 [Calcium Carbonate/Vitamin D 1250 MG-200 Unit] 1 tab PO DAILY tablet 02/24/19 [Rx] Furosemide [Lasix] 30 mg PO DAILY tablet 02/24/19 [Rx] Melatonin 3 mg PO BEDTIME tablet 02/24/19 [Rx] Montelukast [Singulair] 10 mg PO BEDTIME tablet 02/24/19 [Rx] QUEtiapine [SEROquel] 100 mg PO BEDTIME tablet 02/24/19 [Rx] Pantoprazole [ProTONIX] 40 mg PO BEDTIME tab.cr 03/01/19 [Rx] Spironolactone [Aldactone] 25 mg PO DAILY tablet 03/01/19 [Rx] Camphor/Menthol [Sarna Lotion] 0 ml TOP QID PRN bottle 03/20/19 [Rx] Past Medical History HEENT History: Reports: Impaired Vision (legally blind), Sinusitis Other HEENT History: Bilaeraly blind Cardiovascular History: Reports: CAD, High Cholesterol, Hypertension Respiratory History: Reports: Asthma, COPD, Pneumonia, Recurrent Other Respiratory History: hx of respiratory failure Gastrointestinal History: Reports: None Genitourinary History: Reports: None Musculoskeletal History: Reports: None Neurological History: Reports: None Psychiatric History: Reports: None Other Endocrine/Metabolic History: hyoerlipidemia, impaired fasting glucose Hematologic History: Reports: Anemia Dermatologic History: Reports: Psoriasis - Infectious Disease History Infectious Disease History: Reports: MRSA Other Infectious Disease History: septic shock - Past Surgical History HEENT Surgical History: Reports: None Cardiovascular Surgical History: Reports: Other (See Below) Other Cardiovascular Surgeries/Procedures: cardiac cath left Social & Family History - Family History Family Medical History: Noncontributory - Caffeine Use Caffeine Use: Reports: Coffee ED ROS GENERAL - Review of Systems Review Of Systems: Comprehensive ROS is negative, except as noted in HPI. Constitutional: Reports: Chills, Malaise HEENT: Reports: No Symptoms Respiratory: Reports: No Symptoms Cardiovascular: Reports: No Symptoms Endocrine: Reports: No Symptoms GI/Abdominal: Reports: No Symptoms : Reports: No Symptoms Musculoskeletal: Reports: No Symptoms Skin: Reports: No Symptoms Neurological: Reports: No Symptoms Psychiatric: Reports: No Symptoms Hematologic/Lymphatic: Reports: No Symptoms ED EXAM, GENERAL - Physical Exam Exam: See Below Exam Limited By: Language Barrier General Appearance: Alert Head: Atraumatic, Normocephalic Neck: Normal Inspection, Supple, Non-Tender Respiratory/Chest: Respiratory Distress, Rhonchi, Wheezing, Accessory Muscle Use Cardiovascular: Regular Rate, Rhythm, No Edema Peripheral Pulses: 3+: Radial (L), Radial (R) GI/Abdominal: Normal Bowel Sounds, Soft, Non-Tender Back Exam: Normal Inspection, Full Range of Motion Extremities: Normal Inspection, Normal Range of Motion, Non-Tender Neurological: Alert Skin Exam: Warm, Dry, Other (foul smell and dirt appearance on skin ) Course - Orders/Labs/Meds Orders: Active Orders 24 hr Category Date Time Status EKG Documentation Completion [RC] STAT Care 05/05/19 22:37 Active RT Aerosol Therapy [RC] ASDIRECTED Care 05/05/19 22:39 Active Chest 1V Frontal [CR] Stat Exams 05/05/19 22:37 Ordered Head wo Cont [CT] Stat Exams 05/05/19 22:38 Taken COMPREHENSIVE METABOLIC PN,CMP [CHEM] Stat Lab 05/05/19 23:01 Received CULTURE BLOOD [BC] Stat Lab 05/05/19 23:01 Received CULTURE BLOOD [BC] Stat Lab 05/05/19 23:04 Results PRO B-TYPE NATRIUR PEPT,BNPPRO [CHEM] Stat Lab 05/05/19 23:01 Received TROPONIN I [CHEM] Stat Lab 05/05/19 23:01 Received Sodium Chloride 0.9% [Saline Flush] Med 05/05/19 22:37 Active 10 ml FLUSH ASDIRECTED PRN Blood Culture x2 Reflex Set [OM.PC] Stat Oth 05/05/19 22:52 Ordered Peripheral IV Insertion Adult [OM.PC] Stat Oth 05/05/19 22:37 Ordered Medication Orders Sodium Chloride (Saline Flush) 10 ml FLUSH ASDIRECTED PRN PRN Reason: Keep Vein Open Labs: Laboratory Tests 05/05/19 05/05/19 05/05/19 Range/Units 23:01 23:01 23:01 WBC 11.0 H (4.0-10.0) x10^3/uL RBC 4.74 (4.00-5.50) x10^6/uL Hgb 10.2 L (12.0-16.0) g/dL Hct 36.2 (33.0-47.0) % MCV 76.4 L (78.0-93.0) fL MCH 21.5 L (26.0-32.0) pg MCHC 28.2 L (32.0-36.0) g/dL RDW Coeff of Sebastian 17.6 H (10.0-15.0) % Plt Count 251 D (130-400) x10^3/uL Neut % (Auto) 68.6 (50.0-80.0) % Lymph % (Auto) 20.6 L (25.0-50.0) % [place] % (Auto) 6.4 (2.0-11.0) % Eos % (Auto) 4.0 (0.0-4.0) % Baso % (Auto) 0.4 (0.2-1.2) % PT 10.4 (10.0-12.8) SEC INR 0.9 L (2.0-3.5) Lactic Acid 0.6 (0.4-2.0) mmol/L Meds: Medications Generic Name Dose Route Start Last Admin Trade Name Freq PRN Reason Stop Dose Admin Sodium Chloride 10 ml 05/05/19 22:37 Saline Flush FLUSH ASDIRECTED PRN Keep Vein Open Discontinued Medications Generic Name Dose Route Start Last Admin Trade Name Freq PRN Reason Stop Dose Admin Albuterol/Ipratropium 3 ml 05/05/19 22:39 Duoneb 3.0-0.5 Mg/3 Ml NEB 05/05/19 22:40 ONETIME ONE Departure - Departure Time of Disposition: 11:40 Disposition: DC/Tfer to Acute Hospital 02 Condition: Fair Clinical Impression: CVA, Cerebrovascular accident - Discharge Information *PRESCRIPTION DRUG MONITORING PROGRAM REVIEWED*: Not Applicable *COPY OF PRESCRIPTION DRUG MONITORING REPORT IN PATIENT MINH: Not Applicable Referrals: Tony Huff MD [Primary Care Provider] - Forms: ED Department Discharge, Interfacility Transfer EMTALA Sepsis Event Note - Focused Exam Date Exam was Performed: 05/05/19 Time Exam was Performed: 23:47 - My Orders Last 24 Hours: My Active Orders 05/05/19 22:37 EKG Documentation Completion [RC] STAT Chest 1V Frontal [CR] Stat Sodium Chloride 0.9% [Saline Flush] 10 ml FLUSH ASDIRECTED PRN Peripheral IV Insertion Adult [OM.PC] Stat 05/05/19 22:38 Head wo Cont [CT] Stat 05/05/19 22:39 RT Aerosol Therapy [RC] ASDIRECTED 05/05/19 22:52 Blood Culture x2 Reflex Set [OM.PC] Stat 05/05/19 23:01 COMPREHENSIVE METABOLIC PN,CMP [CHEM] Stat CULTURE BLOOD [BC] Stat PRO B-TYPE NATRIUR PEPT,BNPPRO [CHEM] Stat TROPONIN I [CHEM] Stat 05/05/19 23:04 CULTURE BLOOD [BC] Stat - Assessment/Plan Last 24 Hours: My Active Orders 05/05/19 22:37 EKG Documentation Completion [RC] STAT Chest 1V Frontal [CR] Stat Sodium Chloride 0.9% [Saline Flush] 10 ml FLUSH ASDIRECTED PRN Peripheral IV Insertion Adult [OM.PC] Stat 05/05/19 22:38 Head wo Cont [CT] Stat 05/05/19 22:39 RT Aerosol Therapy [RC] ASDIRECTED 05/05/19 22:52 Blood Culture x2 Reflex Set [OM.PC] Stat 05/05/19 23:01 COMPREHENSIVE METABOLIC PN,CMP [CHEM] Stat CULTURE BLOOD [BC] Stat PRO B-TYPE NATRIUR PEPT,BNPPRO [CHEM] Stat TROPONIN I [CHEM] Stat 05/05/19 23:04 CULTURE BLOOD [BC] Stat Assessment:: 1. change in speech Plan: 1. Labs completed in the ER. Results reviewed with the patient 2. X-ray completed. Results reviewed with patient 3. CT of the head completed. Results reviewed with the patient 4. DuoNeb given in the ER 5. Sepsis protocol ordered 6. Stroke protocol followed 7. NIH scale is difficulty to complete due to the patient not speaking Romanian and is legally blind. Scale was scored a 4 originally for slurred and incomprehensible speech and however the brother interpreted and states that her speech and language is cleared up based off her his information we would give it a 0. 8. [facility] was contacted regarding the CT image results. Per neurology They had difficulty receiving images delay of 20 minutes to get images resent 2 times. Patient will be transferred is emergent stroke code to the emergency department for further imaging and possible extraction if necessary 9. Family is updated on this however family is unable to go with the patient help with interpretation an understanding. 10. All questions and concerns were addressed prior to patient's discharge 11. Patient will be transferred emergently by ALS ground transport
[2019-05-05] MEDS: Albuterol/Ipratropium 3.0-0.5 MG/3 ML Neb Soln NEB ONE (23:00)
[2019-05-05 23:45] LABS: ANION GAP 9.5 mmol/L (10-20); CHLORIDE,CL 99 mmol/L (98-107); SODIUM,NA 144 mmol/L (136-145)
--- NOTE | 2019-05-06 11:14 | CR ---
[id number] RAD/RAD Chest PA or AP 1V EXAM: RAD Chest PA or AP 1V INDICATION: SOB COMPARISON: None. DISCUSSION: Cardiomegaly and central vascular congestion. Hazy opacification projecting over the left lung base. Finding is nonspecific and could represent a small effusion and parenchymal opacification. Correlate for signs of infection to exclude pneumonia. Right lung is clear. IMPRESSION: As above. Pedro Dooley MD 05/08/19 0809 Thank you for allowing us to participate in the care of your patient.
--- NOTE | 2019-05-06 11:36 | CT ---
[id number] CT/CT Head WO IV EXAM: CT Head WO IV CLINICAL DATA: CHANGE IN SPEECH COMPARISON STUDY: None FINDINGS: No intracranial hemorrhage, extra-axial fluid collection, mass, or acute ischemia. Apparent loss of godfrey-white matter differentiation in the left temporal region. Findings are nonspecific and likely artifact giving amount of streak artifact arising from the adjacent skull base. No hydrocephalus. Possible mild changes of chronic small vessel disease scattered throughout the cerebral hemispheres. Paranasal sinuses and mastoid air cells are clear. IMPRESSION: No acute intracranial findings. Pedro Dooley MD 05/08/19 0809 Thank you for allowing us to participate in the care of your patient.
== END 2019-05-06 00:12 | disposition short-term general hospital (02) ==
LOC: VM.ED 22:31
DX: I63.9 Cerebral infarction, unspecified (principal); R47.9 Unspecified speech disturbances; I25.10 Atherosclerotic heart disease of native coronary artery without angina pectoris; I10 Essential (primary) hypertension; H54.8 Legal blindness, as defined in USA; E78.00 Pure hypercholesterolemia, unspecified; J44.9 Chronic obstructive pulmonary disease, unspecified; E78.5 Hyperlipidemia, unspecified; Z79.51 Long term (current) use of inhaled steroids; Z79.899 Other long term (current) drug therapy
CPT/HCPCS: 36415; 70450; 71045; 80053; 81001; 83605; 83880; 84484; 85025; 85610; 87040; 87804; 87804-59; 93005; 99284-GF; 99285-25; J7620-GY

== ENCOUNTER 2019-05-29 10:54 | Emergency (ER) | payer MEDICARE, MEDICAID ==
--- NOTE | 2019-05-29 11:22 | EDM.PDOC ---
ED HPI GENERAL MEDICAL PROBLEM - General Chief Complaint: Respiratory Problem Stated Complaint: SOB Time Seen by Provider: 05/29/19 11:11 Source of Information: Reports: Patient, EMS History Limitations: Reports: Other (salvadorean speaking, blindness) - History of Present Illness INITIAL COMMENTS - FREE TEXT/NARRATIVE: Patient presents to the ER with complaints of shortness of breath. Patient lives with brother. Home health came this morning and call 911 due to patients breathing. patient has received duoneb during ambulance ride. Her oxygen level was around 70 upon EMS arrival at home. After neb treatment O2 sats were in the 90's. Patient is afebrile. Onset: Today Onset Date: 05/29/19 Onset Time: 07:00 Duration: Getting Worse Location: Reports: Chest Severity: Moderate Treatments HONEY BLENDER: Reports: Other (see below) (duoneb) - Related Data Allergies Allergy/AdvReac Type Severity Reaction Status Date / Time No Known Allergies Allergy Verified 05/06/19 01:12 Home Meds: Home Meds Simvastatin [Zocor] 20 mg PO BEDTIME 07/26/18 [History] amLODIPine Besylate [Amlodipine Besylate] 10 mg PO DAILY 07/26/18 [History] Acetaminophen [Tylenol Extra Strength] 500 mg PO Q4H PRN tablet 02/24/19 [Rx] Albuterol [Proventil Neb Soln] 2.5 mg NEB Q4H PRN neb 02/24/19 [Rx] Albuterol/Ipratropium [DuoNeb 3.0-0.5 MG/3 ML] 3 ml NEB QIDRT neb 02/24/19 [Rx] Arformoterol [Brovana] 15 mcg NEB BIDRT neb 02/24/19 [Rx] Budesonide [Pulmicort] 0.5 mg NEB QIDRT neb 02/24/19 [Rx] Calcium Carbonate/Vitamin D3 [Calcium Carbonate/Vitamin D 1250 MG-200 Unit] 1 tab PO DAILY tablet 02/24/19 [Rx] Furosemide [Lasix] 30 mg PO DAILY tablet 02/24/19 [Rx] Melatonin 3 mg PO BEDTIME tablet 02/24/19 [Rx] Montelukast [Singulair] 10 mg PO BEDTIME tablet 02/24/19 [Rx] QUEtiapine [SEROquel] 100 mg PO BEDTIME tablet 02/24/19 [Rx] Pantoprazole [ProTONIX] 40 mg PO BEDTIME tab.cr 03/01/19 [Rx] Spironolactone [Aldactone] 25 mg PO DAILY tablet 03/01/19 [Rx] Camphor/Menthol [Sarna Lotion] 0 ml TOP QID PRN bottle 03/20/19 [Rx] Past Medical History HEENT History: Reports: Impaired Vision (legally blind), Sinusitis Other HEENT History: Bilaeraly blind Cardiovascular History: Reports: CAD, High Cholesterol, Hypertension Respiratory History: Reports: Asthma, COPD, Pneumonia, Recurrent Other Respiratory History: hx of respiratory failure Gastrointestinal History: Reports: None Genitourinary History: Reports: None Musculoskeletal History: Reports: None Neurological History: Reports: None Psychiatric History: Reports: None Other Endocrine/Metabolic History: hyoerlipidemia, impaired fasting glucose Hematologic History: Reports: Anemia Dermatologic History: Reports: Psoriasis - Infectious Disease History Infectious Disease History: Reports: MRSA Other Infectious Disease History: septic shock - Past Surgical History HEENT Surgical History: Reports: None Cardiovascular Surgical History: Reports: Other (See Below) Other Cardiovascular Surgeries/Procedures: cardiac cath left Social & Family History - Family History Family Medical History: Noncontributory - Caffeine Use Caffeine Use: Reports: Coffee ED ROS GENERAL - Review of Systems Review Of Systems: See Below Constitutional: Reports: No Symptoms, Weakness, Fatigue HEENT: Reports: No Symptoms Respiratory: Reports: Shortness of Breath, Wheezing, Cough Cardiovascular: Reports: No Symptoms Endocrine: Reports: No Symptoms GI/Abdominal: Reports: No Symptoms : Reports: No Symptoms Musculoskeletal: Reports: No Symptoms Skin: Reports: Pallor, Dryness. Denies: Jaundice, Mottled, Rash Neurological: Reports: No Symptoms Psychiatric: Reports: No Symptoms Hematologic/Lymphatic: Reports: No Symptoms Immunologic: Reports: No Symptoms ED EXAM, GENERAL - Physical Exam Exam: See Below Exam Limited By: No Limitations General Appearance: Alert, WD/WN, No Apparent Distress Eye Exam: Bilateral Eye: Other (blindness) Ears: Other (canal obstructed with cerumen ) Ear Exam: Bilateral Ear: Auricle Normal Nose: Normal Inspection, Normal Mucosa, No Blood Throat/Mouth: Normal Inspection, Normal Oropharynx Head: Atraumatic, Normocephalic Neck: Normal Inspection, Supple, Non-Tender Respiratory/Chest: Decreased Breath Sounds, Crackles (bilateral lower lobes), Wheezing Cardiovascular: Normal Peripheral Pulses, Regular Rate, Rhythm, No Edema, No JVD , No Murmur GI/Abdominal: Normal Bowel Sounds, Soft, Non-Tender, No Organomegaly, No Distention (Female) Exam: Deferred Rectal (Female) Exam: Deferred Extremities: Normal Inspection, Normal Range of Motion, No Pedal Edema Neurological: Alert, Oriented, Normal Cognition Psychiatric: Normal Affect Skin Exam: Warm, Dry, Intact, Normal Color, No Rash, Pallor Lymphatic: No Adenopathy Course - Vital Signs Text/Narrative:: Patient seen by the [facility]. Labs, CXR ordered. Patient had sats in the upper 90s on arrival. 1205 CXR and labs reviewed. Vital stable. Patient looks good. Will have her resume chronic meds and then discharge back to home. Will encourage neb use. Last Recorded V/S: Last Vital Signs Temp 37.1 C 05/29/19 10:54 Pulse 77 05/29/19 10:54 Resp 28 H 05/29/19 10:54 BP 151/54 H 05/29/19 10:54 Pulse Ox 97 05/29/19 10:54 - Orders/Labs/Meds Labs: Laboratory Tests 05/29/19 05/29/19 Range/Units 11:25 11:25 WBC 11.1 H (4.0-10.0) x10^3/uL RBC 4.84 (4.00-5.50) x10^6/uL Hgb 10.5 L (12.0-16.0) g/dL Hct 36.0 (33.0-47.0) % MCV 74.4 L (78.0-93.0) fL MCH 21.7 L (26.0-32.0) pg MCHC 29.2 L (32.0-36.0) g/dL RDW Coeff of [place] 20.3 H (10.0-15.0) % Plt Count 285 (130-400) x10^3/uL Neut % (Auto) 79.6 (50.0-80.0) % Lymph % (Auto) 10.0 L (25.0-50.0) % [place] % (Auto) 6.8 (2.0-11.0) % Eos % (Auto) 3.1 (0.0-4.0) % Baso % (Auto) 0.5 (0.2-1.2) % Sodium 144 (136-145) mmol/L Potassium 3.9 (3.5-5.1) mmol/L Chloride 99 (98-107) mmol/L Carbon Dioxide 39 H (21-32) mmol/L Anion Gap 9.9 L (10-20) mmol/L BUN 16 (7-18) mg/dL Creatinine 1.0 (0.55-1.02) mg/dL Est Cr Clr Drug Dosing TNP Estimated GFR (MDRD) 55 Glucose 121 H (74-106) mg/dL Calcium 8.3 L (8.5-10.1) mg/dL Corrected Calcium 9.02 (8.5-10.1) mg/dL Total Bilirubin 0.3 (0.2-1.0) mg/dL AST 14 L (15-37) U/L ALT 16 (14-59) U/L Alkaline Phosphatase 96 (46-116) U/L Total Protein 7.5 (6.4-8.2) g/dL Albumin 3.1 L (3.4-5.0) g/dL Globulin 4.4 Albumin/Globulin Ratio 0.70 - Radiology Interpretation Free Text/Narrative:: CXR=CHF stable, no acute findings Departure - Departure Time of Disposition: 12:10 Disposition: Home, Self-Care 01 Condition: Good Clinical Impression: COPD exacerbation - Discharge Information *PRESCRIPTION DRUG MONITORING PROGRAM REVIEWED*: No *COPY OF PRESCRIPTION DRUG MONITORING REPORT IN PATIENT MINH: No Instructions: Chronic Obstructive Pulmonary Disease, Chronic Obstructive Pulmonary Disease Exacerbation, [id number] Referrals: Tony Huff MD [Primary Care Provider] - Forms: ED Department Discharge Additional Instructions: Resume Home medications. Keep using daily inhalers for COPD. Use nebulizer treatment as needed for shortness of breath or wheezing Return to ER if symptoms worsens or have having concerns Follow up with primary care provider as needed. Sepsis Event Note - Focused Exam Vital Signs: Vital Signs Temp Pulse Resp BP Pulse Ox 05/29/19 10:54 37.1 C 77 28 H 151/54 H 97 Date Exam was Performed: 05/29/19 Time Exam was Performed: 12:10
[2019-05-29 11:52] LABS: CHLORIDE,CL 99 mmol/L (98-107); SODIUM,NA 144 mmol/L (136-145)
[2019-05-29 11:54] LABS: ANION GAP 9.9 mmol/L (10-20)
--- NOTE | 2019-05-29 12:02 | CR ---
[id number] RAD/RAD Chest PA or AP 1V EXAM: FRONTAL CHEST INDICATION: Shortness of breath, wheezing and crackles. COMPARISON: May 05, 2019. DISCUSSION: Cardiomegaly with mild central vascular congestion which is stable to mildly improved relative to the prior study. Stable small left pleural effusion. IMPRESSION: 1. Mild congestive heart failure stable slightly improved. Tanner Reilly MD 05/29/19 1159 Thank you for allowing us to participate in the care of your patient.
== END 2019-05-29 13:55 | disposition home or self-care (01) ==
LOC: VM.ED 10:54
DX: J44.1 Chronic obstructive pulmonary disease with (acute) exacerbation (principal); I10 Essential (primary) hypertension; E78.00 Pure hypercholesterolemia, unspecified; H54.8 Legal blindness, as defined in USA; Z79.899 Other long term (current) drug therapy; Z79.51 Long term (current) use of inhaled steroids
CPT/HCPCS: 36415; 71045; 80053; 85025; 99284-GF; 99285-25

== ENCOUNTER 2019-06-02 23:28 | Emergency (ER) | payer MEDICARE, MEDICAID ==
--- NOTE | 2019-06-02 23:47 | EDM.PDOC ---
ED HPI GENERAL MEDICAL PROBLEM - General Chief Complaint: Respiratory Problem Stated Complaint: SOB decressed responsivness Time Seen by Provider: 06/02/19 23:35 Source of Information: Reports: EMS, Family, Other (Her brother) History Limitations: Reports: Language Barrier, Other (Patient only speaks Yi) - History of Present Illness INITIAL COMMENTS - FREE TEXT/NARRATIVE: Patient only speaks Yi EMS was called out due to shortness of breath and decreased responsiveness states upon arrival the patient would not even register on the O2 sat monitor after placing on CPAP and 1 DuoNeb jet neb treatment her sats went to the 80s respiratory rate was in the 40s she was normotensive with a heart rate in the 80s She was on 1.5 L/min nasal cannula upon arrival and is only taken 1 jet neb today states she does not like to take them per EMS secondary to the jitteriness of the medication She was seen here Tuesday in the ER and discharged home with the same issues Duration: Hour(s): Improves with: Reports: Other (Oxygen and nebulizer) Associated Symptoms: Reports: Shortness of Breath. Denies: Confusion, Chest Pain, Cough, Fever/Chills, Malaise, Nausea/Vomiting, Syncope, Weakness - Related Data Allergies Allergy/AdvReac Type Severity Reaction Status Date / Time No Known Allergies Allergy Verified 06/03/19 00:43 Home Meds: Home Meds Simvastatin [Zocor] 20 mg PO BEDTIME 07/26/18 [History] amLODIPine Besylate [Amlodipine Besylate] 10 mg PO DAILY 07/26/18 [History] Acetaminophen [Tylenol Extra Strength] 500 mg PO Q4H PRN tablet 02/24/19 [Rx] Albuterol [Proventil Neb Soln] 2.5 mg NEB Q4H PRN neb 02/24/19 [Rx] Albuterol/Ipratropium [DuoNeb 3.0-0.5 MG/3 ML] 3 ml NEB QIDRT neb 02/24/19 [Rx] Calcium Carbonate/Vitamin D3 [Calcium Carbonate/Vitamin D 1250 MG-200 Unit] 1 tab PO DAILY tablet 02/24/19 [Rx] Melatonin 3 mg PO BEDTIME tablet 02/24/19 [Rx] Montelukast [Singulair] 10 mg PO BEDTIME tablet 02/24/19 [Rx] QUEtiapine [SEROquel] 100 mg PO BEDTIME tablet 02/24/19 [Rx] Pantoprazole [ProTONIX] 40 mg PO BEDTIME tab.cr 03/01/19 [Rx] Camphor/Menthol [Sarna Lotion] 0 ml TOP QID PRN bottle 03/20/19 [Rx] Budesonide [Pulmicort] 0.5 mg NEB BID 06/03/19 [History] Past Medical History HEENT History: Reports: Impaired Vision (legally blind), Sinusitis Other HEENT History: Bilaeraly blind Cardiovascular History: Reports: CAD, High Cholesterol, Hypertension Respiratory History: Reports: Asthma, COPD, Pneumonia, Recurrent Other Respiratory History: hx of respiratory failure Gastrointestinal History: Reports: None Genitourinary History: Reports: None Musculoskeletal History: Reports: None Neurological History: Reports: None Psychiatric History: Reports: None Other Endocrine/Metabolic History: hyoerlipidemia, impaired fasting glucose Hematologic History: Reports: Anemia Dermatologic History: Reports: Psoriasis - Infectious Disease History Infectious Disease History: Reports: MRSA Other Infectious Disease History: septic shock - Past Surgical History HEENT Surgical History: Reports: None Cardiovascular Surgical History: Reports: Other (See Below) Other Cardiovascular Surgeries/Procedures: cardiac cath left Social & Family History - Family History Family Medical History: Noncontributory - Caffeine Use Caffeine Use: Reports: Coffee ED ROS GENERAL - Review of Systems Review Of Systems: See Below (Review of systems with EMS and her brother unable to obtain from the patient secondary to condition and language barrier) Constitutional: Denies: Fever, Chills, Malaise, Weakness, Fatigue, Weight Loss, Weight Gain HEENT: Reports: No Symptoms Respiratory: Reports: Shortness of Breath. Denies: Wheezing Cardiovascular: Reports: No Symptoms Endocrine: Reports: No Symptoms GI/Abdominal: Reports: No Symptoms : Reports: No Symptoms Musculoskeletal: Reports: No Symptoms Skin: Reports: No Symptoms Neurological: Reports: No Symptoms, Other (Decreased responsiveness not responding fully to questions per brother has been going on almost all day) Hematologic/Lymphatic: Reports: No Symptoms Immunologic: Reports: No Symptoms ED EXAM, GENERAL - Physical Exam Exam: See Below Exam Limited By: Language Barrier General Appearance: Alert, Mild Distress, Other (Patient will open her eyes and look around and then quickly closes them she is noted to be in mild respiratory distress respiratory rate varies from 34-44 satting 100% on CPAP on 10 L she is normotensive heart rate is 66) Throat/Mouth: Normal Inspection, Normal Lips, Normal Oropharynx, No Airway Compromise, Other (Dry mucous membranes) Neck: Normal Inspection, Supple, Full Range of Motion. No: Lymphadenopathy (L) , Lymphadenopathy (R) Respiratory/Chest: Lungs Clear (Lungs are clear although she has decreased air movement in all lobes), No Accessory Muscle Use, Chest Non-Tender, Decreased Breath Sounds. No: No Respiratory Distress, Crackles, Rales, Rhonchi, Wheezing , Accessory Muscle Use, Retractions Cardiovascular: Normal Peripheral Pulses, Regular Rate, Rhythm, No Gallop, No JVD, No Murmur, No Rub, Other (2+ bilateral pedal edema). No: No Edema GI/Abdominal: Normal Bowel Sounds, Soft, Non-Tender, No Distention Extremities: No: No Pedal Edema Skin Exam: Warm, Dry, Intact, Normal Color Course - Vital Signs Text/Narrative:: Spoke with Dr. Norton hospitalist at [facility] states he will accept transfer patient wishes to start Rocephin and Zithromax prophylactically at 1:20 AM Patient was rechecked multiple times respiratory rate has decreased to 22 satting 93% on BiPAP heart rate 70s patient does look better overall Last Recorded V/S: Last Vital Signs Temp 36.4 C 06/03/19 01:10 Pulse 78 06/02/19 23:30 Resp 34 H 06/03/19 02:00 BP 123/55 L 06/03/19 02:00 Pulse Ox 95 06/03/19 02:00 - Orders/Labs/Meds Labs: Laboratory Tests 06/02/19 06/02/19 06/03/19 Range/Units 23:55 23:55 00:23 WBC 11.3 H (4.0-10.0) x10^3/uL RBC 4.71 (4.00-5.50) x10^6/uL Hgb 10.1 L (12.0-16.0) g/dL Hct 36.5 (33.0-47.0) % MCV 77.5 L D (78.0-93.0) fL MCH 21.4 L (26.0-32.0) pg MCHC 27.7 L (32.0-36.0) g/dL RDW Coeff of Sebastian 19.9 H (10.0-15.0) % Plt Count 302 (130-400) x10^3/uL Neut % (Auto) 85.4 H (50.0-80.0) % Lymph % (Auto) 7.5 L (25.0-50.0) % Bates % (Auto) 5.0 (2.0-11.0) % Eos % (Auto) 1.7 (0.0-4.0) % Baso % (Auto) 0.4 (0.2-1.2) % POC VBG pH 7.16 L (7.31-7.41) POC VBG pCO2 111 H (41-51) POC VBG pO2 169 POC VBG HCO3 40 H (23-28) POC VBG Total CO2 43 H (24-29) POC VBG Base Excess 11 H ((-2) - 3) POC FiO2 0.90 Sodium 151 H (136-145) mmol/L Potassium 5.4 H D (3.5-5.1) mmol/L Chloride 108 H (98-107) mmol/L Carbon Dioxide 37 H (21-32) mmol/L Anion Gap 11.4 (10-20) mmol/L BUN 17 (7-18) mg/dL Creatinine 1.0 (0.55-1.02) mg/dL Est Cr Clr Drug Dosing TNP Estimated GFR (MDRD) 55 Glucose 142 H (74-106) mg/dL Lactic Acid (0.4-2.0) mmol/L Calcium 8.0 L (8.5-10.1) mg/dL Urine Color (YELLOW) Urine Appearance (CLEAR) Urine pH (5.0-8.0) Ur Specific Arnold Urine Protein (NEGATIVE) mg/dL Urine Glucose (UA) (NEGATIVE) mg/dL Urine Ketones (NEGATIVE) mg/dL Urine Occult Blood (NEGATIVE) Urine Nitrite (NEGATIVE) Urine Bilirubin (NEGATIVE) Urine Urobilinogen (0.2) EU/dL Ur Leukocyte Esterase (NEGATIVE) 06/03/19 06/03/19 Range/Units 01:35 01:52 WBC (4.0-10.0) x10^3/uL RBC (4.00-5.50) x10^6/uL Hgb (12.0-16.0) g/dL Hct (33.0-47.0) % MCV (78.0-93.0) fL MCH (26.0-32.0) pg MCHC (32.0-36.0) g/dL RDW Coeff of Sebastian (10.0-15.0) % Plt Count (130-400) x10^3/uL Neut % (Auto) (50.0-80.0) % Lymph % (Auto) (25.0-50.0) % Bates % (Auto) (2.0-11.0) % Eos % (Auto) (0.0-4.0) % Baso % (Auto) (0.2-1.2) % POC VBG pH (7.31-7.41) POC VBG pCO2 (41-51) POC VBG pO2 POC VBG HCO3 (23-28) POC VBG Total CO2 (24-29) POC VBG Base Excess ((-2) - 3) POC FiO2 Sodium (136-145) mmol/L Potassium (3.5-5.1) mmol/L Chloride (98-107) mmol/L Carbon Dioxide (21-32) mmol/L Anion Gap (10-20) mmol/L BUN (7-18) mg/dL Creatinine (0.55-1.02) mg/dL Est Cr Clr Drug Dosing Estimated GFR (MDRD) Glucose (74-106) mg/dL Lactic Acid 0.8 (0.4-2.0) mmol/L Calcium (8.5-10.1) mg/dL Urine Color Yellow (YELLOW) Urine Appearance Clear (CLEAR) Urine pH 5.5 (5.0-8.0) Ur Specific Arnold >=1.030 Urine Protein >=300 H (NEGATIVE) mg/dL Urine Glucose (UA) Negative (NEGATIVE) mg/dL Urine Ketones Negative (NEGATIVE) mg/dL Urine Occult Blood Small H (NEGATIVE) Urine Nitrite Negative (NEGATIVE) Urine Bilirubin Negative (NEGATIVE) Urine Urobilinogen 0.2 (0.2) EU/dL Ur Leukocyte Esterase Negative (NEGATIVE) Meds: Medications Discontinued Medications Generic Name Dose Route Start Last Admin Trade Name Freq PRN Reason Stop Dose Admin Ceftriaxone Sodium 1 gm 06/03/19 01:20 06/03/19 01:25 Rocephin IVPUSH 02/02/20 01:21 1 gm ONETIME ONE Administration Dexamethasone 4 mg 06/03/19 00:02 06/03/19 01:20 Dexamethasone IVPUSH 06/03/19 00:03 Not Given ONETIME ONE Dexamethasone Confirm 06/03/19 00:16 06/03/19 00:15 Dexamethasone Administered 06/03/19 00:17 4 mg Dose Administration 4 mg .ROUTE .STK-MED ONE Azithromycin 500 mg/ Sodium 250 mls @ 250 mls/hr 06/03/19 01:19 06/03/19 01: 37 Chloride IV 06/03/19 02:18 250 mls/hr STAT ONE Administration Sodium Chloride 1,000 mls @ 100 mls/hr 06/03/19 01:30 06/03/19 01:38 Normal Saline IV 100 mls/hr ASDIRECTED GREG Administration Methylprednisolone Sodium Succinate 125 mg 06/03/19 00:00 06/03/19 00:10 Solu-Medrol IVPUSH 06/03/19 00:01 125 mg ONETIME ONE Administration Departure - Departure Time of Disposition: 01:20 Disposition: DC/Tfer to [facility] 02 Condition: Fair Clinical Impression: Respiratory distress, Hypoxia - Discharge Information *PRESCRIPTION DRUG MONITORING PROGRAM REVIEWED*: No *COPY OF PRESCRIPTION DRUG MONITORING REPORT IN PATIENT MINH: No Referrals: PCP,Unobtain [Primary Care Provider] - Forms: ED Department Discharge, Interfacility Transfer [facility] Sepsis Event Note - Focused Exam Date Exam was Performed: 06/04/19 Time Exam was Performed: 10:56 - Problem List & Annotations (1) Hypoxia SNOMED Code(s): 831053444 Code(s): R09.02 - HYPOXEMIA Status: Acute (2) Respiratory distress SNOMED Code(s): 743220672 Code(s): R06.03 - ACUTE RESPIRATORY DISTRESS Status: Acute (3) Respiratory acidosis SNOMED Code(s): 06001286 Code(s): E87.2 - ACIDOSIS Status: Acute
[2019-06-03] MEDS ORDERED: methylPREDNISolone Sodium Succinate 125 MG/2 ML SDV IM ONE (00:02)
[2019-06-03] MEDS: methylPREDNISolone Sodium Succinate 125 MG/2 ML SDV IVPUSH ONE (00:10)
[2019-06-03] MEDS: Dexamethasone 4 MG/ML SDV ONE (00:15)
[2019-06-03 00:30] LABS: CHLORIDE,CL 108 mmol/L (98-107); SODIUM,NA 151 mmol/L (136-145)
[2019-06-03 00:32] LABS: ANION GAP 11.4 mmol/L (10-20)
[2019-06-03] MEDS ORDERED: cefTRIAXone 1 GM Vial IVPUSH ONE (01:18)
[2019-06-03] MEDS: Dexamethasone 10 MG/ML SDV IVPUSH ONE (01:20)
[2019-06-03] MEDS: cefTRIAXone 1 GM Vial IVPUSH ONE (01:25)
[2019-06-03] MEDS: Azithromycin 500 MG in Sodium Chloride 0.9% 250 ML IV ONE (01:37)
[2019-06-03] MEDS: Sodium Chloride 0.9% 1,000 ML IV SCH (01:38)
--- NOTE | 2019-06-03 08:52 | CR ---
[id number] RAD/RAD Chest PA or AP 1V EXAM: FRONTAL CHEST INDICATION: RESP. DISTRESS COMPARISON: May 29, 2019. DISCUSSION: Cardiomegaly with mild central vascular congestion which is not significantly changed compared to the prior study. Trace bilateral pleural effusions. IMPRESSION: Central pulmonary vascular congestion in the setting of enlarged heart. Tino Macias DO 06/03/19 0851 Thank you for allowing us to participate in the care of your patient.
== END 2019-06-03 02:35 | disposition short-term general hospital (02) ==
LOC: VM.ED 23:28
DX: R09.02 Hypoxemia (principal); R06.03 Acute respiratory distress; I25.10 Atherosclerotic heart disease of native coronary artery without angina pectoris; E78.00 Pure hypercholesterolemia, unspecified; I10 Essential (primary) hypertension; J44.9 Chronic obstructive pulmonary disease, unspecified; E78.5 Hyperlipidemia, unspecified; Z79.899 Other long term (current) drug therapy; Z87.01 Personal history of pneumonia (recurrent)
CPT/HCPCS: 36415; 71045; 80048; 81003; 82803; 83605; 85025; 96365; 96375; 99284-GF; 99285-25; J0456; J0696; J1100; J2930; J7030; J7050